=== PATIENT | female | born 1935 | race Caucasian/White ===

== ENCOUNTER 2016-10-25 15:58 | Inpatient (IN) | payer OTHER, MEDICARE ==
[~2016-10-25] VITALS: Ht 149.9 cm; Wt 41.3 kg
[~2016-10-25 15:58] MED LIST: ALPRAZOLAM0.5 MG PO; LOPRESSOR 25MG25 MG PO; MACROBID100 MG PO; NORVASC 5MG TAB5 MG PO; PANTOPRAZOLE SO20 MG PO; PROAIR HFA0.09 MG/Ac PO; SIMVASTATIN10 MG PO; VITAMIN D1000 IU PO
--- NOTE | 2016-10-25 16:06 | NUR ---
PT TO ED FOR AMS, PT ONLY ALERT TO SELF, NORMALLY ALERT AND ORIENTED X 4, PT UNABLE TO VERBALIZE BIRTHDAY, WHERE SHE IS RIGHT NOW. PER FRIEND, PT "SOUNDED FUNNY ON THE PHONE LAST NIGHT BUT SHE JUST SAID SHE WAS TIRED, I CHECKED ON HER TODAY AND SHES COMPLETELY DISORIENTED."
--- NOTE | 2016-10-25 16:27 | ED GENERAL ADULT ---
History of Present Illness General Chief Complaint: Altered Mental Status Stated Complaint: AMS SINCE LAST NIGHT Source: patient Exam Limitations: no limitations Vital Signs & Intake/Output Vital Signs & Intake/Output Vital Signs Date Time Temp Pulse Resp B/P Pulse O2 O2 Flow FiO2 Ox Delivery Rate 10/29 0958 114/60 10/29 0859 Room Air 10/29 0800 97.0 90 20 110/52 94 Room Air 10/29 0000 Room Air 10/28 2040 84 112/40 10/28 1619 97.6 76 17 111/42 95 Room Air 10/28 1600 95 Room Air ED Intake and Output 10/29 0000 10/28 1200 Intake Total 930 100 Output Total 800 300 Balance 130 -200 Intake, IV 80 Intake, Oral 850 100 Number 1 Bowel Movements Output, Urine 800 300 Patient 90 lb 15.19 oz Weight Allergies Coded Allergies: Penicillins (UNKNOWN 08/19/16) Triage Note: PT TO ED FOR AMS, PT ONLY ALERT TO SELF, NORMALLY ALERT AND ORIENTED X 4, PT UNABLE TO VERBALIZE BIRTHDAY, WHERE SHE IS RIGHT NOW. PER FRIEND, PT "SOUNDED FUNNY ON THE PHONE LAST NIGHT BUT SHE JUST SAID SHE WAS TIRED, I CHECKED ON HER TODAY AND SHES COMPLETELY DISORIENTED." Triage Nurses Notes Reviewed? yes HPI: This patient is an 81-year-old female with a past medical history including hyperlipidemia, hypertension, COPD, and hyponatremia who is brought into the emergency department by ambulance for evaluation of altered mental status. The patient's long-time friend is currently at the bedside. The patient's friend reported, "I talked to her on the phone, maybe 5-10 times a day." She reported that last night when she called this patient, the patient stated that she was tired. She called the patient this morning and the patient said that she was still tired. She tried calling the patient a little while later and got the answering machine. She reported that this is not normal for this patient because she is typically at her house and she thinks for maybe 10 minutes once a day to get her lottery ticket at the corner store. The patient picked up the phone later and said that she was still not feeling well. At this time, the patient's friend reported that she sounded like she was mumbling and may be slurring her words. The patient's friend was at work at that time, so she called the police around 1:00 in the afternoon to go check the patient. They called back and said, "she was fine." The patient's friend saw the patient catheter work and reported she knew something was wrong. She reported that she was very disoriented and she did not know where she was. She reported that this patient is normally very confident. She walks and drives without assistance. The patient lives at home by herself. The patient is denying any pain. She reported, "I just feel lousy." She reported that her left leg, "felt funny," today. She denied any headaches, visual changes, chest pain, difficulty breathing, abdominal pain, nausea, vomiting, or any other associated symptoms. (TAYLOR NOBLES PA-C) Reconcile Medications Alprazolam 0.25 MG TABLET 1 TAB PO BID PRN ANXIETY (Reported) Amlodipine (Norvasc 5MG Tab) 5 MG TABLET 1 TAB PO DAILY HYPERTENSION ( Reported) Apixaban (Eliquis) 2.5 MG TABLET 1 TAB PO BID anticoagulant Atorvastatin Calcium 40 MG TABLET 1 TAB PO 1700 High cholestrol Cholecalciferol (Vitamin D3) 1,000 UNIT TABLET 1 TAB PO DAILY SUPPLEMENT ( Reported) Metoprolol Tartrate (Lopressor) 25 MG TABLET 1 TAB PO BID HTN (Reported) Pantoprazole Sodium 20 MG ECT 1 TAB PO DAILY GI (Reported) Simvastatin (Zocor) 10 MG TABLET 1 TAB PO QPM CHOLESTEROL (Reported) (SAMIA ZIMMERMAN,VICENTE) Past History Travel History Traveled to [place] past 21 day No Medical History Any Pertinent Medical History? 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 No (TAYLOR NOBLES PA-C) Review of Systems Review of Systems Constitutional: Reports: see HPI. EENTM: Reports: no symptoms. Respiratory: Reports: no symptoms. Cardiovascular: Reports: no symptoms. GI: Reports: no symptoms. Genitourinary: Reports: no symptoms. Musculoskeletal: Reports: no symptoms. Skin: Reports: no symptoms. Neurological/Psychological: Reports: see HPI. All Other Systems: Reviewed and Negative (GIULIANO SALDANA,TAYLOR) Physical Exam Physical Exam General Appearance: well developed/nourished, no apparent distress, alert, awake Comments: Well-developed well-nourished person in no acute distress HEENT: Normal EENT exam, head normocephalic/atraumatic, moist mucous membranes PERRLA bilaterally Neck: Supple, no lymphadenopathy Back: Normal inspection. No midline tenderness Cardiovascular: Regular rate and rhythm with no murmurs, rubs, or gallops. No JVD. No carotid bruits Respiratory: Chest nontender. No respiratory distress. Scattered expiratory wheezes in the apices. No rhonchi or rales. No diminished breath sounds Abdomen: Soft, nontender and nondistended with no organomegaly Extremity: No edema, no calf tenderness to palpation, normal and equal pulses. Neuro: Alert oriented to person only. Cranial nerves II through XII grossly intact. No aphasia. No unilateral weakness. Left-sided facial droop noted. No pronator drift Skin: No appreciable rash on exposed skin, skin is warm and dry. Psych: Mood and affect is normal Core Measures ACS in differential dx? Yes CVA/TIA Diagnosis: Yes Severe Sepsis Present: No Septic Shock Present: No (GIULIANO SALDANA,TAYLOR) Progress Differential Diagnoses I considered the following diagnoses in my evaluation of the patient: [TIA/CVA, ACS, pneumonia, urinary tract infection, pyelonephritis, influenza, encephalitis ] Plan of Care: Orders Procedure Date/time Status MAGNESIUM 10/29 0854 Active Therapeutic Exercise 10/28 UNK Complete Gait Training 10/28 UNK Complete Therapeutic Activity 10/28 UNK Complete OT EVAL LOW COMPLEX 30 MIN 10/28 UNK Complete Nursing Misc 10/28 UNK Active Current Medications Sig/Aspen Start time Last Medication Dose Stop Time Status Admin Acetaminophen 650 MG Q6 PRN 10/25 2100 AC (Tylenol) Laboratory Tests 10/28/16 1930: APTT Cancelled Patient seen and examined with YANETH Nobles. Patient presents with acute confusion and word finding difficulties. CT scan is negative for strep but I strongly feel she has had a neurologic event. She'll be admitted to telemetry under Dr. Coronel's service for MRI, neuro consultation. (SAMIA ZIMMERMAN,VICENTE) Diagnostic Imaging: Viewed by Me: Radiology Read, CT Scan. Discussed w/RAD: Radiology Read, CT Scan. Radiology Impression: PATIENT: NATHALIE MCKEON PRESENT AGE: 81 PATIENT ACCOUNT NO: [id number] : 33 LOCATION: ER ORDERING PHYSICIAN: TAYLOR NOBLES PA-C SERVICE DATE: 10/25/16 EXAM TYPE: CAT - CT HEAD WO IV CONTRAST EXAMINATION: CT HEAD WITHOUT CONTRAST CLINICAL INFORMATION: Altered mental status. Evaluate for intracranial hemorrhage or mass. COMPARISON: CT scan of the head 07/23/2012. TECHNIQUE: Contiguous axial imaging was performed from the skull base to vertex without intravenous administration of contrast. DLP: 529.16 mGy-cm. FINDINGS: There is no acute intracranial hemorrhage or abnormal extra-axial collection. No intracranial mass effect or midline shift. Lateral and third ventricles are normal. No hydrocephalus. There is a chronic lacunar infarct within the right thalamus that remains unchanged when compared to the 07/23/2012 examination. Ill-defined foci of hypoattenuation are visualized throughout the periatrial white matter that most likely represent a chronic manifestation of small vessel ischemia. Connelly- white matter differentiation is grossly preserved and there is no evidence of acute territorial infarct. The calvarium and skull base are intact. Mastoid air cells and middle ear cavities are well aerated. Fluid layers within both maxillary sinuses. The paranasal sinuses are otherwise well aerated. IMPRESSION: There are scattered nonspecific changes within the periventricular white matter that most likely represent a chronic manifestation of small vessel ischemia. No evidence of acute territorial infarct or hemorrhage. DICTATED BY: HERBERT SCHULTZ MD DATE/TIME DICTATED:10/25/161647 CHAIR CANER:VITA DATE/ TIME TRANSCRIBED:10/25/161647 CONFIDENTIAL, DO NOT COPY WITHOUT APPROPRIATE AUTHORIZATION. <Electronically signed in Other Vendor System> SIGNED BY: HERBERT SCHULTZ MD 10/25/161654, PATIENT: NATHALIE MCKEON PRESENT AGE: 81 PATIENT ACCOUNT NO: [id number] : 33 LOCATION: [facility] ORDERING PHYSICIAN: TAYLOR NOBLES PA-C SERVICE DATE: 10/25/16 EXAM TYPE: RAD - XRY-CHEST XRAY, PA AND LATERAL EXAMINATION: XR CHEST CLINICAL INFORMATION: Signs and symptoms of pneumonia. COMPARISON: 06/30/2015. TECHNIQUE: PA and lateral views of the chest were obtained. FINDINGS: Heart appears enlarged. Exam was somewhat rotated towards the right side with a tortuous descending thoracic aorta. There is moderate atherosclerotic changes in the aorta. The cardiomediastinal silhouette is otherwise within normal limits. The lungs remain hyperexpanded and clear without evidence of a focal infiltrate or significant atelectasis. No pleural effusion is seen. There is no evidence of pneumothorax or pulmonary edema. Included osseous structures appear osteopenic. IMPRESSION: Moderate COPD changes without evidence of an acute intrathoracic process. The heart appears mildly enlarged DICTATED BY: JAMIA PEARSON MD DATE /TIME DICTATED:10/25/161701 CHAIR CANER:VITA DATE/TIME TRANSCRIBED: 10/25/161701 CONFIDENTIAL, DO NOT COPY WITHOUT APPROPRIATE AUTHORIZATION. < Electronically signed in Other Vendor System> SIGNED BY: JAMIA PEARSON MD 10/25/161709 Initial ED EKG: normal axis, LVH, no ST T wave changes, 66 BPM, SINUS ARRHYTHMIA Comments: 10/25/2016 7:00:59 PM: After data was at the patient's bedside [id number] evaluation. This patient will need to be admitted to telemetry to rule out TIA/ CVA. Officially signed out to Dr. Whitaker for telemetry admission. (GIULIANO SALDANA,TAYLOR) Differential Diagnoses I considered the following diagnoses in my evaluation of the patient: (SAMIA ZIMMERMAN,VICENTE) Departure Departure Condition: Stable Referrals: TORIBIO LOO MD (PCP/Family) Departure Forms: Customer Survey General Discharge Information Admission Note Spoke With: ADRIANNE CORONEL MD Documentation of Exam: Documentation of any treatments & extenuating circumstances including Concerns Regarding Discharge (functional status, medication knowledge or non-compliance, living conditions, etc.) that warrant an admission rather than observation: [ This patient is an 81-year-old female who presented to the emergency department today brought in by ambulance for evaluation of altered mental status. This patient has a left-sided facial droop. Having difficulty with word finding. Slurred speech according to this patient's friend. This patient will need to be admitted to the hospital to telemetry to rule out TIA/CVA. She will need MRI of the brain, neurology consultation, Trend labs, follow-up blood cultures, IV fluids, PT consultation, and close monitoring. Premature discharge could prove medically harmful.] (GIULIANO SALDANA,TAYLOR) Departure Time of Disposition: 1924 Disposition: STILL A PATIENT Clinical Impression Primary Impression: CVA (cerebral vascular accident) Prescriptions: Current Visit Scripts Atorvastatin Calcium 1 TAB PO 1700 #30 Apixaban (Eliquis) 1 TAB PO BID #30 PA/FRUIT DISTRIBUTOR Co-Sign Statement Statement: ED Attending supervision documentation- [X] I saw and evaluated the patient. I have also reviewed all the pertinent lab results and diagnostic results. I agree with the findings and the plan of care as documented in the PA's/FRUIT DISTRIBUTOR's documentation. [X] I have reviewed the ED Record and agree with the PA's/FRUIT DISTRIBUTOR's documentation. [] Additions or exceptions (if any) to the PAs/FRUIT DISTRIBUTOR's note and plan are summarized below: [] (SAMIA ZIMMERMAN,VICENTE) Critical Care Note Critical Care Note Critical Care Time: non-applicable (GIULIANO SALDANA,TAYLOR)
[2016-10-25 16:37] LABS: ABSOLUTE BASOPHIL COUNT 0 /CUMM (0.0-0.2); ABSOLUTE EOSINOPHIL COUNT 0 /CUMM (0.0-0.7); ABSOLUTE GRANULOCYTE CT 8.6 /CUMM (1.4-6.5); ABSOLUTE LYMPH COUNT 1.8 /CUMM (1.2-3.4); ABSOLUTE MONOCYTE COUNT 1.7 /CUMM (0.10-0.60); BASOPHIL % 0.3 % (0.0-2.0); EOSINOPHIL % 0 % (0-5); GRANULOCYTE % 71.5 % (42.2-75.2); HEMATOCRIT 30.9 % (37-47); MEAN CORPUSCULAR HGB 29.9 PG (27.0-31.0); MEAN CORPUSCULAR HGB CONC 33.9 G/DL (33.0-37.0); MEAN CORPUSCULAR VOLUME 88.1 FL (81.0-99.0); PLATELET COUNT 286 /CUMM (130-400); RBC DISTRIBUTION WIDTH 14.6 % (11.5-14.5); RED BLOOD CELL CT 3.51 /CUMM (4.20-5.40); WHITE BLOOD CELL COUNT 12.1 /CUMM (4.8-10.8)
--- NOTE | 2016-10-25 16:55 | CT SCAN REPORT ---
EXAMINATION: CT HEAD WITHOUT CONTRAST CLINICAL INFORMATION: Altered mental status. Evaluate for intracranial hemorrhage or mass. COMPARISON: CT scan of the head 07/23/2012. TECHNIQUE: Contiguous axial imaging was performed from the skull base to vertex without intravenous administration of contrast. DLP: 529.16 mGy-cm. FINDINGS: There is no acute intracranial hemorrhage or abnormal extra-axial collection. No intracranial mass effect or midline shift. Lateral and third ventricles are normal. No hydrocephalus. There is a chronic lacunar infarct within the right thalamus that remains unchanged when compared to the 07/23/2012 examination. Ill-defined foci of hypoattenuation are visualized throughout the periatrial white matter that most likely represent a chronic manifestation of small vessel ischemia. Connelly-white matter differentiation is grossly preserved and there is no evidence of acute territorial infarct. The calvarium and skull base are intact. Mastoid air cells and middle ear cavities are well aerated. Fluid layers within both maxillary sinuses. The paranasal sinuses are otherwise well aerated. IMPRESSION: There are scattered nonspecific changes within the periventricular white matter that most likely represent a chronic manifestation of small vessel ischemia. No evidence of acute territorial infarct or hemorrhage.
--- NOTE | 2016-10-25 17:10 | RADIOLOGY REPORT ---
EXAMINATION: XR CHEST CLINICAL INFORMATION: Signs and symptoms of pneumonia. COMPARISON: 06/30/2015. TECHNIQUE: PA and lateral views of the chest were obtained. FINDINGS: Heart appears enlarged. Exam was somewhat rotated towards the right side with a tortuous descending thoracic aorta. There is moderate atherosclerotic changes in the aorta. The cardiomediastinal silhouette is otherwise within normal limits. The lungs remain hyperexpanded and clear without evidence of a focal infiltrate or significant atelectasis. No pleural effusion is seen. There is no evidence of pneumothorax or pulmonary edema. Included osseous structures appear osteopenic. IMPRESSION: Moderate COPD changes without evidence of an acute intrathoracic process. The heart appears mildly enlarged
--- NOTE | 2016-10-25 17:11 | NUR ---
PT HAS IV NS INFUSING
--- NOTE | 2016-10-25 18:56 | NUR ---
PT COMPLETED IV NS AND RESTING, NOW A/O X2 TO SELF AND PLACE
--- NOTE | 2016-10-25 19:28 | NUR ---
ASSUMED CARE OF PT PER SCIENTIFIC RECRUITER TORSTEN. PT RESTING WITH RR, WILL CONTINUE TO MONITOR
--- NOTE | 2016-10-25 19:38 | History & Physical ---
CARLYLE ZIMMERMAN,[facility] [place] 10/25/161936: General Information and [facility] MD Statement: I have seen and personally examined NATHALIE MCKEON and documented this H&P. The patient is a 81 year old F who presented with a patient stated chief complaint of confusion. Source of Information: patient, old records Exam Limitations: clinical condition, confusion History of Present Illness: 81 y/o F with PMHx of HTN, HLD, COPD, pulmonary HTN, alcohol abuse in the past, chronic hyponatremia, anxiety and GERD who is brought in by her friend for acute onset of confusion. Most of the history is obtained from ED notes and patient's friend as patient is unable to provide accurate history. The night prior to current presentation, her long-time friend, who talks to her 5-6 times per day on a regular basis and is her next of kin, noticed that patient sounded confused over the phone. The next morning, her confusion was more noticeable over the phone and her speech was "garbled". Her friend called the police around 1 PM to check on the patient who found her to be fine after evaluation. She later went over to patient's apartment where she lives by herself to check up on her. She noted that patient was very disoriented and had defecated on herself, thus decided to bring her to the ED. In the ED, patient appeared confused and had expressive aphasia, and there was noone else at bedside to provide history. She appeared to have a left-sided facial droop. Patient reported that she had been unsteady on her feet for the past few days and experiencing speech difficulties, forgetfulness and vision problems. She denied chest pain, shortness of breath, lightheadedness, dizziness or headache. Patient lives at home by herself and does not get any services. Patient's friend has noted that for the past 6 months, she has deteriorated from her baseline. She has been eating very little and has lost 20 pounds in the last 2 years. Patient is an anxious person at baseline per her friend, but she has noted that patient is exceedingly anxious during this time. She reports that patient is a "nervous wreck" and is afraid to leave home to go to the store. She thinks that patient may be depressed. For the past week, she has been having a slight cough. Allergies/Medications Allergies: Coded Allergies: Penicillins (UNKNOWN 08/19/16) Home Med list Alprazolam 0.25 MG TABLET 1 TAB PO BID PRN ANXIETY (Reported) Amlodipine (Norvasc 5MG Tab) 5 MG TABLET 1 TAB PO DAILY HYPERTENSION ( Reported) Cholecalciferol (Vitamin D3) 1,000 UNIT TABLET 1 TAB PO DAILY SUPPLEMENT ( Reported) Metoprolol Tartrate (Lopressor) 25 MG TABLET 1 TAB PO BID HTN (Reported) Pantoprazole Sodium 20 MG ECT 1 TAB PO DAILY GI (Reported) Simvastatin (Zocor) 10 MG TABLET 1 TAB PO QPM CHOLESTEROL (Reported) Past History Travel History Traveled to [place] past 21 day No Medical History Neurological: NONE EENT: NONE Cardiovascular: hypertension, hyperlipidemia, pulmonary HTN Respiratory: COPD, lung nodule Gastrointestinal: GERD Hepatic: NONE Renal: NONE Musculoskeletal: NONE Psychiatric: anxiety, alcohol abuse Endocrine: osteoporosis, hyponatremia Blood Disorders: NONE Cancer(s): NONE CLOTH DYEING RANGE TENDER/Reproductive: NONE Surgical History Surgical History: non-contributory Past Family/Social History Family History Relations & Conditions if any SISTER FH: Alzheimers disease BROTHER FH: throat cancer Psychosocial History Where do you live? Home Who Do You Live With? self Services at Home: None Primary Language: Cymraes Smoking Status: Former Smoker (Quit >25 Years Ago) ETOH Use: denies use (history of alcohol abuse) Illicit Drug Use: denies illicit drug use Functional Ability ADLs Independent: dressing, eating, toileting, bathing. IADLs Independent: shopping, housework, finances, food prep, telephone, transportation , medication admin. 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 Denies: chills, fever. EENTM: Reports: visual changes. Cardiovascular: Denies: chest pain. Respiratory: Denies: short of breath. GI: Reports: bowel incontinence. Genitourinary: Reports: no symptoms. Musculoskeletal: Reports: no symptoms. Skin: Reports: no symptoms. Neurological/Psychological: Reports: see HPI, anxiety (per her friend), confusion, depressed (per her friend ). Denies: headache. Hematologic/Endocrine: Reports: no symptoms. Immunologic/Allergic: Reports: no symptoms. All Other Systems: Reviewed and Negative Exam & Diagnostic Data Last 24 Hrs of Vital Signs/I&O Vital Signs Date Time Temp Pulse Resp B/P Pulse O2 O2 Flow FiO2 Ox Delivery Rate 10/26 0841 98.4 68 18 106/50 93 Room Air 10/25 2143 97.6 58 18 102/54 94 Room Air 10/25 2044 96.4 62 18 106/58 96 Room Air 10/25 1910 96.4 60 18 101/49 94 10/25 1606 98.0 71 18 99/57 94 Room Air Intake & Output 10/26 1600 10/26 0800 10/26 0000 Intake Total 600 1000 Output Total 700 Balance 600 300 Intake, IV 600 1000 Intake, Oral 0 0 Output, Urine 700 Patient 40.8 kg Weight Physical Exam General Appearance Alert, Oriented to Person and Place, but Not Time, Able to Follow Commands Skin No Rashes HEENT PERRLA, Mucous Membr. moist/pink Cardiovascular Regular Rate, Normal S1, Normal S2 Lungs Clear to Auscultation Abdomen Soft, Nondistended, Positive Bowel Sounds, Mild Suprapubic Discomfort Neurological Left-Sided Facial Droop, Strength at 4/5 at All Four Extremities, Word Finding Difficulties and Expressive Aphasia Extremities No Clubbing, No Cyanosis, No Edema Last 24 Hrs of Labs/John: Laboratory Tests 10/26/16 0655: Anion Gap 7, Estimated GFR > 60, BUN/Creatinine Ratio 15.0, CBC w Diff NO MAN DIFF REQ, RBC 3.15 L, MCV 89.0, MCH 30.1, RDW 14.2, MPV 7.7, Gran % 80.1 H, Lymphocytes % 10.1 L, Monocytes % 9.4 H, Eosinophils % 0.3, Basophils % 0.1, Absolute Granulocytes 7.5 H, Absolute Lymphocytes 1.0 L, Absolute Monocytes 0.9 H, Absolute Eosinophils 0, Absolute Basophils 0, PUBS MCHC 33.8 10/25/166: Lactic Acid Cancelled 10/25/16 1735: Barbiturate Screen < 60, Urine Color YEL, Urine Clarity CLEAR, Urine pH 6.0, Ur Specific [place] 1.010, Urine Protein NEG, Urine Ketones NEG, Urine Nitrite NEG, Urine Bilirubin NEG, Urine Urobilinogen 0.2, Ur Leukocyte Esterase SMALL H, Ur Microscopic SEDIMENT EXAMINED, Urine RBC RARE, Urine WBC 5-10 H, Ur Epithelial Cells RARE, Urine Hemoglobin NEG, Urine Glucose NEG 10/25/16 1624: Lactic Acid 0.9 10/25/16 1624: Anion Gap 12, Estimated GFR 47 L, BUN/Creatinine Ratio 13.6, Glucose 96, Calcium 8.6, Total Bilirubin 1.0, AST 17, ALT 18, Alkaline Phosphatase 70, Troponin I 0.02, Total Protein 7.0, Albumin 3.4 L, Globulin 3.6, Albumin/ Globulin Ratio 0.9 L, CBC w Diff NO MAN DIFF REQ, RBC 3.51 L, MCV 88.1, MCH 29.9, RDW 14.6 H, MPV 7.0 L, Gran % 71.5, Lymphocytes % 14.5 L, Monocytes % 13.7 H, Eosinophils % 0, Basophils % 0.3, Absolute Granulocytes 8.6 H, Absolute Lymphocytes 1.8, Absolute Monocytes 1.7 H, Absolute Eosinophils 0, Absolute Basophils 0, PUBS MCHC 33.9 Microbiology 10/25 1753 BLOOD: Blood Culture - RECD 10/25 1740 BLOOD: Blood Culture - RECD 10/25 1735 URINE ROUT: Urine Culture - RECD Diagnostic Data EKG Results Normal sinus rhythm Heart rate 66 No significant change from prior QTc 441 CXR Results Moderate COPD changes without evidence of an acute intrathoracic process. The heart appears mildly enlarged. Other Results CT HEAD: There are scattered nonspecific changes within the periventricular white matter that most likely represent a chronic manifestation of small vessel ischemia. No evidence of acute territorial infarct or hemorrhage. Assessment/Plan Assessment: 81 y/o F with PMHx of COPD, HTN and HLD who presents with confusion. #Confusion: Likely represents CVA or TIA in the setting of left-sided facial droop, expressive aphasia and word finding difficulties. CT Head with chronic changes consistent with small vessel ischemia but no acute infarct. Patient is past the window for TPA as symptoms started almost 1 day ago. * Neurology consult in the AM. Appreciate their recs. * Neuro checks Q6H. * Carotid Doppler US to evaluate for carotid artery stenosis. * ECHO to assess for embolic source. * MRI Brain W & W/O RADHA ordered to evaluate for acute infarct. * Check lipid panel. * PT/OT eval. * NPO pending official swallow eval. * Aspirin 81 mg PO QD and atorvastatin 40 mg PO QD. * Allow for permissive HTN in the setting of suspected stroke with SBP goal of > 150. #UTI: UA with positive leukocyte esterase and 5-10 WBCs, mild suprapubic discomfort on exam and leukocytosis (WBC 12.1) suspicious for UTI. * BCx and UCx ordered. * Start ceftriaxone 1 g IV QD. * Gentle hydration with NS @ 75 cc/hr. #HTN: Takes amlodipine 5 mg PO QD and metoprolol 25 mg PO BID. * Holding prior to admission anti-hypertensive medications in light of permissive HTN goal. #COPD: Not on home oxygen. History of significant smoking up to 1.5 PPD, but quit >25 years ago. * Albuterol PRN. GERD: On pantoprazole 20 mg PO QD at home. * Prilosec 20 mg PO AC. Diet: NPO Fluids: NS @ 75 cc/hr DVT PPx: HSQ and ALPs CODE: DNR/DNI As Ranked By This Provider Problem List: 1. Confusion 2. UTI (urinary tract infection) 3. HTN (hypertension) 4. COPD (chronic obstructive pulmonary disease) 5. GERD 6. Hyperlipidemia Core Measures/Miscellaneous Acute Coronary Syndrome ACS Diagnosis: No Cerebrovascular Accident CVA/TIA Diagnosis: Yes NIH Stroke Scale: Total 4 Date Last Known Well: 10/24/16 Time Last Known Well: 0000 (Unknown) Neurological S/S of CVA: Acute Confusion, Difficulty Speaking, Facial Hemiparesis, Slurred Speech Symptom Start Date: 10/24/16 Symptom Start Time: 0000 (At Night) Reason tPA not ordered Medical Contraindication (Past the Window) Bedside Swallow Eval Done: Yes Result of Evaluation: Pass Antithrombotic: Yes AFIB: No Aflutter: No Anticoagulant: No No Anticoag d/t: Medical Contraindication (No Evidence of Embolic Disease) Evidence of Atherosclerosis: Yes LDL Assessed Within 24 Hours: Yes Currently on Statin: Yes Rehab Needs Assessed: Medical Eval for Rehab (PT/OT Eval Ordered) PT Consult Ordered: Yes Congestive Heart Failure CHF Diagnosis: No Venous Thromboembolism VTE Risk Factors: Acute medical illness, Age > 40 VTE Prophylaxis Ordered Inpt: Mech & Pharm No Mech VTE prophylaxis d/t: No contraindications No VTE Pharm Prophylaxis d/t: No contraindications VTE Diagnosis: No VTE Type: NONE VTE Confirmed by (Test): NONE Severe Sepsis Severe Sepsis Present: No Septic Shock Septic Shock Present: No Miscellaneous Documentation Attending Case Discussed With: ADRIANNE CATALAN MD Primary Care Physician: TORIBIO LOO MD Patient sees these Specialists Mobile Ui Developer Asim Vergara MD Mental Health Associate Donna Forte MD Level of Patient Care: Telemetry [facility] NAPIER 10/25/162024: Resident Review Statement Resident Statement: examined this patient, discussed with risk intern, agreed with risk intern Other Findings: Patient is a 81-year-old woman with a past medical history significant for hypertension, hyperlipidemia, COPD, chronic hyponatremia(Primary polydipsia) presented to the ED with chief complaint of confusion, facial droop with weakness and pathology this morning. On the time of examination patient was alert and awake, could not able to express herself so most of the history was obtained from the friend and ED staff. As per friend, patient was feeling weak and lethargic since last night and today when she called her in the morning, she still reported weakness and lethargy and was mumbling on the phone. As per her friend's request the police checked upon her and reported that she was normal. The friend went to see her by herself after work and found her confused, not able to remember her date of breath with some left-sided facial droop and was brought to the ER for further assessment. In the ED patient denied any headaches/dizziness/lightheadedness. She mentioned that for 1 or 2 days she's been feeling very weak and lethargic, could not able to maintain her balance, never had a fall. She was trouble finding words on speaking. Patient denied any visual changes, chest pain, difficulty breathing, abdominal pain, nausea, vomiting, or any other associated symptoms. Of the note, patient recently had a flex sigmoidoscopy done in August 2016 that showed sigmoid diverticular disease Vitals on admission temperature 98.0, pulse 71, respiratory rate 18, blood pressure 99/57 on room air General Appearance: Alert, No Acute Distress, left-sided facial droop Skin: Grossly normal HEENT: PEERLA Neck: Supple, No JVD Cardiovascular: Regular Rate, Normal S1, Normal S2, No Murmurs Lungs: Lungs clear to examination bilaterally Abdomen: Normal Bowel Sounds, Soft, positive suprapubic tenderness Neurological: Expressive aphasia , with left-sided facial droop , decreased strength on the right upper extremity .Strength at 5/5 in the left upper extremity and bilaterally in the lower extremities, Reflexes 2+ Extremities: No Clubbing, No Cyanosis, No Edema Vascular: Normal Pulses. Pertinent labs on admission The [employer] count 12.1, H&H 10.5/30.9, sodium 132 with a baseline 133 creatinine 1.1 , lactic acid 0.9, urinalysis showed small leukocyte esterase. CAT scan of the head :There are scattered nonspecific changes within the periventricular white matter that most likely represent a chronic manifestation of small vessel ischemia. No evidence of acute territorial infarct or hemorrhage. Chest x-ray:Moderate COPD changes without evidence of an acute intrathoracic process. The heart appears mildly enlarged. Assessment and plan: 1. Acute left-sided facial droop with slurred speech(expressive aphasia), possible TIA/stroke * We will admit the patient to telemetry floor. * Patient passed bedside swallow evaluation, will keep her nothing by mouth overnight to get formal swallow evaluation in the morning. * Blood pressure continues to remain borderline, hold off any antihypertensive for now, per med permissive hypertension to keep blood pressure more than 150. * Consider antihypertensives if blood pressure remains elevated above 220. * we will give loading dose of aspirin 325 and Lipitor 40 mg. * Neurochecks every 2 hours * Inform neurology in the morning * PT/OT consult in the morning. 2. Positive suprapubic tenderness with urine analysis positive for leukocyte Estrace possible urinary tract infection * Urine culture and Blood cultures have been sent. * We'll start the patient on IV ceftriaxone * Continue gentle hydration 3.. History of GERD * Continued PPI. 4. History of anxiety and depression * continue home dose of Xanax as needed for anxiety hold if patient becomes drowsy. 5. DVT prophylaxis with heparin 6. Mild to moderate pain controlled with Tylenol. 7. Patient is DNR/DNI ADRIANNE CATALAN 10/26/16 0428: Attending MD Review Statement Attending Statement Attending MD Statement: examined this patient, discuss w/resident/PA/FABRICATION OPERATOR, agreed w/resident/PA/FABRICATION OPERATOR, reviewed EMR data (avail), reviewed images, amended to note Attending Assessment/Plan: Chief complaint: Confusion PMH: COPD, chronic hyponatremia, HTN, HLD, pulmonary hypertension. Patient was brought in by her friend for confusion, disorientation, speech difficulty and left-sided facial droop, the symptoms started a night before of admission and progressively worsened the next day. Patient's friend called her night before when patient reported being tired, next morning patient was not sounding appropriate on phone so she went to check on patient when she found patient being confused. Patient also complains of some gait abnormality, vision problems and forgetfulness since last 1 week. Patient has expressive aphasia and his poor historian, no family or friend at bedside. Vitals: Afebrile, HR, RR, BP, O2 saturation within acceptable range. On exam: Alert, oriented 1, ?left-sided facial droop at presentation in ER, patient understands the instructions and follows them but word finding difficulty and intermittent expressive aphasia. Strength 4+ /5, in all extremities. CVS: S1-S2, RRR. RS: Clear air entry bilaterally present. Abdomen: Soft, NT, ND, bowel sounds present. No dependent edema. No evidence of skin rashes or inflammation. Labs: WBC 12.1, hemoglobin 10.5, lactate 0.9, UA positive for leukocyte esterase. Otherwise CBC, BMP, LFT unremarkable. EKG: Sinus rhythm. CXR: No acute processes, mildly enlarged heart. CT head: Scattered nonspecific changes within the periventricular white matter, represents chronic manifestation of small vessel ischemia A and P #1 TIA Vs Stroke : Admit on telemetry, MRI brain with and without contrast, carotid Doppler, 2-D echo, lipid profile, IV fluids NS 75 mL per hour, neurochecks every 6 hours, neurologic consult. Patient needs swallow evaluation in morning. Continue aspirin 325, atorvastatin 40 mg by mouth daily. OT PT evaluation in a.m. #2 UTI: UA suggestive of UTI, leukocytosis present, given her presentation as confusion, continue ceftriaxone, get urine culture, blood culture, gentle hydration. #3 hold antihypertensive medications for permissive hypertension. #4 history of COPD: Continue when necessary albuterol nebulizations. #5 DVT prophylaxis
--- NOTE | 2016-10-25 20:02 | NUR ---
GAIL STAFF AT BEDSIDE BRIDGETTE ENRIQUE
--- NOTE | 2016-10-25 20:17 | NUR ---
BED ASSIGNMENT [id number]
--- NOTE | 2016-10-25 21:04 | NUR ---
REPORT GIVEN TO BILLET ASSEMBLER. TRANSPORT CALLED. PT TO US.
--- NOTE | 2016-10-25 21:34 | ULTRASOUND REPORT ---
US DUPLEX CAROTID AND VERTEBRAL CLINICAL INFORMATION: Left-sided facial droop with slurred speech. COMPARISON: None available. TECHNIQUE: Real-time ultrasound and Doppler techniques (integrating B-mode 2D vascular images, Doppler spectral analysis and color flow Doppler imaging) were utilized to interrogate the extracranial carotid and vertebral arteries bilaterally. The degree of stenosis determined by criteria similar to NASCET. FINDINGS: Right common carotid artery peak systolic velocities range between 62 and 65 cm/s with maximal end-diastolic velocity of 19 cm/s. Right internal carotid artery peak systolic velocities range between 77 and 110 cm/s with maximal end-diastolic velocity of 22 cm/s. There is atherosclerotic disease of the right carotid bifurcation. Right external carotid artery peak systolic velocity is 64 cm/s. There is antegrade flow within the right vertebral artery. Left common carotid artery peak systolic velocities range between 73 and 88 cm/s with maximal end-diastolic velocity of 15 cm/s. Left internal carotid artery peak systolic velocities range between 69 and 101 cm/s with maximal end-diastolic velocity of 25 cm/s. Atherosclerotic calcification of the left carotid bifurcation. Left external carotid artery peak systolic velocity is 79 cm/s. There is antegrade flow within the left vertebral artery. IMPRESSION: There is atherosclerotic disease involving the carotid bifurcations bilaterally with no hemodynamically significant stenosis involving the internal carotid arteries by sonographic criteria.
[2016-10-25 21:43] VITALS: BP 102/54
--- NOTE | 2016-10-26 04:30 | Admission Certification ---
Admission Certification Certification Statement - As attending physician, I certify that at the time of - admission, based on clinical presentation, severity of - symptoms, need for further diagnostic testing and - therapeutic interventions, and risk of adverse outcomes - without in-hospital treatment, in my clinical assessment, - this patient requires an acute hospital stay for a minimum - of two nights or longer. I have also considered psychsocial - factors such as support system, advanced age, financial - issues, cognitive issues, and failed out-patient treatments, - past re-admission history, safety of patient, and lack of - compliance as applicable. Specific rationale supporting this admission is: CVA
--- NOTE | 2016-10-26 07:26 | PN- Housestaff ---
BARRINGTON NAPIER 10/26/16 0725: Subjective Follow-up For: Acute left-sided facial droop with slurred speech(expressive aphasia), possible TIA/stroke Subjective: Patient seen and examined today, seems slightly better still has expressive aphasia with residual left-sided facial droop. Patient is currently nothing by mouth for formal swallow evaluation in the morning. She will be seen by neurology in the morning. Review of Systems Constitutional: Denies: chills, diaphoresis. EENTM: Denies: blurred vision, double vision, visual changes. Cardiovascular: Denies: chest pain, edema. Respiratory: Denies: cough, hemoptysis, orthopnea. Gastrointestinal: Denies: bloating, constipation, distention. Objective Last 24 Hrs of Vital Signs/I&O Vital Signs Date Time Temp Pulse Resp B/P Pulse O2 O2 Flow FiO2 Ox Delivery Rate 10/25 2143 97.6 58 18 102/54 94 Room Air 10/25 2044 96.4 62 18 106/58 96 Room Air 10/25 1910 96.4 60 18 101/49 94 10/25 1606 98.0 71 18 99/57 94 Room Air Intake & Output 10/26 0800 10/26 0000 10/25 1600 Intake Total 600 1000 Output Total 700 Balance 600 300 Intake, IV 600 1000 Intake, Oral 0 0 Output, Urine 700 Patient 89 lb 15.99 oz Weight Physical Exam General Appearance: Alert, Oriented X3 Skin: No Rashes, No Breakdown HEENT: Atraumatic, PERRLA Cardiovascular: Regular Rate, Normal S1, Normal S2 Lungs: Clear to Auscultation Abdomen: Normal Bowel Sounds, Soft, No Tenderness Neurological: Normal Speech Extremities: No Clubbing, No Cyanosis, No Edema Assessment/Plan Assessment: Patient is a 81-year-old woman with a past medical history significant for hypertension, hyperlipidemia, COPD, chronic hyponatremia(Primary polydipsia) presented to the ED with chief complaint of confusion, facial droop with weakness and pathology this morning. On the time of examination patient was alert and awake, could not able to express herself so most of the history was obtained from the friend and ED staff. Pertinent labs on admission The [facility] count 12.1, H&H 10.5/30.9, sodium 132 with a baseline 133 creatinine 1.1 , lactic acid 0.9, urinalysis showed small leukocyte esterase. CAT scan of the head :There are scattered nonspecific changes within the periventricular white matter that most likely represent a chronic manifestation of small vessel ischemia. No evidence of acute territorial infarct or hemorrhage. Chest x-ray:Moderate COPD changes without evidence of an acute intrathoracic process. The heart appears mildly enlarged. Assessment and plan: 1. Acute left-sided facial droop with slurred speech(expressive aphasia), possible TIA/stroke * We will admit the patient to telemetry floor. * Patient passed bedside swallow evaluation, will keep her nothing by mouth overnight to get formal swallow evaluation in the morning. * Blood pressure continues to remain borderline, hold off any antihypertensive for now, per med permissive hypertension to keep blood pressure more than 150. * Consider antihypertensives if blood pressure remains elevated above 220. * we will give loading dose of aspirin 325 and Lipitor 40 mg. * Neurochecks every 2 hours * Inform neurology in the morning * PT/OT consult in the morning. 2. Positive suprapubic tenderness with urine analysis positive for leukocyte Estrace possible urinary tract infection * Urine culture and Blood cultures have been sent. * We'll start the patient on IV ceftriaxone * Continue gentle hydration 3.. History of GERD * Continued PPI. 4. History of anxiety and depression * continue home dose of Xanax as needed for anxiety hold if patient becomes drowsy. 5. DVT prophylaxis with heparin 6. Mild to moderate pain controlled with Tylenol. 7. Patient is DNR/DNI Problem List: 1. CVA (cerebral vascular accident) Pain Ratin Pain Location: no pain Pain Goal: Remain pain free Pain Plan: prn tylenol Tomorrow's Labs & Rationales: no need of labs ARELY ZIMMERMAN,[facility] 10/26/16 1154: Attending MD Review Statement Attending Statement Attending MD Statement: examined this patient, discuss w/resident/PA/LITHOGRAPH PRESS OPERATOR, agreed w/resident/PA/LITHOGRAPH PRESS OPERATOR, discussed with family, reviewed EMR data (avail), reviewed images Attending Assessment/Plan: 81-year-old elderly female with past medical history significant for hypertension, hyperlipidemia, COPD, chronic hyponatremia is being admitted to the floor with confusion and left-sided weakness, likely TIA. Patient was seen and examined on the bedside and noted that her aphasia has improved tremendously. She was also found to be alert and oriented 3, though a poor historian. Weakness in her left upper and lower extremity was minimal. Vitals were stable. She was able to swallow her saliva but formal swallow evaluation was pending. Patient was keen to go back to home. Her workup included CT head that showed chronic manifestation of small vessel ischemia with no evidence of acute territorial infarct or hemorrhage. Carotid Doppler showed atherosclerotic disease involving the carotid bifurcation bilaterally with no hemodynamically significant stenosis involving the internal carotid arteries. Echocardiogram is pending. She is also on IV ceftriaxone for possible urinary tract infection and is currently on aspirin And atorvastatin. Cardiology and neurology consults are pending. We will continue to monitor. Patient would stay in the hospital over the weekend and would be a possible discharged to short-term rehabilitation. Please follow the recommendations from the physiotherapist.
[2016-10-26 08:36] LABS: ABSOLUTE BASOPHIL COUNT 0 /CUMM (0.0-0.2); ABSOLUTE EOSINOPHIL COUNT 0 /CUMM (0.0-0.7); ABSOLUTE GRANULOCYTE CT 7.5 /CUMM (1.4-6.5); ABSOLUTE MONOCYTE COUNT 0.9 /CUMM (0.10-0.60); BASOPHIL % 0.1 % (0.0-2.0); EOSINOPHIL % 0.3 % (0-5); GRANULOCYTE % 80.1 % (42.2-75.2); HEMATOCRIT 28.1 % (37-47); MEAN CORPUSCULAR HGB 30.1 PG (27.0-31.0); MEAN CORPUSCULAR HGB CONC 33.8 G/DL (33.0-37.0); MEAN PLATELET VOLUME 7.7 FL (7.4-10.4); PLATELET COUNT 239 /CUMM (130-400); RBC DISTRIBUTION WIDTH 14.2 % (11.5-14.5); RED BLOOD CELL CT 3.15 /CUMM (4.20-5.40); WHITE BLOOD CELL COUNT 9.4 /CUMM (4.8-10.8)
[2016-10-26 08:41] VITALS: BP 106/50
--- NOTE | 2016-10-26 12:40 | Cons- Cardiology ---
General Information and HPI Consulting Request Date of Consult: 10/26/16 Requested By: ADRIANNE CATALAN MD Reason for Consult: Mental status changes, possible stroke Source of Information: patient, old records History of Present Illness: The patient is an 81-year-old white female who is well-known to me. She has a past medical history of hypertension, hyperlipidemia, severe chronic lung disease, pulmonary hypertension, etc. The patient is now brought to the hospital from home with acute onset of confusion. She apparently also had some expressive aphasia at that time. There was also evidence of reported facial droop. The patient was admitted for further evaluation of her neurologic status. Today, the patient is alert and conversant. She notes that she has had several episodes of gait instability over the last several days. She denies any headaches, cardiac symptoms, or other obvious issues. Allergies/Medications Allergies: Coded Allergies: Penicillins (UNKNOWN 08/19/16) Home Med List: Alprazolam 0.25 MG TABLET 1 TAB PO BID PRN ANXIETY (Reported) Amlodipine (Norvasc 5MG Tab) 5 MG TABLET 1 TAB PO DAILY HYPERTENSION ( Reported) Cholecalciferol (Vitamin D3) 1,000 UNIT TABLET 1 TAB PO DAILY SUPPLEMENT ( Reported) Metoprolol Tartrate (Lopressor) 25 MG TABLET 1 TAB PO BID HTN (Reported) Pantoprazole Sodium 20 MG ECT 1 TAB PO DAILY GI (Reported) Simvastatin (Zocor) 10 MG TABLET 1 TAB PO QPM CHOLESTEROL (Reported) Current Medications: Current Medications Sig/Aspen Start time Last Medication Dose Route Stop Time Status Admin Acetaminophen 650 MG Q6 PRN 10/25 2100 AC PO Aspirin 81 MG DAILY 10/26 1000 AC PO Aspirin 325 MG ONCE ONE 10/25 2144 DC 10/25 PO 10/25 2145 231 Atorvastatin Calcium 5 MG 1700 10/26 1700 CAN PO Atorvastatin Calcium 40 MG 1700 10/25 2145 AC 10/25 PO 2316 Ceftriaxone Sodium 1,000 MG 0 10/26 2200 AC IV Ceftriaxone Sodium 1,000 MG DAILY 10/25 2135 DC 10/25 IV 2316 Heparin Sodium 5,000 UNIT Q8 10/250 AC 10/26 (Porcine) SC 0709 Omeprazole 20 MG DAILY AC 10/26 0700 AC PO Sodium Chloride 1,000 ML Q13H 10/25 2144 AC 10/26 IV 1236 Sodium Chloride 1,000 ML BOLUS ONE 10/25 1630 DC 10/25 IV 10/25 4767 1704 Past History Travel History Traveled to [place] past 21 day No Medical History Neurological: NONE EENT: NONE Cardiovascular: hypertension, hyperlipidemia Respiratory: COPD Gastrointestinal: NONE Hepatic: NONE Renal: NONE Musculoskeletal: NONE Psychiatric: NONE Endocrine: HYPONATREMIA Blood Disorders: NONE Cancer(s): NONE DROSS SKIMMER/Reproductive: NONE Surgical History Surgical History: non-contributory Psychosocial History Where Do You Live? Home Who Do You Live With? self Services at Home: None Smoking Status: Former Smoker ETOH Use: denies use Illicit Drug Use: denies illicit drug use Exam & Diagnostic Data Vital Signs and I&O Vital Signs Date Time Temp Pulse Resp B/P Pulse O2 O2 Flow FiO2 Ox Delivery Rate 10/26 0841 98.4 68 18 106/50 93 Room Air 10/25 2143 97.6 58 18 102/54 94 Room Air 10/25 2044 96.4 62 18 106/58 96 Room Air 10/25 1910 96.4 60 18 101/49 94 10/25 1606 98.0 71 18 99/57 94 Room Air Intake & Output 10/26 1600 10/26 0800 10/26 0000 10/25 1600 10/25 0800 10/25 0000 Intake Total 600 1000 Output Total 700 Balance 600 300 Intake, IV 600 1000 Intake, Oral 0 0 Output, Urine 700 Patient 89 lb 15.18 oz Weight Physical Exam: General Appearance Alert, Oriented to Person and Place, but Not Time Skin No Rashes Neck JVP normal, carotid upstrokes 2+ bilaterally with no audible bruits, no masses or thyromegaly Cardiovascular Regular Rate, Normal S1, Normal S2, 1 to 2/6 systolic murmur left upper sternal border Lungs Clear to Auscultation and percussion bilaterally Abdomen Soft, Positive Bowel Sounds, Mild Suprapubic Discomfort Neurological grossly nonfocal Extremities No Clubbing, No Cyanosis, No Edema Labs/John Results: Laboratory Tests 10/26 10/25 0655 1926 Chemistry Sodium (137 - 145 mmol/L) 136 L Potassium (3.5 - 5.1 mmol/L) 3.7 Chloride (98 - 107 mmol/L) 103 Carbon Dioxide (22 - 30 mmol/L) 26 Anion Gap (5 - 16) 7 BUN (7 - 17 mg/dL) 12 Creatinine (0.5 - 1.0 mg/dL) 0.8 Estimated GFR (>60 ml/min) > 60 BUN/Creatinine Ratio (7 - 25 %) 15.0 Lactic Acid Cancelled Hematology CBC w Diff NO MAN DIFF REQ WBC (4.8 - 10.8 /CUMM) 9.4 RBC (4.20 - 5.40 /CUMM) 3.15 L Hgb (12.0 - 16.0 G/DL) 9.5 L Hct (37 - 47 %) 28.1 L MCV (81.0 - 99.0 FL) 89.0 MCH (27.0 - 31.0 PG) 30.1 RDW (11.5 - 14.5 %) 14.2 Plt Count (130 - 400 /CUMM) 239 MPV (7.4 - 10.4 FL) 7.7 Gran % (42.2 - 75.2 %) 80.1 H Lymphocytes % (20.5 - 51.1 %) 10.1 L Monocytes % (1.7 - 9.3 %) 9.4 H Eosinophils % (0 - 5 %) 0.3 Basophils % (0.0 - 2.0 %) 0.1 Absolute Granulocytes (1.4 - 6.5 /CUMM) 7.5 H Absolute Lymphocytes (1.2 - 3.4 /CUMM) 1.0 L Absolute Monocytes (0.10 - 0.60 /CUMM) 0.9 H Absolute Eosinophils (0.0 - 0.7 /CUMM) 0 Absolute Basophils (0.0 - 0.2 /CUMM) 0 PUBS MCHC (33.0 - 37.0 G/DL) 33.8 10/25 10/25 1735 1624 Chemistry Lactic Acid (0.7 - 2.1 mmol/L) 0.9 Toxicology Barbiturate Screen (>200 NG/ML) < 60 Urines Urine Color (YEL,AMB,STR) YEL Urine Clarity (CLEAR) CLEAR Urine pH (5.0 - 8.0) 6.0 Ur Specific [place] (1.001 - 1.035) 1.010 Urine Protein (NEG,<30 MG/DL) NEG Urine Ketones (NEG) NEG Urine Nitrite (NEG) NEG Urine Bilirubin (NEG) NEG Urine Urobilinogen (0.1 - 1.0 EU/dl) 0.2 Ur Leukocyte Esterase (NEG) SMALL H Ur Microscopic SEDIMENT EXAMINED Urine RBC (0 - 5 /HPF) RARE Urine WBC (0 - 2 /HPF) 5-10 H Ur Epithelial Cells (NONE,FEW) RARE Urine Hemoglobin (NEG) NEG Urine Glucose (N MG/DL) NEG 10/25 1624 Chemistry Sodium (137 - 145 mmol/L) 132 L Potassium (3.5 - 5.1 mmol/L) 3.7 Chloride (98 - 107 mmol/L) 94 L Carbon Dioxide (22 - 30 mmol/L) 26 Anion Gap (5 - 16) 12 BUN (7 - 17 mg/dL) 15 Creatinine (0.5 - 1.0 mg/dL) 1.1 H Estimated GFR (>60 ml/min) 47 L BUN/Creatinine Ratio (7 - 25 %) 13.6 Glucose (65 - 99 mg/dL) 96 Calcium (8.4 - 10.2 mg/dL) 8.6 Total Bilirubin (0.2 - 1.3 mg/dL) 1.0 AST (14 - 36 U/L) 17 ALT (9 - 52 U/L) 18 Alkaline Phosphatase (<127 U/L) 70 Troponin I (< 0.11 ng/ml) 0.02 Total Protein (6.3 - 8.2 g/dL) 7.0 Albumin (3.5 - 5.0 g/dL) 3.4 L Globulin (1.9 - 4.2 gm/dL) 3.6 Albumin/Globulin Ratio (1.1 - 2.2 %) 0.9 L Hematology CBC w Diff NO MAN DIFF REQ WBC (4.8 - 10.8 /CUMM) 12.1 H RBC (4.20 - 5.40 /CUMM) 3.51 L Hgb (12.0 - 16.0 G/DL) 10.5 L Hct (37 - 47 %) 30.9 L MCV (81.0 - 99.0 FL) 88.1 MCH (27.0 - 31.0 PG) 29.9 RDW (11.5 - 14.5 %) 14.6 H Plt Count (130 - 400 /CUMM) 286 MPV (7.4 - 10.4 FL) 7.0 L Gran % (42.2 - 75.2 %) 71.5 Lymphocytes % (20.5 - 51.1 %) 14.5 L Monocytes % (1.7 - 9.3 %) 13.7 H Eosinophils % (0 - 5 %) 0 Basophils % (0.0 - 2.0 %) 0.3 Absolute Granulocytes (1.4 - 6.5 /CUMM) 8.6 H Absolute Lymphocytes (1.2 - 3.4 /CUMM) 1.8 Absolute Monocytes (0.10 - 0.60 /CUMM) 1.7 H Absolute Eosinophils (0.0 - 0.7 /CUMM) 0 Absolute Basophils (0.0 - 0.2 /CUMM) 0 PUBS MCHC (33.0 - 37.0 G/DL) 33.9 Diagnostic Data CXR Results IMPRESSION: Moderate COPD changes without evidence of an acute intrathoracic process. The heart appears mildly enlarged Other Results Head CT: IMPRESSION: There are scattered nonspecific changes within the periventricular white matter that most likely represent a chronic manifestation of small vessel ischemia. No evidence of acute territorial infarct or hemorrhage. Carotid ultrasound: IMPRESSION: There is atherosclerotic disease involving the carotid bifurcations bilaterally with no hemodynamically significant stenosis involving the internal carotid arteries by sonographic criteria. Assessment/Plan Assessment/Plan Assessment: 1. Mental status changes with confusion, possible left facial droop, etc. Rule out acute neurologic event 2. Severe COPD 3. UTI 4. Hypertension 5. Mild bilateral carotid atherosclerotic plaque 6. Known coronary artery disease with evidence of old myocardial infarction on echocardiogram and coronary calcification on chest CT Recommendations: -Clinically, the patient appears improved today. -Formal neurology input pending -Echocardiogram pending -MRI pending -Continue aspirin and statin as outlined. -Please keep the patient on the court recording monitor for now to rule out the possibility of occult arrhythmias. -Continue antibiotics pending culture results. Consult Acknowledgment - Thank you for your consult request.
--- NOTE | 2016-10-26 14:31 | Cons- Neurology ---
General Information and HPI Consulting Request Date of Consult: 10/26/16 Requested By: ADRIANNE CATALAN MD Reason for Consult: AMS Source of Information: patient, old records History of Present Illness: The patient is a 81 y/o F with PMHx of HTN, HLD, COPD, pulmonary HTN, chronic hyponatremia who was brought in by her friend for acute onset of confusion. The night prior to current presentation, her long-time friend, who talks to her 5-6 times per day on a regular basis and is her next of kin, noticed that patient sounded confused over the phone. The next morning, confusion was more noticeable and patient's speech was "garbled". She called the police around 1 PM to check on the patient who evaluated the patient and thought that she was fine. She later went over to patient's apartment where patient lives by herself to check on her. She noted that patient was very disoriented and had defecated on herself , thus decided to bring her to the ED. She feels that she is doing better now. Allergies/Medications Allergies: Coded Allergies: Penicillins (UNKNOWN 08/19/16) Home Med List: Alprazolam 0.25 MG TABLET 1 TAB PO BID PRN ANXIETY (Reported) Amlodipine (Norvasc 5MG Tab) 5 MG TABLET 1 TAB PO DAILY HYPERTENSION ( Reported) Cholecalciferol (Vitamin D3) 1,000 UNIT TABLET 1 TAB PO DAILY SUPPLEMENT ( Reported) Metoprolol Tartrate (Lopressor) 25 MG TABLET 1 TAB PO BID HTN (Reported) Pantoprazole Sodium 20 MG ECT 1 TAB PO DAILY GI (Reported) Simvastatin (Zocor) 10 MG TABLET 1 TAB PO QPM CHOLESTEROL (Reported) Current Medications: Current Medications Sig/Aspen Start time Last Medication Dose Route Stop Time Status Admin Acetaminophen 650 MG Q6 PRN 10/25 2100 AC PO Aspirin 81 MG DAILY 10/26 1000 AC PO Aspirin 325 MG ONCE ONE 10/25 2144 DC 10/25 PO 10/25 Atorvastatin Calcium 5 MG 10/26 1700 CAN PO Atorvastatin Calcium 40 MG 10/25 AC 10/25 PO 2316 Ceftriaxone Sodium 1,000 MG 0 10/26 2200 AC IV Ceftriaxone Sodium 1,000 MG DAILY 10/25 2135 DC 10/25 IV 2316 Heparin Sodium 5,000 UNIT Q8 10/25 2199 AC 10/26 (Porcine) SC 0709 Omeprazole 20 MG DAILY AC 10/26 0700 AC PO Sodium Chloride 1,000 ML Q13H 10/25 2145 AC 10/26 IV 1236 Sodium Chloride 1,000 ML BOLUS ONE 10/25 1630 DC 10/25 IV 10/25 1729 1705 Review of Systems Review of Systems: 10 point ROS was unremarkable except as noted as above Past History Travel History Traveled to [place] past 21 day No Medical History Neurological: NONE EENT: NONE Cardiovascular: hypertension, hyperlipidemia Respiratory: COPD Gastrointestinal: NONE Hepatic: NONE Renal: NONE Musculoskeletal: NONE Psychiatric: NONE Endocrine: HYPONATREMIA Blood Disorders: NONE Cancer(s): NONE [employer]/Reproductive: NONE Surgical History Surgical History: non-contributory Psychosocial History Where Do You Live? Home Who Do You Live With? self Services at Home: None Smoking Status: Former Smoker ETOH Use: denies use Illicit Drug Use: denies illicit drug use Exam & Diagnostic Data Vital Signs and I&O Vital Signs Date Time Temp Pulse Resp B/P Pulse O2 O2 Flow FiO2 Ox Delivery Rate 10/26 0841 98.4 68 18 106/50 93 Room Air 10/25 2143 97.6 58 18 102/54 94 Room Air 10/25 2044 96.4 62 18 106/58 96 Room Air 10/25 1910 96.4 60 18 101/49 94 10/25 1606 98.0 71 18 99/57 94 Room Air Intake & Output 10/26 1600 10/26 0800 10/26 0000 Intake Total 600 1000 Output Total 700 Balance 600 300 Intake, IV 600 1000 Intake, Oral 0 0 Output, Urine 700 Patient 40.8 kg Weight Physical Exam: NAD A&Ox2 (not able to tell correct date), able to follow simple commands, no dysarthria Pupils are 3mm jonh, no forced gaze deviation, no ptosis, ophthalmoparesis or nystagmus CN 2- 12 intact Motor: normal bulk/tone, no drift, 5/5 t/o Neg clara No clonus Downgoing toes Sensation intact t/o Last 48 Hours of Lab Results: Laboratory Tests 10/26 10/25 0655 1926 Chemistry Sodium (137 - 145 mmol/L) 136 L Potassium (3.5 - 5.1 mmol/L) 3.7 Chloride (98 - 107 mmol/L) 103 Carbon Dioxide (22 - 30 mmol/L) 26 Anion Gap (5 - 16) 7 BUN (7 - 17 mg/dL) 12 Creatinine (0.5 - 1.0 mg/dL) 0.8 Estimated GFR (>60 ml/min) > 60 BUN/Creatinine Ratio (7 - 25 %) 15.0 Lactic Acid Cancelled Triglycerides (<150 mg/dL) 42 Cholesterol (<200 MG/DL) 126 LDL Cholesterol, Calc (65 - 129 mg/dL) 71 HDL Cholesterol (40 - 60 mg/dL) 47 Cholesterol/HDL Ratio (0.00 - 4.23 %) 3 Hematology CBC w Diff NO MAN DIFF REQ WBC (4.8 - 10.8 /CUMM) 9.4 RBC (4.20 - 5.40 /CUMM) 3.15 L Hgb (12.0 - 16.0 G/DL) 9.5 L Hct (37 - 47 %) 28.1 L MCV (81.0 - 99.0 FL) 89.0 MCH (27.0 - 31.0 PG) 30.1 RDW (11.5 - 14.5 %) 14.2 Plt Count (130 - 400 /CUMM) 239 MPV (7.4 - 10.4 FL) 7.7 Gran % (42.2 - 75.2 %) 80.1 H Lymphocytes % (20.5 - 51.1 %) 10.1 L Monocytes % (1.7 - 9.3 %) 9.4 H Eosinophils % (0 - 5 %) 0.3 Basophils % (0.0 - 2.0 %) 0.1 Absolute Granulocytes (1.4 - 6.5 /CUMM) 7.5 H Absolute Lymphocytes (1.2 - 3.4 /CUMM) 1.0 L Absolute Monocytes (0.10 - 0.60 /CUMM) 0.9 H Absolute Eosinophils (0.0 - 0.7 /CUMM) 0 Absolute Basophils (0.0 - 0.2 /CUMM) 0 PUBS MCHC (33.0 - 37.0 G/DL) 33.8 10/25 10/25 1735 1624 Chemistry Lactic Acid (0.7 - 2.1 mmol/L) 0.9 Toxicology Barbiturate Screen (>200 NG/ML) < 60 Urines Urine Color (YEL,AMB,STR) YEL Urine Clarity (CLEAR) CLEAR Urine pH (5.0 - 8.0) 6.0 Ur Specific [place] (1.001 - 1.035) 1.010 Urine Protein (NEG,<30 MG/DL) NEG Urine Ketones (NEG) NEG Urine Nitrite (NEG) NEG Urine Bilirubin (NEG) NEG Urine Urobilinogen (0.1 - 1.0 EU/dl) 0.2 Ur Leukocyte Esterase (NEG) SMALL H Ur Microscopic SEDIMENT EXAMINED Urine RBC (0 - 5 /HPF) RARE Urine WBC (0 - 2 /HPF) 5-10 H Ur Epithelial Cells (NONE,FEW) RARE Urine Hemoglobin (NEG) NEG Urine Glucose (N MG/DL) NEG 10/25 1624 Chemistry Sodium (137 - 145 mmol/L) 132 L Potassium (3.5 - 5.1 mmol/L) 3.7 Chloride (98 - 107 mmol/L) 94 L Carbon Dioxide (22 - 30 mmol/L) 26 Anion Gap (5 - 16) 12 BUN (7 - 17 mg/dL) 15 Creatinine (0.5 - 1.0 mg/dL) 1.1 H Estimated GFR (>60 ml/min) 47 L BUN/Creatinine Ratio (7 - 25 %) 13.6 Glucose (65 - 99 mg/dL) 96 Calcium (8.4 - 10.2 mg/dL) 8.6 Total Bilirubin (0.2 - 1.3 mg/dL) 1.0 AST (14 - 36 U/L) 17 ALT (9 - 52 U/L) 18 Alkaline Phosphatase (<127 U/L) 70 Troponin I (< 0.11 ng/ml) 0.02 Total Protein (6.3 - 8.2 g/dL) 7.0 Albumin (3.5 - 5.0 g/dL) 3.4 L Globulin (1.9 - 4.2 gm/dL) 3.6 Albumin/Globulin Ratio (1.1 - 2.2 %) 0.9 L Hematology CBC w Diff NO MAN DIFF REQ WBC (4.8 - 10.8 /CUMM) 12.1 H RBC (4.20 - 5.40 /CUMM) 3.51 L Hgb (12.0 - 16.0 G/DL) 10.5 L Hct (37 - 47 %) 30.9 L MCV (81.0 - 99.0 FL) 88.1 MCH (27.0 - 31.0 PG) 29.9 RDW (11.5 - 14.5 %) 14.6 H Plt Count (130 - 400 /CUMM) 286 MPV (7.4 - 10.4 FL) 7.0 L Gran % (42.2 - 75.2 %) 71.5 Lymphocytes % (20.5 - 51.1 %) 14.5 L Monocytes % (1.7 - 9.3 %) 13.7 H Eosinophils % (0 - 5 %) 0 Basophils % (0.0 - 2.0 %) 0.3 Absolute Granulocytes (1.4 - 6.5 /CUMM) 8.6 H Absolute Lymphocytes (1.2 - 3.4 /CUMM) 1.8 Absolute Monocytes (0.10 - 0.60 /CUMM) 1.7 H Absolute Eosinophils (0.0 - 0.7 /CUMM) 0 Absolute Basophils (0.0 - 0.2 /CUMM) 0 PUBS MCHC (33.0 - 37.0 G/DL) 33.9 Imaging/Other Studies: CUS: There is atherosclerotic disease involving the carotid bifurcations bilaterally with no hemodynamically significant stenosis involving the internal carotid arteries by sonographic criteria. CT head: There are scattered nonspecific changes within the periventricular white matter that most likely represent a chronic manifestation of small vessel ischemia. No evidence of acute territorial infarct or hemorrhage. Assessment/Plan Assessment: The patient is a 81 y/o F with PMHx of HTN, HLD, COPD, pulmonary HTN, chronic hyponatremia who was brought in by her friend for acute onset of confusion. She is almost back to baseline. She was found to have UTI. Neg CT head. Likely AMS is due to encephalopathy from possible UTI, Less likely ischemia. ? medication side effect Obtain MRI of brain w/o RADHA, if cannot do, then obtain CT head w/o contrast [address] head Obtain EEG on Friday rule out PNA Tx of UTI as per primary team Obtain b12, if less than 700 then supplement Limit benzodiazepine use Recommendations: see above Consult Acknowledgment - Thank you for your consult request.
[2016-10-26 16:06] VITALS: BP 117/55
--- NOTE | 2016-10-26 16:19 | MRI REPORT ---
EXAMINATION: MR BRAIN WITHOUT AND WITH CONTRAST CLINICAL INFORMATION: Stroke, TIA. Left-sided facial droop. COMPARISON: CT head 10/25/2016. TECHNIQUE: MRI of the brain was obtained using routine sequences before and after the intravenous administration of 8 mL of OptiMARK. FINDINGS: Susceptibility artifact emanates from the maxillofacial region may relate to the presence of dental amalgam. Diffusion-weighted images demonstrate no evidence of acute infarcts. No intracranial hemorrhage or tumors are noted. Moderate diffuse commensurate prominence of ventricles and sulci is noted. A moderate number scattered subcortical and periventricular white matter patchy nonenhancing T2 hyperintensities are visualized and are most suspicious for chronic small vessel ischemic disease. Subcentimeter cystic encephalomalacia is present in 2 locations within the right thalamus consistent with chronic lacunar infarcts. Diffuse perivascular space prominence is noted consistent with diffuse parenchymal volume loss of the brain. Of note, susceptibility artifact on the diffusion-weighted images partially obscures visualization of the inferior frontal lobes and brain stem and may obscure visualization of small acute infarcts in these regions. Grossly normal flow-related signal intensity is identified in the major intracranial vessels and dural sinuses. The orbits and globes are normal in appearance aside from bilateral ocular lens extractions. Mild retained secretions and mucosal thickening is noted within the visualized left and right maxillary sinuses. The cervical medullary junction cerebellar tonsils are normal in configuration. No suspicious marrow signal abnormalities are identified. Susceptibility weighted images reveal no evidence of acute or chronic hemorrhage within the brain parenchyma. No abnormal enhancement of the brain parenchyma is visualized. IMPRESSION: 1. No acute abnormalities. No acute infarcts or intracranial hemorrhage. Of note, artifact as described above, results in suboptimal visualization of the inferior frontal lobes and brainstem and possible small acute infarcts in these regions may not be visualized by this examination. 2. Moderate chronic small vessel ischemic disease and multiple chronic lacunar infarcts within the right thalamus. 3. Moderate diffuse parenchymal volume loss of the brain.
[2016-10-26 22:56] VITALS: BP 104/52
--- NOTE | 2016-10-27 06:53 | Event Note ---
Event Note Event Note: Around 5 AM, nursing staff noted that patient had atrial fibrillation on the monitor worker. Patient was seen and examined at bedside. She denied chest pain , palpitations or shortness of breath. Stat EKG, BMP, Mg, Phos, troponins, TSH and proBNP were ordered. EKG showed atrial fibrillation with HR of 107. Patient' s CHAD2-VASC score was calculated at 5 corresponding to a high risk of stroke which warrants anti-coagulation. HAS-BLED score was calculated at 2 corresponding to a moderate risk for major bleed. Plan was made to start patient on anti-coagulation as it was felt that benefits of anti-coagulation outweigh the risk of bleed. This was discussed with machine maintenance technician Dr. Vergara as well as attending Dr. Hollingsworth who were in agreement with the plan. Rectal exam was guaiac negative. Patient was started on IV heparin for anti-coagulation and Cardizem drip for rate control. BMP was significant for hypokalemia with K of 3.4. Mg came back at 1. Phosphorus was within normal limits. K and Mg were both repleted. Rest of the labs are still pending.
--- NOTE | 2016-10-27 07:07 | NUR ---
LATE ENTRY: AT 0530 PT UP ON BSC, HR INCREASED TO 110-120'S. ON MONITOR PTS RHYTHM BECAME IRREGULAR. MD #[id number] MADE AWARE, EKG ORDERED AND PERFORMED. PT DENIES C/P AT THIS TIME. WILL CONTINUE TO MONITOR
[2016-10-27 08:40] LABS: PT 11.5 SEC (9.4-12.5)
[2016-10-27 10:25] LABS: ABSOLUTE BASOPHIL COUNT 0 /CUMM (0.0-0.2); ABSOLUTE EOSINOPHIL COUNT 0 /CUMM (0.0-0.7); ABSOLUTE GRANULOCYTE CT 10.6 /CUMM (1.4-6.5); ABSOLUTE LYMPH COUNT 0.9 /CUMM (1.2-3.4); ABSOLUTE MONOCYTE COUNT 1.1 /CUMM (0.10-0.60); BASOPHIL % 0.1 % (0.0-2.0); EOSINOPHIL % 0.2 % (0-5); GRANULOCYTE % 83.6 % (42.2-75.2); HEMATOCRIT 27.2 % (37-47); MEAN CORPUSCULAR HGB 29.8 PG (27.0-31.0); MEAN CORPUSCULAR HGB CONC 33.6 G/DL (33.0-37.0); MEAN CORPUSCULAR VOLUME 88.8 FL (81.0-99.0); MEAN PLATELET VOLUME 7.8 FL (7.4-10.4); PLATELET COUNT 231 /CUMM (130-400); RBC DISTRIBUTION WIDTH 14.2 % (11.5-14.5); RED BLOOD CELL CT 3.06 /CUMM (4.20-5.40); WHITE BLOOD CELL COUNT 12.7 /CUMM (4.8-10.8)
--- NOTE | 2016-10-27 10:54 | PN- Housestaff ---
MARKUS ZIMMERMAN,[facility] 10/27/16 1054: Subjective Follow-up For: Acute left-sided facial droop with slurred speech(expressive aphasia), possible TIA/stroke Subjective: Patient was seen and examined this morning. She had an eventful night last night, new onset of atrial fibrillation was started on IV heparin drip and IV Cardizem drip. This morning the patient denied any chest pain, palpitation, shortness of breath, weakness, abdominal pain, nausea or vomiting. She seemed a little bit confused with expressive aphasia, no acute distress. Later today she converted back to sinus rhythm and Cardizem drip was discontinued. Review of Systems Constitutional: Denies: see HPI. Objective Last 24 Hrs of Vital Signs/I&O Vital Signs Date Time Temp Pulse Resp B/P Pulse O2 O2 Flow FiO2 Ox Delivery Rate 10/26 2256 97.9 89 18 104/52 93 Room Air 10/26 1606 98.0 65 117/55 90 Room Air Intake & Output 10/27 1600 10/27 0800 10/27 0000 Intake Total 900 100 100 Output Total 400 300 Balance 500 -200 100 Intake, IV 500 Intake, Oral 400 100 100 Output, Urine 400 300 Physical Exam General Appearance: Alert, Cooperative, No Acute Distress Skin: No Rashes, No Breakdown, No Significant Lesion HEENT: Atraumatic, PERRLA, EOMI, Mucous Membr. moist/pink Neck: Supple Cardiovascular: Regular Rate, Normal S1, Normal S2, No Murmurs Lungs: Clear to Auscultation, Normal Air Movement Abdomen: Normal Bowel Sounds, Soft, No Tenderness Neurological: Strength at 5/5 X4 Ext, Normal Tone, Sensation Intact, Cranial Nerves 3-12 NL, Reflexes 2+, expressive aphasia Extremities: No Clubbing, No Cyanosis, No Edema, Normal Pulses Assessment/Plan Assessment: Patient is a 81-year-old woman with a past medical history significant for hypertension, hyperlipidemia, COPD, chronic hyponatremia(Primary polydipsia) presented to the ED with chief complaint of confusion, facial droop with weakness and pathology this morning. On the time of examination patient was alert and awake, could not able to express herself so most of the history was obtained from the friend and ED staff. Pertinent labs on admission The BBC count 12.1, H&H 10.5/30.9, sodium 132 with a baseline 133 creatinine 1.1 , lactic acid 0.9, urinalysis showed small leukocyte esterase. CAT scan of the head :There are scattered nonspecific changes within the periventricular white matter that most likely represent a chronic manifestation of small vessel ischemia. No evidence of acute territorial infarct or hemorrhage. Chest x-ray:Moderate COPD changes without evidence of an acute intrathoracic process. The heart appears mildly enlarged. Assessment and plan: #New onset of paroxysmal atrial fibrillation with rapid ventricular response * Last night the patient developed atrial fibrillation with heart rate of 107. * CHAD2-VASC score was calculated at 5 corresponding to a high risk of stroke which warrants anti-coagulation. HAS-BLED score was calculated at 2 corresponding to a moderate risk for major bleed. * Cardizem drip and heparin drip were started * Potassium and magnesium were repleted * Later today patient converted back to sinus rhythm, Cardizem drip was discontinued with * Cradiology recommendation Flaquita Vergara MD to start Cardizem oral 30 mg BID # Acute left-sided facial droop with slurred speech(expressive aphasia), possible TIA/stroke * Continue telemetry. * Patient passed swallow evaluation, diet was changed to regular mechanical soft nectar * Blood pressure continues to remain borderline, hold off any antihypertensive for now, per med permissive hypertension to keep blood pressure more than 150. * Consider antihypertensives if blood pressure remains elevated above 220. * we will give loading dose of aspirin 325 and Lipitor 40 mg. * Neurochecks every 2 hours * MRI of brain is negative for acute infarction or hemorrhage * EEG tomorrow morning Friday * Replete vitamin B12 with 1000 g daily # Positive suprapubic tenderness with urine analysis positive for leukocyte Estrace possible urinary tract infection * Urine culture and Blood cultures pending * Continue IV ceftriaxone # History of GERD * Continued PPI. # History of anxiety and depression * continue home dose of Xanax as needed for anxiety hold if patient becomes drowsy. # DVT prophylaxis with heparin # Mild to moderate pain controlled with Tylenol. # Patient is DNR/DNI Problem List: 1. COPD 2. Hypomagnesemia 3. Hyperlipidemia 4. Urinary tract infection 5. CVA (cerebral vascular accident) 6. Confusion 7. HTN (hypertension) 8. Atrial fibrillation Pain Ratin Pain Location: n/a Pain Goal: Pain 4 or less Pain Plan: see medication Tomorrow's Labs & Rationales: cbc, cmb ARELY ZIMMERMAN,RAPHAEL 10/27/16 1110: Attending MD Review Statement Attending Statement Attending MD Statement: examined this patient, discuss w/resident/PA/DIRECTOR STUDENT UNION, agreed w/resident/PA/DIRECTOR STUDENT UNION, reviewed EMR data (avail), discussed with nursing, reviewed images Attending Assessment/Plan: 81-year-old elderly female with past medical history significant for hypertension, hyperlipidemia, COPD, chronic hyponatremia is being admitted to the floor with confusion and left-sided weakness, likely TIA. Patient was seen and examined on the bedside and noted that her aphasia has improved tremendously. She was also found to be alert and oriented 3. Vitals were stable. swallow eval was then yesterday and recommended to have a mechanical soft diet with nectar. Her workup included CT head that showed chronic manifestation of small vessel ischemia with no evidence of acute territorial infarct or hemorrhage. Carotid Doppler showed atherosclerotic disease involving the carotid bifurcation bilaterally with no hemodynamically significant stenosis involving the internal carotid arteries. Echocardiogram is pending. She is also on IV ceftriaxone for possible urinary tract infection and is currently on aspirin And atorvastatin. We will continue to monitor. MRI of the head also ruled out any acute hemorrhage or infarct. Patient will have an EEG on Friday. Please replace vitamin B12 as recommended by neurology. patient had an acute new onset A. fib and has been started on anticoagulation with Heparin and Cardizem drip after discussing it with the sole leather cutting machine operator. please replace her electrolytes. We'll continue to follow-up.
--- NOTE | 2016-10-27 15:03 | PN- Cardiology ---
Subjective Subjective: The patient is awake and alert but remains confused. She is somewhat better than yesterday. The patient had an episode of atrial fibrillation earlier today. Initially she was treated with IV Cardizem and IV heparin. Her rhythm returned to normal and the Cardizem was discontinued without my knowledge. Objective Vital Signs and I&Os Vital Signs Date Time Temp Pulse Resp B/P Pulse O2 O2 Flow FiO2 Ox Delivery Rate 10/26 2256 97.9 89 18 104/52 93 Room Air 10/26 1606 98.0 65 117/55 90 Room Air Intake & Output 10/27 1600 10/27 0800 10/27 0000 10/26 1600 10/26 0800 10/26 0000 Intake Total 900 100 830 671 9799 Output Total 400 300 700 Balance 500 -200 100 600 300 Intake, IV 668 291 1535 Intake, Oral 400 100 100 0 0 Output, Urine 400 300 700 Patient 89 lb 15.18 oz Weight Physical Exam: General Appearance Alert, Oriented to Person and Place, but Not Time Skin No Rashes Neck JVP normal, carotid upstrokes 2+ bilaterally with no audible bruits, no masses or thyromegaly Cardiovascular Regular Rate, Normal S1, Normal S2, 1 to 2/6 systolic murmur left upper sternal border Lungs Clear to Auscultation and percussion bilaterally Abdomen Soft, Positive Bowel Sounds, Mild Suprapubic Discomfort Neurological grossly nonfocal Extremities No Clubbing, No Cyanosis, No Edema Current Medications: Current Medications Sig/Aspen Start time Last Medication Dose Route Stop Time Status Admin Acetaminophen 650 MG Q6 PRN 10/25 2100 AC PO Aspirin 81 MG DAILY 10/26 1000 AC 10/27 PO 1020 Atorvastatin Calcium 40 MG 1700 10/25 2145 AC 10/26 PO 1537 Ceftriaxone Sodium 1,000 MG 0 10/26 2200 AC 10/26 IV 2113 Cyanocobalamin 1,000 MCG DAILY 10/27 1000 AC 10/27 PO 1028 Diltiazem HCl 125 MG Q24H 10/27 0800 DC 10/27 Dextrose/Water 100 ML IV 0802 Diltiazem HCl 125 MG CONTINOUS INFUSION 10/27 0700 DC Dextrose/Water 100 ML IV Diltiazem HCl 2.5 MG CONTINOUS INFUSION 10/27 0645 CAN IV Heparin Sodium 25,000 UNIT Q24H 10/27 1045 AC (Porcine) IV Sodium Chloride 500 ML Heparin Sodium 25,000 UNIT Q24H 10/27 0645 DC 10/27 (Porcine) IV 0740 Sodium Chloride 500 ML Heparin Sodium 5,000 UNIT Q8 10/25 2200 DC 10/26 (Porcine) SC 2114 Magnesium Oxide 400 MG ONE ONE 10/27 0645 DC PO 10/27 0646 Magnesium Sulfate 1 GM ONCE ONE 10/27 0900 DC 10/27 N/A 1 UNIT IV 10/27 1059 1020 Magnesium Sulfate 2 GM ONCE ONE 10/27 0700 DC Dextrose/Water 250 ML IV 10/27 1059 Magnesium Sulfate 1 GM ONCE ONE 10/27 0700 DC 10/27 N/A 1 UNIT IV 10/27 0859 0739 Omeprazole 20 MG DAILY AC 10/26 0700 AC 10/27 PO 0511 Potassium Chloride 10 MEQ Q1H 10/27 0915 DC 10/27 IV 10/27 1016 1259 Potassium Chloride 60 MEQ ONCE ONE 10/27 0645 DC PO 10/27 0646 Sodium Chloride 1,000 ML Q13H 10/25 2145 DC 10/26 IV 1236 Results Last 48 Hrs of Labs/Mics: Laboratory Tests 10/27/16 1437: APTT Pending 10/27/16 0754: PT 11.5, INR 1.10, CBC w Diff NO MAN DIFF REQ, RBC 3.06 L, MCV 88.8, MCH 29.8, RDW 14.2, MPV 7.8, Gran % 83.6 H, Lymphocytes % 7.4 L, Monocytes % 8.7, Eosinophils % 0.2, Basophils % 0.1, Absolute Granulocytes 10.6 H, Absolute Lymphocytes 0.9 L, Absolute Monocytes 1.1 H, Absolute Eosinophils 0, Absolute Basophils 0, PUBS MCHC 33.6 10/27/16 0545: Anion Gap 9, Estimated GFR > 60, BUN/Creatinine Ratio 15.0, Phosphorus 3.3, Magnesium 1.0 L, Troponin I 0.02, Iox-B-Czkqsbhxsvu Pept 2780 H, TSH 1.880 10/26/16 0655: Anion Gap 7, Estimated GFR > 60, BUN/Creatinine Ratio 15.0, Triglycerides 42, Cholesterol 126, LDL Cholesterol, Calc 71, HDL Cholesterol 47, Cholesterol/HDL Ratio 3, Vitamin B12 234 L, CBC w Diff NO MAN DIFF REQ, RBC 3.15 L, MCV 89.0, MCH 30.1, RDW 14.2, MPV 7.7, Gran % 80.1 H, Lymphocytes % 10.1 L, Monocytes % 9.4 H, Eosinophils % 0.3, Basophils % 0.1, Absolute Granulocytes 7.5 H, Absolute Lymphocytes 1.0 L, Absolute Monocytes 0.9 H, Absolute Eosinophils 0, Absolute Basophils 0, PUBS MCHC 33.8 10/25/16 192: Lactic Acid Cancelled 10/25/161734: Barbiturate Screen < 60, Urine Color YEL, Urine Clarity CLEAR, Urine pH 6.0, Ur Specific [place] 1.010, Urine Protein NEG, Urine Ketones NEG, Urine Nitrite NEG, Urine Bilirubin NEG, Urine Urobilinogen 0.2, Ur Leukocyte Esterase SMALL H, Ur Microscopic SEDIMENT EXAMINED, Urine RBC RARE, Urine WBC 5-10 H, Ur Epithelial Cells RARE, Urine Hemoglobin NEG, Urine Glucose NEG 10/25/16 1624: Lactic Acid 0.9 10/25/16 162: Anion Gap 12, Estimated GFR 47 L, BUN/Creatinine Ratio 13.6, Glucose 96, Calcium 8.6, Total Bilirubin 1.0, AST 17, ALT 18, Alkaline Phosphatase 70, Troponin I 0.02, Total Protein 7.0, Albumin 3.4 L, Globulin 3.6, Albumin/ Globulin Ratio 0.9 L, CBC w Diff NO MAN DIFF REQ, RBC 3.51 L, MCV 88.1, MCH 29.9, RDW 14.6 H, MPV 7.0 L, Gran % 71.5, Lymphocytes % 14.5 L, Monocytes % 13.7 H, Eosinophils % 0, Basophils % 0.3, Absolute Granulocytes 8.6 H, Absolute Lymphocytes 1.8, Absolute Monocytes 1.7 H, Absolute Eosinophils 0, Absolute Basophils 0, PUBS MCHC 33.9 Microbiology 10/25 1734 URINE ROUT: Urine Culture - COMP Assessment/Plan Assessment/Plan Assessment: 1. Mental status changes with confusion, possible left facial droop, etc. Rule out acute neurologic event 2. Severe COPD 3. UTI 4. Hypertension 5. Mild bilateral carotid atherosclerotic plaque 6. Known coronary artery disease with evidence of old myocardial infarction on echocardiogram and coronary calcification on chest CT 7. Paroxysmal atrial fibrillation Recommendations: -Clinically, the patient appears slightly improved today. -Formal neurology input noted -Echocardiogram pending -MRI noted -Continue aspirin and statin as outlined. -In view of the episode of paroxysmal atrial for ablation, keep the patient on the environmental monitoring technician. -Continue IV heparin for now pending further decisions about long-term anticoagulant. The patient's CHADSVAS score is at least 5 which indicates she will require long-term anticoagulant treatment. -Continue antibiotics pending culture results. -Start Cardizem 30 mg by mouth twice daily. Continue telemetry? Yes
[2016-10-27 15:47] LABS: PTT 71 SEC (25-37)
[2016-10-27 16:31] VITALS: BP 106/53
--- NOTE | 2016-10-28 07:19 | PN- Housestaff ---
See Addendum Subjective Follow-up For: Acute left-sided facial droop with slurred speech(expressive aphasia), possible TIA/stroke Tele-Events Since Last Visit: Remains in sinus rhythm heart rate 65-79 no acute overnight events. Subjective: Patient seen and examined this morning. She was lying comfortably in bed in no acute distress. She denies any chest pain, palpitation, dizziness, shortness of breath. She denies any weakness, numbness, or paresthesias anywhere in the body. She was alert and oriented, conversant. Remains afebrile, other vitals within normal limits. Remains in sinus rhythm heart rate 65-79 no acute overnight events. Review of Systems Constitutional: Denies: chills, fever. Cardiovascular: Denies: chest pain, palpitations. Respiratory: Denies: cough, short of breath, sputum production. Gastrointestinal: Denies: abdominal pain, constipation, diarrhea, nausea, vomiting. Genitourinary: Denies: dysuria, frequency. Objective Last 24 Hrs of Vital Signs/I&O Vital Signs Date Time Temp Pulse Resp B/P Pulse O2 O2 Flow FiO2 Ox Delivery Rate 10/28 0826 98.5 89 18 107/53 93 Room Air 10/27 2200 81 10/27 1631 98.5 75 16 106/53 92 Room Air Intake & Output 10/28 1600 10/28 0800 10/28 0000 Intake Total 100 100 Output Total 300 250 Balance -200 -150 Intake, Oral 100 100 Output, Urine 300 250 Physical Exam General Appearance: Alert, Oriented X3, Cooperative, No Acute Distress Cardiovascular: Regular Rate, Normal S1, Normal S2, systolic murmur Lungs: Clear to Auscultation, Normal Air Movement Abdomen: Normal Bowel Sounds, Soft, No Tenderness Neurological: Normal Speech, Strength at 5/5 X4 Ext, Sensation Intact, Cranial Nerves 3-12 NL Extremities: No Clubbing, No Cyanosis, No Edema Current Medications: Current Medications Sig/Aspen Start time Last Medication Dose Route Stop Time Status Admin Acetaminophen 650 MG Q6 PRN 10/25 2100 AC PO Aspirin 81 MG DAILY 10/26 1000 AC 10/27 PO 1020 Atorvastatin Calcium 40 MG 1700 10/25 2145 AC 10/27 PO 1610 Ceftriaxone Sodium 1,000 MG 22010/26 2200 AC 10/27 IV 2043 Cyanocobalamin 1,000 MCG DAILY 10/27 1000 AC 10/27 PO 1028 Diltiazem HCl 30 MG BID 10/27 2200 AC 10/27 PO 2049 Diltiazem HCl 125 MG Q24H 10/27 0800 DC 10/27 Dextrose/Water 100 ML IV 0802 Heparin Sodium 25,000 UNIT Q24H 10/27 1045 AC (Porcine) IV Sodium Chloride 500 ML Heparin Sodium 25,000 UNIT Q24H 10/27 0645 DC 10/27 (Porcine) IV 0740 Sodium Chloride 500 ML Magnesium Sulfate 1 GM ONCE ONE 10/27 0900 DC 10/27 N/A 1 UNIT IV 10/27 1059 1020 Magnesium Sulfate 1 GM ONCE ONE 10/27 0700 DC 10/27 N/A 1 UNIT IV 10/27 0859 0739 Omeprazole 20 MG DAILY AC 10/26 0700 AC 10/28 PO 0708 Potassium Chloride 10 MEQ Q1H 10/27 0915 DC 10/27 IV 10/27 1016 1259 Last 24 Hrs of Lab/John Results Last 24 Hrs of Labs/Mics: Laboratory Tests 10/28/16 0734: Anion Gap 9, Estimated GFR > 60, BUN/Creatinine Ratio 14.3, APTT 82 H, CBC w Diff Pending, WBC Pending, RBC Pending, Hgb Pending, Hct Pending, MCV Pending, MCH Pending, RDW Pending, Plt Count Pending, MPV Pending, PUBS MCHC Pending 10/27/16 1853: Sodium Cancelled, Potassium Cancelled, Chloride Cancelled, Carbon Dioxide Cancelled, Anion Gap Cancelled, BUN Cancelled, Creatinine Cancelled, BUN/ Creatinine Ratio Cancelled, Magnesium Cancelled 10/27/16 1437: APTT 71 H Assessment/Plan Assessment: Patient is a 81-year-old woman with a past medical history significant for hypertension, hyperlipidemia, COPD, chronic hyponatremia(Primary polydipsia) presented to the ED with chief complaint of confusion, facial droop with weakness and pathology this morning. On the time of examination patient was alert and awake, could not able to express herself so most of the history was obtained from the friend and ED staff. Pertinent labs on admission The BBC count 12.1, H&H 10.5/30.9, sodium 132 with a baseline 133 creatinine 1.1 , lactic acid 0.9, urinalysis showed small leukocyte esterase. CAT scan of the head :There are scattered nonspecific changes within the periventricular white matter that most likely represent a chronic manifestation of small vessel ischemia. No evidence of acute territorial infarct or hemorrhage. Chest x-ray:Moderate COPD changes without evidence of an acute intrathoracic process. The heart appears mildly enlarged. Assessment and plan: #New onset of paroxysmal atrial fibrillation with rapid ventricular response * Last night the patient developed atrial fibrillation with heart rate of 107. * CHAD2-VASC score was calculated at 5 corresponding to a high risk of stroke which warrants anti-coagulation. HAS-BLED score was calculated at 2 corresponding to a moderate risk for major bleed. * Cardizem drip and heparin drip were started * Potassium and magnesium were repleted * Later today patient converted back to sinus rhythm, Cardizem drip was discontinued. * Cradiology recommendation Flaquita Vergara MD to start Cardizem oral 30 mg BID # Acute left-sided facial droop with slurred speech(expressive aphasia), possible TIA/stroke * Continue telemetry. * Patient passed swallow evaluation, diet was changed to regular mechanical soft nectar * Blood pressure continues to remain borderline, hold off any antihypertensive for now, per med permissive hypertension to keep blood pressure more than 150. * Consider antihypertensives if blood pressure remains elevated above 220. * we will give loading dose of aspirin 325 and Lipitor 40 mg. * Neurochecks every 2 hours * MRI of brain is negative for acute infarction or hemorrhage * EEG pending. * Replete vitamin B12 with 1000 g daily # Positive suprapubic tenderness with urine analysis positive for leukocyte Estrace possible urinary tract infection * Urine culture and Blood cultures pending * Continue IV ceftriaxone # History of GERD * Continued PPI. # History of anxiety and depression * continue home dose of Xanax as needed for anxiety hold if patient becomes drowsy. # DVT prophylaxis with heparin # Mild to moderate pain controlled with Tylenol. # Patient is DNR/DNI Problem List: 1. Hyperlipidemia 2. Atrial fibrillation 3. COPD (chronic obstructive pulmonary disease) 4. HTN (hypertension) 5. CVA (cerebral vascular accident) 6. Confusion Pain Ratin Pain Location: none Pain Goal: Remain pain free Pain Plan: Tylenol Tomorrow's Labs & Rationales: None
[2016-10-28 08:26] VITALS: BP 107/53
[2016-10-28 08:27] LABS: PTT 82 SEC (25-37)
[2016-10-28 08:35] LABS: ABSOLUTE BASOPHIL COUNT 0 /CUMM (0.0-0.2); ABSOLUTE EOSINOPHIL COUNT 0.2 /CUMM (0.0-0.7); ABSOLUTE GRANULOCYTE CT 8.8 /CUMM (1.4-6.5); ABSOLUTE LYMPH COUNT 0.6 /CUMM (1.2-3.4); ABSOLUTE MONOCYTE COUNT 0.7 /CUMM (0.10-0.60); BASOPHIL % 0.2 % (0.0-2.0); EOSINOPHIL % 1.6 % (0-5); GRANULOCYTE % 85.4 % (42.2-75.2); HEMATOCRIT 29.7 % (37-47); MEAN CORPUSCULAR HGB 29.8 PG (27.0-31.0); MEAN CORPUSCULAR HGB CONC 33.4 G/DL (33.0-37.0); MEAN CORPUSCULAR VOLUME 89.3 FL (81.0-99.0); MEAN PLATELET VOLUME 8.4 FL (7.4-10.4); PLATELET COUNT 194 /CUMM (130-400); RBC DISTRIBUTION WIDTH 14.4 % (11.5-14.5); RED BLOOD CELL CT 3.33 /CUMM (4.20-5.40)
--- NOTE | 2016-10-28 09:56 | PN- Student ---
MERY PADGETT 10/28/16 0940: Subjective Subjective: [CC]: Confusion + acute left-sided facial droop w/ slurred speech [HPI]: Pt is a 81 y/o female who presented to the ED on October 25 w/ a CC of confusion. Unable to attain a proper history from pt at the time of admission. History compiled at the time w/ pt's friend and ED notes. Pts friend recalled that pt sounded confused on the phone the day prior to ED visit. The next next day, sx worsened and police were called and evaluated by them in which they found no issues. Pts friend visited the pt (who lives by herself) later that day in which she found the pt consued, disoriented, and defecated on herself. Based on Dr. Meehan's notes, pt reported at that [facility] she had unsteady gait, w/ speech difficulties, forgetfulness and vision problems. Update: 10/28/2016. Time: 08:00 Pt appeared alert and oriented to person, place, but not time. She stated that she had no BM today, but had a little yesterday w/ no recollection of how many times. When asked about her abdominal tenderness, she stated she still has minor tenderness but likely because she needs to urinate. She appeared to be in good spirit, laughing inappropriately at times, and mildly confused to who her physician was. She stated that she was in the hospital because of facial weakness and appears aware of her symptoms. Pt still had (L) sided facial droop at the time of visit. She is also somewhat confused to her current location. [PMHx]: * HTN * Hyperlipidemia * COPD * Chronic Hyponatremia (primary polydipsia) [PSHx]: * N/A [SHx]: Tobacco: 1.5 packs per day for several years, but stopped >25 yrs ago. EtOH: NO Illicit Drugs: NO Occupation: N/A Activities of Daily Living: REVIEW OF SYSTEMS: (limited due to pt's mental state) [General]: Sweating (N); Fever or chills (N); Fatigue (YES) [Eyes]: Visual Changes (N); Pain (N); Redness (N) [ENT]: Headaches (N); hoarseness (N); sore throat (N); epistaxis (N); sinus symptoms (N); hearing loss (N); tinnitus (N) [CVS]: Chest Pain (N); Edema (N); PND (N); Orthopnea (N); Palpitations (N); Claudication (N) [Respiratory]: Cough (N); SOB (N); Wheezing (N); Hypersomnolence (N) [GI]: Abdominal Pain (YES); Stool changes (N); Nausea/Vomiting (N); Diarrhea (N) ; Heartburn (N); Blood in Stool (N); Weight Loss (YES) []: Dysuria (YES); Frequency (N); Hematuria (N); Discharge (N); Menstrual Problems (N); [MSK]: Arthralgias (N); Arthritis (N); Joint Swelling (N); Myalgias (N); Back Pain (N) [Heme/Lymph]: Bleeding (N); Bruising (N) ; Clotting (N); Transfusions (N); Lymph Node Swelling (N); [Endo]: Polyuria (N); Polydipsia (YES); Polyphagia (N); Heat/Cold Intolerance (N ); [Derm]: Rash (N); Pruritus (N) [Neuro]: Weakness (YES); Seizures (N); Paresthesias (N); Tremor (N); Syncope (N) ; [Psych]: Anxiety (N); Depression (N); Hallucinations (N); Claustrophobia (N) [All/Imm]: Penicillin (YES) Medication: Current Medications Sig/Aspen Start time Last Medication Dose Route Stop Time Status Admin Acetaminophen 650 MG Q6 PRN 10/25 2100 AC PO Alprazolam 0.125 MG BID PRN 10/29 1427 UNVr PO 11/05 1314 Alprazolam 0.25 MG BID PRN 10/29 1315 DC PO 11/05 1314 Apixaban 2.5 MG BID 10/28 220 AC 10/29 PO 0958 Aspirin 81 MG DAILY 10/26 1000 AC 10/29 PO 0958 Atorvastatin Calcium 40 MG 1700 10/25 2145 AC 10/28 PO 1608 Ceftriaxone Sodium 1,000 MG 22010/26 220 AC 10/28 IV 203 Cyanocobalamin 1,000 MCG DAILY 10/27 1000 AC 10/29 PO 0958 Diltiazem HCl 30 MG BID 10/27 2200 AC 10/29 PO 0958 Heparin Sodium 25,000 UNIT Q24H 10/27 1045 DC 10/28 (Porcine) IV 0951 Sodium Chloride 500 ML Magnesium Sulfate 1 GM Q2H 10/29 1300 AC Dextrose/Water 100 ML IV 10/29 1659 Omeprazole 20 MG DAILY AC 10/26 0700 AC 10/29 PO 0628 Objective Objective: VITALS: Vital Signs Date Time Temp Pulse Resp B/P Pulse O2 O2 Flow FiO2 Ox Delivery Rate 10/28 0924 110/70 10/28 0826 98.5 89 18 107/53 93 Room Air 10/27 2200 81 10/27 1631 98.5 75 16 106/53 92 Room Air Intake & Output 10/28 1600 10/28 0800 10/28 0000 Intake Total 100 100 Output Total 300 250 Balance -200 -150 Intake, Oral 100 100 Output, Urine 300 250 PHYSICAL EXAM: [General Appearance]: Dress: (X) nl hygiene Affect: (X) nl affect, not flat, blunted, or expansive MSE: Oriented in Time, Person, Place Abnormal: Not oriented in place or time (Update 10/29/2016) [Eyes] General: () nl conjunctiva & lids Pupils: (X) equal, round, and reactive Fundus: () nl discs & vessels (N/A) Vision: (X) acuity & gross ramirez intact Abnormals: (L) eye ptosis; mild (L) eye lateral gaze (possible baseline) [ENT]: External: (X) no scars, lesions, masses. Otoscopic: () nl canals, tympanic membranes (N/A) Hearing: (X) nl to finger rub Oropharynx: () nl teeth, tongue, palate, pharynx. Abnormals: White plaque on tongue [Neck]: External: (X) no tracheal deviation Palpation: () no masses or crepitus (N/A) Thyroid: (X) no 'megaly or tenderness. Abnormals: [GI]: Palpation: () no masses or tenderness (X) no hep/splenomegaly Auscultation: (X) nl bowel sounds Percussion: () no shifting dullness (N/A) Anus/rectum : () no abnormalities or masses (N/A) () heme negative stool (N/A) Abnormals: Mild suprapubic tenderess on palpation [Respiratory]: Effort: (X) nl without retractions Percussion: (X) no dullness or hyperresonance Palpation: (X) no fremitus Auscultation: (X) CTAP w/o W, R, or R Abnormals: [CVS]: Palpation: (X) PMI nondisplaced Auscultation: () no murmur, gallop, or rub Carotids: (X) nl intensity w/o bruit JVD: (X) no jugular distension Pulses: (X) 2+/= femoral & pedal pulses Edema: (X) no pedal edema Abnormals: 2/6 systolic murmur (Left Upper Sternal Border) [Neuro]: Orientation: () A&O to person, place, time CN: () CN II-XII intact. Sensory: (X) nl sensation throughout Reflexes: () 2++ and symmetrical throughout. (N/A) Abnormals: (L) sided facial droop; (L) ptosis; (L) eye mildly deviated laterally; nonsymmetrical palate elevation; slight eye tracking difficulties (possibly due to attention) [Skin]: (X) no rashes, lesions, ulcers (X) nl turgor Abnormals: [Chest/Breast]: (X) nl inspection & palpation [Lymph Nodes]: (X) no axillary, inguinal, cervical, or submandibular LAD. []: (Not examined) () nl external genitalia () nl vaginal tone, mucosa [if applicable] () no cervical motion tenderness [if applicable] () nl penis & scrotal contents [if applicable] () nl prostate size & texture [if applicable] Abnormals: [Psych]: (X) nl cognition (X) MMSE () nl mood and affect Abnormals: Pt does randomly laugh mildly at times which seems out of the ordinary for the situation. [MSK]: Inspection ROM Strength Tone (X if normal) Abnormals Upper Extremity: X X 4/5 X Lower Extremity: X X 3/5 X [Gait]: () nl gait and station (N/A) Results Results: Laboratory Tests 10/28/16 0734: Anion Gap 9, Estimated GFR > 60, BUN/Creatinine Ratio 14.3, APTT 82 H, CBC w Diff Pending, WBC Pending, RBC Pending, Hgb Pending, Hct Pending, MCV Pending, MCH Pending, RDW Pending, Plt Count Pending, MPV Pending, Gran % Pending, Lymphocytes % Pending, Monocytes % Pending, Eosinophils % Pending, Basophils % Pending, Absolute Granulocytes Pending, Absolute Lymphocytes Pending, Absolute Monocytes Pending, Absolute Eosinophils Pending, Absolute Basophils Pending, PUBS MCHC Pending 10/27/16 1853: Sodium Cancelled, Potassium Cancelled, Chloride Cancelled, Carbon Dioxide Cancelled, Anion Gap Cancelled, BUN Cancelled, Creatinine Cancelled, BUN/ Creatinine Ratio Cancelled, Magnesium Cancelled 10/27/16 1437: APTT 71 H 10/27/16 0754: PT 11.5, INR 1.10, CBC w Diff NO MAN DIFF REQ, RBC 3.06 L, MCV 88.8, MCH 29.8, RDW 14.2, MPV 7.8, Gran % 83.6 H, Lymphocytes % 7.4 L, Monocytes % 8.7, Eosinophils % 0.2, Basophils % 0.1, Absolute Granulocytes 10.6 H, Absolute Lymphocytes 0.9 L, Absolute Monocytes 1.1 H, Absolute Eosinophils 0, Absolute Basophils 0, PUBS MCHC 33.6 10/27/16 0545: Anion Gap 9, Estimated GFR > 60, BUN/Creatinine Ratio 15.0, Phosphorus 3.3, Magnesium 1.0 L, Troponin I 0.02, Ebz-E-Eyfjrheczsv Pept 2780 H, TSH 1.880 10/26/16 0655: Anion Gap 7, Estimated GFR > 60, BUN/Creatinine Ratio 15.0, Triglycerides 42, Cholesterol 126, LDL Cholesterol, Calc 71, HDL Cholesterol 47, Cholesterol/HDL Ratio 3, Vitamin B12 234 L, CBC w Diff NO MAN DIFF REQ, RBC 3.15 L, MCV 89.0, MCH 30.1, RDW 14.2, MPV 7.7, Gran % 80.1 H, Lymphocytes % 10.1 L, Monocytes % 9.4 H, Eosinophils % 0.3, Basophils % 0.1, Absolute Granulocytes 7.5 H, Absolute Lymphocytes 1.0 L, Absolute Monocytes 0.9 H, Absolute Eosinophils 0, Absolute Basophils 0, PUBS MCHC 33.8 10/25/16 192: Lactic Acid Cancelled 10/25/161734: Barbiturate Screen < 60, Urine Color YEL, Urine Clarity CLEAR, Urine pH 6.0, Ur Specific [place] 1.010, Urine Protein NEG, Urine Ketones NEG, Urine Nitrite NEG, Urine Bilirubin NEG, Urine Urobilinogen 0.2, Ur Leukocyte Esterase SMALL H, Ur Microscopic SEDIMENT EXAMINED, Urine RBC RARE, Urine WBC 5-10 H, Ur Epithelial Cells RARE, Urine Hemoglobin NEG, Urine Glucose NEG 10/25/16 1624: Lactic Acid 0.9 10/25/16 162: Anion Gap 12, Estimated GFR 47 L, BUN/Creatinine Ratio 13.6, Glucose 96, Calcium 8.6, Total Bilirubin 1.0, AST 17, ALT 18, Alkaline Phosphatase 70, Troponin I 0.02, Total Protein 7.0, Albumin 3.4 L, Globulin 3.6, Albumin/ Globulin Ratio 0.9 L, CBC w Diff NO MAN DIFF REQ, RBC 3.51 L, MCV 88.1, MCH 29.9, RDW 14.6 H, MPV 7.0 L, Gran % 71.5, Lymphocytes % 14.5 L, Monocytes % 13.7 H, Eosinophils % 0, Basophils % 0.3, Absolute Granulocytes 8.6 H, Absolute Lymphocytes 1.8, Absolute Monocytes 1.7 H, Absolute Eosinophils 0, Absolute Basophils 0, PUBS MCHC 33.9 Microbiology 10/25 1753 BLOOD: Blood Culture - RES 10/25 1740 BLOOD: Blood Culture - RES 10/25 1735 URINE ROUT: Urine Culture - COMP Assessment/Plan Assessment: Mrs. Romero is a 81 y/o F that was admitted for confusion, (L) sided facial drooping, (L) sided ptosis, and expressive aphasia. She appears to be doing much better today overall, but ptosis is still present and mild confusion still persists. Overnight yesterday, pt had a new onset a-fib which was subsequently treated w/ IV heparin drip and IV Cardizem drip. Yesterday night she converted back to sinus rhythm and the Cardizam drip was stopped. She was later switched to Cardizam 30mg BID PO. Based on the pts clinical findings and symptoms, the pt likely suffered from a TIA vs. 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 Chronic B12 deficiency leading to neurological defects (r/o; no impaired perception of touch, pressure or vibration. Treat anyway due to low levels of Vitamin B12) Plan: Problem 1: Acute left-sided facial droop w/ slurred speech (expressive aphasia) * Likely a TIA due to duration of symptoms (persisting facial droop & slight left lateral gaze deviation w/ resolved slurred speech), but negative head imaging. * MRI of the brain was negative for acute infarction or hemorrhage. * Obtain EEG * Continue Aspirin 81 mg * Continue atorvastatin 40 mg * Prescription inquiry resulted in chronic use of Alprazolam 0.25mg which may explain new onset confusion (Update: 10/28/2016) due to withdrawl of medication during inpatient status. * Restart Alprazolam 0.25mg due to the above note. 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 * Restarted Cardizam 30 mg PO BID due to new onset A-fib which was converted to sinus yesterday using IV Cardizam. * Continue telemetry due to new onset a-fib. * Continue IV Heparin pending which long-term anticoagulation is best. * Monitor BEP. Problem 3: Mild suprapubic tenderness (possible UTI) * Pt stated the tendereness was mildly improved today morning. * Blood + Urine culture * Continue Ceftriaxone (1,000 mg) until final culture results are in. * Monitor pt for improvement. * Consider ultrasound of the suprapubic region if pain worsens. Problem 4: White plaque on tongue * Possible mild oral thrush, but unlikely because no evidence of inhalational steroid use or immunodeficiency. * Pt stated she has a "mouthwash" for the plaque. * Nystatin mouthwash (swish and swallow) if plaque is Su. Problem 5: Moderate COPD changes on Chest X-Ray * Not currently on home O2. History of smoking up to 1.5 packs per day, but pt quit >25 yrs ago. * Albuterol as needed Problem 6: GERD * Continue Omeprazole 20 mg PO STEPHEN SELLERS MD 11/01/16 1130: Attending MD Review Statement Attending Sign Off Attending Cosign Statement: I have: examined this patient, reviewed [facility] EMR data, agreed w/resident/PA/ GROCERY CADDY. Other Findings: Agree with the above assessment.
[2016-10-28 10:14] LABS: WHITE BLOOD CELL COUNT 10.3 /CUMM (4.8-10.8)
--- NOTE | 2016-10-28 10:41 | ECHOCARDIOGRAM REPORT ---
NATHALIE MCKEON Age: 81 : 1935 Gender: F Exam Date: 10/27/2016 13:09 Exam Location: 1 [address] Ht (in): 60 Wt (lb): 90 BSA: 1.31 BP: 104 / 52 Ordering Physician: BARRINGTON NAPIER MD Referring Physician: Flaquita Vergara MD Technologist: Zully Ruiz [facility] Room Number: 178 Indications: CARDIOMYOPATHY Rhythm: Sinus Technical Quality: Fair, Technically difficult study FINDINGS Left Ventricle Normal size left ventricle. No obvious regional wall motion abnormalities. Normal left ventricular ejection fraction estimated at 55-60%. Right Ventricle Mild right ventricular dilatation. Right Atrium Mild right atrial dilatation. Left Atrium Mild to moderate left atrial dilatation. Mitral Valve Mitral valve thickened. Moderate mitral annular calcification. Mild mitral regurgitation. Mild mitral regurgitation. Aortic Valve Trileaflet aortic valve. Diffuse thickening (sclerosis) of the aortic valve cusps without reduced excursion. No aortic stenosis. No aortic regurgitation. Tricuspid Valve Tricuspid valve not well visualized, grossly normal. Mild tricuspid regurgitation. Pulmonic Valve Pulmonic valve not well visualized. Pericardium No pericardial effusion. Great Vessels Aortic root and proximal ascending aorta not well visualized, grossly normal. CONCLUSIONS 1. THis was a techically difficult examination. 2. 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 Mitral leaflet thickening is present with moderate anular calcification and mild mitral insufficiency with mild to moderatee left atrial enlargement. 4. There is no significant pericardial fluid present. 5. THe left ventricualr chamber size and systolic function appear normal with no resting wall motion abnormalities. 6. Mild enlargement of the right heart chambers is noted with moderate tricuspid insufficiency and pulmonary hypertension with an estimated RV systolic pressure of 64 mmHg. 7. Lipomatous hypertrophy of the interatrial septum is present. Flaquita Vergara M.D. (Electronically Signed) Final Date: 28 October 2016 10:41 MEASUREMENTS (Male / Female) Normal Values 2D ECHO LV Diastolic Diameter PLAX 4.0 cm 4.2 - 5.9 / 3.9 - 5.3 cm LV Systolic Diameter PLAX 2.3 cm 2.1 - 4.0 cm LV Fractional Shortening PLAX 42.5 % 25 - 46 % LV Ejection Fraction 2D Teich 74.1 % IVS Diastolic Thickness 1.1 cm LVPW Diastolic Thickness 1.1 cm LV Relative Wall Thickness 0.6 RV Internal Dim ED PLAX 2.6 cm 1.9 - 3.8 cm LVOT Diameter 1.8 cm Aortic Root Diameter 2.4 cm LA Systolic Diameter LX 3.5 cm 3.0 - 4.0 / 2.7 - 3.8 cm LA Volume 51.0 cm 18 - 58 / 22 - 52 cm Ascending Aorta Diameter 2.5 cm DOPPLER AV Peak Velocity 219.0 cm/s AV Peak Gradient 19.2 mmHg AV Mean Velocity 147.0 cm/s AV Mean Gradient 10.0 mmHg AV Velocity Time Integral 49.8 cm LVOT Peak Velocity 126.0 cm/s LVOT Peak Gradient 6.4 mmHg LVOT Mean Velocity 74.0 cm/s LVOT Mean Gradient 3.0 mmHg LVOT Velocity Time Integral 26.0 cm LVOT Stroke Volume 66.2 cm AV Area Cont Eq vti 1.3 cm AV Area Cont Eq pk 1.5 cm MV Peak Velocity 121.0 cm/s MV Peak Gradient 5.9 mmHg MV Mean Velocity 65.8 cm/s MV Mean Gradient 2.0 mmHg Mitral E Point Velocity 105.0 cm/s Mitral A Point Velocity 80.5 cm/s Mitral E to A Ratio 1.3 MV PHT Velocity 126.0 cm/s MV Deceleration [place] 568.0 cm/s MV Pressure Half Time 66.5 ms MV Area PHT 3.3 cm MV Deceleration Time 185.0 ms TR Peak Velocity 395.0 cm/s TR Peak Gradient 62.4 mmHg Right Atrial Pressure 5.0 mmHg Pulmonary Artery Systolic Pressu 67.4 mmHg Right Ventricular Systolic Press 67.4 mmHg PV Peak Velocity 137.0 cm/s PV Peak Gradient 7.5 mmHg PV Mean Velocity 91.7 cm/s PV Mean Gradient 4.0 mmHg PV Velocity Time Integral 28.7 cm LV E' Lateral Velocity 11.1 cm/s Mitral E to LV E' Lateral Ratio 9.5 LV E' Septal Velocity 6.7 cm/s Mitral E to LV E' Septal Ratio 15.6
--- NOTE | 2016-10-28 11:08 | Patient Discharge Instructions ---
Discharge Instructions General Discharge Information You were seen/treated for: TIA/Acute slurring of speech alongwith facial droop New onset of paroxysmal atrial fibrillation with rapid ventricular response. Special Instructions: Please schedule a follow up appointment with your PCP, drill instructor and neurologist in one week. You have been started on eliquis a blood thinner and cardizem for irregular heart rythm, follow up with your drill instructor regarding this. Diet Continue normal diet: Yes Recommended Diet: mechanical soft, nectar Activity Activity Self Limited: Yes Acute Coronary Syndrome Inclusion Criteria At DC or during hospital stay patient has or had the following: ACS DIAGNOSIS No Discharge Core Measures Meds if any: Prescribed or Continued at Discharge Meds if any: NOT Prescribed or Continued at Discharge Congestive Heart Failure Inclusion Criteria At DC or during hospital stay patient has or had the following: CHF DIAGNOSIS No Discharge Core Measures Meds if any: Prescribed or Continued at Discharge Meds if any: NOT Prescribed or Continued at Discharge Cerebrovascular accident Inclusion Criteria At DC or during hospital stay patient has or had the following: CVA/TIA Diagnosis No Discharge Core Measures Meds if any: Prescribed or Continued at Discharge Meds if any: NOT Prescribed or Continued at Discharge Venous thromboembolism Inclusion Criteria VTE Diagnosis No VTE Type NONE VTE Confirmed by (Test) NONE Discharge Core Measures - Per Current guidelines, there needs to be overlap - treatment for the first 5 days of Warfarin therapy. - If discharged on Warfarin prior to 5 days of - overlap therapy, the patient will need to be - assessed for post discharge needs including - *Post discharge parental anticoagulation - *Warfarin and/or parental anticoagulation education - *Follow up date to check INR post discharge At least 5 days overlap therapy as Inpatient No Meds if any: Prescribed or Continued at Discharge Note: Overlap Therapy is Warfarin and Anticoagulant Meds if any: NOT Prescribed or Continued at Discharge
[2016-10-28 16:19] VITALS: BP 111/42
--- NOTE | 2016-10-28 17:42 | PN- Cardiology ---
See Addendum Subjective Subjective: The patient is comfortable. No chest pain. No palpitations. No shortness of breath. No diaphoresis. She remains in sinus rhythm. Objective Vital Signs and I&Os Vital Signs Date Time Temp Pulse Resp B/P Pulse O2 O2 Flow FiO2 Ox Delivery Rate 10/28 1619 97.6 76 17 111/42 95 Room Air 10/28 1600 95 Room Air 10/28 0924 110/70 10/28 0826 98.5 89 18 107/53 93 Room Air 10/27 2200 81 Intake & Output 10/28 1600 10/28 0800 10/28 0000 10/27 1600 10/27 0800 10/27 0000 Intake Total 600 100 100 900 100 100 Output Total 350 300 250 400 300 Balance 250 -200 -150 500 -200 100 Intake, IV 500 Intake, Oral 600 100 100 400 100 100 Output, Urine 350 300 250 400 300 Patient 90 lb 15.19 oz Weight Physical Exam: Gen: The patient is in no acute distress HEENT: Normal nose, ears, and oropharynx. Pupils equal bilaterally. Conjunctiva normal. Neck: Supple with no JVD, no masses, and no thyromegaly Lungs: Clear to auscultation with normal respiratory effort Heart: S1, S2, 1/6 systolic murmur. No peripheral edema, 1+ pulses in the lower extremities bilaterally Abdomen: Soft, nontender, no masses. No hepatomegaly. No splenomegaly Extremities: No clubbing or cyanosis. Normal muscle strength in the upper and lower extremities Skin: Normal skin turgor with no skin ulcers or lesions noted. Current Medications: Current Medications Sig/Aspen Start time Last Medication Dose Route Stop Time Status Admin Acetaminophen 650 MG Q6 PRN 10/25 2100 AC PO Aspirin 81 MG DAILY 10/26 1000 AC 10/28 PO 0924 Atorvastatin Calcium 40 MG 1700 10/25 2145 AC 10/28 PO 1608 Ceftriaxone Sodium 1,000 MG 2200 10/26 220 AC 10/27 IV 2043 Cyanocobalamin 1,000 MCG DAILY 10/27 1000 AC 10/28 PO 0924 Diltiazem HCl 30 MG BID 10/27 2200 AC 10/28 PO 0924 Heparin Sodium 25,000 UNIT Q24H 10/27 1045 AC 10/28 (Porcine) IV 0951 Sodium Chloride 500 ML Omeprazole 20 MG DAILY AC 10/26 0700 AC 10/28 PO 0708 Results Last 48 Hrs of Labs/Mics: Laboratory Tests 10/28/16 0734: Anion Gap 9, Estimated GFR > 60, BUN/Creatinine Ratio 14.3, APTT 82 H, CBC w Diff NO MAN DIFF REQ, RBC 3.33 L, MCV 89.3, MCH 29.8, RDW 14.4, MPV 8.4, Gran % 85.4 H, Lymphocytes % 6.1 L, Monocytes % 6.7, Eosinophils % 1.6, Basophils % 0.2, Absolute Granulocytes 8.8 H, Absolute Lymphocytes 0.6 L, Absolute Monocytes 0.7 H, Absolute Eosinophils 0.2, Absolute Basophils 0, PUBS MCHC 33.4 10/27/16 1853: Sodium Cancelled, Potassium Cancelled, Chloride Cancelled, Carbon Dioxide Cancelled, Anion Gap Cancelled, BUN Cancelled, Creatinine Cancelled, BUN/ Creatinine Ratio Cancelled, Magnesium Cancelled 10/27/16 1437: APTT 71 H 10/27/16 0754: PT 11.5, INR 1.10, CBC w Diff NO MAN DIFF REQ, RBC 3.06 L, MCV 88.8, MCH 29.8, RDW 14.2, MPV 7.8, Gran % 83.6 H, Lymphocytes % 7.4 L, Monocytes % 8.7, Eosinophils % 0.2, Basophils % 0.1, Absolute Granulocytes 10.6 H, Absolute Lymphocytes 0.9 L, Absolute Monocytes 1.1 H, Absolute Eosinophils 0, Absolute Basophils 0, PUBS MCHC 33.6 10/27/16 0545: Anion Gap 9, Estimated GFR > 60, BUN/Creatinine Ratio 15.0, Phosphorus 3.3, Magnesium 1.0 L, Troponin I 0.02, Scs-E-Zbmjaqupraj Pept 2780 H, TSH 1.880 Recent Imaging Studies: Echocardiogram: 1. This was a techically difficult examination. 2. 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 Mitral leaflet thickening is present with moderate anular calcification and mild mitral insufficiency with mild to moderatee left atrial enlargement. 4. There is no significant pericardial fluid present. 5. THe left ventricualr chamber size and systolic function appear normal with no resting wall motion abnormalities. 6. Mild enlargement of the right heart chambers is noted with moderate tricuspid insufficiency and pulmonary hypertension with an estimated RV systolic pressure of 64 mmHg. 7. Lipomatous hypertrophy of the interatrial septum is present. Assessment/Plan Assessment/Plan Assessment: 1. Paroxysmal atrial fibrillation 2. Possible CVA 3. UTI 4. Hypertension 5. known CAD plan: * Continue p.o. diltiazem * Start Eliquis 2.5 milligrams p.o. b.i.d. for anticoagulation * Discontinue IV heparin when 1st dose of Eliquis is given Continue telemetry? Yes
--- NOTE | 2016-10-29 07:56 | PN- Housestaff ---
ARELY ZIMMERMAN,[facility] 10/29/16 0756: Subjective Follow-up For: Acute left-sided facial droop with slurred speech(expressive aphasia), possible TIA/stroke Subjective: pt seen and examined. she was lying in bed in no acute distress, was not oriented to time space person. remains afebrile, other vitals within normal limits. Review of Systems Constitutional: Reports: see HPI. Objective Last 24 Hrs of Vital Signs/I&O Vital Signs Date Time Temp Pulse Resp B/P Pulse O2 O2 Flow FiO2 Ox Delivery Rate 10/29 1541 98.0 73 20 118/62 93 10/29 0958 114/60 10/29 0859 Room Air 10/29 0800 97.0 90 20 110/52 94 Room Air 10/29 0000 Room Air 10/28 2040 84 112/40 Intake & Output 10/29 1600 10/29 0800 10/29 0000 Intake Total 500 330 Output Total 400 450 Balance 100 -120 Intake, IV 100 80 Intake, Oral 400 250 Number 1 Bowel Movements Output, Urine 400 450 Physical Exam General Appearance: Alert, Oriented X3, Cooperative, No Acute Distress Cardiovascular: Regular Rate, Normal S1, Normal S2 Lungs: Clear to Auscultation, Normal Air Movement Abdomen: Normal Bowel Sounds, Soft, No Tenderness Extremities: No Clubbing, No Cyanosis, No Edema Current Medications: Current Medications Sig/Aspen Start time Last Medication Dose Route Stop Time Status Admin Acetaminophen 650 MG Q6 PRN 10/25 2100 AC PO Alprazolam 0.125 MG BID 10/29 2200 AC PO 11/05 215 Alprazolam 0.125 MG BID PRN 10/29 1427 AC PO 10/29 2159 Alprazolam 0.25 MG BID PRN 10/29 1315 DC PO 11/05 1314 Apixaban 2.5 MG BID 10/28 2200 AC 10/29 PO 0958 Aspirin 81 MG DAILY 10/26 1000 AC 10/29 PO 0958 Atorvastatin Calcium 40 MG 1700 10/25 2145 AC 10/29 PO 1616 Ceftriaxone Sodium 1,000 MG 10/26 2200 DC 10/28 IV 2038 Cyanocobalamin 1,000 MCG DAILY 10/27 1000 AC 10/29 PO 0958 Diltiazem HCl 30 MG BID 10/27 2200 AC 10/29 PO 0958 Heparin Sodium 25,000 UNIT Q24H 10/27 1045 DC 10/28 (Porcine) IV 0951 Sodium Chloride 500 ML Magnesium Sulfate 1 GM Q2H 10/29 1300 DC 10/29 Dextrose/Water 100 ML IV 10/29 1659 1616 Omeprazole 20 MG DAILY AC 10/26 0700 AC 10/29 PO 0628 Last 24 Hrs of Lab/John Results Last 24 Hrs of Labs/Mics: Laboratory Tests 10/29/16 1200: Magnesium 1.2 L 10/28/16 1930: APTT Cancelled Assessment/Plan Assessment: Patient is a 81-year-old woman with a past medical history significant for hypertension, hyperlipidemia, COPD, chronic hyponatremia(Primary polydipsia) presented to the ED with chief complaint of confusion, facial droop with weakness and pathology this morning. On the time of examination patient was alert and awake, could not able to express herself so most of the history was obtained from the friend and ED staff. Pertinent labs on admission The BBC count 12.1, H&H 10.5/30.9, sodium 132 with a baseline 133 creatinine 1.1 , lactic acid 0.9, urinalysis showed small leukocyte esterase. CAT scan of the head :There are scattered nonspecific changes within the periventricular white matter that most likely represent a chronic manifestation of small vessel ischemia. No evidence of acute territorial infarct or hemorrhage. Chest x-ray:Moderate COPD changes without evidence of an acute intrathoracic process. The heart appears mildly enlarged. Assessment and plan: #New onset of paroxysmal atrial fibrillation with rapid ventricular response * CHAD2-VASC score was calculated at 5 corresponding to a high risk of stroke which warrants anti-coagulation. HAS-BLED score was calculated at 2, Cradiology recommendation start patient on Eliquis 2.5 mg daily. corresponding to a moderate risk for major bleed. * Cardizem 30 mg twice a day # Acute left-sided facial droop with slurred speech(expressive aphasia), possible TIA/stroke * Continue telemetry. * Blood pressure continues to remain borderline, hold off any antihypertensive for now, per med permissive hypertension to keep blood pressure more than 150. * Consider antihypertensives if blood pressure remains elevated above 220. * we will give loading dose of aspirin 325 and Lipitor 40 mg. * Neurochecks every 2 hours * MRI of brain is negative for acute infarction or hemorrhage * EEG pending. * Replete vitamin B12 with 1000 g daily # Positive suprapubic tenderness with urine analysis positive for leukocyte Estrace possible urinary tract infection * Urine culture and Blood cultures pending * Continue IV ceftriaxone # History of GERD * Continued PPI. # History of anxiety and depression * continue home dose of Xanax as needed for anxiety hold if patient becomes drowsy. Diet : Patient passed swallow evaluation, patient on regular mechanical soft nectar # DVT prophylaxis with heparin # Mild to moderate pain controlled with Tylenol. # Patient is DNR/DNI Problem List: 1. Atrial fibrillation 2. HTN (hypertension) 3. CVA (cerebral vascular accident) 4. Generalized weakness Pain Ratin Pain Location: None Pain Goal: Remain pain free Pain Plan: Mild pain pathway Tomorrow's Labs & Rationales: none STEPHEN SELLERS MD 10/29/16 6813: Attending MD Review Statement Attending Statement Attending MD Statement: examined this patient, discuss w/resident/PA/OFFICE NURSE PRACTITIONER, agreed w/resident/PA/OFFICE NURSE PRACTITIONER, reviewed EMR data (avail), discussed with nursing, discussed with case mgmt, amended to note Attending Assessment/Plan: The patient was seen and discussed with house staff. Did CTPMP check and patient has been filling prescription for Xanax 0.25 mg bid for months. She informed me she only takes 1/2 tablet of the pills, however suspect she has been on intermediate card tender benzodiazepine. Will start at 0.125 mg bid and follow mental status. Confusion noted may be related to benzo withdrawal as she has had none since admission.
[2016-10-29] MEDS ORDERED: ATORVASTATIN CA40 M1 PO (07:59)
[2016-10-29 08:00] VITALS: BP 110/52
--- NOTE | 2016-10-29 08:51 | Discharge Summary ---
Visit Information Visit Dates Admission Date: 10/25/16 Discharge Date: 10/30/2016 Hospital Course Course Attending Physician: STEPHEN SELLERS MD Primary Care Physician: TORIBIO LOO MD Consulting Request: Consulting Specialty: Neurology Consulting Physician: [facility] Course: The patient is a 81 y/o F with PMHx of HTN, HLD, COPD, pulmonary HTN, chronic hyponatremia who was brought in by her friend for acute onset of confusion. The night prior to current presentation, her long-time friend, who talks to her 5-6 times per day on a regular basis and is her next of kin, noticed that patient sounded confused over the phone. The next morning, confusion was more noticeable and patient's speech was "garbled". She called the police around 1 PM to check on the patient who evaluated the patient and thought that she was fine. She later went over to patient's apartment where patient lives by herself to check on her. She noted that patient was very disoriented and had defecated on herself , thus decided to bring her to the ED. She feels that she is doing better now. Vitals on admission temperature 98.0, pulse 71, respiratory rate 18, blood pressure 99/57 on room air General Appearance: Alert, No Acute Distress, left-sided facial droop Skin: Grossly normal HEENT: PEERLA Neck: Supple, No JVD Cardiovascular: Regular Rate, Normal S1, Normal S2, No Murmurs Lungs: Lungs clear to examination bilaterally Abdomen: Normal Bowel Sounds, Soft, positive suprapubic tenderness Neurological: Expressive aphasia , with left-sided facial droop , decreased strength on the right upper extremity .Strength at 5/5 in the left upper extremity and bilaterally in the lower extremities, Reflexes 2+ Extremities: No Clubbing, No Cyanosis, No Edema Vascular: Normal Pulses. Pertinent labs on admission The BBC count 12.1, H&H 10.5/30.9, sodium 132 with a baseline 133 creatinine 1.1 , lactic acid 0.9, urinalysis showed small leukocyte esterase. CAT scan of the head :There are scattered nonspecific changes within the periventricular white matter that most likely represent a chronic manifestation of small vessel ischemia. No evidence of acute territorial infarct or hemorrhage. Chest x-ray:Moderate COPD changes without evidence of an acute intrathoracic process. The heart appears mildly enlarged. She was admitted to telemetry floor with the following problems: #Acute left-sided facial droop with slurred speech(expressive aphasia), stroke: Patient was seen by neurologist who recommend to do MRI with and without gadolinium: Which shows:1. No acute abnormalities. No acute infarcts or intracranial hemorrhage. Of note, artifact as described above, results in suboptimal visualization of the inferior frontal lobes and brainstem and possible small acute infarcts in these regions may not be visualized by this examination. 2. Moderate chronic small vessel ischemic disease and multiple chronic lacunar infarcts within the right thalamus. We started patient on aspirin and statin therapy, initially patient was treated with IV heparin and then we switched to by mouth Eliquis. Carotid Doppler obtained which shows: There is atherosclerotic disease involving the carotid bifurcations bilaterally with no hemodynamically significant stenosis involving the internal carotid arteries by sonographic criteria. Diltiazem 30 mg twice a day was started which can be continued after discharge. Patient passed official swallow evaluation. PT/OT consult was obtained. #Positive suprapubic tenderness with urine analysis positive for leukocyte Estrace possible urinary tract infection, Urine culture and Blood cultures remains negative, he was started initially on IV ceftriaxone which discontinued after negative culture #History of GERD * Continued PPI. #History of anxiety and depression * continued home dose of Xanax as needed for anxiety hold if patient becomes drowsy. Patient is DNR/DNI Complications: Non Allergies: Coded Allergies: Penicillins (UNKNOWN 08/19/16) Disposition Summary Disposition Principal Diagnosis: -Stroke -New onset of paroxysmal atrial fibrillation with rapid ventricular response. Additional Diagnosis: As above Discharge Disposition: STR Discharge Instructions General Discharge Information Code Status: Do Not Resucitate/Intubat Patient's Diet: mechanical soft, nectar Patient's Activity: As tolerated Follow-Up Instructions/Appts: Please schedule a follow up appointment with your PCP, social work faculty member and neurologist in one week. You have been started on eliquis a blood thinner for irregular heart rythm, follow up with your social work faculty member regarding this. Medications at Discharge Discharge Medications: Stop taking the following medications: Amlodipine (Norvasc 5MG Tab) 5 MG TABLET ORAL DAILY Qty = 30 Metoprolol Tartrate (Lopressor) 25 MG TABLET ORAL TWICE DAILY Qty = 60 Simvastatin (Zocor) 10 MG TABLET ORAL Every night Continue taking these medications: Cholecalciferol (Vitamin D3) 1,000 UNIT TABLET 1 Tablet ORAL DAILY Pantoprazole Sodium (Pantoprazole Sodium) 20 MG ECT 1 Tablet ORAL DAILY Qty = 30 Comments: TAKE 1 TABLET BY MOUTH EVERY DAY - SIG Obtained From Shiela Alprazolam (Alprazolam) 0.25 MG TABLET 1 Tablet ORAL TWICE DAILY as needed for ANXIETY Qty = 60 Comments: TAKE 1 TABLET TWICE DAILY NEEDED - SIG Obtained From Fir Start taking the following new medications: Atorvastatin Calcium (Atorvastatin Calcium) 40 MG TABLET 1 Tablet ORAL 5 PM Qty = 30 No Refills Comments: Last Taken:10/29/16 Time:1700 Apixaban (Eliquis) 2.5 MG TABLET 1 Tablet ORAL TWICE DAILY Qty = 30 No Refills Comments: Last Taken:10/30/16 Time:0900 Copies To: STEPHEN SELLERS MD; EZE ZIMMERMAN,TORIBIO Attending Review Statement Documenting Attending: STEPHEN SELLERS MD Other Findings: The patient was seen and discussed with house staff. Agree with the plan of care as outlined. Note- patient was on chronic benzos as outpatient (Xanax) and did not want to discontinue. A portion of confusion may have been related to benzo withdrawal as she received none initial several days of admission. Should be tapered slowly as outpatient.
[2016-10-29] MEDS ORDERED: ELIQUIS2.5 M1 PO (08:59)
--- NOTE | 2016-10-29 10:03 | ELECTROENCEPHALOGRAM REPORT ---
Electroencephalogram Report ELECTROENCEPHALOGRAM RESULTS Date of service: 10/28/16 Ordering Provider: Rabia Gillette MD SENIOR PROCESS ENGINEER: ANGELICA Laura EEG NUMBER: [id number] TEST UTILIZES: 10-20 system, 21-lead 18 channel digital EEG recording PERTINENT HX/PHYSICAL/NEURO FINDINGS/CLINICAL DIA-year-old patient being evaluated for altered mental status and rule out seizures. Described as briefly awake but mainly drowsy and asleep throughout the test. Hyperventilation could not be performed. MEDICATIONS: Diltiazem ceftriaxone atorvastatin omeprazole aspirin cyanocobalamin INTERPRETATION: The background is dominated by moderate amplitude theta activity at 6-7 Hz. The background is irregular due to intermixed faster activity in the alpha and beta range as well as slower theta and occasional delta. There are no lateralized focal or epileptiform abnormalities. Photic adds no additional information IMPRESSION: Abnormal due to moderate generalized slowing consistent with a diffuse toxic or metabolic encephalopathy no epileptiform abnormalities identified.
--- NOTE | 2016-10-29 14:54 | PN- Cardiology ---
Subjective Subjective: Feeling well. No chest pain. No palpitations. She is in sinus rhythm on telemetry. No diaphoresis. Objective Vital Signs and I&Os Vital Signs Date Time Temp Pulse Resp B/P Pulse O2 O2 Flow FiO2 Ox Delivery Rate 10/29 0958 114/60 10/29 0859 Room Air 10/29 0800 97.0 90 20 110/52 94 Room Air 10/29 0000 Room Air 10/28 2040 84 112/40 10/28 1619 97.6 76 17 111/42 95 Room Air 10/28 1600 95 Room Air Intake & Output 10/29 1600 10/29 0800 10/29 0000 10/28 1600 10/28 0800 10/28 0000 Intake Total 330 600 100 100 Output Total 450 350 300 250 Balance -120 250 -200 -150 Intake, IV 80 Intake, Oral 250 600 100 100 Number 1 Bowel Movements Output, Urine 450 350 300 250 Patient 90 lb 15.19 oz Weight Physical Exam: Gen: The patient is in no acute distress HEENT: Normal nose, ears, and oropharynx. Pupils equal bilaterally. Conjunctiva normal. Neck: Supple with no JVD, no masses, and no thyromegaly Lungs: Clear to auscultation with normal respiratory effort Heart: S1, S2, 1/6 systolic murmur. No peripheral edema, 1+ pulses in the lower extremities bilaterally Abdomen: Soft, nontender, no masses. No hepatomegaly. No splenomegaly Extremities: No clubbing or cyanosis. Normal muscle strength in the upper and lower extremities Skin: Normal skin turgor with no skin ulcers or lesions noted. Current Medications: Current Medications Sig/Aspen Start time Last Medication Dose Route Stop Time Status Admin Acetaminophen 650 MG Q6 PRN 10/25 2100 AC PO Alprazolam 0.125 MG BID PRN 10/29 1427 AC PO 11/05 1314 Alprazolam 0.25 MG BID PRN 10/29 1315 DC PO 11/05 1314 Apixaban 2.5 MG BID 10/28 2200 AC 10/29 PO 0958 Aspirin 81 MG DAILY 10/26 1000 AC 10/29 PO 0958 Atorvastatin Calcium 40 MG 1700 10/25 2145 AC 10/28 PO 1608 Ceftriaxone Sodium 1,000 MG 2200 10/26 220 AC 10/28 IV 2038 Cyanocobalamin 1,000 MCG DAILY 10/27 1000 AC 10/29 PO 0958 Diltiazem HCl 30 MG BID 10/27 2200 AC 10/29 PO 0958 Heparin Sodium 25,000 UNIT Q24H 10/27 1045 DC 10/28 (Porcine) IV 0951 Sodium Chloride 500 ML Magnesium Sulfate 1 GM Q2H 10/29 1300 AC 10/29 Dextrose/Water 100 ML IV 10/29 1659 1435 Omeprazole 20 MG DAILY AC 10/26 0700 AC 10/29 PO 0628 Results Last 48 Hrs of Labs/Mics: Laboratory Tests 10/29/16 1200: Magnesium 1.2 L 10/28/16 1930: APTT Cancelled 10/28/16 0734: Anion Gap 9, Estimated GFR > 60, BUN/Creatinine Ratio 14.3, APTT 82 H, CBC w Diff NO MAN DIFF REQ, RBC 3.33 L, MCV 89.3, MCH 29.8, RDW 14.4, MPV 8.4, Gran % 85.4 H, Lymphocytes % 6.1 L, Monocytes % 6.7, Eosinophils % 1.6, Basophils % 0.2, Absolute Granulocytes 8.8 H, Absolute Lymphocytes 0.6 L, Absolute Monocytes 0.7 H, Absolute Eosinophils 0.2, Absolute Basophils 0, PUBS MCHC 33.4 10/27/16 1853: Sodium Cancelled, Potassium Cancelled, Chloride Cancelled, Carbon Dioxide Cancelled, Anion Gap Cancelled, BUN Cancelled, Creatinine Cancelled, BUN/ Creatinine Ratio Cancelled, Magnesium Cancelled Assessment/Plan Assessment/Plan Assessment: 1. Paroxysmal atrial fibrillation 2. Possible CVA 3. UTI 4. Hypertension 5. Known CAD plan: * Continue oral diltiazem. * Continue P0 Eliquis * Follow up with Dr. Vergara in one week after discharge. Continue telemetry? No
[2016-10-29 15:41] VITALS: BP 118/62
[2016-10-30 00:18] VITALS: BP 112/68
--- NOTE | 2016-10-30 07:54 | PN- Housestaff ---
ARELY ZIMMERMAN,[facility] 10/30/16 0754: Subjective Follow-up For: Acute left-sided facial droop with slurred speech(expressive aphasia), possible stroke Subjective: pt seen and examined this morning. She was lying in bed in acute distress. She was alert, oriented 3. She remains afebrile, vitals within normal limits. She is to be discharged to short-term rehabilitation today. Review of Systems Constitutional: Denies: chills, fever. Cardiovascular: Denies: chest pain, palpitations. Respiratory: Denies: cough, short of breath, sputum production. Gastrointestinal: Denies: abdominal pain, constipation, diarrhea, nausea, vomiting. Genitourinary: Denies: dysuria, frequency. Objective Last 24 Hrs of Vital Signs/I&O Vital Signs Date Time Temp Pulse Resp B/P Pulse O2 O2 Flow FiO2 Ox Delivery Rate 10/30 0823 98.8 80 18 112/52 10/30 0757 98.8 80 18 112/52 92 Room Air 10/30 0018 97.9 76 20 112/68 93 Room Air 10/30 0000 Room Air 10/29 1541 98.0 73 20 118/62 93 Intake & Output 10/30 1600 10/30 0800 10/30 0000 Intake Total 100 Output Total Balance 100 Intake, Oral 100 Physical Exam General Appearance: Alert, Oriented X3, Cooperative, No Acute Distress Cardiovascular: Regular Rate, Normal S1, Normal S2, No Murmurs Lungs: Clear to Auscultation, Normal Air Movement Abdomen: Normal Bowel Sounds, Soft, No Tenderness Extremities: No Clubbing, No Cyanosis, No Edema Current Medications: Current Medications Sig/Aspen Start time Last Medication Dose Route Stop Time Status Admin Acetaminophen 650 MG Q6 PRN 10/25 2100 AC PO Alprazolam 0.125 MG BID 10/29 2199 AC 10/29 PO 11/05 2158 220 Alprazolam 0.125 MG BID PRN 10/29 1427 DC PO 10/29 215 Alprazolam 0.25 MG BID PRN 10/29 1315 DC PO 11/05 1314 Apixaban 2.5 MG BID 10/28 2199 AC 10/30 PO 0941 Aspirin 81 MG DAILY 10/26 1000 AC 10/30 PO 0941 Atorvastatin Calcium 40 MG 1700 10/25 2145 AC 10/29 PO 1616 Ceftriaxone Sodium 1,000 MG 10/260 DC 10/28 IV 8 Cyanocobalamin 1,000 MCG DAILY 10/27 1000 AC 10/30 PO 0941 Diltiazem HCl 30 MG BID 10/27 2199 AC 10/30 PO 0943 Magnesium Sulfate 1 GM Q2H 10/29 1300 DC 10/29 Dextrose/Water 100 ML IV 10/29 1659 1616 Omeprazole 20 MG DAILY AC 10/26 0700 AC 10/30 PO 0634 Last 24 Hrs of Lab/John Results Last 24 Hrs of Labs/Mics: Laboratory Tests 10/30/16 0700: Magnesium 1.6 10/29/16 1200: Magnesium 1.2 L Assessment/Plan Assessment: Patient is a 81-year-old woman with a past medical history significant for hypertension, hyperlipidemia, COPD, chronic hyponatremia(Primary polydipsia) presented to the ED with chief complaint of confusion, facial droop with weakness and pathology this morning. On the time of examination patient was alert and awake, could not able to express herself so most of the history was obtained from the friend and ED staff. Pertinent labs on admission The BBC count 12.1, H&H 10.5/30.9, sodium 132 with a baseline 133 creatinine 1.1 , lactic acid 0.9, urinalysis showed small leukocyte esterase. CAT scan of the head :There are scattered nonspecific changes within the periventricular white matter that most likely represent a chronic manifestation of small vessel ischemia. No evidence of acute territorial infarct or hemorrhage. Chest x-ray:Moderate COPD changes without evidence of an acute intrathoracic process. The heart appears mildly enlarged. Assessment and plan: #New onset of paroxysmal atrial fibrillation with rapid ventricular response * CHAD2-VASC score was calculated at 5 corresponding to a high risk of stroke which warrants anti-coagulation. HAS-BLED score was calculated at 2, Cradiology recommendation start patient on Eliquis 2.5 mg daily. corresponding to a moderate risk for major bleed. * Cardizem 30 mg twice a day # Acute left-sided facial droop with slurred speech(expressive aphasia), likelkly secondary to stroke: * Blood pressure monitoring, continue aspirin and Lipitor 40 mg. * Neurochecks every 2 hours * MRI of brain is negative for acute infarction or hemorrhage * EEG did not show any acute findings. # Positive suprapubic tenderness with urine analysis positive for leukocyte Estrace possible urinary tract infection * Urine culture and Blood cultures pending * Continue IV ceftriaxone # History of GERD * Continued PPI. # History of anxiety and depression * continue home dose of Xanax as needed for anxiety hold if patient becomes drowsy. Diet : Patient passed swallow evaluation, patient on regular mechanical soft nectar # DVT prophylaxis with heparin # Mild to moderate pain controlled with Tylenol. # Patient is DNR/DNI Problem List: 1. Atrial fibrillation 2. CVA (cerebral vascular accident) Pain Ratin Pain Location: None Pain Goal: Remain pain free Pain Plan: Mild pain pathway Tomorrow's Labs & Rationales: None patient to be discharged Discharge Plan Discharge Disposition: STR/NH Stable for Discharge? Yes Anticipated Discharge (Day): today If Discharged Today/In 24 Hrs: W-10/discharge paper done, DC summary done, CMR done STEPHEN SELLERS MD 10/30/16 1406: Attending MD Review Statement Attending Statement Attending MD Statement: examined this patient, discuss w/resident/PA/STOCK TRACER, agreed w/resident/PA/STOCK TRACER, reviewed EMR data (avail), discussed with nursing, discussed with case mgmt, amended to note Attending Assessment/Plan: The patient was seen and discussed with house staff. Agree with the plan of care as outlined. OK to discharge to [facility] today.
[2016-10-30 07:57] VITALS: BP 112/52
[2016-10-30 08:23] VITALS: BP 112/52
[2016-10-30] MEDS ORDERED: CARDIZEM30 M1 PO (13:44)
== END 2016-10-30 12:30 | DRG 64 ==
LOC: ENRESERVTM → ENRESERVDT → ERH 15:58 → 1NO 19:19 → ERHI 19:19 → ENPENDDIS 19:19 → EDBEDREQ 19:40 → 1NO 21:02
PROVIDERS: Dermatology; Emergency Medicine; Student in an Organized Health Care Education/Training Program; ADMIT Internal Medicine
DX: I63.9 Cerebral infarction, unspecified (principal); G93.40 Encephalopathy, unspecified; I48.0 Paroxysmal atrial fibrillation; E87.1 Hypo-osmolality and hyponatremia; R47.01 Aphasia; I48.91 Unspecified atrial fibrillation; G45.9 Transient cerebral ischemic attack, unspecified; I10 Essential (primary) hypertension; R29.810 Facial weakness; E83.42 Hypomagnesemia; E87.6 Hypokalemia; E78.5 Hyperlipidemia, unspecified; J44.9 Chronic obstructive pulmonary disease, unspecified; F17.200 Nicotine dependence, unspecified, uncomplicated
CPT/HCPCS: 1NP; 70552; 36415; 70553; 81001; 82436; 87040; 87086; 93005; 93010; 93306; 95816; 96360; 96361; 97110-GO; 97116-GO; 97161-GP; 97165-GO; 97530-GO; A9579; J0696; J1644; J3490; J7060

== ENCOUNTER 2018-05-31 10:33 | Inpatient (IN) | payer OTHER, MEDICARE ==
[~2018-05-31] VITALS: Ht 157.5 cm; Wt 41.5 kg
[~2018-05-31 10:33] MED LIST changes: +ATORVASTATIN CA40 M1 PO; +CARDIZEM30 M1 PO; +ELIQUIS2.5 M1 PO
--- NOTE | 2018-05-31 10:49 | ED GENERAL ADULT ---
History of Present Illness General Chief Complaint: Fall Stated Complaint: BIBA S/P FALL +HEADSTRIKE +THINNERS Source: patient, EMS Exam Limitations: no limitations Vital Signs & Intake/Output Vital Signs & Intake/Output Vital Signs Date Time Temp Pulse Resp B/P B/P Pulse O2 O2 Flow FiO2 Mean Ox Delivery Rate 05/31 1355 97.6 106 18 133/63 94 Room Air 05/31 1335 97 Room Air 05/31 1154 98 18 145/55 94 Room Air 05/31 1125 97 145/55 05/31 1041 97.0 97 16 145/55 93 Room Air Allergies Coded Allergies: Penicillins (UNKNOWN 08/19/16) Reconcile Medications Alprazolam 0.25 MG TABLET 1 TAB PO BIDP PRN anxiety (Reported) Apixaban (Eliquis) 2.5 MG TABLET 1 TAB PO BID anticoagulant Atorvastatin Calcium 40 MG TABLET 1 TAB PO 1700 High cholestrol Diltiazem HCl (Cardizem) 30 MG TABLET 1 TAB PO BID heart rythm Triage Nurses Notes Reviewed? yes Onset: Abrupt Duration: hour(s): Timing: recent history HPI: 05/31/18 11 AM 83-year-old female presents to the emergency department by ambulance status post fall. The patient says she felt shaky and lost her balance and hit her head. She denies loss of consciousness or any complaints. She does have a 2-1/2 inch laceration on the right side of her superior scalp. EKG reveals A. fib with lateral ST depression/rate related ST segment changes/vs ischemia. Past History Travel History Traveled to [place] past 21 day No Medical History Any Pertinent Medical History? 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 No Review of Systems Review of Systems Constitutional: Denies: fever. EENTM: Reports: see HPI. Respiratory: Denies: short of breath. Cardiovascular: Denies: chest pain. GI: Denies: abdominal pain. Genitourinary: Reports: no symptoms. Musculoskeletal: Reports: no symptoms. Skin: Reports: see HPI. Neurological/Psychological: Reports: no symptoms. Hematologic/Endocrine: Reports: no symptoms. Immunologic/Allergic: Reports: no symptoms. Physical Exam Physical Exam General Appearance: alert, awake, anxious Head: evidence of injury Eyes: Bilateral: normal appearance, PERRL, EOMI. Ears, Nose, Throat: normal pharynx Neck: supple Respiratory: no respiratory distress Cardiovascular: tachycardia, irregularly irregular Peripheral Pulses: 4+ radial (R), 4+ radial (L) Gastrointestinal: soft, non-tender Back: normal range of motion Extremities: no edema Neurologic/Psych: no motor/sensory deficits, awake, alert, oriented x 3 Skin: normal color, warm/dry, LACERATION Core Measures ACS in differential dx? Yes No ASA d/t HEAD TRAUMA CVA/TIA Diagnosis: No Sepsis Present: No Sepsis Focused Exam Completed? No Progress Differential Diagnoses I considered the following diagnoses in my evaluation of the patient: [ Intracranial bleed, fracture, acute coronary syndrome, new onset A. fib] Plan of Care: Orders Procedure Date/time Status Heart Healthy Diet 05/31 D Active Patient Data 05/31 1518 Active ED Holding Orders 05/31 1453 Active Admit to inpatient 05/31 1453 Active Vital Signs 05/31 1453 Active Code Status 05/31 1453 Active TROPONIN LEVEL 05/31 1400 Complete EKG 05/31 1400 Active TROPONIN LEVEL 05/31 1057 Complete PROTHROMBIN TIME 05/31 1057 Complete COMPREHENSIVE METABOLIC PANEL 05/31 1057 Complete CBC WITHOUT DIFFERENTIAL 05/31 1057 Complete EKG 05/31 1046 Active Intake & Output 05/31 1041 Active Laboratory Tests 05/31/18 1410: Troponin I 0.13 *H 05/31/18 1118: Anion Gap 10, Estimated GFR 27 L, BUN/Creatinine Ratio 10.6, Glucose 111 H, Calcium 9.7, Total Bilirubin 0.5, AST 36, ALT 29, Alkaline Phosphatase 62, Troponin I 0.07, Total Protein 7.2, Albumin 3.8, Globulin 3.4, Albumin/Globulin Ratio 1.1, PT 21.3 H, INR 1.94 H, CBC w Diff MAN DIFF ORDERED, RBC 3.60 L, MCV 91.6, MCH 31.3 H, MCHC 34.1, RDW 13.1, MPV 7.8, Gran % 87.4 H, Lymphocytes % 8.1 L, Monocytes % 4.0, Eosinophils % 0.2, Basophils % 0.3, Absolute Granulocytes 8.4 H, Absolute Lymphocytes 0.8 L, Absolute Monocytes 0.4, Absolute Eosinophils 0, Absolute Basophils 0, Platelet Estimate VERIFIED BY SMEAR, Poikilocytosis 1+, Ovalocytes 1+, Donald Cells 1+ Initial ED EKG: AFIB, nonspecific ST T wave chg Departure Departure Disposition: STILL A PATIENT Condition: Stable Clinical Impression Primary Impression: Fall Secondary Impressions: Acute electrocardiogram changes, Head trauma, Rapid atrial fibrillation Referrals: Nohelia Garcia MD (PCP/Family) Departure Forms: Customer Survey General Discharge Information Admission Note Spoke With: Katiana Sánchez MD Documentation of Exam: Documentation of any treatments & extenuating circumstances including Concerns Regarding Discharge (functional status, medication knowledge or non-compliance, living conditions, etc.) that warrant an admission rather than observation: [The patient needs admission for telemetry monitoring, serial EKGs, cardiology consultation. The case was discussed with the on-call dewaterer operator who will see the patient] Critical Care Note Critical Care Note Critical Care Time: 30-74 min patient needs admission for telemetry monitoring, serial EKGs, cardiology consultation. The case was discussed with the on-call dewaterer operator who will see the patient] Critical Care Note Critical Care Note Critical Care Time: 30-74 min
[2018-05-31 11:28] LABS: ABSOLUTE BASOPHIL COUNT 0 /CUMM (0.0-0.2); ABSOLUTE EOSINOPHIL COUNT 0 /CUMM (0.0-0.7); ABSOLUTE GRANULOCYTE CT 8.4 /CUMM (1.4-6.5); ABSOLUTE LYMPH COUNT 0.8 /CUMM (1.2-3.4); ABSOLUTE MONOCYTE COUNT 0.4 /CUMM (0.10-0.60); BASOPHIL % 0.3 % (0.0-2.0); EOSINOPHIL % 0.2 % (0-5); GRANULOCYTE % 87.4 % (42.2-75.2); MEAN CORPUSCULAR HGB 31.3 PG (27.0-31.0); MEAN CORPUSCULAR HGB CONC 34.1 G/DL (33.0-37.0); MEAN CORPUSCULAR VOLUME 91.6 FL (81.0-99.0); MEAN PLATELET VOLUME 7.8 FL (7.4-10.4); PLATELET COUNT 236 /CUMM (130-400); RBC DISTRIBUTION WIDTH 13.1 % (11.5-14.5); WHITE BLOOD CELL COUNT 9.7 /CUMM (4.8-10.8)
[2018-05-31 11:35] LABS: PT 21.3 SEC (9.4-12.5)
--- NOTE | 2018-05-31 11:53 | RADIOLOGY REPORT ---
EXAMINATION: XR PORTABLE CHEST CLINICAL INFORMATION: Atrial fibrillation. Evaluate for CHF. COMPARISON: CT chest 02/28/2017. Chest x-ray 10/25/2016. TECHNIQUE: Portable AP 80 degrees upright view of the chest was obtained. FINDINGS: There are stable mild enlargement of the cardiac silhouette. There is no congestion or focal consolidation. There is osteopenia. The bony thorax is otherwise unremarkable. IMPRESSION: Stable mild enlargement of the cardiac silhouette. No acute pulmonary process.
--- NOTE | 2018-05-31 12:35 | CT SCAN REPORT ---
EXAMINATION: CT HEAD WITHOUT CONTRAST CT CERVICAL SPINE WITHOUT CONTRAST CLINICAL INFORMATION: Head injury. Fall. Assess for trauma. COMPARISON: CT scan of the head and cervical spine 02/22/2018. TECHNIQUE: Multidetector CT imaging of the head and cervical spine was performed without the use of intravenous contrast. Coronal and sagittal reformatted images were generated at the technologist workstation. DLP: 777.46 mGy-cm. FINDINGS: CT head: There is no evidence of acute intracranial hemorrhage or territorial infarction. No abnormal mass-effect or midline shift is seen. Connelly to white matter differentiation is well preserved. No extra-axial fluid collections are identified. There is mild commensurate prominence of the ventricles and sulci consistent with diffuse volume loss. There are scattered areas of low-attenuation the periventricular and subcortical white matter consistent with chronic microvascular ischemic disease. A chronic lacunar infarct is redemonstrated in the right thalamus. There are atheromatous calcifications of the cavernous internal carotid arteries bilaterally, as well as of the left greater than right vertebral arteries. There have been bilateral lens extractions. There are no acute osseous findings. There are no large scalp contusions or hematomas. The mastoid air cells and visualized paranasal sinuses are well-aerated. CT cervical spine: There is straightening of the cervical lordosis. The study redemonstrates the narrowing of intervertebral disc height at C4-C5 with degenerative endplate changes and sclerosis. Milder changes are redemonstrated at C6-C7. There are multilevel marginal osteophytes. Vertebral body heights are maintained and there are no compression fractures. Facet alignment is normal. There is bony foraminal narrowing bilaterally at C4-C5 and C6-C7. The lateral masses of C1 and C2 are normally aligned and the dens is intact. The atlantooccipital articulations are maintained. There are severe atheromatous calcifications of the bilateral carotid bifurcations. There are atheromatous calcifications of the great vessels of the neck. There are extensive emphysematous changes in the upper lung zones bilaterally. IMPRESSION: 1. There are no acute bleeds or territorial infarcts. No masses are demonstrated. 2. There is diffuse volume loss and there are chronic microvascular ischemic changes. 3. There are no acute fractures or subluxations in the cervical spine. 4. There are multilevel spondylitic changes which are most severe at C4-C5 and C6-C7.
--- NOTE | 2018-05-31 15:39 | History & Physical ---
Saniya ZIMMERMANGeo 05/31/18 1538: General Information and HPI History of Present Illness: 83 year old woman with past medical history of hypertension, hyperlipidemia, COPD not on O2, pulmonary hypertension, chronic hyponatremia, Atrial Fibrillation on Eliquis, GERD, anxiety, and EtOH abuse brought in by ambulance after suffering a mechical fall with headstrike.\\ Patient was reportedly in her normal state of health this morning when around 8am she went to use the restroom and turned around too fast and fell. She struck her head on the side of the tub resulting in a laceration. Patient is admittedly a poor historian and does not believe she lost consciousness but is not sure. She called her daughter around 10 AM for which EMS brought her to the [facility] ED. Patient underwent an uncomplicated scalp laceration repair in the ED with max and have CT imaging of her head and c-spine that demonstrated no acute findings. She received 5 mg of IV cardizem for an elevated heart rate due to her known atrial fibrillation. She received a Tdap injection for her wound and full strength aspirin for ischemic changes on EKG. Presently patient feels well and admits to only minor head pain. Review of systems She otherwise denies any fever, chills, blurred/double visiom, chest pain, palpitations, heartburn, shortness of breath, cough, nausea, vomiting, diarrhea, constipation, abdominal pain, numbness, tingling, or weakness. Objective Vitals- temp 97.0-97.6, HR 97-106, RR 16-18, BP 133-145/55-63, spO2 93-97% on room air Physical Exam -General: well developed, thin elderly woman in no acute distress -HEENT: 2.5" scalp laceration without any bleeding with recent max, EOMI, PERRLA, anicteric sclera, no palpible crepitus -Neck: Supple, no JVD, no step-off -Cardio: normal S1/S2 w/o m/g/r; irregularly irregular, tachycardic -Pulm: CTA bilaterally -GI: Soft, NT, ND, BS+ -Neuro: AAOx3, CN II-XII grossly, speech/sensation/coordination intact, face symmetric, speech fluent, strength 5/5 x4, gait not assessed -Extremities: normal pulses, no edema Diagnostics -CBC: WBC 9.7, HGB 11.3, HCT 33.0, PLT 236 -BMP: Na 135, K 3.0, Cl 98, CO2 27, BUN 19, Cr 1.8, AG 10, Glu 111 -LFT: WNL -Misc: Troponin I 0.07/0.13, INR 1.94 -EKG: Afib with RVR and ST depression V2-V6 -Echo 02/16/18: LVEF 65-70% w/o regional wall motion abnormalities, mild/moderate MR, mild/moderate aortic sclerosis, moderate TR, RV ~65 mmHg -CXR: unremarkable -CT Head / C-Spine w/o IV contrast: 1. There are no acute bleeds or territorial infarcts. No masses are demonstrated. 2. There is diffuse volume loss and there are chronic microvascular ischemic changes. 3. There are no acute fractures or subluxations in the cervical spine. 4. There are multilevel spondylitic changes which are most severe at C4-C5 and C6-C7. Assessment 83-year-old woman with multiple medical problems significant for afib on eliquis [facility]. Presently patient feels well and admits to only mild head pain. Vital signs remain within normal limits s/p IV push cardizem for tachycardia. Physical examination demonstrates a ~2.5" laceration recently stapled to her scalp without any active bleeding and no evidence of other acute trauma with a normal neuro examination and an irregularly irregular heart rate. Labs including CBC, BMP, LFTs are signigicant for creatinine 1.7. Troponin x2 are 0.07 and 0.13 with accompanied EKG demonstrating diffuse precordial ischemic changes. Patient received oral aspirin in the ED. Clinically patient appears to have had a mechanical fall of unclear etiology; she may have simply fell or had a near-syncope / syncope event. She is a limited historian. She admits to decreased intake of food and water and was on the ground for up to two hours - this may be the etiology of her renal injury as a prerenal azotemia. Patients elevated troponin in the context of renal insufficiency most likely represents that of supply demand mismatch with her dehydration and elevated heart rate and is unlikely an acute coronary syndrome; this was discussed with covering signal maintenance technician Dr. Maier whom agreed with this assessment. Patient is being admitted to the telemetry floor for telemetry monitoring, PT evaluation, serial troponin / EKG, and cardiology consultation. She may require an outpatient pharmacologic stress test. Problem list -Mechanical fall, etiology unclear - possible syncope/near-syncope -Near-syncope -Elevated troponin with ischemic EKG changes, unlikely ACS -Acute kidney injury, probable pre-renal azotemia -Hypokalemia -Head laceration to scalp, s/p max -Coronary artery disease -Hypertension -Hyperlipidemia -Pulmonary hypertension -Chronic hyponatremia -History of atrial fibrillation, on Eliquis -GERD -Anxiety -History of EtOH abuse Plan -Admit to telemetry floor -Telemetry monitoring -Fall precautions -Avoid nephrotoxic agents -Normal saline at 75 mL/h -Hold Eliquis for recent head trauma and scalp laceration, restart as needed/ tolerated -Start Aspirin 81 mg PO Daily for ischemic EKG changes -Continue home meds: Alprazolam, atorvastatin, Cardizem -Cardiology consult for elevated troponin/EKG changes -PT evaluation -Check orthostatic blood pressures -Serial troponin/EKG until peak or 3 negative sets -Monitor renal function/potassium -Obtain renal US -Repeat CT Head in AM or if new neurologic deficits -Check urinalysis -Check magnesium, replete if necessary -Pain control with acetaminophen -Heart healthy diet -DVT prophylaxis with subcutaneous heparin -DNR/DNI -Patient may require an outpatient pharmacologic stress test Allergies/Medications Allergies: Coded Allergies: Penicillins (UNKNOWN 08/19/16) Home Med list Alprazolam 0.25 MG TABLET 1 TAB PO BIDP PRN anxiety (Reported) Apixaban (Eliquis) 2.5 MG TABLET 1 TAB PO BID anticoagulant Atorvastatin Calcium 40 MG TABLET 1 TAB PO 1700 High cholestrol Diltiazem HCl (Cardizem) 30 MG TABLET 1 TAB PO BID heart rythm Past History Travel History Traveled to [place] past 21 day No Medical History Neurological: NONE EENT: NONE Cardiovascular: AFIB, CAD, hypertension, hyperlipidemia, pulmonary HTN Respiratory: COPD, lung nodule Gastrointestinal: GERD Hepatic: NONE Renal: NONE Musculoskeletal: NONE Psychiatric: anxiety, alcohol abuse Endocrine: osteoporosis, hyponatremia Blood Disorders: NONE Cancer(s): NONE 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 self Services at Home: None Primary Language: Romanian Functional Ability ADLs Independent: dressing, eating, toileting, bathing. IADLs Independent: shopping, housework, finances, food prep, telephone, transportation , medication admin. Review of Systems Review of Systems Constitutional: Reports: see HPI. Exam & Diagnostic Data Last 24 Hrs of Vital Signs/I&O Vital Signs Date Time Temp Pulse Resp B/P B/P Pulse O2 O2 Flow FiO2 Mean Ox Delivery Rate 05/31 1826 97.7 106 20 150/86 93 05/31 1737 Room Air 05/31 1630 97.6 92 18 118/56 93 Room Air 05/31 1355 97.6 106 18 133/63 94 Room Air 05/31 1335 97 Room Air 05/31 1154 98 18 145/55 94 Room Air 05/31 1125 97 145/55 05/31 1041 97.0 97 16 145/55 93 Room Air Assessment/Plan As Ranked By This Provider Problem List: 1. Fall 2. Head trauma 3. Acute electrocardiogram changes Core Measures/Misc (06/22) Acute Coronary Syndrome ACS Diagnosis: No Congestive Heart Failure Congestive Heart Failure Diagnosis No Cerebrovascular Accident CVA/TIA Diagnosis: No VTE (View Protocol) VTE Risk Factors Age>40 No Mechanical VTE Prophylaxis d/t N/A MechProphylax Ordered No VTE Pharm Prophylaxis d/t NA PharmProphylax ordered Sepsis (View protocol) Sepsis Present: No If YES complete Sepsis Event Note If YES complete Sepsis Event Note Katiana Sánchez MD 05/31/18 1638: Core Measures/Misc (06/22) Sepsis (View protocol) If YES complete Sepsis Event Note If YES complete Sepsis Event Note Attending MD Review Statement Attending Statement Attending MD Statement: examined this patient, discuss w/resident/PA/ARCHITECTURAL PROJECT CAPTAIN, agreed w/resident/PA/ARCHITECTURAL PROJECT CAPTAIN, reviewed EMR data (avail), discussed with nursing, amended to note Attending Assessment/Plan: Patient is a pleasant 83-year-old female with history of atrial fibrillation on anticoagulation therapy, pulmonary hypertension, COPD and anxiety disorder. Brought in for evaluation after she fell on her way to the bathroom. She reports that her legs felt weak that she fell to the ground. She sustained head trauma with a laceration that required suturing in the emergency room. Denies any loss of consciousness. She denies any history of falls. She denies any preceding dizziness or history of dizziness. She arrived in the emergency room hemodynamically stable. EKG however showed A. fib with rapid ventricular response and lateral ST depressions. First troponin level was 0.07 and the second trended up to 0.13. It is noted that she also has acute kidney injury evidenced by an elevated creatinine of 1.8 up from a baseline of 0.7 in October 2016. On examination she is alert and oriented x3. Not in any acute distress. Denies any pain. She has a sutured laceration on the right side of the vertex. She has no focal neurologic deficits on exam. Problems: 1. Fall with head trauma. 2. Ischemic changes on EKG in the setting of rising troponins. 3. Acute kidney injury 4. Atrial fibrillation on anticoagulation therapy 5. Non-oxygen dependent COPD. 6. Hypokalemia Plan: -Admit to the inpatient medical service. -In view of her significant head trauma would recommend holding anticoagulation therapy for at least the next [address] in a.m., if no evidence of bleeding resume anticoagulation therapy. -Trend troponins until coming down. Obtain echocardiogram. Cardiology consultation has been placed. If the cardiology service deems that this is indeed an acute coronary syndrome and that the benefits the risk may consider initiating full dose anticoagulation therapy tonight. Obtain renal sonogram to rule out-obstructive disease as the etiology for her HPI. Check CPK level to rule out rhabdomyolysis. -Gentle hydration with half-normal saline at 75 cc an hour times 1 L. -Continue her bronchodilator regimen. -Supplement potassium orally.
[2018-05-31] MEDS ORDERED: ATORVASTATIN CA40 M1 PO (15:55)
[2018-05-31] MEDS ORDERED: ALPRAZOLAM0.25 M1 PO (15:57)
--- NOTE | 2018-05-31 16:26 | Admission Certification ---
Admission Certification Certification Statement - As attending physician, I certify that at the time of - admission, based on clinical presentation, severity of - symptoms, need for further diagnostic testing and - therapeutic interventions, and risk of adverse outcomes - without in-hospital treatment, in my clinical assessment, - this patient requires an acute hospital stay for a minimum - of two nights or longer. I have also considered psychsocial - factors such as support system, advanced age, financial - issues, cognitive issues, and failed out-patient treatments, - past re-admission history, safety of patient, and lack of - compliance as applicable. Specific rationale supporting this admission is: Request hospitalization for further workup of her syncope and possible acute coronary syndrome.
[2018-05-31 18:26] VITALS: BP 150/86
[2018-05-31 22:18] VITALS: BP 144/68
--- NOTE | 2018-06-01 07:19 | PN- Housestaff ---
Baldemar Adam 06/01/18 0719: Subjective Follow-up For: fall with head trauma elevated troponins Acute kin=dney injury hypokalemia Complaints: pt unable to provide hx Tele-Events Since Last Visit: showed atrial fibrillation vs flutter with large qrs complexes Subjective: patient was examined at the bedside and is a poor historian. She appeared slightly confused during my initial examination, however answers most of the questions accurately. She said she was doing better. and had no chest pain/ dizziness/ palpitations Review of Systems Constitutional: Denies: diaphoresis, fever, malaise, weakness, unexplained weight loss. Cardiovascular: Denies: chest pain, edema, orthopena, palpitations, peripheral edema, syncope. Respiratory: Denies: cough, hemoptysis, orthopnea, short of breath, sputum production, stridor, wheezing. Gastrointestinal: Denies: abdominal pain, nausea, vomiting. Genitourinary: Denies: discharge, dysuria, frequency, hematuria, hesitation, nocturia, pain, urgency. Objective Last 24 Hrs of Vital Signs/I&O Vital Signs Date Time Temp Pulse Resp B/P B/P Pulse O2 O2 Flow FiO2 Mean Ox Delivery Rate 06/01 2146 91 140/70 06/01 1432 98.2 73 18 118/64 96 06/01 0800 Room Air 06/01 0721 98.3 67 18 122/54 97 Room Air 05/31 2218 98.8 82 20 144/68 92 Room Air Intake & Output 06/01 1600 06/01 0800 06/01 0000 Intake Total 985 370 110 Output Total Balance 985 370 110 Intake, IV 425 150 Intake, Oral 560 220 110 Number 3 Bowel Movements Patient 78 lb Weight Physical Exam General Appearance: Alert, Oriented X3, Cooperative, No Acute Distress HEENT: scalp has an acute laceration seen that is stapled and has dry blood Cardiovascular: Regular Rate, No Murmurs Lungs: Clear to Auscultation, Normal Air Movement Abdomen: Normal Bowel Sounds, Soft, No Tenderness, No Hepatospenomegaly, No Masses Neurological: Normal Speech, Strength at 5/5 X4 Ext, Normal Tone, Sensation Intact Extremities: No Clubbing, No Cyanosis, No Edema, Normal Pulses, No Tenderness/ Swelling Current Medications: Current Medications Sig/Aspen Start time Last Medication Dose Route Stop Time Status Admin Acetaminophen 650 MG Q6P PRN 08/26 1630 AC PO Alprazolam 0.25 MG BID PRN 05/31 1630 AC PO 06/07 1629 Apixaban 2.5 MG BID 06/01 2100 AC PO Aspirin 81 MG DAILY 06/01 0900 AC 06/01 PO 1034 Atorvastatin Calcium 40 MG 1700 05/31 1700 AC 06/01 PO 1646 Diltiazem HCl 30 MG BID 05/31 2100 AC 06/01 PO 2146 Heparin Sodium 5,000 UNIT Q8 05/31 2200 DC 06/01 (Porcine) SC 1443 Magnesium Sulfate 1 GM ONCE ONE 06/01 0945 DC 06/01 Dextrose/Water 100 ML IV 06/01 1344 1037 Magnesium Sulfate 1 GM ONCE ONE 06/01 0945 DC 06/01 Dextrose/Water 100 ML IV 06/01 1344 1642 Potassium Chloride 20 MEQ BID 06/01 0943 AC 06/01 PO 2146 Potassium Chloride 40 MEQ ONCE ONE 06/01 0830 DC 06/01 PO 06/01 0831 1035 Sodium Chloride 1,000 ML Q13H 06/01 0115 DC 06/01 IV 06/01 1414 0135 Last 24 Hrs of Lab/John Results Last 24 Hrs of Labs/Mics: Laboratory Tests 06/01/18 1549: Stool Occult Blood Cancelled 06/01/18 1124: Urine Color YEL, Urine Clarity HAZY H, Urine pH 6.0, Ur Specific [place] 1.020, Urine Protein NEG, Urine Ketones NEG, Urine Nitrite NEG, Urine Bilirubin NEG, Urine Urobilinogen 0.2, Ur Leukocyte Esterase MOD H, Ur Microscopic SEDIMENT EXAMINED, Urine RBC RARE, Urine WBC 1-3 H, Ur Epithelial Cells MOD H, Urine Bacteria MANY H, Granular Casts RARE H, Urine Hemoglobin SMALL H, Urine Glucose NEG 06/01/18 0645: Anion Gap 8, Estimated GFR 39 L, BUN/Creatinine Ratio 15.4, Magnesium 1.2 L, Creatine Kinase 220 H, Troponin I 0.15 *H, CBC w Diff NO MAN DIFF REQ, RBC 3.38 L, MCV 90.5, MCH 31.0, MCHC 34.2, RDW 13.1, MPV 8.5, Gran % 80.1 H, Lymphocytes % 11.4 L, Monocytes % 8.1, Eosinophils % 0.1, Basophils % 0.3, Absolute Granulocytes 7.0 H, Absolute Lymphocytes 1.0 L, Absolute Monocytes 0.7 H, Absolute Eosinophils 0, Absolute Basophils 0 06/01/18 0205: Troponin I 0.18 *H Microbiology 06/01 1553 STOOL: Clostridium difficile Toxin A & B - COLB 06/01 1549 STOOL: Stool Culture - COLB Assessment/Plan Assessment: 83-year-old woman with PMH -Coronary artery disease, Hypertension, Hyperlipidemia, Pulmonary hypertension, Chronic hyponatremia, History of atrial fibrillation, on Eliquis, GERD, Anxiety, History of EtOH abuse [facility] Problem list -Mechanical fall, etiology unclear - possible syncope/near-syncope -Near-syncope -Elevated troponin with ischemic EKG changes, unlikely ACS -Acute kidney injury, probable pre-renal azotemia -Hypokalemia -Head laceration to scalp, s/p max Plan -Telemetry monitoring- shows atrial flutter with large QRS complexes -Fall precautions -Avoid nephrotoxic agents - Eliquis restarted -Continue home meds: Alprazolam, atorvastatin, Cardizem -f/u orthostatic blood pressures- claimed to be negative by the nurse, no documentation as of now -Serial troponin- was slightly elevated , recent is at 0.18 , no drop, the trending plateued -Monitor renal function/potassium -NAD- renal US -Repeat CT Head - negative for any new intracranial bleed -Check magnesium, replete if necessary -DVT prophylaxis with subcutaneous heparin -DNR/DNI Problem List: 1. Head trauma 2. Hypomagnesemia 3. Dizziness Pain Ratin Pain Location: head Pain Goal: Remain pain free Pain Plan: tyelenol Tomorrow's Labs & Rationales: BEP, Mg Roberto Wilder 06/01/18 1457: Attending MD Review Statement Attending Statement Attending MD Statement: examined this patient, discuss w/resident/PA/BUCKET WASH OPERATOR, agreed w/resident/PA/BUCKET WASH OPERATOR, reviewed EMR data (avail), discussed with case mgmt Attending Assessment/Plan: Mechanical fall with laceration to head- pt on eliquis for Afib. head CT was negative for bleed at admission. repeat Head CT today is negative for any bleed. Laceration to head- s/p max. doing ok. Diarrhea for few days- pt says she has had some diarrhea for last few days and had some loose stools today. unclear etiology but her electrolytes are imbalanced too. Will send stool studies if persists. Hypomagnesemia and Hypokalemia- replace and recheck in am. Afib with RVR- pt on eliquis. will get cardio consult and will monitor her rate on tele and see how she does. Mild trop elevation- cardio eval. monitor on tele. likely secodnary to afib with Rvr. ALBERT- resolving. cr down to 1.3 from 1.8 at admission.
[2018-06-01 07:21] VITALS: BP 122/54
[2018-06-01 08:06] LABS: ABSOLUTE BASOPHIL COUNT 0 /CUMM (0.0-0.2); ABSOLUTE EOSINOPHIL COUNT 0 /CUMM (0.0-0.7); ABSOLUTE MONOCYTE COUNT 0.7 /CUMM (0.10-0.60); BASOPHIL % 0.3 % (0.0-2.0); EOSINOPHIL % 0.1 % (0-5); GRANULOCYTE % 80.1 % (42.2-75.2); HEMATOCRIT 30.6 % (37-47); MEAN CORPUSCULAR HGB CONC 34.2 G/DL (33.0-37.0); MEAN CORPUSCULAR VOLUME 90.5 FL (81.0-99.0); MEAN PLATELET VOLUME 8.5 FL (7.4-10.4); PLATELET COUNT 201 /CUMM (130-400); RBC DISTRIBUTION WIDTH 13.1 % (11.5-14.5); RED BLOOD CELL CT 3.38 /CUMM (4.20-5.40); WHITE BLOOD CELL COUNT 8.7 /CUMM (4.8-10.8)
--- NOTE | 2018-06-01 12:13 | Cons- Cardiology ---
General Information and HPI Consulting Request Date of Consult: 06/01/18 Requested By: Katiana Sánchze MD Reason for Consult: atrial fibrillation History of Present Illness: the patient is an 83-year-old female with history of hypertension, hyperlipidemia, COPD, pulmonary hypertension, alcohol abuse,and atrial fibrillation. She is anticoagulated on Eliquis. she was brought to the hospital after a mechanical fall with head trauma. The patient was in her usual state of health at 8:00 a.m. when she got up to use the restroom. She turned around to quickly, and fell, striking her head on the side of the tab. She sustained a head laceration. Repair of the laceration was performed in the emergency department with max. Head CT did not reveal any significant abnormalities. Allergies/Medications Allergies: Coded Allergies: Penicillins (UNKNOWN 08/19/16) Home Med List: Alprazolam 0.25 MG TABLET 1 TAB PO BIDP PRN anxiety (Reported) Apixaban (Eliquis) 2.5 MG TABLET 1 TAB PO BID anticoagulant Atorvastatin Calcium 40 MG TABLET 1 TAB PO 1700 High cholestrol Diltiazem HCl (Cardizem) 30 MG TABLET 1 TAB PO BID heart rythm Current Medications: Current Medications Sig/Aspen Start time Last Medication Dose Route Stop Time Status Admin Acetaminophen 650 MG Q6P PRN 05/31 1630 AC PO Alprazolam 0.25 MG BID PRN 05/31 1630 AC PO 06/07 1629 Apixaban 2.5 MG BID 06/01 2100 AC PO Aspirin 81 MG DAILY 06/01 0900 AC 06/01 PO 1034 Atorvastatin Calcium 40 MG 1700 05/31 1700 AC 06/01 PO 1646 Diltiazem HCl 30 MG BID 05/31 2100 AC 06/01 PO 1034 Heparin Sodium 5,000 UNIT Q8 05/31 2200 DC 06/01 (Porcine) SC 1443 Heparin Sodium 0 .STK-MED ONE 05/31 2121 DC (Porcine) .ROUTE Magnesium Sulfate 1 GM ONCE ONE 06/01 0945 DC 06/01 Dextrose/Water 100 ML IV 06/01 1344 1037 Magnesium Sulfate 1 GM ONCE ONE 06/01 0945 DC 06/01 Dextrose/Water 100 ML IV 06/01 1344 1642 Potassium Chloride 20 MEQ BID 06/01 0943 AC 06/01 PO 1443 Potassium Chloride 40 MEQ ONCE ONE 06/01 0830 DC 06/01 PO 06/01 0831 1035 Sodium Chloride 1,000 ML Q13H 06/01 0115 DC 06/01 IV 06/01 1414 0135 Past History Travel History Traveled to [place] past 21 day No Medical History Neurological: NONE EENT: NONE Cardiovascular: AFIB, CAD, hypertension, hyperlipidemia, pulmonary HTN Respiratory: COPD, lung nodule Gastrointestinal: GERD Hepatic: NONE Renal: NONE Musculoskeletal: NONE Psychiatric: anxiety, alcohol abuse Endocrine: osteoporosis, hyponatremia Blood Disorders: NONE Cancer(s): NONE 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 Home Who Do You Live With? self Services at Home: None Primary Language: Lithuanian Smoking Status: Former Smoker Functional Ability ADLs Independent: dressing, eating, toileting, bathing. IADLs Independent: shopping, housework, finances, food prep, telephone, transportation , medication admin. Exam & Diagnostic Data Vital Signs and I&O Vital Signs Date Time Temp Pulse Resp B/P B/P Pulse O2 O2 Flow FiO2 Mean Ox Delivery Rate 06/01 1432 98.2 73 18 118/64 96 06/01 0800 Room Air 06/01 0721 98.3 67 18 122/54 97 Room Air 05/31 2218 98.8 82 20 144/68 92 Room Air 05/31 2126 80 144/68 Intake & Output 06/01 1600 06/01 0800 06/01 0000 05/31 1600 05/31 0800 05/31 0000 Intake Total 985 370 110 Output Total Balance 985 370 110 Intake, IV 425 150 Intake, Oral 560 220 110 Number 3 Bowel Movements Patient 78 lb Weight Physical Exam: Gen: The patient is in no acute distress HEENT: Normal nose, ears, and oropharynx. Pupils equal bilaterally. Conjunctiva normal. Neck: Supple with no JVD, no masses, and no thyromegaly Lungs: Clear to auscultation with normal respiratory effort Heart: Irregular irregular S1, S2, 1/6 systolic murmur. No peripheral edema, 2 + pulses in the lower extremities bilaterally Abdomen: Soft, nontender, no masses. No hepatomegaly. No splenomegaly Extremities: No clubbing or cyanosis. Normal muscle strength in the upper and lower extremities. Skin: Normal skin turgor with no skin ulcers or lesions noted. Neuro: Cranial nerves intact. Sensation intact Psych: Alert and oriented 3 with appropriate affect Labs/John Results: Laboratory Tests 06/01 06/01 1549 1124 Other Body Source Stool Occult Blood Cancelled Urines Urine Color (YEL,AMB,STR) YEL Urine Clarity (CLEAR) HAZY H Urine pH (5.0 - 8.0) 6.0 Ur Specific [place] (1.001 - 1.035) 1.020 Urine Protein (NEG,<30 MG/DL) NEG Urine Ketones (NEG) NEG Urine Nitrite (NEG) NEG Urine Bilirubin (NEG) NEG Urine Urobilinogen (0.1 - 1.0 EU/dl) 0.2 Ur Leukocyte Esterase (NEG) MOD H Ur Microscopic SEDIMENT EXAMINED Urine RBC (0 - 5 /HPF) RARE Urine WBC (0 - 2 /HPF) 1-3 H Ur Epithelial Cells (NONE,FEW) MOD H Urine Bacteria (NEG/NONE) MANY H Granular Casts (NONE /LPF) RARE H Urine Hemoglobin (NEG) SMALL H Urine Glucose (N MG/DL) NEG 06/01 06/01 05/31 0645 0205 2049 Chemistry Sodium (137 - 145 mmol/L) 134 L Potassium (3.5 - 5.1 mmol/L) 3.0 L Chloride (98 - 107 mmol/L) 102 Carbon Dioxide (22 - 30 mmol/L) 24 Anion Gap (5 - 16) 8 BUN (7 - 17 mg/dL) 20 H Creatinine (0.5 - 1.0 mg/dL) 1.3 H Estimated GFR (>60 ml/min) 39 L BUN/Creatinine Ratio (7 - 25 %) 15.4 Magnesium (1.6 - 2.3 mg/dL) 1.2 L Creatine Kinase (30 - 135 U/L) 220 H Troponin I (< 0.11 ng/ml) 0.15 *H 0.18 *H 0.19 *H Hematology CBC w Diff NO MAN DIFF REQ WBC (4.8 - 10.8 /CUMM) 8.7 RBC (4.20 - 5.40 /CUMM) 3.38 L Hgb (12.0 - 16.0 G/DL) 10.5 L Hct (37 - 47 %) 30.6 L MCV (81.0 - 99.0 FL) 90.5 MCH (27.0 - 31.0 PG) 31.0 MCHC (33.0 - 37.0 G/DL) 34.2 RDW (11.5 - 14.5 %) 13.1 Plt Count (130 - 400 /CUMM) 201 MPV (7.4 - 10.4 FL) 8.5 Gran % (42.2 - 75.2 %) 80.1 H Lymphocytes % (20.5 - 51.1 %) 11.4 L Monocytes % (1.7 - 9.3 %) 8.1 Eosinophils % (0 - 5 %) 0.1 Basophils % (0.0 - 2.0 %) 0.3 Absolute Granulocytes (1.4 - 6.5 /CUMM) 7.0 H Absolute Lymphocytes (1.2 - 3.4 /CUMM) 1.0 L Absolute Monocytes (0.10 - 0.60 /CUMM) 0.7 H Absolute Eosinophils (0.0 - 0.7 /CUMM) 0 Absolute Basophils (0.0 - 0.2 /CUMM) 0 05/31 05/31 1410 1118 Chemistry Sodium (137 - 145 mmol/L) 134 L Potassium (3.5 - 5.1 mmol/L) 3.0 L Chloride (98 - 107 mmol/L) 98 Carbon Dioxide (22 - 30 mmol/L) 27 Anion Gap (5 - 16) 10 BUN (7 - 17 mg/dL) 19 H Creatinine (0.5 - 1.0 mg/dL) 1.8 H Estimated GFR (>60 ml/min) 27 L BUN/Creatinine Ratio (7 - 25 %) 10.6 Glucose (65 - 99 mg/dL) 111 H Calcium (8.4 - 10.2 mg/dL) 9.7 Magnesium (1.6 - 2.3 mg/dL) 1.4 L Total Bilirubin (0.2 - 1.3 mg/dL) 0.5 AST (14 - 36 U/L) 36 ALT (9 - 52 U/L) 29 Alkaline Phosphatase (<127 U/L) 62 Creatine Kinase (30 - 135 U/L) 169 H Troponin I (< 0.11 ng/ml) 0.13 *H 0.07 Total Protein (6.3 - 8.2 g/dL) 7.2 Albumin (3.5 - 5.0 g/dL) 3.8 Globulin (1.9 - 4.2 gm/dL) 3.4 Albumin/Globulin Ratio (1.1 - 2.2 %) 1.1 Coagulation PT (9.4 - 12.5 SEC) 21.3 H INR (0.90 - 1.19) 1.94 H Hematology CBC w Diff MAN DIFF ORDERED WBC (4.8 - 10.8 /CUMM) 9.7 RBC (4.20 - 5.40 /CUMM) 3.60 L Hgb (12.0 - 16.0 G/DL) 11.3 L Hct (37 - 47 %) 33.0 L MCV (81.0 - 99.0 FL) 91.6 MCH (27.0 - 31.0 PG) 31.3 H MCHC (33.0 - 37.0 G/DL) 34.1 RDW (11.5 - 14.5 %) 13.1 Plt Count (130 - 400 /CUMM) 236 MPV (7.4 - 10.4 FL) 7.8 Gran % (42.2 - 75.2 %) 87.4 H Lymphocytes % (20.5 - 51.1 %) 8.1 L Monocytes % (1.7 - 9.3 %) 4.0 Eosinophils % (0 - 5 %) 0.2 Basophils % (0.0 - 2.0 %) 0.3 Absolute Granulocytes (1.4 - 6.5 /CUMM) 8.4 H Absolute Lymphocytes (1.2 - 3.4 /CUMM) 0.8 L Absolute Monocytes (0.10 - 0.60 /CUMM) 0.4 Absolute Eosinophils (0.0 - 0.7 /CUMM) 0 Absolute Basophils (0.0 - 0.2 /CUMM) 0 Platelet Estimate (ADEQUATE) VERIFIED BY SMEAR Poikilocytosis 1+ Ovalocytes 1+ [place] Cells 1+ Diagnostic Data EKG Results EKG tracings and reviewed, and reveals atrial 2 1 response CXR Results Stable mild enlargement of the cardiac silhouette. No acute pulmonary process. Other Results head CT: There is a laceration of the right frontal scalp. No acute intracranial hemorrhage. There are numerous chronic small vessel ischemic changes primarily involving the periventricular white matter. Echocardiogram : 1. Mild to moderate aortic sclerosis is present with no valvular stenosis but with minimal aortic insufficiency present. 2. Thickening and calcification of the mitral leaflets is present with moderate anular calcification and mild to moderate mitral insufficiency with mild to moderate left atrial enlargement. 3. There is no pericardial fluid detected. 4. The left ventricular chamber size and systolic function appear normal 5. Moderate tricuspid insufficiency is present with right atrial enlargement and significant pulmonary hypertension with an estimated RV systolic pressure of 65 mmHg. Minimal pulmonis insufficiency is also noted. Assessment/Plan Assessment/Plan The patient is a pleasant 83-year-old female who is brought to the hospital after a fall with head trauma rate requiring stitches to the scalp. Head CT shows no evidence of intracranial bleed. She has a history of atrial fibrillation and atrial flutter. A recent echocardiogram in February revealed normal left ventricular EF with left atrial enlargement, [id number] mitral regurgitation, moderate tricuspid regurgitation, and pulmonary hypertension. A mild troponin elevation is noted which is likely secondary to demand ischemia Recommendations: * I agree with holding Eliquis for now given recent fall with head trauma. * Continue diltiazem for rate control * Continue radiation monitor * The mild troponin elevation likely represents demand ischemia rather than acute coronary syndrome, and no further inpatient workup is needed unless the patient has further cardiac symptoms. Consult Acknowledgment - Thank you for your consult request.
--- NOTE | 2018-06-01 13:10 | CT SCAN REPORT ---
EXAMINATION: CT HEAD WITHOUT CONTRAST CLINICAL INFORMATION: Fall. Headache. On anticoagulation. COMPARISON: CT head 05/31/2018. TECHNIQUE: Contiguous axial imaging was performed from the skull base to vertex without intravenous administration of contrast. DLP: 537.41 mGy-cm FINDINGS: There is no acute intracranial hemorrhage or abnormal extra-axial collection. No intracranial mass effect or midline shift. Lateral and third ventricles are proportionate to the subarachnoid spaces. No hydrocephalus. There is a small chronic lacunar infarct involving the right thalamus and multiple ill-defined foci of hypoattenuation throughout the periventricular white matter most likely represent a chronic manifestation of small vessel ischemia. There is a laceration of the right parietal scalp. The underlying calvarium is intact. No acute skull base fracture. Mastoid air cells and middle ear cavities are well-aerated. Visualized paranasal sinuses are well-aerated. IMPRESSION: There is a laceration of the right frontal scalp. No acute intracranial hemorrhage. There are numerous chronic small vessel ischemic changes primarily involving the periventricular white matter.
--- NOTE | 2018-06-01 14:00 | ULTRASOUND REPORT ---
EXAMINATION: US RETROPERITONEAL COMPLETE (RENAL) CLINICAL INFORMATION: Elevated creatinine, dehydration. COMPARISON: CT abdomen and pelvis 08/19/2016. TECHNIQUE: Real-time imaging of the kidneys and bladder. FINDINGS: RIGHT KIDNEY: 8.5 x 3.3 x 3.7 cm (SAG x AP x TRV). The kidney is normal in size, contour, and echogenicity. Cortical thinning present. No calculi. No hydronephrosis. There is a focal region of contour abnormality involving the cortex of the interpolar right kidney. The area appears somewhat focal but heterogeneous with hypoechoic and isoechoic areas. This measures 1.5 x 1.5 x 1.4 cm. A similar-appearing area is noted in the upper pole measuring 1.1 x 1.0 x 0.9 cm. LEFT KIDNEY: 7.9 x 3.4 x 3.0 cm (SAG x AP x TRV). The kidney is normal in size, contour, and echogenicity. Cortical thinning present. No calculi or focal parenchymal lesions. No hydronephrosis. BLADDER: Well distended and normal. Right ureteral jet is demonstrated; left is not. Prevoid bladder volume is 380 mL. IMPRESSION: 1. Two complex regions of the right kidney as detailed above. These areas are indeterminate and could be on the basis of prominent medullary pyramids, however a solid lesion is not excluded. Follow up with renal protocol CT or MRI is recommended if appropriate based upon clinical assessment. 2. Mild symmetric renal cortical thinning.
[2018-06-01 14:32] VITALS: BP 118/64
[2018-06-01 22:10] VITALS: BP 140/70
--- NOTE | 2018-06-01 22:31 | Event Note ---
Event Note Event Note: Patients old neighbour, NICOLE at ) called the hospital to follow up on her friend. I spoke with the patient who agreed on sharing her health information with her friend NICOLE. SO I called back nicole and she provided me the following information- 1) patient had a history of fall ? mechanical ? syncopal episode, 2-3 months back, not sure when 2) patient does not eat well / take good care of herslef 3) Patient lives in a house on the 2nd floor and is a high risk for fall 4) Patient probably does not take her medications appropriately 5) pateint has some baseline confusion, not evaluated so far
[2018-06-02 06:33] VITALS: BP 124/80
--- NOTE | 2018-06-02 11:02 | PN- Housestaff ---
Mckayla Quiroz 06/02/18 1101: Subjective Follow-up For: fall with head trauma elevated troponins Acute kin=dney injury hypokalemia Subjective: Afebrile overnight. Patient is seen and examined. Patient is AAx2 this morning. Patient had an episode last night where she attempted to ambulate without seeking help and therefore a sitter was put in place. Patient also noted few bouts of diarrhea but this morning denies any significant abdominal pain. Patient otherwise denies any chest pain, shortness of breath, dizziness, fevers, chills, and fatigue. Review of Systems Constitutional: Reports: see HPI. Objective Last 24 Hrs of Vital Signs/I&O Vital Signs Date Time Temp Pulse Resp B/P B/P Pulse O2 O2 Flow FiO2 Mean Ox Delivery Rate 06/02 0633 97.6 98 22 124/80 95 Room Air 06/01 2210 98.1 86 18 140/70 96 Room Air 06/01 2146 91 140/70 06/01 1432 98.2 73 18 118/64 96 Intake & Output 06/02 1600 06/02 0800 06/02 0000 Intake Total 500 Output Total Balance 500 Intake, IV 300 Intake, Oral 200 Patient 89 lb Weight Weight Bed scale Measurement Method Physical Exam General Appearance: Alert, Cooperative, No Acute Distress, AAx2 Skin: head laceration noted Skin Temp/Moisture Exam: Warm/Dry HEENT: Atraumatic Neck: Supple, No JVD Cardiovascular: Regular Rate, Normal S1, Normal S2 Lungs: Clear to Auscultation Abdomen: Soft, No Tenderness Neurological: Normal Speech Extremities: No Edema Assessment/Plan Assessment: [id number] VIEWS - Nonspecific, diffuse gaseous distention of the colon. Air-fluid levels of bowel, as well. Findings favor ileus rather than a distal colonic obstruction, and an ileus could be caused by a colitis or gastroenteritis. Renal Ultrasound - 1. Two complex regions of the right kidney as detailed above. These areas are indeterminate and could be on the basis of prominent medullary pyramids, however a solid lesion is not excluded. Follow up with renal protocol CT or MRI is recommended if appropriate based upon clinical assessment. 2. Mild symmetric renal cortical thinning. 83-year-old woman with PMH -Coronary artery disease, Hypertension, Hyperlipidemia, Pulmonary hypertension, Chronic hyponatremia, History of atrial fibrillation, on Eliquis, GERD, Anxiety, History of EtOH abuse [facility] Problem list -Mechanical fall, etiology unclear - possible syncope/near-syncope -Near-syncope -Elevated troponin with ischemic EKG changes, unlikely ACS -Acute kidney injury, probable pre-renal azotemia -Hypokalemia -Head laceration to scalp, s/p max #Fall, syncope vs. near-syncope -Telemetry monitoring- shows atrial flutter with large QRS complexes -Fall precautions in place -Avoid nephrotoxic agents -Eliquis restarted 2.5 mg bid -Follow up orthostatic blood pressures- negative per the nurse -Serial troponin- was slightly elevated , recent is at 0.18 , no drop, the trending platued -Monitor renal function/potassium -Repeat CT Head - negative for any new intracranial bleed -Check magnesium, replete if necessary; recent 1.7 -Social work evaluation -Psych consultation to assess whether patient is competent with decision making capacity -Obtain records from PCP regarding GI workup from prior; Pt. has seen Dr. Shea as outpatient basis #Home medications -Continue home medications: Alprazolam, atorvastatin, Cardizem -DVT prophylaxis with subcutaneous heparin -DNR/DNI Problem List: 1. Head trauma 2. Hypomagnesemia 3. Dizziness Pain Ratin Pain Location: na Pain Goal: Remain pain free Pain Plan: na Tomorrow's Labs & Rationales: routine Roberto Wilder 06/02/18 1227: Attending MD Review Statement Attending Statement Attending MD Statement: examined this patient, discuss w/resident/PA/PERSONNEL ADVISER, agreed w/resident/PA/PERSONNEL ADVISER, reviewed EMR data (avail), discussed with nursing, discussed with case mgmt Attending Assessment/Plan: Mechanical fall with laceration to head- pt on eliquis for Afib. head CT was negative for bleed at admission. repeat Head CT today is negative for any bleed. eliquis was resumed. Laceration to head- s/p max. doing ok. Diarrhea for few days- pt says she has had some diarrhea for last few days and had some loose stools today. unclear etiology but her electrolytes are imbalanced too. Will send stool studies if persists. diarrhea has resolved but pt has abdominal distention on exam. will get abdominal xray. Pt previously has seen GI dr Shea and will look into old records to find out previous investigations done. Pt does not want aggressive workup. Hypomagnesemia and Hypokalemia- resolved. cont to monitor. Afib with RVR- pt on eliquis. cardio consult pending. Mild trop elevation- cardio eval. monitor on tele. likely secodnary to afib with Rvr. ALBERT- resolving. cr down to 1.1 from 1.8 at admission.
--- NOTE | 2018-06-02 12:52 | RADIOLOGY REPORT ---
EXAMINATION: XR ABDOMEN MULTIPLE VIEWS CLINICAL INDICATION: Diarrhea. Tense abdomen. COMPARISON: None TECHNIQUE: 2 views of the abdomen. FINDINGS: No acute findings in the visualized lung bases. No basilar consolidation or pleural effusion. There is gas and fluid within the lumen of the small bowel and colon, and gas is seen to level the rectum. No pneumatosis intestinalis or pneumoperitoneum. The gas filled cecum measures approximately 9 cm transverse diameter and transverse colon measures up to 7.5 cm diameter. The gas-filled descending colon measures up to 4.7 cm. There is no evidence of thumbprinting (i.e., no overt mucosal edema) of the colonic wall. No acute osseous abnormality. IMPRESSION: Nonspecific, diffuse gaseous distention of the colon. Air-fluid levels of bowel, as well. Findings favor ileus rather than a distal colonic obstruction, and an ileus could be caused by a colitis or gastroenteritis.
--- NOTE | 2018-06-02 14:00 | PN- Cardiology ---
Subjective Subjective: Feeling well. No chest pain. No shortness of breath. No palpitations. The patient is mildly confused. Eliquis is on hold, and a decision will need to be made regarding whether to restart anticoagulation per Objective Vital Signs and I&Os Vital Signs Date Time Temp Pulse Resp B/P B/P Pulse O2 O2 Flow FiO2 Mean Ox Delivery Rate 06/02 0633 97.6 98 22 124/80 95 Room Air 06/01 2210 98.1 86 18 140/70 96 Room Air 06/01 2146 91 140/70 06/01 1432 98.2 73 18 118/64 96 Intake & Output 06/02 1600 06/02 0800 06/02 0000 06/01 1600 06/01 0800 06/01 0000 Intake Total 500 985 370 110 Output Total Balance 500 985 370 110 Intake, IV 300 425 150 Intake, Oral 200 560 220 110 Number 3 Bowel Movements Patient 89 lb 78 lb Weight Weight Bed scale Measurement Method Physical Exam: Gen: The patient is in no acute distress HEENT: Normal nose, ears, and oropharynx. Pupils equal bilaterally. Conjunctiva normal. Neck: Supple with no JVD, no masses, and no thyromegaly Lungs: Clear to auscultation with normal respiratory effort Heart: Irregular irregular S1, S2, 1/6 systolic murmur. No peripheral edema, 2 + pulses in the lower extremities bilaterally Abdomen: Soft, nontender, no masses. No hepatomegaly. No splenomegaly Extremities: No clubbing or cyanosis. Normal muscle strength in the upper and lower extremities. Skin: Normal skin turgor with no skin ulcers or lesions noted. Neuro: Cranial nerves intact. Sensation intact Psych: Alert and oriented 3 with appropriate affect Current Medications: Current Medications Sig/Aspen Start time Last Medication Dose Route Stop Time Status Admin Acetaminophen 650 MG Q6P PRN 05/31 1630 AC PO Alprazolam 0.25 MG BID PRN 05/31 1630 AC PO 06/07 1629 Apixaban 2.5 MG BID 06/01 2100 AC 06/02 PO 0832 Aspirin 81 MG DAILY 06/01 0900 AC 06/02 PO 0832 Atorvastatin Calcium 40 MG 1700 05/31 1700 AC 06/01 PO 1646 Diltiazem HCl 30 MG BID 05/31 2100 AC 06/02 PO 0832 Heparin Sodium 5,000 UNIT Q8 05/31 2200 DC 06/01 (Porcine) SC 1443 Magnesium Sulfate 1 GM ONCE ONE 06/01 0945 DC 06/01 Dextrose/Water 100 ML IV 06/01 1344 1037 Magnesium Sulfate 1 GM ONCE ONE 06/01 0945 DC 06/01 Dextrose/Water 100 ML IV 06/01 1344 1642 Potassium Chloride 20 MEQ BID 06/01 0943 AC 06/02 PO 0832 Sodium Chloride 1,000 ML Q13H 06/01 0115 DC 06/01 IV 06/01 1414 0135 Results Last 48 Hrs of Labs/Mics: Laboratory Tests 06/02/18 0615: Anion Gap 9, Estimated GFR 47 L, BUN/Creatinine Ratio 14.5, Magnesium 1.7 06/01/18 1549: Stool Occult Blood Cancelled 06/01/18 1124: Urine Color YEL, Urine Clarity HAZY H, Urine pH 6.0, Ur Specific Cable 1.020, Urine Protein NEG, Urine Ketones NEG, Urine Nitrite NEG, Urine Bilirubin NEG, Urine Urobilinogen 0.2, Ur Leukocyte Esterase MOD H, Ur Microscopic SEDIMENT EXAMINED, Urine RBC RARE, Urine WBC 1-3 H, Ur Epithelial Cells MOD H, Urine Bacteria MANY H, Granular Casts RARE H, Urine Hemoglobin SMALL H, Urine Glucose NEG 06/01/18 0645: Anion Gap 8, Estimated GFR 39 L, BUN/Creatinine Ratio 15.4, Magnesium 1.2 L, Creatine Kinase 220 H, Troponin I 0.15 *H, CBC w Diff NO MAN DIFF REQ, RBC 3.38 L, MCV 90.5, MCH 31.0, MCHC 34.2, RDW 13.1, MPV 8.5, Gran % 80.1 H, Lymphocytes % 11.4 L, Monocytes % 8.1, Eosinophils % 0.1, Basophils % 0.3, Absolute Granulocytes 7.0 H, Absolute Lymphocytes 1.0 L, Absolute Monocytes 0.7 H, Absolute Eosinophils 0, Absolute Basophils 0 06/01/18 0205: Troponin I 0.18 *H 05/31/18 205: Troponin I 0.19 *H 05/31/18 1410: Troponin I 0.13 *H Recent Imaging Studies: Abdominal X-ray: Nonspecific, diffuse gaseous distention of the colon. Air-fluid levels of bowel, as well. Findings favor ileus rather than a distal colonic obstruction, and an ileus could be caused by a colitis or gastroenteritis. Assessment/Plan Assessment/Plan Assessment: 1. Chronic atrial fibrillation and atrial flutter 2. Normal left ventricular function with mild to moderate mitral regurgitation, moderate tricuspid regurgitation, and pulmonary hypertension on echocardiogram. 3. Status post mechanical fall with head trauma 4. Mild troponin elevation, likely demand ischemia secondary to fall. Plan: * I recommend PT evaluation to evaluate risk of future falls. * The frequency of falls is apparently once every few months, and she has had only a single episode of head trauma. Given that rate of falls, the benefits of anticoagulation with Eliquis likely outweigh the risks. If cleared by physical therapy, I recommend restarting low-dose Eliquis prior to discharge * Continue other cardiac medications Continue telemetry? Yes
[2018-06-02 14:59] VITALS: BP 100/60
--- NOTE | 2018-06-02 16:03 | Patient Discharge Instructions ---
Discharge Instructions General Discharge Information You were seen/treated for: Syncope, Mechanical Fall Acute Kidney Injury Head Laceration You had these procedures: Head CT Renal Ultrasound Watch for these problems: If you experience any worsening lightheadedness, dizziness, falls, chest pain, palpitations, shortness of breath, and fatigue please follow up with your PCP. Special Instructions: Please follow up with your PCP within one week. Please follow up with your academic support director within one week. Please continue to take your home medications. Patient to have head max removed at STR facility upon determination of PCP. Diet Continue normal diet: Yes Recommended Diet: Regular Activity Full Activity/No Limits: No Activity Self Limited: Yes Acute Coronary Syndrome Inclusion Criteria At DC or during hospital stay patient has or had the following: ACS DIAGNOSIS No Discharge Core Measures Meds if any: Prescribed or Continued at Discharge Meds if any: NOT Prescribed or Continued at Discharge Congestive Heart Failure Inclusion Criteria At DC or during hospital stay patient has or had the following: CHF DIAGNOSIS No Discharge Core Measures Meds if any: Prescribed or Continued at Discharge Meds if any: NOT Prescribed or Continued at Discharge Cerebrovascular accident Inclusion Criteria At DC or during hospital stay patient has or had the following: CVA/TIA Diagnosis No Discharge Core Measures Meds if any: Prescribed or Continued at Discharge Meds if any: NOT Prescribed or Continued at Discharge Venous thromboembolism Inclusion Criteria VTE Diagnosis No VTE Type NONE VTE Confirmed by (Test) NONE Discharge Core Measures - Per Current guidelines, there needs to be overlap - treatment for the first 5 days of Warfarin therapy. - If discharged on Warfarin prior to 5 days of - overlap therapy, the patient will need to be - assessed for post discharge needs including - *Post discharge parental anticoagulation - *Warfarin and/or parental anticoagulation education - *Follow up date to check INR post discharge At least 5 days overlap therapy as Inpatient No Meds if any: Prescribed or Continued at Discharge Note: Overlap Therapy is Warfarin and Anticoagulant Meds if any: NOT Prescribed or Continued at Discharge
--- NOTE | 2018-06-02 20:37 | ECHOCARDIOGRAM REPORT ---
NATHALIE MCKEON Age: 83 : 1935 Gender: F Exam Date: 06/01/2018 19:51 Exam Location: [address] Ht (in): 62 Wt (lb): 78 BSA: 1.23 BP: 122 / 54 Ordering Physician: Carin Rowell MD Referring Physician: Terrence Menchaca MD Technologist: Zully Ruiz [facility] Room Number: [id number] Indications: Chest pain Rhythm: Atrial fibrillation Technical Quality: Good FINDINGS Left Ventricle Normal size left ventricle. Normal left ventricular ejection fraction visually estimated at >60 %. No obvious regional wall motion abnormalities. Right Ventricle Normal right ventricular size and function. Right Atrium Mild right atrial dilatation. Left Atrium Mild left atrial dilatation. Mitral Valve Mild thickening/calcification of the anterior mitral valve leaflet. Moderate mitral annular calcification. [id number] mitral regurgitation. Aortic Valve Diffuse thickening (sclerosis) of the aortic valve cusps without reduced excursion. Trace aortic regurgitation. No aortic stenosis. Tricuspid Valve Tricuspid valve not well visualized, grossly normal. Moderate tricuspid regurgitation. Right ventricular systolic pressure estimated to be elevated at 60 mmHg. Pulmonic Valve Pulmonic valve not well visualized, grossly normal. Trace pulmonic regurgitation. Pericardium No pericardial effusion. Great Vessels Normal size aortic root and proximal ascending aorta. CONCLUSIONS Normal size left ventricle. Normal left ventricular ejection fraction visually estimated at >60 %. No obvious regional wall motion abnormalities. Mild right atrial dilatation. Mild left atrial dilatation. Moderate tricuspid regurgitation. Right ventricular systolic pressure estimated to be elevated at 60 mmHg. Trace pulmonic regurgitation. Moderate mitral annular calcification. Mild thickening/calcification of the anterior mitral valve leaflet. [id number] mitral regurgitation. Terrence Menchaca M.D. (Electronically Signed) Final Date: 02 June 2018 20:31 MEASUREMENTS (Male / Female) Normal Values 2D ECHO LV Diastolic Diameter PLAX 3.6 cm 4.2 - 5.9 / 3.9 - 5.3 cm LV Systolic Diameter PLAX 2.4 cm 2.1 - 4.0 cm LV Fractional Shortening PLAX 33.3 % 25 - 46 % LV Ejection Fraction 2D Teich 63.0 % IVS Diastolic Thickness 1.1 cm LVPW Diastolic Thickness 1.1 cm LV Relative Wall Thickness 0.6 RV Internal Dim ED PLAX 2.8 cm 1.9 - 3.8 cm LVOT Diameter 1.7 cm Aortic Root Diameter 2.5 cm LA Systolic Diameter LX 2.9 cm 3.0 - 4.0 / 2.7 - 3.8 cm LA Volume 58.0 cm 18 - 58 / 22 - 52 cm Ascending Aorta Diameter 2.5 cm DOPPLER AV Peak Velocity 158.0 cm/s AV Peak Gradient 10.0 mmHg AV Mean Velocity 110.0 cm/s AV Mean Gradient 5.0 mmHg AV Velocity Time Integral 32.6 cm LVOT Peak Velocity 90.2 cm/s LVOT Peak Gradient 3.3 mmHg LVOT Mean Velocity 61.8 cm/s LVOT Mean Gradient 2.0 mmHg LVOT Velocity Time Integral 16.1 cm LVOT Stroke Volume 36.5 cm AV Area Cont Eq vti 1.1 cm AV Area Cont Eq pk 1.3 cm MV Peak Velocity 141.0 cm/s MV Peak Gradient 8.0 mmHg MV Mean Velocity 77.5 cm/s MV Mean Gradient 3.0 mmHg Mitral E Point Velocity 115.0 cm/s MV PHT Velocity 156.0 cm/s MV Deceleration [place] 774.0 cm/s MV Pressure Half Time 60.5 ms MV Area PHT 3.6 cm MV Deceleration Time 129.0 ms TR Peak Velocity 369.0 cm/s TR Peak Gradient 54.5 mmHg Right Atrial Pressure 5.0 mmHg Pulmonary Artery Systolic Pressure 59.5 mmHg Right Ventricular Systolic Pressure 59.5 mmHg PV Peak Velocity 71.7 cm/s PV Peak Gradient 2.1 mmHg PV Mean Velocity 46.7 cm/s PV Mean Gradient 1.0 mmHg PV Velocity Time Integral 11.4 cm LV E' Lateral Velocity 6.8 cm/s Mitral E to LV E' Lateral Ratio 16.9 LV E' Septal Velocity 9.2 cm/s Mitral E to LV E' Septal Ratio 12.6
[2018-06-02 22:09] VITALS: BP 140/60
[2018-06-03 06:26] VITALS: BP 146/60
--- NOTE | 2018-06-03 07:27 | PN- Housestaff ---
Mckayla Quiroz 06/03/18 0727: Subjective Follow-up For: fall with head trauma elevated troponins Acute kin=dney injury hypokalemia Subjective: Afebrile overnight. Patient is seen and examined in bed. Patient is AAOx2 to person, time, but not to place. Patient overnight refused her Cardiazem dose and was having tachycardia in the 150-160 range throughout the night. Patient this morning denies any chest pain, palpitations, fevers, chills, and fatigue. Spoke with nurse who mentions patient did not have any episodes of diarrhea overnight. Review of Systems Constitutional: Reports: see HPI. Objective Last 24 Hrs of Vital Signs/I&O Vital Signs Date Time Temp Pulse Resp B/P B/P Pulse O2 O2 Flow FiO2 Mean Ox Delivery Rate 06/03 0626 97.7 42 18 146/60 93 Room Air 06/03 0000 Room Air Room Air 06/02 2209 98.3 90 18 140/60 96 Room Air 06/02 1459 97.9 70 22 100/60 95 Room Air Intake & Output 06/03 0800 06/03 0000 06/02 1600 Intake Total 100 350 680 Output Total Balance 100 350 680 Intake, IV 0 Intake, Oral 100 350 680 Number 0 Bowel Movements Patient 91 lb Weight Weight Bed scale Measurement Method Physical Exam General Appearance: Alert, Cooperative, No Acute Distress, [id number], not to place Skin: head laceration on right side of scalp with max in place HEENT: Atraumatic Neck: Supple, No JVD Cardiovascular: Regular Rate, Normal S1, Normal S2 Lungs: Clear to Auscultation Abdomen: Soft, No Tenderness Extremities: No Edema, Normal Pulses Assessment/Plan Assessment: [id number] VIEWS - Nonspecific, diffuse gaseous distention of the colon. Air-fluid levels of bowel, as well. Findings favor ileus rather than a distal colonic obstruction, and an ileus could be caused by a colitis or gastroenteritis. Renal Ultrasound - 1. Two complex regions of the right kidney as detailed above. These areas are indeterminate and could be on the basis of prominent medullary pyramids, however a solid lesion is not excluded. Follow up with renal protocol CT or MRI is recommended if appropriate based upon clinical assessment. 2. Mild symmetric renal cortical thinning. 83-year-old woman with PMH -Coronary artery disease, Hypertension, Hyperlipidemia, Pulmonary hypertension, Chronic hyponatremia, History of atrial fibrillation, on Eliquis, GERD, Anxiety, History of EtOH abuse [facility] Problem list -Mechanical fall, etiology unclear - possible syncope/near-syncope -Near-syncope -Elevated troponin with ischemic EKG changes, unlikely ACS -Acute kidney injury, probable pre-renal azotemia -Hypokalemia -Head laceration to scalp, s/p max #Fall, syncope vs. near-syncope -Telemetry monitoring- shows atrial flutter with large QRS complexes -Fall precautions in place -Avoid nephrotoxic agents -Eliquis restarted 2.5 mg bid -Follow up orthostatic blood pressures- negative per the nurse -Serial troponin- was slightly elevated , recent is at 0.18 , no drop, the trending platued -Monitor renal function/potassium -Repeat CT Head - negative for any new intracranial bleed -Check magnesium, replete if necessary; recent 1.7 -PT evaluation; STR vs Home PT, depending on meeting goals of therapy -Social work evaluation -Nutritional consult -Psych consultation to assess whether patient is competent with decision making capacity -Obtain records from PCP regarding GI workup from prior; Pt. has seen Dr. Shea as outpatient basis; patient had seen Dr. Shea in 2016 for a sigmoidoscopy, with findings of diverticulosis and stricture, patient refused barium enema at that time; Dr. Shea rec. barium enema if any recurrent abdominal pain -Attempting to make primary person of contact the POA/Conservatorship; currently working with social work regarding the process of POA designation #Home medications -Continue home medications: Alprazolam, atorvastatin, Cardizem -DVT prophylaxis with subcutaneous heparin -DNR/DNI Problem List: 1. Head trauma 2. Hypomagnesemia 3. Dizziness Pain Ratin Pain Location: na Pain Goal: Remain pain free Pain Plan: na Tomorrow's Labs & Rationales: routine Roberto Wilder 06/03/18 1300: Attending MD Review Statement Attending Statement Attending MD Statement: examined this patient, discuss w/resident/PA/AG SERVICE MANAGER, agreed w/resident/PA/AG SERVICE MANAGER, reviewed EMR data (avail), discussed with nursing, discussed with case mgmt Attending Assessment/Plan: Mechanical fall with laceration to head- pt on eliquis for Afib. head CT was negative for bleed at admission. repeat Head CT today is negative for any bleed. eliquis was resumed. Laceration to head- s/p max. doing ok. Diarrhea for few days- pt says she has had some diarrhea for last few days and had some loose stools today. unclear etiology but her electrolytes are imbalanced too. diarrhea has resolved but pt has abdominal distention on exam. abdominal xray- ileus.Previous CT done in 2016 showed ? Sigmoid area mass but was never worked up as pt refused aggressive measures. Pt previously has seen GI dr Shea and will look into old records to find out previous investigations done. Pt does not want aggressive workup. Will d/w HCPOA the issue at hand . Hypomagnesemia and Hypokalemia- resolved. cont to monitor. Afib with RVR- pt on eliquis. pt refused cardizem last night. rates high on tele. pt ok with taking meds this am. Mild trop elevation- cardio eval. monitor on tele. likely secodnary to afib with Rvr. ALBERT- resolving. cr down to 1.0 from 1.8 at admission.
[2018-06-03 14:23] VITALS: BP 96/50
--- NOTE | 2018-06-03 15:17 | PN- Cardiology ---
Subjective Subjective: The patient reports that she is feeling well. No palpitations. No diaphoresis. No shortness of breath. Eliquis has been restarted. Objective Vital Signs and I&Os Vital Signs Date Time Temp Pulse Resp B/P B/P Pulse O2 O2 Flow FiO2 Mean Ox Delivery Rate 06/03 1423 97.8 77 18 96/50 95 Room Air 06/03 0956 97.7 134 18 146/60 06/03 0626 97.7 42 18 146/60 93 Room Air 06/03 0000 Room Air Room Air 06/02 2209 98.3 90 18 140/60 96 Room Air Intake & Output 06/03 1600 06/03 0800 06/03 0000 06/02 1600 06/02 0800 06/02 0000 Intake Total 480 100 350 680 500 Output Total Balance 480 100 350 680 500 Intake, IV 0 300 Intake, Oral 480 100 350 680 200 Number 1 0 Bowel Movements Patient 91 lb 89 lb Weight Weight Bed scale Bed scale Measurement Method Physical Exam: Gen: The patient is in no acute distress HEENT: Normal nose, ears, and oropharynx. Pupils equal bilaterally. Conjunctiva normal. Neck: Supple with no JVD, no masses, and no thyromegaly Lungs: Clear to auscultation with normal respiratory effort Heart: Irregular irregular S1, S2, 1/6 systolic murmur. No peripheral edema, 2 + pulses in the lower extremities bilaterally Abdomen: Soft, nontender, no masses. No hepatomegaly. No splenomegaly Extremities: No clubbing or cyanosis. Normal muscle strength in the upper and lower extremities. Skin: Normal skin turgor with no skin ulcers or lesions noted. Neuro: Cranial nerves intact. Sensation intact Psych: Alert and oriented 3 with appropriate affect Current Medications: Current Medications Sig/Aspen Start time Last Medication Dose Route Stop Time Status Admin Acetaminophen 650 MG Q6P PRN 05/31 1630 AC PO Alprazolam 0.25 MG BID PRN 05/31 1630 AC 06/02 PO 06/07 1629 2120 Apixaban 2.5 MG BID 06/01 2100 AC 06/03 PO 1016 Aspirin 81 MG DAILY 06/01 0900 AC 06/03 PO 0955 Atorvastatin Calcium 40 MG 1700 05/31 1700 AC 06/02 PO 1810 Diltiazem HCl 30 MG BID 05/31 2100 AC 06/03 PO 0956 Magnesium Chloride 64 MG DAILY 06/03 1330 AC 06/03 PO 1435 Magnesium Sulfate 1 GM ONCE ONE 06/02 1615 DC 06/02 Dextrose/Water 100 ML IV 06/02 Potassium Chloride 20 MEQ BID 06/01 0943 AC 06/03 PO 0956 Results Last 48 Hrs of Labs/Mics: Laboratory Tests 06/03/18 0620: Anion Gap 9, Estimated GFR 53 L, BUN/Creatinine Ratio 14.0, Magnesium 1.5 L 06/02/18 0615: Anion Gap 9, Estimated GFR 47 L, BUN/Creatinine Ratio 14.5, Magnesium 1.7 06/01/18 1549: Stool Occult Blood Cancelled Assessment/Plan Assessment/Plan Assessment: 1. Chronic atrial fibrillation and atrial flutter 2. Normal left ventricular function with mild to moderate mitral regurgitation, moderate tricuspid regurgitation, and pulmonary hypertension on echocardiogram. 3. Status post mechanical fall with head trauma 4. Mild troponin elevation, likely demand ischemia secondary to fall. Plan: * Eliquis has been restarted. If the patient has further falls, we will reassess whether to continue. * Continue current cardiac medications. * Follow up with Dr. Vergara after discharge Continue telemetry? Yes
--- NOTE | 2018-06-03 17:29 | Cons- Psychiatry ---
Psychiatric Consult Date of Consult: 06/03/18 Reason for Consult: CAPACITY ? DEMEMTIA ? 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 I will write a brief note now with my assessment and plan and a more extensive note tomorrow about issues uncovered during examination. Briefly, Jia is an 83 y/o female with MMP and past psychiatric history of alcohol dependence who presented status post a fall in her home. Jia herself reports that she had fallen against the bathroom door and hit her head hard she reports that she did see blood. She did not call a friend to bring her in for "an x-ray" until the next day. She was sticthed in the Ed and found to have an arrthyhmia and admitted to telemetry. Since then she has been non-compliant with care and making irrational decisions, needed a angelina for trying to leave AMA. On exam she is not able to process information properly or in a prioritized manner. She is vague about taking her medications properly. She gives a poor effort on being examined but does answer most of my questions. She reports she is not depressed. She reports she lives at home alone but she is not able to walk properly or keep her legs under her. She reports that she eats as well as she can and takes her meds as well as she can but she knows that she makes mistakes at times which she states rather flippantly. She is annoyed that a doctor has asked me to speak with her about how she feels about her care here and whether she will stay as long as the doctors need to take care of her. She is clearly an independent person and has never had a or children but did keep a job for a long period of time at a fairly high capacity. I consider her to be intelligent. She is alert oriented to day year month. She struggled 4 seconds remember trauma and Obama but did well with brief prompting. She is linear gives irrelevant answers I did not no delusions she does not feel anyone is trying to hurt her she is not hallucinating she does not want to hurt herself or others. The patient appears to be quite frail she is afraid that she cannot walk properly and admits that she does fall in the home and does not think she is eating well enough in order to be strong enough to walk properly. She did say that she would stay at least until tomorrow but feels that she will leave tomorrow. Impression Dementia with behavioral disturbance Possible element of delirium from fall. Our medical student apparently performed an MMSE on which Jia scored approximately an 18 it is unknown at this time where she lost points and a moca and an MMSE will be reperformed. She did struggle with general fund of knowledge and gave vague and confabulated answers at to critical questions regarding her health. She is not making rational decisions about her capabilities and does not have insight into what she is capable of and not capable of which places her at great danger given that she is living home alone and at this point and is still driving. It is my opinion that she should not be living alone and is at risk for grave harm or injury. She certainly should not be driving. POA and half-way care will need to be sought, with STR as intermim aftercare plan. 1) Obtain EKG assure QTc under 450. Can give trazodone 12.5 mg-25 mg for agitation, sundowning. use soft angelina if necessary. Always try to redirect first. 2) She cannot make medical decisions or leave the hospital AMA. I will follow up. Wilmer #[phone] At this time in the hospital the the patient lacks capacity to make medical decisions or to leave the hospital.
[2018-06-03 21:47] VITALS: BP 106/46
[2018-06-04 06:48] VITALS: BP 100/48
--- NOTE | 2018-06-04 08:34 | PN- Housestaff ---
Mckayla Quiroz 06/04/18 0834: Subjective Follow-up For: fall with head trauma elevated troponins Acute kin=dney injury hypokalemia Subjective: Afebrile overnight. Patient is seen and examined in her chair this morning eating breakfast. Patient denies any chest pain or shortness of breath overnight. Patient states she has been having normal bowel movements but also has not been eating that much actually. Patient also mentions her abdominal pain has improved since yesterday, and she feels her abdomen is a bit softer today comparatively. Patient otherwise has no new complaints today. Review of Systems Constitutional: Reports: see HPI. Objective Last 24 Hrs of Vital Signs/I&O Vital Signs Date Time Temp Pulse Resp B/P B/P Pulse O2 O2 Flow FiO2 Mean Ox Delivery Rate 06/04 1434 98.0 74 20 108/58 93 Room Air 06/04 0854 92 102/68 06/04 0759 Room Air Room Air 06/04 0648 97.9 96 18 100/48 96 Room Air 06/03 2147 97.6 108 12 106/46 94 Room Air 06/03 2025 110 122/58 Intake & Output 06/04 1600 06/04 0800 06/04 0000 Intake Total 580 Output Total Balance 580 Intake, Oral 580 Number 1 Bowel Movements Physical Exam General Appearance: Alert, Oriented X3, Cooperative, No Acute Distress Skin: head laceration on right side of scalp with max in place HEENT: Atraumatic Neck: Supple, No JVD Cardiovascular: Regular Rate, Normal S1, Normal S2 Lungs: Clear to Auscultation Abdomen: Soft, No Tenderness Extremities: No Edema, Normal Pulses Assessment/Plan Assessment: [id number] VIEWS - Nonspecific, diffuse gaseous distention of the colon. Air-fluid levels of bowel, as well. Findings favor ileus rather than a distal colonic obstruction, and an ileus could be caused by a colitis or gastroenteritis. Renal Ultrasound - 1. Two complex regions of the right kidney as detailed above. These areas are indeterminate and could be on the basis of prominent medullary pyramids, however a solid lesion is not excluded. Follow up with renal protocol CT or MRI is recommended if appropriate based upon clinical assessment. 2. Mild symmetric renal cortical thinning. 83-year-old woman with PMH -Coronary artery disease, Hypertension, Hyperlipidemia, Pulmonary hypertension, Chronic hyponatremia, History of atrial fibrillation, on Eliquis, GERD, Anxiety, History of EtOH abuse seen for evaluation s/p mechcanical fall with head injury. Problem list -Mechanical fall, etiology unclear - possible syncope/near-syncope -Near-syncope -Elevated troponin with ischemic EKG changes, unlikely ACS -Acute kidney injury, probable pre-renal azotemia -Hypokalemia -Head laceration to scalp, s/p max #Fall, syncope vs. near-syncope -Telemetry monitoring- shows atrial flutter with large QRS complexes -Fall precautions in place -Avoid nephrotoxic agents -Eliquis restarted 2.5 mg bid -Follow up orthostatic blood pressures- negative per the nurse -Serial troponin- was slightly elevated , recent is at 0.18 , no drop, the trending platued -Monitor renal function/potassium -Repeat CT Head - negative for any new intracranial bleed -Check magnesium, replete if necessary; recent 1.7 -PT evaluation; STR vs Home PT, depending on meeting goals of therapy -Social work evaluation -Nutritional consult -Psych consultation to assess whether patient is competent with decision making capacity; psychiatric evaluation assess patient has poor decision making and should not leave AMA under circumstances; Trazodone 12.5 mg-25 mg if needed for agitation -Obtain records from PCP regarding GI workup from prior; Pt. has seen Dr. Shea as outpatient basis; patient had seen Dr. Shea in 2016 for a sigmoidoscopy, with findings of diverticulosis and stricture, patient refused barium enema at that time; Dr. Shea rec. barium enema if any recurrent abdominal pain -Attempting to make primary person of contact the POA/Conservatorship; currently working with social work regarding the process of POA designation #Mild protein calorie malnutrition -Nutrition consult and evaluated patient -Poor intake per patient; advise to increase oral intake #Home medications -Continue home medications: Alprazolam, atorvastatin, Cardizem -DVT prophylaxis with subcutaneous heparin -DNR/DNI Problem List: 1. Head trauma 2. Hypomagnesemia 3. Dizziness Pain Ratin Pain Location: na Pain Goal: Remain pain free Pain Plan: na Tomorrow's Labs & Rationales: routine Roberto Wilder 06/04/18 1405: Attending MD Review Statement Attending Statement Attending MD Statement: examined this patient, discuss w/resident/PA/WILDLIFE REMOVAL SPECIALIST, agreed w/resident/PA/WILDLIFE REMOVAL SPECIALIST, reviewed EMR data (avail), discussed with nursing, discussed with case mgmt Attending Assessment/Plan: Mechanical fall with laceration to head- pt on eliquis for Afib. head CT was negative for bleed at admission. repeat Head CT was negative for any bleed. eliquis was resumed. Laceration to head- s/p max. doing ok. Abdominal distention /Diarrhea for few days- pt says she has had some diarrhea for last few days and had some loose stools today. unclear etiology but her electrolytes are imbalanced too. diarrhea has resolved but pt has abdominal distention on exam. abdominal xray- ileus.Previous CT done in 2016 showed ? Sigmoid area mass but was never worked up as pt refused aggressive measures. Pt previously has seen GI dr Shea and will look into old records to find out previous investigations done. Will get CT abdomen/pelvis tomorrow as CT scan is down today. Hypomagnesemia and Hypokalemia- resolved. cont to monitor. Afib with RVR- pt on eliquis. Mild trop elevation- cardio eval. monitor on tele. likely secodnary to afib with Rvr. ALBERT- Resolved. Psych eval- pt lacks capacity.
[2018-06-04 14:34] VITALS: BP 108/58
--- NOTE | 2018-06-04 16:34 | Cons- Gastroenterology ---
General Information and HPI Consulting Request Date of Consult: 06/04/18 Requested By: Roberto Wilder MD Reason for Consult: Abdominal pain Abdominal distention Exam Limitations: confusion, poor historian History of Present Illness: Poor historian Allergies/Medications Allergies: Coded Allergies: Penicillins (UNKNOWN 08/19/16) Home Med List: Alprazolam 0.25 MG TABLET 1 TAB PO BIDP PRN anxiety (Reported) Apixaban (Eliquis) 2.5 MG TABLET 1 TAB PO BID anticoagulant Atorvastatin Calcium 40 MG TABLET 1 TAB PO 1700 High cholestrol Diltiazem HCl (Cardizem) 30 MG TABLET 1 TAB PO BID heart rythm Current Medications: Current Medications Sig/Aspen Start time Last Medication Dose Route Stop Time Status Admin Acetaminophen 650 MG Q6P PRN 05/31 1630 AC PO Alprazolam 0.25 MG BID PRN 05/31 1630 AC 06/03 PO 06/07 1629 2025 Apixaban 2.5 MG BID 06/01 2100 AC 06/04 PO 0854 Aspirin 81 MG DAILY 06/01 0900 AC 06/04 PO 0854 Atorvastatin Calcium 40 MG 1700 05/31 1700 AC 06/03 PO 1730 Diltiazem HCl 30 MG BID 05/31 2100 AC 06/04 PO 0854 Magnesium Chloride 64 MG DAILY 06/03 1330 AC 06/04 PO 0854 Potassium Chloride 20 MEQ BID 06/01 0943 AC 06/04 PO 0853 Past History Travel History Traveled to [place] past 21 day No Medical History Neurological: NONE EENT: NONE Cardiovascular: AFIB, CAD, hypertension, hyperlipidemia, pulmonary HTN Respiratory: COPD, lung nodule Gastrointestinal: GERD Hepatic: NONE Renal: NONE Musculoskeletal: NONE Psychiatric: anxiety, alcohol abuse Endocrine: osteoporosis, hyponatremia Blood Disorders: NONE Cancer(s): NONE 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 Home Who Do You Live With? self Services at Home: None Primary Language: Paraguayan Smoking Status: Former Smoker Functional Ability ADLs Independent: dressing, eating, toileting, bathing. IADLs Independent: shopping, housework, finances, food prep, telephone, transportation , medication admin. Exam & Diagnostic Data Vital Signs and I&O Vital Signs Date Time Temp Pulse Resp B/P B/P Pulse O2 O2 Flow FiO2 Mean Ox Delivery Rate 06/04 1434 98.0 74 20 108/58 93 Room Air 06/04 0854 92 102/68 06/04 0759 Room Air Room Air 06/04 0648 97.9 96 18 100/48 96 Room Air 06/03 2147 97.6 108 12 106/46 94 Room Air 06/03 2025 110 122/58 Intake & Output 06/04 1600 06/04 0400 06/03 0400 06/02 0400 Intake Total 360 580 580 350 680 500 Output Total Balance 360 580 580 350 680 500 Intake, IV 0 300 Intake, Oral 360 580 580 350 680 200 Number 4 1 0 Bowel Movements Patient 91 lb 91 lb 89 lb Weight Weight Bed scale Bed scale Measurement Method Physical Exam: Thin. Abdomen distended, nontympanitic, nontender. Results Pertinent Lab Results: Laboratory Tests 06/04 06/03 06/02 0622 0620 0615 Chemistry Sodium (137 - 145 mmol/L) 132 L 131 L 133 L Potassium (3.5 - 5.1 mmol/L) 3.4 L 4.0 4.0 Chloride (98 - 107 mmol/L) 103 99 102 Carbon Dioxide (22 - 30 mmol/L) 21 L 23 22 Anion Gap (5 - 16) 9 9 9 BUN (7 - 17 mg/dL) 17 14 16 Creatinine (0.5 - 1.0 mg/dL) 1.2 H 1.0 1.1 H Estimated GFR (>60 ml/min) 43 L 53 L 47 L BUN/Creatinine Ratio (7 - 25 %) 14.2 14.0 14.5 Magnesium (1.6 - 2.3 mg/dL) 1.5 L 1.5 L 1.7 Imaging/Other Studies: Abdominal x-ray: IMPRESSION: Nonspecific, diffuse gaseous distention of the colon. Air-fluid levels of bowel, as well. Findings favor ileus rather than a distal colonic obstruction, and an ileus could be caused by a colitis or gastroenteritis. Assessment/Plan Assessment/Recommendations: Patient with known sigmoid obstruction, documented 2 years ago by flex sigmoidoscopy, who did not follow-up on suggested imaging. Now presents with some degree of abdominal pain (however patient currently denies pain, nausea), and alteration of bowel habits, and examination/abdominal x-ray suggesting colonic dilatation. 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 The patient is tolerating a regular, solid diet at this time. According to the RN, she has been having some degree of diarrhea. Recommendations * CT scan of the abdomen and pelvis, with rectal contrast (discussed with house staff) * Continue regular diet for now Consult Acknowledgment - Thank you for your consult request.
--- NOTE | 2018-06-04 19:01 | PN- Cardiology ---
Subjective Subjective: No chest pain. No shortness of breath. No palpitations. No diaphoresis. Ventricular rate is mildly elevated at times. Objective Vital Signs and I&Os Vital Signs Date Time Temp Pulse Resp B/P B/P Pulse O2 O2 Flow FiO2 Mean Ox Delivery Rate 06/04 1434 98.0 74 20 108/58 93 Room Air 06/04 0854 92 102/68 06/04 0759 Room Air Room Air 06/04 0648 97.9 96 18 100/48 96 Room Air 06/03 2147 97.6 108 12 106/46 94 Room Air 06/03 2025 110 122/58 Intake & Output 06/04 1600 06/04 0800 06/04 0000 06/03 1600 06/03 0000 Intake Total 360 580 480 100 350 Output Total Balance 360 580 480 100 350 Intake, Oral 360 580 480 100 350 Number 4 1 Bowel Movements Patient 91 lb 91 lb Weight Weight Bed scale Measurement Method Physical Exam: Gen: The patient is in no acute distress HEENT: Normal nose, ears, and oropharynx. Pupils equal bilaterally. Conjunctiva normal. Neck: Supple with no JVD, no masses, and no thyromegaly Lungs: Clear to auscultation with normal respiratory effort Heart: Irregular irregular S1, S2, 1/6 systolic murmur. No peripheral edema, 2 + pulses in the lower extremities bilaterally Abdomen: Soft, nontender, no masses. No hepatomegaly. No splenomegaly Extremities: No clubbing or cyanosis. Normal muscle strength in the upper and lower extremities. Skin: Normal skin turgor with no skin ulcers or lesions noted. Neuro: Cranial nerves intact. Sensation intact Psych: Alert and oriented 3 with appropriate affect Current Medications: Current Medications Sig/Aspen Start time Last Medication Dose Route Stop Time Status Admin Acetaminophen 650 MG Q6P PRN 05/31 1630 AC PO Alprazolam 0.25 MG BID PRN 05/31 1630 AC 06/03 PO 06/07 1629 2024 Apixaban 2.5 MG BID 06/01 2100 AC 06/04 PO 0854 Aspirin 81 MG DAILY 06/01 0900 AC 06/04 PO 0854 Atorvastatin Calcium 40 MG 1700 05/31 1700 AC 06/03 PO 1730 Diltiazem HCl 30 MG BID 05/31 2100 AC 06/04 PO 0854 Magnesium Chloride 64 MG DAILY 06/03 1330 AC 06/04 PO 0854 Potassium Chloride 20 MEQ BID 06/01 0943 AC 06/04 PO 0853 Results Last 48 Hrs of Labs/Mics: Laboratory Tests 06/04/18 0622: Anion Gap 9, Estimated GFR 43 L, BUN/Creatinine Ratio 14.2, Magnesium 1.5 L 06/03/18 0620: Anion Gap 9, Estimated GFR 53 L, BUN/Creatinine Ratio 14.0, Magnesium 1.5 L Assessment/Plan Assessment/Plan Assessment: 1. Chronic atrial fibrillation and atrial flutter 2. Normal left ventricular function with mild to moderate mitral regurgitation, moderate tricuspid regurgitation, and pulmonary hypertension on echocardiogram. 3. Status post mechanical fall with head trauma 4. Mild troponin elevation, likely demand ischemia secondary to fall. Plan: * Would increase diltiazem to 30 milligrams p.o. 3 times per day for additional rate control * Continue Eliquis * Continue other cardiac medications Continue telemetry? Yes
[2018-06-04 22:07] VITALS: BP 122/60
[2018-06-05 06:51] VITALS: BP 116/60
--- NOTE | 2018-06-05 08:01 | PN- Housestaff ---
Mckayla Quiroz 06/05/18 0756: Subjective Follow-up For: fall with head trauma elevated troponins Acute kidney injury hypokalemia Subjective: Afebrilel overnight. Patient is seen and examined in bed this morning. Patient is AAOx3 today. Patient had multiple tachycardia events overnight, to a heart rate of 175. Patient denied any chest pain, palpitations, and shortness of breath overnight. Patient scheduled to go for CT scan of the abdomen today as she still has some bloating of the abdomen. Patient further denied any diarrhea, constipation, and n/v overnight. Review of Systems Constitutional: Reports: see HPI. Objective Last 24 Hrs of Vital Signs/I&O Vital Signs Date Time Temp Pulse Resp B/P B/P Pulse O2 O2 Flow FiO2 Mean Ox Delivery Rate 06/05 0651 98.4 97 18 116/60 949 Room Air 06/04 2231 103 122/60 06/04 2207 97.5 103 18 122/60 95 Room Air 06/04 1434 98.0 74 20 108/58 93 Room Air 06/04 0854 92 102/68 06/04 0759 Room Air Room Air Intake & Output 06/05 0800 06/05 0000 06/04 1600 Intake Total 220 350 360 Output Total Balance 220 350 360 Intake, Oral 220 350 360 Number 2 4 Bowel Movements Patient 92 lb 6 oz Weight Weight Bed scale Measurement Method Physical Exam General Appearance: Alert, Oriented X3, Cooperative, No Acute Distress Skin: No Rashes, No Breakdown, head laceration on right side of scalp with max in place HEENT: Atraumatic Neck: Supple, No JVD Cardiovascular: Regular Rate, Normal S1, Normal S2 Abdomen: hard to palpation in mid abdomen with no tenderness noted Neurological: Normal Speech Extremities: No Edema, Normal Pulses Assessment/Plan Assessment: [id number] VIEWS - Nonspecific, diffuse gaseous distention of the colon. Air-fluid levels of bowel, as well. Findings favor ileus rather than a distal colonic obstruction, and an ileus could be caused by a colitis or gastroenteritis. Renal Ultrasound - 1. Two complex regions of the right kidney as detailed above. These areas are indeterminate and could be on the basis of prominent medullary pyramids, however a solid lesion is not excluded. Follow up with renal protocol CT or MRI is recommended if appropriate based upon clinical assessment. 2. Mild symmetric renal cortical thinning. 83-year-old woman with PMH -Coronary artery disease, Hypertension, Hyperlipidemia, Pulmonary hypertension, Chronic hyponatremia, History of atrial fibrillation, on Eliquis, GERD, Anxiety, History of EtOH abuse [facility] Problem list -Mechanical fall, etiology unclear - possible syncope/near-syncope -Near-syncope -Elevated troponin with ischemic EKG changes, unlikely ACS -Acute kidney injury, probable pre-renal azotemia -Hypokalemia -Head laceration to scalp, s/p max #Fall, syncope vs. near-syncope -Telemetry monitoring- shows atrial flutter with large QRS complexes -Fall precautions in place -Avoid nephrotoxic agents -Eliquis restarted 2.5 mg bid -Follow up orthostatic blood pressures- negative per the nurse -Serial troponin- was slightly elevated , recent is at 0.18 , no drop, the trending platued -Monitor renal function/potassium -Repeat CT Head - negative for any new intracranial bleed -Check magnesium, replete if necessary; recent 1.7 -PT evaluation; STR vs Home PT, depending on meeting goals of therapy -Social work evaluation -Nutritional consult -CT abdomen; r/o any GI related issues due to vague abdominal discomfort with associated diarrhea -Psych consultation to assess whether patient is competent with decision making capacity -Obtain records from PCP regarding GI workup from prior; Pt. has seen Dr. Shea as outpatient basis; patient had seen Dr. Shea in 2016 for a sigmoidoscopy, with findings of diverticulosis and stricture, patient refused barium enema at that time; Dr. Shea rec. barium enema if any recurrent abdominal pain -Attempting to make primary person of contact the POA/Conservatorship; currently working with social work regarding the process of POA designation #Mild protein calorie malnutrition -Nutrition consult and evaluated patient -Poor intake per patient; advise to increase oral intake #Home medications -Continue home medications: Alprazolam, atorvastatin, Cardizem -DVT prophylaxis with subcutaneous heparin -DNR/DNI Problem List: 1. Head trauma 2. Hypomagnesemia 3. Dizziness Pain Ratin Pain Location: na Pain Goal: Remain pain free Pain Plan: na Tomorrow's Labs & Rationales: routine Roberto Wilder 06/05/18 1120: Attending MD Review Statement Attending Statement Attending MD Statement: examined this patient, discuss w/resident/PA/G[employer] WEB APPLICATION DEVELOPER, agreed w/resident/PA/G[employer] WE[employer] APPLICATION DEVELOPER, reviewed EMR data (avail), discussed with nursing, discussed with case mgmt Attending Assessment/Plan: Mechanical fall with laceration to head- pt on eliquis for Afib. head CT was negative for bleed at admission. repeat Head CT was negative for any bleed. eliquis was resumed. Laceration to head- s/p max. doing ok. Abdominal distention /Diarrhea for few days- pt says she has had some diarrhea for last few days and had some loose stools today. unclear etiology but her electrolytes are imbalanced too. diarrhea has resolved but pt has abdominal distention on exam. abdominal xray- ileus.Previous CT done in 2016 showed ? Sigmoid area mass but was never worked up as pt refused aggressive measures. Pt previously has seen GI dr Shea and will look into old records to find out previous investigations done. Will get CT abdomen/pelvis today. Hypomagnesemia and Hypokalemia- resolved. cont to monitor. Afib with RVR- pt on eliquis. Mild trop elevation- cardio eval. monitor on tele. likely secodnary to afib with Rvr. ALBERT- Resolved.
--- NOTE | 2018-06-05 11:52 | PN- Cardiology ---
Subjective Subjective: Clinically stable. Remains in atrial fibrillation. Rate control improved. Objective Vital Signs and I&Os Vital Signs Date Time Temp Pulse Resp B/P B/P Pulse O2 O2 Flow FiO2 Mean Ox Delivery Rate 06/05 1008 78 122/56 06/05 0651 98.4 97 18 116/60 949 Room Air 06/04 2231 103 122/60 06/04 2207 97.5 103 18 122/60 95 Room Air 06/04 1434 98.0 74 20 108/58 93 Room Air Intake & Output 06/05 1600 06/05 0806/05 0000 06/04 1600 06/04 0000 Intake Total 220 350 360 580 Output Total Balance 220 350 360 580 Intake, Oral 220 350 360 580 Number 2 4 Bowel Movements Patient 92 lb 6 oz Weight Weight Bed scale Measurement Method Physical Exam: Gen: The patient is in no acute distress HEENT: Normal nose, ears, and oropharynx. Pupils equal bilaterally. Conjunctiva normal. Neck: Supple with no JVD, no masses, and no thyromegaly Lungs: Clear to auscultation with normal respiratory effort Heart: Irregular irregular S1, S2, 1/6 systolic murmur. No peripheral edema, 2 + pulses in the lower extremities bilaterally Abdomen: Soft, nontender, no masses. No hepatomegaly. No splenomegaly Extremities: No clubbing or cyanosis. Normal muscle strength in the upper and lower extremities. Skin: Normal skin turgor with no skin ulcers or lesions noted. Neuro: Cranial nerves intact. Sensation intact Psych: Alert and oriented 3 with appropriate affect Current Medications: Current Medications Sig/Aspen Start time Last Medication Dose Route Stop Time Status Admin Acetaminophen 650 MG Q6P PRN 05/31 1630 AC PO Alprazolam 0.25 MG BID PRN 05/31 1630 AC 06/04 PO 06/07 1629 2237 Apixaban 2.5 MG BID 06/01 2100 AC 06/05 PO 1005 Aspirin 81 MG DAILY 06/01 0900 AC 06/05 PO 1005 Atorvastatin Calcium 40 MG 1700 05/31 1700 AC 06/03 PO 1730 Calcium Carbonate 500 MG DAILY PRN 06/05 1200 UNVr PO Diltiazem HCl 30 MG TID 06/04 2100 AC 06/05 PO 1008 Diltiazem HCl 30 MG BID 05/31 2100 DC 06/04 PO 0854 Magnesium Chloride 64 MG DAILY 06/03 1330 AC 06/05 PO 1005 Magnesium Oxide 400 MG ONE ONE 06/05 0915 DC PO 06/05 0916 Potassium Chloride 40 MEQ ONCE ONE 06/05 1000 CAN PO 06/05 1001 Potassium Chloride 40 MEQ ONCE ONE 06/05 0915 CAN PO 06/05 0916 Potassium Chloride 20 MEQ BID 06/01 0943 AC 06/05 PO 1005 Results Last 48 Hrs of Labs/Mics: Laboratory Tests 06/05/18 0621: Anion Gap 4 L, Estimated GFR 47 L, BUN/Creatinine Ratio 20.0, Magnesium 1.5 L 06/04/18 0622: Anion Gap 9, Estimated GFR 43 L, BUN/Creatinine Ratio 14.2, Magnesium 1.5 L Assessment/Plan Assessment/Plan Assessment: 1. Chronic atrial fibrillation and atrial flutter 2. Normal left ventricular function with mild to moderate mitral regurgitation, moderate tricuspid regurgitation, and pulmonary hypertension on echocardiogram. 3. Status post mechanical fall with head trauma 4. Mild troponin elevation, likely demand ischemia secondary to fall. Plan: * Would continue diltiazem 30 milligrams p.o. 3 times per day; continue other medications * Continue Eliquis * Plans for short-term rehab pending. Continue telemetry? Yes
[2018-06-05 14:46] VITALS: BP 110/60
--- NOTE | 2018-06-05 17:00 | CT SCAN REPORT ---
EXAMINATION: CT ABDOMEN AND PELVIS WITH CONTRAST CLINICAL INFORMATION: Ileus. Presumptive diagnosis: ?Sigmoid mass. COMPARISON: CT of the abdomen and pelvis 08/19/2016. TECHNIQUE: Multidetector volumetric imaging was performed of the abdomen and pelvis following IV administration of 95 mL of Optiray 320 intravenous contrast. A rectal tube was inserted by myself (Dr. Mccollum) and 1000 mL of water with 30 mL of Gastroview was infused. Sagittal and coronal reformatted images were obtained on the technologist's workstation. DLP: 260.14 mGy-cm FINDINGS: LUNG BASES: There is mild bibasilar atelectasis. LIVER, GALLBLADDER, AND BILIARY TREE: The liver is normal in size, shape, and attenuation. No focal hepatic lesion or biliary ductal dilatation is present. The gallbladder is unremarkable with no evidence of radiopaque gallstones, gallbladder wall thickening, or obvious pericholecystic inflammatory changes. PANCREAS: Unremarkable. SPLEEN: Unremarkable. ADRENAL GLANDS: Unremarkable. KIDNEYS AND URETERS: Scattered scarring in both kidneys is again noted. BLADDER: Unremarkable. GASTROINTESTINAL TRACT: There is polypoid circumferential thickening of the proximal to mid sigmoid colon with significant narrowing of the lumen, suspicious for neoplasm. There are scattered sigmoid diverticula identified proximal and distal to this lesion. The colon is diffusely dilated with air and fluid proximal to the lesion. Only a small amount of the rectally infused contrast passes through the sigmoid lesion. The rectum is quite distended with contrast. The small bowel is unremarkable. There is a small hiatal hernia. ABDOMINAL WALL: No significant hernia is appreciated. LYMPH NODES: No adenopathy. VASCULAR: There are extensive atherosclerotic calcifications in the abdominal aorta, iliac arteries, and mesenteric vessels. PELVIC VISCERA: Unremarkable. OSSEOUS STRUCTURES: Moderate degenerative disc disease at L4-L5 and severe degenerative disc disease at L5-S1 is again noted. There are no suspicious osseous lesions. IMPRESSION: Findings suspicious for an obstructing sigmoid neoplasm as described above. There is severe distention of the colon proximal to the sigmoid lesion. This Critical Result was discussed with Dr. Quiroz on 06/05/2018 at 1645 hours.
--- NOTE | 2018-06-05 21:44 | PN- Gastroenterology ---
Assessment/Plan GI Assessment/Recommendations: (*Please refer to Dr. Daphnie Shea's inpt GI consult of 06/04/18. I assumed the weekly inpt GI service on 06/05/2018. The patient was seen and examined. Her extensive records were reviewed). 83 y/o female, fair historian at best, hypertension, hyperlipidemia, COPD not on O2 (ex-smoker), pulmonary hypertension, chronic hyponatremia, atrial fibrillation on Eliquis, GERD, anxiety, CKD, osteoporosis, and EtOH abuse brought in by ambulance after suffering a mechical fall with headstrike & admitted 05/31/18. She had a scalp laceration, treated with max. She also had minimal troponin blips (felt to be demand ischemia rather than ACS), with accompanying EKG- precordial ischemic changes. Eliquis was initially held on admission, post head trauma, but eventually resumed post cardiology approval, after imaging studies were obtained, failing to reveal any ICB, etc. She has remained in afib. She was previously seen by Dr. Daphnie Shea for 09/04/16: flexible sigmoidoscopy, done for change in bowel habits, anemia, and CT scan then suggesting a sigmoid lesion. The rectum was normal. There was extensive sigmoid diverticulosis with tortuosity, angulation, and edema. A stricture was encountered which was not possible to pass. No definite lesion was seen at that time. A barium enema was advised, with consideration for surgery consultation at that time, but the patient refused. She was noncompliant with GI follow-up since. The patient was seen again in inpatient GI consultation 06/04/18, by Dr. Daphnie Shea, for abdominal distention and reported abdominal pain, although the patient currently denied the latter. Exam and x-rays were suggestive of colonic dilatation. Differential diagnosis included neoplasm vs. diverticular stricture. The patient was tolerating a regular solid diet. There was no obstipation or rectal bleeding. She was having bowel movements every other day, mostly loose, which could be secondary to a partial obstruction. *The patient was seen by psychiatry 06/03/18 and felt to have some component of dementia with behavioral disturbance. Dr. Gibson stated that the patient could not make medical decisions or leave the hospital AMA. 06/05/18: *CT AP with rectal contrast was rxd with IV/rectal contrast, with findings suspicious for an obstructing sigmoid neoplasm, with severe distention of the colon proximal to the sigmoid lesion. (*see imaging studies). *As of 06/05/18, the patient was hemodynamically stable & afebrile. She remained in A. fib with stable VR. O2 sat RA 96%. She was not obstipated, and was having loose non-bloody BM Q 1-2 days (probable spurious loose stools around a partial obstruction). She denied any abdominal pain, fevers, or chills. There was no nausea or vomiting. She was back on Eliquis & ASA 81 mg daily. She remained on Diltiazem for rate control, along with Atorvastatin, potassium & magnesium. *She was made aware of the high probability of a sigmoid cancer. She was extremely nebulous as to which course of action she would take. At first she said she would not want anything done, then stated she might "consider doing something" but was not sure as to when. She was mildly anemic with hematocrit in the low 30's, which was stable for her. She had mild chronic CKD & stable hypoNa+. 05/31/18: Peak troponin 0.19-> 0.18-> 0.15. She had nl LFTs on 05/31/18: admission, with normal synthetic function (alb 3.8). The pt was awaiting STR & was tentatively scheduled to be D/C 06/06/18 to [facility]. 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 Again, the patient was very nebulous as to what she wanted done. Despite the above, she was tolerating solids & clinically, was not completely obstructed. SUGGEST- The patient's POA, Kelly Gary, will speak with the pt. I advised follow-up with psychiatry, who previously stated the patient was not competent, although she was A & O x 3. If the patient wanted aggressive treatment, it would require temporarily holding her Eliquis, and doing an unprepped flex sig, aside from enemas, to try to get tissue dx. At that point, a decision would have to be made whether the patient needed stenting and/or surgical input. The patient was told that if she left this untreated, she would probably perforate. Clinically, she did not appear to be in eminent danger of perforating within the next few days to weeks, as this has been going on for some time. This was communicated with the medical housestaff. Further GI suggestions will be based on the above. Problem List: 1. Cancer of sigmoid 2. Diverticulosis of colon 3. Abdominal distention 4. Anemia 5. Atrial fibrillation 6. COPD (chronic obstructive pulmonary disease) Subjective Subjective: *As of 06/05/18, the patient was hemodynamically stable & afebrile. She remained in A. fib with stable VR. O2 sat RA 96%. She was not obstipated, and was having loose non-bloody BM Q 1-2 days (probable spurious loose stools around a partial obstruction). She denied any abdominal pain, fevers, or chills. There was no nausea or vomiting. She was back on Eliquis & ASA 81 mg daily. She remained on Diltiazem for rate control, along with Atorvastatin, potassium & magnesium. *She was made aware of the high probability of a sigmoid cancer. She was extremely nebulous as to which course of action she would take. At first she said she would not want anything done, then stated she might "consider doing something" but was not sure as to when. She was mildly anemic with hematocrit in the low 30's, which was stable for her. She had mild chronic CKD & stable hypoNa+. 05/31/18: Peak troponin 0.19-> 0.18-> 0.15. She had nl LFTs on 05/31/18: admission, with normal synthetic function (alb 3.8) Review of Systems: Full 14 point ROS otherwise noncontributory, and as per HPI. Objective Vital Signs and I&Os Vital Signs Date Time Temp Pulse Resp B/P B/P Pulse O2 O2 Flow FiO2 Mean Ox Delivery Rate 06/05 2200 97.6 84 16 126/58 94 Room Air 06/05 2100 98 140/70 06/05 1635 98 140/70 06/05 1446 98.1 92 18 110/60 96 Room Air 06/05 1008 78 122/56 06/05 0651 98.4 97 18 116/60 949 Room Air Intake & Output 06/05 1600 06/05 0400 06/04 1600 06/04 0400 06/03 1600 06/03 0400 Intake Total 460 350 360 580 580 350 Output Total Balance 460 350 360 580 580 350 Intake, Oral 460 350 360 580 580 350 Number 2 4 1 Bowel Movements Patient 92 lb 6 oz 91 lb 91 lb Weight Weight Bed scale Bed scale Measurement Method Physical Exam: Well-developed, well-nourished female in no apparent distress. Chronically ill- appearing. Sclera anicteric. Conjunctiva pink. Oropharynx clear. There is no adenopathy, thyromegaly, or JVD. No peripheral stigmata of inflammatory bowel disease or chronic liver disease on exam. No spiders on the anterior chest wall. Breast & pelvic exams: API. No CVA tenderness. Lungs: clear to A&P, except slight decreased BS at the bases B/L, with prolonged expiratory phase. No wheezing, rales, or rhonchi. Heart exam: irregularly irregular rate rhythm, S1 and S2, with I/ systolic murmur. Abdominal exam: normal bowel sounds, soft belly, yet mildly distended, nontender, without guarding or rebound. Slightly tympanitic to percussion. No mass. No organomegaly. No fluid shift. No pulsatile mass. Digital rectal exam: deferred by pt. Extremities without C, C, or E. No palpable cords. DJD. No palmar erythema. No Dupuytren's contractures. Distal pulses 2+ bilaterally. DTRs 2+ bilaterally. Alert and oriented x 3. No tremor. No asterixis. Current Medications: Current Medications Sig/Aspen Start time Last Medication Dose Route Stop Time Status Admin Acetaminophen 650 MG Q6P PRN 05/31 1630 AC PO Alprazolam 0.25 MG BID PRN 05/31 1630 AC 06/05 PO 06/07 1629 2059 Apixaban 2.5 MG BID 06/01 2100 AC 06/05 PO 2100 Aspirin 81 MG DAILY 06/01 0900 AC 06/05 PO 1005 Atorvastatin Calcium 40 MG 1700 05/31 1700 AC 06/05 PO 1700 Calcium Carbonate 500 MG DAILY NEEDED PRN 06/05 1200 AC PO Diltiazem HCl 30 MG TID 06/04 2100 AC 06/05 PO 2100 Magnesium Chloride 64 MG DAILY 06/03 1330 AC 06/05 PO 1005 Magnesium Oxide 400 MG ONE ONE 06/05 0915 DC 06/05 PO 06/05 0916 1221 Patient Medication 1 ED ONE ONE 06/05 1315 DC Teaching ED 06/05 1316 Potassium Chloride 40 MEQ ONCE ONE 06/05 1000 CAN PO 06/05 1001 Potassium Chloride 40 MEQ ONCE ONE 06/05 0915 CAN PO 06/05 0916 Potassium Chloride 20 MEQ BID 06/01 0943 AC 06/05 PO 2100 Results Pertinent Lab Results: Laboratory Tests 06/05 06/04 06/03 0621 0622 0620 Chemistry Sodium (137 - 145 mmol/L) 131 L 132 L 131 L Potassium (3.5 - 5.1 mmol/L) 4.1 3.4 L 4.0 Chloride (98 - 107 mmol/L) 102 103 99 Carbon Dioxide (22 - 30 mmol/L) 25 21 L 23 Anion Gap (5 - 16) 4 L 9 9 BUN (7 - 17 mg/dL) 22 H 17 14 Creatinine (0.5 - 1.0 mg/dL) 1.1 H 1.2 H 1.0 Estimated GFR (>60 ml/min) 47 L 43 L 53 L BUN/Creatinine Ratio (7 - 25 %) 20.0 14.2 14.0 Magnesium (1.6 - 2.3 mg/dL) 1.5 L 1.5 L 1.5 L Imaging/Other Studies: 05/31/18: EKG- afib @ 118, nl axis, LVH with repolarization abnormalities, ST depression antlat. 05/31/18: CT CERV SPINE WO IV CONTRAST; CT HEAD WO IV CONTRAST- 1. There are no acute bleeds or territorial infarcts. No masses are demonstrated. 2. There is diffuse volume loss and there are chronic microvascular ischemic changes. 3. There are no acute fractures or subluxations in the cervical spine. 4. There are multilevel spondylitic changes which are most severe at C4-C5 & C6- C7. 05/31/18: XRY-PORTABLE CHEST XRAY- Stable mild enlargement of the cardiac silhouette. No acute pulmonary process. Osteopenia. 06/01/18: CT HEAD WO IV CONTRAST (repeat)- There is a laceration of the right frontal scalp. No acute intracranial hemorrhage. There are numerous chronic small vessel ischemic changes primarily involving the periventricular white matter. 06/01/18: US RETROPERITONEAL COMPLETE (RENAL)- 1. Two complex regions of the right kidney as detailed above. These areas are indeterminate and could be on the basis of prominent medullary pyramids, however a solid lesion is not excluded. Follow up with renal protocol CT or MRI is recommended if appropriate based upon clinical assessment (*per medical team). 2. Mild symmetric renal cortical thinning. 06/01/18: ECHOCARDIOGRAM- Normal size left ventricle. Normal left ventricular ejection fraction visually estimated at >60 %. No obvious regional wall motion abnormalities. Mild right atrial dilatation. Mild left atrial dilatation. Moderate tricuspid regurgitation. Right ventricular systolic pressure estimated to be elevated at 60 mmHg. Trace pulmonic regurgitation. Moderate mitral annular calcification. Mild thickening/calcification of the anterior mitral valve leaflet. [id number] mitral regurgitation. - Terrence Menchaca M.D. 06/01/18: EKG- afib @ 88, LVH with repolarization abnormalities, PVC. 06/02/18: [id number]-SIDEVYNT VIEWS- Nonspecific, diffuse gaseous distention of the colon. Air-fluid levels of bowel, as well. Findings favor ileus rather than a distal colonic obstruction, and an ileus could be caused by a colitis or gastroenteritis. 06/05/18: CT ABD & PELVIS W IV CONTRAST/RECTAL CONTRAST- Findings suspicious for an obstructing proximal to mid sigmoid neoplasm, as described above. There is severe distention of the colon proximal to the sigmoid lesion. No liver mets. Scattered sigmoid diverticula, without diverticulitis. ASHD. DJD. This Critical Result was discussed with Dr. Quiroz on 06/05/2018 at 1645 hours. DICTATED BY: Veda [email or web address],[email or web address]
[2018-06-05 22:00] VITALS: BP 126/58
[2018-06-06 05:54] VITALS: BP 110/56
--- NOTE | 2018-06-06 08:30 | PN- Housestaff ---
See Addendum Subjective Follow-up For: fall with head trauma elevated troponins Acute kidney injury hypokalemia Subjective: Afebrile overnight. Patient is seen and examined in bed. Patient is sleeping comfortably in bed this morning and denies any abdominal discomfort today. Patient states her last bowel movement was yesterday and was a normal, soft consistency. Patient otherwise has no new complaints. Review of Systems Constitutional: Reports: see HPI. Objective Last 24 Hrs of Vital Signs/I&O Vital Signs Date Time Temp Pulse Resp B/P B/P Pulse O2 O2 Flow FiO2 Mean Ox Delivery Rate 06/06 0554 98.7 78 16 110/56 94 Room Air 06/06 0000 Room Air 06/05 2200 97.6 84 16 126/58 94 Room Air 06/05 2100 98 140/70 06/05 1635 98 140/70 06/05 1446 98.1 92 18 110/60 96 Room Air 06/05 1008 78 122/56 Intake & Output 06/06 1600 06/06 0800 06/06 0000 Intake Total 240 400 Output Total Balance 240 400 Intake, Oral 240 400 Number 1 Bowel Movements Patient 95 lb Weight Weight Bed scale Measurement Method Physical Exam General Appearance: Alert, Oriented X3, Cooperative, No Acute Distress Skin: No Rashes, head laceration on right side of scalp with max in place HEENT: Atraumatic Cardiovascular: Regular Rate, Normal S1, Normal S2 Lungs: Clear to Auscultation Abdomen: hard to palpation in mid abdomen with no tenderness noted Extremities: No Edema, Normal Pulses Assessment/Plan Assessment: CT ABD/Pelvis - Findings suspicious for an obstructing sigmoid neoplasm as described above. There is severe distention of the colon proximal to the sigmoid lesion. [id number] VIEWS - Nonspecific, diffuse gaseous distention of the colon. Air-fluid levels of bowel, as well. Findings favor ileus rather than a distal colonic obstruction, and an ileus could be caused by a colitis or gastroenteritis. Renal Ultrasound - 1. Two complex regions of the right kidney as detailed above. These areas are indeterminate and could be on the basis of prominent medullary pyramids, however a solid lesion is not excluded. Follow up with renal protocol CT or MRI is recommended if appropriate based upon clinical assessment. 2. Mild symmetric renal cortical thinning. 83-year-old woman with PMH -Coronary artery disease, Hypertension, Hyperlipidemia, Pulmonary hypertension, Chronic hyponatremia, History of atrial fibrillation, on Eliquis, GERD, Anxiety, History of EtOH [facility]. Problem list -Mechanical fall, etiology unclear - possible syncope/near-syncope -Near-syncope -Elevated troponin with ischemic EKG changes, unlikely ACS -Acute kidney injury, probable pre-renal azotemia -Hypokalemia -Head laceration to scalp, s/p max #Fall, syncope vs. near-syncope -Telemetry monitoring- shows atrial flutter with large QRS complexes -Fall precautions in place -Avoid nephrotoxic agents -Eliquis restarted 2.5 mg bid -Follow up orthostatic blood pressures- negative per the nurse -Serial troponin- was slightly elevated , recent is at 0.18 , no drop, the trending platued -Monitor renal function/potassium -Repeat CT Head - negative for any new intracranial bleed -Check magnesium, replete if necessary; recent 1.7 -PT evaluation; STR vs Home PT, depending on meeting goals of therapy -Social work evaluation -Nutritional consult -CT abdomen; r/o any GI related issues due to vague abdominal discomfort with associated diarrhea -Psych consultation to assess whether patient is competent with decision making capacity -POA now Kelly Gary, contact with any concerns regarding care #GI discomfort, bloating -Pt. has seen Dr. Shea as outpatient basis; patient had seen Dr. Shea in 2016 for a sigmoidoscopy, with findings of diverticulosis and stricture, patient refused barium enema at that time; Dr. Shea rec. barium enema if any recurrent abdominal pain -CT abd/pelvis: Findings suspicious for an obstructing sigmoid neoplasm as described above. There is severe distention of the colon proximal to the sigmoid lesion. -GI consulted; if patient wants aggressive treatment to work up sigmoid mass, will require to hold Eliquis and do an unprepped flex sigmoidoscopy to get proper tissue biopsy. According to GI not an acute abdomen or risk of perforation at this present time due to chronicity of her presentation, atleast for the next few weeks #Mild protein calorie malnutrition -Nutrition consult and evaluated patient -Poor intake per patient; advise to increase oral intake #Home medications -Continue home medications: Alprazolam, atorvastatin, Cardizem -DVT prophylaxis with subcutaneous heparin -DNR/DNI Problem List: 1. Head trauma 2. Hypomagnesemia 3. Dizziness Pain Ratin Pain Location: na Pain Goal: Remain pain free Pain Plan: na Tomorrow's Labs & Rationales: routine
--- NOTE | 2018-06-06 12:24 | PN- Cardiology ---
Subjective Subjective: No new clinical changes from cardiac standpoint. No new rhythm changes on monitor. Rate relatively stable. Objective Vital Signs and I&Os Vital Signs Date Time Temp Pulse Resp B/P B/P Pulse O2 O2 Flow FiO2 Mean Ox Delivery Rate 06/06 944 98 140/60 06/06 0554 98.7 78 16 110/56 94 Room Air 06/06 0000 Room Air 06/05 2200 97.6 84 16 126/58 94 Room Air 06/05 2100 98 140/70 06/05 1635 98 140/70 06/05 1446 98.1 92 18 110/60 96 Room Air Intake & Output 06/06 1600 06/06 0800 06/06 0000 06/05 1600 06/05 0806/05 0000 Intake Total 240 400 240 220 350 Output Total Balance 240 400 240 220 350 Intake, Oral 240 400 240 220 350 Number 1 2 Bowel Movements Patient 95 lb 92 lb 6 oz Weight Weight Bed scale Bed scale Measurement Method Physical Exam: Gen: The patient is in no acute distress HEENT: Normal nose, ears, and oropharynx. Pupils equal bilaterally. Conjunctiva normal. Neck: Supple with no JVD, no masses, and no thyromegaly Lungs: Clear to auscultation with normal respiratory effort Heart: Irregular irregular S1, S2, 1/6 systolic murmur. No peripheral edema, 2 + pulses in the lower extremities bilaterally Abdomen: Soft, nontender, no masses. No hepatomegaly. No splenomegaly Extremities: No clubbing or cyanosis. Normal muscle strength in the upper and lower extremities. Skin: Normal skin turgor with no skin ulcers or lesions noted. Neuro: Cranial nerves intact. Sensation intact Psych: Alert and oriented 3 with appropriate affect Current Medications: Current Medications Sig/Aspen Start time Last Medication Dose Route Stop Time Status Admin Acetaminophen 650 MG Q6P PRN 05/31 1630 AC PO Alprazolam 0.25 MG BID PRN 05/31 1630 AC 06/05 PO 06/07 1622058 Apixaban 2.5 MG BID 06/01 2100 AC 06/06 PO 943 Aspirin 81 MG DAILY 06/01 09 AC 06/06 PO 943 Atorvastatin Calcium 40 MG 1700 05/31 1700 AC 06/05 PO 1700 Calcium Carbonate 500 MG DAILY NEEDED PRN 06/05 1200 AC PO Diltiazem HCl 30 MG TID 06/04 2100 AC 06/06 PO 0944 Magnesium Chloride 64 MG BID 06/06 2100 AC PO Magnesium Chloride 64 MG DAILY 06/03 1330 DC 06/06 PO 0944 Patient Medication 1 ED ONE ONE 06/05 1315 DC Teaching ED 06/05 1316 Potassium Chloride 20 MEQ BID 06/01 0943 AC 06/06 PO 0941 Results Last 48 Hrs of Labs/Mics: Laboratory Tests 06/06/18 0649: Anion Gap 7, Estimated GFR 47 L, BUN/Creatinine Ratio 21.8, Magnesium 1.6 06/05/18 0621: Anion Gap 4 L, Estimated GFR 47 L, BUN/Creatinine Ratio 20.0, Magnesium 1.5 L Microbiology 06/04 1640 STOOL: Clostridium difficile Toxin A & B - COMP Assessment/Plan Assessment/Plan Assessment: 1. Chronic atrial fibrillation and atrial flutter 2. Normal left ventricular function with mild to moderate mitral regurgitation, moderate tricuspid regurgitation, and pulmonary hypertension on echocardiogram. 3. Status post mechanical fall with head trauma 4. Mild troponin elevation, likely demand ischemia secondary to fall. Plan: * Would continue diltiazem 30 milligrams p.o. 3 times per day; continue other medications * Continue Eliquis * Plans for short-term rehab pending. Continue telemetry? Yes
[2018-06-06 14:28] VITALS: BP 100/50
--- NOTE | 2018-06-06 18:16 | PN- Gastroenterology ---
Assessment/Plan GI Assessment/Recommendations: (*Please refer to Dr. Daphnie Shea's inpt GI consult of 06/04/18. I assumed the weekly inpt GI service on 06/05/2018. The patient was seen and examined. Her extensive records were reviewed). 83 y/o female, fair historian at best, hypertension, hyperlipidemia, COPD not on O2 (ex-smoker), pulmonary hypertension, chronic hyponatremia, atrial fibrillation on Eliquis, GERD, anxiety, CKD, osteoporosis, and EtOH abuse brought in by ambulance after suffering a mechical fall with headstrike & admitted 05/31/18. She had a scalp laceration, treated with max. She also had minimal troponin blips (felt to be demand ischemia rather than ACS), with accompanying EKG- precordial ischemic changes. Eliquis was initially held on admission, post head trauma, but eventually resumed post cardiology approval, after imaging studies were obtained, failing to reveal any ICB, etc. She has remained in afib. She was previously seen by Dr. Daphnie Shea for 09/04/16: flexible sigmoidoscopy, done for change in bowel habits, anemia, and CT scan then suggesting a sigmoid lesion. The rectum was normal. There was extensive sigmoid diverticulosis with tortuosity, angulation, and edema. A stricture was encountered which was not possible to pass. No definite lesion was seen at that time. A barium enema was advised, with consideration for surgery consultation at that time, but the patient refused. She was noncompliant with GI follow-up since. The patient was seen again in inpatient GI consultation 06/04/18, by Dr. Daphnie Shea, for abdominal distention and reported abdominal pain, although the patient currently denied the latter. Exam and x-rays were suggestive of colonic dilatation. Differential diagnosis included neoplasm vs. diverticular stricture. The patient was tolerating a regular solid diet. There was no obstipation or rectal bleeding. She was having bowel movements every other day, mostly loose, which could be secondary to a partial obstruction. *The patient was seen by psychiatry 06/03/18 and felt to have some component of dementia with behavioral disturbance. Dr. Gibson stated that the patient could not make medical decisions or leave the hospital AMA. 06/05/18: *CT AP with rectal contrast was rxd with IV/rectal contrast, with findings suspicious for an obstructing sigmoid neoplasm, with severe distention of the colon proximal to the sigmoid lesion. (*see imaging studies). *As of 06/05/18, the patient was hemodynamically stable & afebrile. She remained in A. fib with stable VR. O2 sat RA 96%. She was not obstipated, and was having loose non-bloody BM Q 1-2 days (probable spurious loose stools around a partial obstruction). She denied any abdominal pain, fevers, or chills. There was no nausea or vomiting. She was back on Eliquis & ASA 81 mg daily. She remained on Diltiazem for rate control, along with Atorvastatin, potassium & magnesium. *She was made aware of the high probability of a sigmoid cancer. She was extremely nebulous as to which course of action she would take. At first she said she would not want anything done, then stated she might "consider doing something" but was not sure as to when. She was mildly anemic with hematocrit in the low 30's, which was stable for her. She had mild chronic CKD & stable hypoNa+. 05/31/18: Peak troponin 0.19-> 0.18-> 0.15. She had nl LFTs on 05/31/18: admission, with normal synthetic function (alb 3.8). The pt was awaiting STR & was tentatively scheduled to be D/C 06/06/18 to [facility]. The patient is single and has no children.I spoke extensively with her POA, Kelly Gary (*H: [phone]/cell: [phone]), on 06/05/18, regarding the probable rectosigmoid neoplasm/Ca, which was discussed with the patient as well. Again, the patient was very nebulous as to what she wanted done. Despite the above, she was tolerating solids & clinically, was not completely obstructed. 06/04/18: C. diff- neg. 06/06/18: BUN/ Cr 24/1.1, GFR 47, Na 134, K 3.8, HCO3 24, AG 7, Mg 1.6 *As of 06/06/18, the patient remained hemodynamically stable & afebrile, with afib/flutter & stable VR. O2 sat RA- 95%. *The patient was still noncommittal about her wishes for workup of the partially obstructing sigmoid mass, which most likely was malignant. *She was deemed incompetent to make her own medical decisions, as per psychiatry. *I had spoken at length with the patient's POA, Kelly Abdirahman, on 06/05/18, & she was to discuss the above with the patient. The patient was tolerating a regular diet. She did not have any obstipation. She was having bowel movements, albeit loose. There was no rectal bleeding. She denied any abdominal pain, nausea, vomiting, CP, SOB, fevers, or chills. She remained on Eliquis for her chronic A. fib/flutter. She had a 1:1 sitter (fall risk). She was awaiting STR. Hopefully, a decision will be made by the POA prior to D/C. At the conclusion of my 06/06/18 note, the patient's POA, Kelly Gary, call me at the hospital, after she had spoken with the patient. Kelly wanted the patient to undergo a flex sig/colonoscopy, which would be unprepped, aside from enemas. She was aware that the patient could not undergo a formal bowel prep, for risk of perforation, based on the partial sigmoid obstruction. She was aware that the patient was at higher than average risk of perforation, based on her anatomy and probable lesion. She was additionally told that depending on the results of the flex sig, there could be consideration for placement of a colonic stent, to help prep her bowel for potential surgery, if desired. Furthermore, she was told that if a stent could not be placed, there could be consideration for a diverting colostomy. Kelly did not want the patient to undergo a colostomy, but was agreeable to the flex sig. Witnessed telephone informed consent for the flexible sigmoidoscopy was then obtained from the patient's POA, Kelly Gary, after careful explanation of the risks & benefits. The patient, who again was deemed to be incompetent to make her own medical decisions by psychiatry, was again made aware of the high probability of eventual perforation, if the sigmoid lesion was left untreated. SUGGEST- Hold Eliquis after the p.m. dose of 06/06/18 (preop). Starting 06/07/18, clears po, then NPO after 11:59 p.m. on 06/08/18, for unprepped flexsig/ colonoscopy on 06/09/18, with the pediatric colonoscope, to try to get tissue dx. *Please give pt tap H2O enemas x 2, on 06/09/18, at 6 a.m. preop. Depending on the results of the flex sig, consideration for colonic stent and/or surgical consultation, after further discussions with the POA. The patient and her POA were told that if she left this untreated, she would probably perforate. Clinically, she did not appear to be in eminent danger of perforating within the next few days to weeks, as this has been going on for some time. In view of the above, transfer to [facility] is on hold, for now. The above was communicated with the medical housestaff & with Dr. Vergara. Further GI suggestions will be based on the above. Problem List: 1. Cancer of sigmoid 2. Diverticulosis of colon 3. Abdominal distention 4. Anemia 5. Atrial fibrillation 6. COPD (chronic obstructive pulmonary disease) Subjective Subjective: 06/04/18: C. diff- neg. 06/06/18: BUN/ Cr 24/1.1, GFR 47, Na 134, K 3.8, HCO3 24, AG 7, Mg 1.6 *As of 06/06/18, the patient remained hemodynamically stable & afebrile, with afib/flutter & stable VR. O2 sat RA- 95%. *The patient was still noncommittal about her wishes for workup of the partially obstructing sigmoid mass, which most likely was malignant. *She was deemed incompetent to make her own medical decisions, as per psychiatry. *I had spoken at length with the patient's POA, Kelly Gary, on 06/05/18, & she was to discuss the above with the patient. The patient was tolerating a regular diet. She did not have any obstipation. She was having bowel movements, albeit loose. There was no rectal bleeding. She denied any abdominal pain, nausea, vomiting, CP, SOB, fevers, or chills. She remained on Eliquis for her chronic A. fib/flutter. She had a 1:1 sitter (fall risk). She was awaiting STR. Hopefully, a decision will be made by the POA prior to D/C. Review of Systems: Full 14 point ROS otherwise noncontributory, and as per HPI, although the patient is an unreliable historian & changes her story from time to time, despite being A & O x 3. Objective Vital Signs and I&Os Vital Signs Date Time Temp Pulse Resp B/P B/P Pulse O2 O2 Flow FiO2 Mean Ox Delivery Rate 06/06 1440 74 110/58 06/06 1428 97.6 81 18 100/50 95 Room Air 06/06 0944 98 140/60 06/06 0800 94 06/06 0554 98.7 78 16 110/56 94 Room Air 06/06 0000 Room Air 06/05 2200 97.6 84 16 126/58 94 Room Air 06/05 2100 98 140/70 Intake & Output 06/06 1600 06/06 0400 06/05 1600 06/05 0400 06/04 1600 06/04 0400 Intake Total 500 400 460 350 360 580 Output Total 300 Balance 200 400 460 350 360 580 Intake, Oral 500 400 460 350 360 580 Number 1 1 2 4 Bowel Movements Output, Urine 300 Patient 95 lb 92 lb 6 oz Weight Weight Bed scale Bed scale Measurement Method Physical Exam: Well-developed, well-nourished female in no apparent distress. Chronically ill- appearing. Sclera anicteric. Conjunctiva pink. Oropharynx clear. There is no adenopathy, thyromegaly, or JVD. No peripheral stigmata of inflammatory bowel disease or chronic liver disease on exam. No spiders on the anterior chest wall. Breast & pelvic exams: API. No CVA tenderness. Lungs: clear to A&P, except slight decreased BS at the bases B/L, with prolonged expiratory phase. No wheezing, rales, or rhonchi. Heart exam: irregularly irregular rate rhythm, S1 and S2, with I/ systolic murmur. Abdominal exam: normal bowel sounds, soft belly, yet mildly distended, nontender, without guarding or rebound. Slightly tympanitic to percussion. No mass. No organomegaly. No fluid shift. No pulsatile mass. Digital rectal exam: deferred by pt. Extremities without C, C, or E. No palpable cords. DJD. No palmar erythema. No Dupuytren's contractures. Distal pulses 2+ bilaterally. DTRs 2+ bilaterally. Alert and oriented x 3, but tangential. No tremor. No asterixis. Current Medications: Current Medications Sig/Aspen Start time Last Medication Dose Route Stop Time Status Admin Acetaminophen 650 MG Q6P PRN 05/31 1630 AC PO Alprazolam 0.25 MG BID PRN 05/31 1630 AC 06/05 PO 06/07 1629 2059 Apixaban 2.5 MG BID 06/01 2100 AC 06/06 PO 0944 Aspirin 81 MG DAILY 06/01 0900 AC 06/06 PO 0944 Atorvastatin Calcium 40 MG 1700 05/31 1700 AC 06/06 PO 1737 Calcium Carbonate 500 MG DAILY NEEDED PRN 06/05 1200 AC PO Diltiazem HCl 30 MG TID 06/04 2100 AC 06/06 PO 1440 Magnesium Chloride 64 MG BID 06/06 2100 AC PO Magnesium Chloride 64 MG DAILY 06/03 1330 DC 06/06 PO 0944 Potassium Chloride 20 MEQ BID 06/01 0943 AC 06/06 PO 0941 Results Pertinent Lab Results: Laboratory Tests 06/06 06/05 06/04 0649 0621 0622 Chemistry Sodium (137 - 145 mmol/L) 134 L 131 L 132 L Potassium (3.5 - 5.1 mmol/L) 3.8 4.1 3.4 L Chloride (98 - 107 mmol/L) 104 102 103 Carbon Dioxide (22 - 30 mmol/L) 24 25 21 L Anion Gap (5 - 16) 7 4 L 9 BUN (7 - 17 mg/dL) 24 H 22 H 17 Creatinine (0.5 - 1.0 mg/dL) 1.1 H 1.1 H 1.2 H Estimated GFR (>60 ml/min) 47 L 47 L 43 L BUN/Creatinine Ratio (7 - 25 %) 21.8 20.0 14.2 Magnesium (1.6 - 2.3 mg/dL) 1.6 1.5 L 1.5 L Imaging/Other Studies: 05/31/18: EKG- afib @ 118, nl axis, LVH with repolarization abnormalities, ST depression antlat. 05/31/18: CT CERV SPINE WO IV CONTRAST; CT HEAD WO IV CONTRAST- 1. There are no acute bleeds or territorial infarcts. No masses are demonstrated. 2. There is diffuse volume loss and there are chronic microvascular ischemic changes. 3. There are no acute fractures or subluxations in the cervical spine. 4. There are multilevel spondylitic changes which are most severe at C4-C5 & C6- C7. 05/31/18: XRY-PORTABLE CHEST XRAY- Stable mild enlargement of the cardiac silhouette. No acute pulmonary process. Osteopenia. 06/01/18: CT HEAD WO IV CONTRAST (repeat)- There is a laceration of the right frontal scalp. No acute intracranial hemorrhage. There are numerous chronic small vessel ischemic changes primarily involving the periventricular white matter. 06/01/18: US RETROPERITONEAL COMPLETE (RENAL)- 1. Two complex regions of the right kidney as detailed above. These areas are indeterminate and could be on the basis of prominent medullary pyramids, however a solid lesion is not excluded. Follow up with renal protocol CT or MRI is recommended if appropriate based upon clinical assessment (*per medical team). 2. Mild symmetric renal cortical thinning. 06/01/18: ECHOCARDIOGRAM- Normal size left ventricle. Normal left ventricular ejection fraction visually estimated at >60 %. No obvious regional wall motion abnormalities. Mild right atrial dilatation. Mild left atrial dilatation. Moderate tricuspid regurgitation. Right ventricular systolic pressure estimated to be elevated at 60 mmHg. Trace pulmonic regurgitation. Moderate mitral annular calcification. Mild thickening/calcification of the anterior mitral valve leaflet. [id number] mitral regurgitation. - Terrence Menchaca M.D. 06/01/18: EKG- afib @ 88, LVH with repolarization abnormalities, PVC. 06/02/18: [id number] VIEWS- Nonspecific, diffuse gaseous distention of the colon. Air-fluid levels of bowel, as well. Findings favor ileus rather than a distal colonic obstruction, and an ileus could be caused by a colitis or gastroenteritis. 06/05/18: CT ABD & PELVIS W IV CONTRAST/RECTAL CONTRAST- Findings suspicious for an obstructing proximal to mid sigmoid neoplasm, as described above. There is severe distention of the colon proximal to the sigmoid lesion. No liver mets. Scattered sigmoid diverticula, without diverticulitis. ASHD. DJD. This Critical Result was discussed with Dr. Quiroz on 06/05/2018 at 1645 hours. DICTATED BY: Jamey Mccollmu MD
[2018-06-06 21:52] VITALS: BP 120/56
[2018-06-07 06:05] VITALS: BP 106/56
--- NOTE | 2018-06-07 08:42 | PN- Housestaff ---
DennyAlicekenny 06/07/18 0842: Subjective Follow-up For: Mechanical fall, diarrhea Subjective: Overnight patient was in a flutter I had converted to normal sinus rhythm at approximately 00 400 patient's heart rate has been ranged between 70-96 overnight. Patient has no complaint of this morning, states she is getting to go to the bathroom for a bowel movement. Review of Systems Constitutional: Denies: chills, diaphoresis, fever. Cardiovascular: Denies: chest pain, palpitations. Respiratory: Denies: cough, short of breath. Gastrointestinal: Denies: abdominal pain, constipation, diarrhea, bloody stool, changes in stool. Objective Last 24 Hrs of Vital Signs/I&O Vital Signs Date Time Temp Pulse Resp B/P B/P Pulse O2 O2 Flow FiO2 Mean Ox Delivery Rate 06/07 0840 97.5 72 18 106/56 06/07 0605 97.5 72 18 106/56 95 Nasal Cannula 06/06 2152 97.7 73 18 120/56 96 Nasal Cannula 06/06 2020 75 18 120/56 06/06 1440 74 110/58 06/06 1428 97.6 81 18 100/50 95 Room Air Intake & Output 06/07 1600 06/07 0800 06/07 0000 Intake Total 120 120 Output Total Balance 120 120 Intake, Oral 120 120 Patient 98 lb Weight Physical Exam General Appearance: Alert, Oriented X3, Cooperative Cardiovascular: Regular Rate, Normal S1, Normal S2 Lungs: Clear to Auscultation, Normal Air Movement Abdomen: Normal Bowel Sounds, Soft, No Tenderness Assessment/Plan Assessment: 83-year-old woman with PMH -Coronary artery disease, Hypertension, Hyperlipidemia, Pulmonary hypertension, Chronic hyponatremia, History of atrial fibrillation, on Eliquis, GERD, Anxiety, History of EtOH abuse [facility]. Problem list -Mechanical fall, etiology unclear - possible syncope/near-syncope -Near-syncope -Elevated troponin with ischemic EKG changes, unlikely ACS -Acute kidney injury, probable pre-renal azotemia -Hypokalemia -Head laceration to scalp, s/p max #Fall, syncope vs. near-syncope -Telemetry monitoring- shows atrial flutter with large QRS complexes -Fall precautions in place -Avoid nephrotoxic agents -Eliquis restarted 2.5 mg bid -Follow up orthostatic blood pressures- negative per the nurse -Serial troponin- was slightly elevated , recent is at 0.18 , no drop, the trending platued -Monitor renal function/potassium -Repeat CT Head - negative for any new intracranial bleed -Check magnesium, replete if necessary; recent 1.7 -PT evaluation; STR vs Home PT, depending on meeting goals of therapy -Social work evaluation -Nutritional consult -CT abdomen; r/o any GI related issues due to vague abdominal discomfort with associated diarrhea -Psych consultation to assess whether patient is competent with decision making capacity -POA now Kelly Abdirahman, contact with any concerns regarding care #GI discomfort, bloating -Pt. has seen Dr. Shea as outpatient basis; patient had seen Dr. Shea in 2016 for a sigmoidoscopy, with findings of diverticulosis and stricture, patient refused barium enema at that time; Dr. Shea rec. barium enema if any recurrent abdominal pain -CT abd/pelvis: Findings suspicious for an obstructing sigmoid neoplasm as described above. There is severe distention of the colon proximal to the sigmoid lesion. -GI consulted; if patient wants aggressive treatment to work up sigmoid mass, will require to hold Eliquis and do an unprepped flex sigmoidoscopy to get proper tissue biopsy. According to GI not an acute abdomen or risk of perforation at this present time due to chronicity of her presentation, atleast for the next few weeks- Patient has agreed for flexible sigmoidoscopy/ colonoscopy which will be completed on 06/09/18. Patient will continue on clear liquid on friday night, transition to NPO on friday, as patient will have unprepped flexsig/colonoscopy. patient will require 2 tap water enema's on friday06/09/18 @ 0600. #Mild protein calorie malnutrition -Nutrition consult and evaluated patient -Poor intake per patient; advise to increase oral intake #Home medications -Continue home medications: Alprazolam, atorvastatin, Cardizem -DVT prophylaxis with subcutaneous heparin -DNR/DNI Problem List: 1. Abdominal distention Pain Ratin Pain Location: n/a Pain Goal: Remain pain free Pain Plan: tylenol Tomorrow's Labs & Rationales: none Marlon Youngblood MD 06/07/18 1309: Attending MD Review Statement Attending Statement Attending MD Statement: examined this patient, discuss w/resident/PA/ADJUNCT PROFESSOR OF VOICE, agreed w/resident/PA/ADJUNCT PROFESSOR OF VOICE, reviewed EMR data (avail) Attending Assessment/Plan: Patient seen and examined at bedside. Agree with resident assessment and plan. Doing well today, pleasantly confused, no complaints. Will continue Cardizem and Eliquis for atrial fibrillation. Agreed to workup of sigmoid mass. Clear liquid diet, flexible sigmoidiscopy on Friday, continue current management.
--- NOTE | 2018-06-07 12:56 | PN- Cardiology ---
Subjective Subjective: No new issues. Cardiac status unchanged. Objective Vital Signs and I&Os Vital Signs Date Time Temp Pulse Resp B/P B/P Pulse O2 O2 Flow FiO2 Mean Ox Delivery Rate 06/07 0840 97.5 72 18 106/56 / 0800 Room Air 06/07 0605 97.5 72 18 106/56 95 Nasal Cannula 06/06 2152 97.7 73 18 120/56 96 Nasal Cannula 06/06 2020 75 18 120/56 06/06 1440 74 110/58 06/06 1428 97.6 81 18 100/50 95 Room Air Intake & Output 06/07 1600 06/07 0800 06/07 0000 06/06 1600 06/06 0800 06/06 0000 Intake Total 120 120 260 240 400 Output Total 300 Balance 120 120 -40 240 400 Intake, Oral 120 120 260 240 400 Number 1 1 Bowel Movements Output, Urine 300 Patient 98 lb 95 lb Weight Weight Bed scale Measurement Method Physical Exam: Gen: The patient is in no acute distress HEENT: Normal nose, ears, and oropharynx. Pupils equal bilaterally. Conjunctiva normal. Neck: Supple with no JVD, no masses, and no thyromegaly Lungs: Clear to auscultation with normal respiratory effort Heart: Irregular irregular S1, S2, 1/6 systolic murmur. No peripheral edema, 2 + pulses in the lower extremities bilaterally Abdomen: Soft, nontender, no masses. No hepatomegaly. No splenomegaly Extremities: No clubbing or cyanosis. Normal muscle strength in the upper and lower extremities. Skin: Normal skin turgor with no skin ulcers or lesions noted. Neuro: Cranial nerves intact. Sensation intact Psych: Alert and oriented 3 with appropriate affect Current Medications: Current Medications Sig/Aspen Start time Last Medication Dose Route Stop Time Status Admin Acetaminophen 650 MG Q6P PRN 05/31 1630 AC PO Alprazolam 0.25 MG BID PRN 05/31 1630 AC 06/05 PO 06/07 1622058 Apixaban 2.5 MG BID 06/01 2100 DC 06/06 PO 06/07 0000 2019 Aspirin 81 MG DAILY 06/01 09 AC 06/07 PO 0840 Atorvastatin Calcium 40 MG 1700 05/31 1700 AC 06/06 PO 1737 Calcium Carbonate 500 MG DAILY NEEDED PRN 06/05 1200 AC PO Diltiazem HCl 30 MG TID 08/30 2100 AC 06/07 PO 0840 Magnesium Chloride 64 MG BID 06/06 2100 AC 06/07 PO 0840 Potassium Chloride 20 MEQ BID 06/01 0943 AC 06/07 PO 0840 Results Last 48 Hrs of Labs/Mics: Laboratory Tests 06/07/18 0745: Anion Gap 7, Estimated GFR 47 L, BUN/Creatinine Ratio 19.1, Magnesium 1.7 06/06/18 0649: Anion Gap 7, Estimated GFR 47 L, BUN/Creatinine Ratio 21.8, Magnesium 1.6 Assessment/Plan Assessment/Plan Assessment: 1. Chronic atrial fibrillation and atrial flutter 2. Normal left ventricular function with mild to moderate mitral regurgitation, moderate tricuspid regurgitation, and pulmonary hypertension on echocardiogram. 3. Status post mechanical fall with head trauma 4. Mild troponin elevation, likely demand ischemia secondary to fall. Plan: * Would continue diltiazem 30 milligrams p.o. 3 times per day; continue other medications * Currently off Eliquis pending GI procedure * Plans for short-term rehab pending. Continue telemetry? Yes
[2018-06-07 14:41] VITALS: BP 120/60
--- NOTE | 2018-06-07 16:40 | PN- Gastroenterology ---
Assessment/Plan GI Assessment/Recommendations: (*Please refer to Dr. Daphnie Shea's inpt GI consult of 06/04/18. I assumed the weekly inpt GI service on 06/05/2018. The patient was seen and examined. Her extensive records were reviewed). 83 y/o female, fair historian at best, hypertension, hyperlipidemia, COPD not on O2 (ex-smoker), pulmonary hypertension, chronic hyponatremia, atrial fibrillation on Eliquis, GERD, anxiety, CKD, osteoporosis, and EtOH abuse brought in by ambulance after suffering a mechical fall with headstrike & admitted 05/31/18. She had a scalp laceration, treated with max. She also had minimal troponin blips (felt to be demand ischemia rather than ACS), with accompanying EKG- precordial ischemic changes. Eliquis was initially held on admission, post head trauma, but eventually resumed post cardiology approval, after imaging studies were obtained, failing to reveal any ICB, etc. She has remained in afib. She was previously seen by Dr. Daphnie Shea for 09/04/16: flexible sigmoidoscopy, done for change in bowel habits, anemia, and CT scan then suggesting a sigmoid lesion. The rectum was normal. There was extensive sigmoid diverticulosis with tortuosity, angulation, and edema. A stricture was encountered which was not possible to pass. No definite lesion was seen at that time. A barium enema was advised, with consideration for surgery consultation at that time, but the patient refused. She was noncompliant with GI follow-up since. The patient was seen again in inpatient GI consultation 06/04/18, by Dr. Daphnie Shea, for abdominal distention and reported abdominal pain, although the patient currently denied the latter. Exam and x-rays were suggestive of colonic dilatation. Differential diagnosis included neoplasm vs. diverticular stricture. The patient was tolerating a regular solid diet. There was no obstipation or rectal bleeding. She was having bowel movements every other day, mostly loose, which could be secondary to a partial obstruction. *The patient was seen by psychiatry 06/03/18 and felt to have some component of dementia with behavioral disturbance. Dr. Gibson stated that the patient could not make medical decisions or leave the hospital AMA. 06/05/18: *CT AP with rectal contrast was rxd with IV/rectal contrast, with findings suspicious for an obstructing sigmoid neoplasm, with severe distention of the colon proximal to the sigmoid lesion. (*see imaging studies). *As of 06/05/18, the patient was hemodynamically stable & afebrile. She remained in A. fib with stable VR. O2 sat RA 96%. She was not obstipated, and was having loose non-bloody BM Q 1-2 days (probable spurious loose stools around a partial obstruction). She denied any abdominal pain, fevers, or chills. There was no nausea or vomiting. She was back on Eliquis & ASA 81 mg daily. She remained on Diltiazem for rate control, along with Atorvastatin, potassium & magnesium. *She was made aware of the high probability of a sigmoid cancer. She was extremely nebulous as to which course of action she would take. At first she said she would not want anything done, then stated she might "consider doing something" but was not sure as to when. She was mildly anemic with hematocrit in the low 30's, which was stable for her. She had mild chronic CKD & stable hypoNa+. 05/31/18: Peak troponin 0.19-> 0.18-> 0.15. She had nl LFTs on 05/31/18: admission, with normal synthetic function (alb 3.8). The pt was awaiting STR & was tentatively scheduled to be D/C 06/06/18 to [facility]. 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 Again, the patient was very nebulous as to what she wanted done. Despite the above, she was tolerating solids & clinically, was not completely obstructed. 06/04/18: C. diff- neg. 06/06/18: BUN/ Cr 24/1.1, GFR 47, Na 134, K 3.8, HCO3 24, AG 7, Mg 1.6 *As of 06/06/18, the patient remained hemodynamically stable & afebrile, with afib/flutter & stable VR. O2 sat RA- 95%. *The patient was still noncommittal about her wishes for workup of the partially obstructing sigmoid mass, which most likely was malignant. *She was deemed incompetent to make her own medical decisions, as per psychiatry. *I had spoken at length with the patient's POA, Kelly Gary, on 06/05/18, & she was to discuss the above with the patient. The patient was tolerating a regular diet. She did not have any obstipation. She was having bowel movements, albeit loose. There was no rectal bleeding. She denied any abdominal pain, nausea, vomiting, CP, SOB, fevers, or chills. She remained on Eliquis for her chronic A. fib/flutter. She had a 1:1 sitter (fall risk). She was awaiting STR. Hopefully, a decision will be made by the POA prior to D/C. At the conclusion of my 06/06/18 note, the patient's POA, Kelly Gary, call me at the hospital, after she had spoken with the patient. Kelly wanted the patient to undergo a flex sig/colonoscopy, which would be unprepped, aside from enemas. She was aware that the patient could not undergo a formal bowel prep, for risk of perforation, based on the partial sigmoid obstruction. She was aware that the patient was at higher than average risk of perforation, based on her anatomy and probable lesion. She was additionally told that depending on the results of the flex sig, there could be consideration for placement of a colonic stent, to help prep her bowel for potential surgery, if desired. Furthermore, she was told that if a stent could not be placed, there could be consideration for a diverting colostomy. Kelly did not want the patient to undergo a colostomy, but was agreeable to the flex sig. Witnessed telephone informed consent for the flexible sigmoidoscopy was then obtained from the patient's POA, Kelly Gary, after careful explanation of the risks & benefits, on 06/06/18. The patient, who again was deemed to be incompetent to make her own medical decisions by psychiatry, was again made aware of the high probability of eventual perforation, if the sigmoid lesion was left untreated. 06/07/18: BUN/Cr 21/1.1, GFR 47, Na 134, K 3.9, HCO3 25, AG 7, Mg 1.7. *As of 06/07/18, the patient remained in chronic afib on CM vs. occasional bouts of NSR with numerous APCs (P waves occasionally seen). She remained hemodynamically stable & afebrile, with O2 sat RA 96% She remained tangential and a poor historian. It was difficult to get an accurate history from her. She denied any abdominal pain, CP, or SOB. She was passing flatus. She had loose non-bloody BMs today (probably spurious in nature, from a partially obstructing sigmoid lesion). As per my discussion with her RN, she verified that Eliquis was on hold preop, since her last dose the p.m. 06/06/18. Additionally, her RN verified that she was on clears po until 11:59 p.m. on 06/08/18, at which point, she would be made NPO for flexible sigmoidoscopy on 06/09/18, after tap H2O enemas x 2 at 6 a.m. that day preop. The pt erroneously drank Ensure Plus earlier on 06/07/18, which was taken away from her, as she was supposed to be on clears po. Cardiology notes were appreciated. She remained on Diltiazem 30 mg po TID, ASA 81 mg daily, KCl, & Mg2+. A/P: 83 y/o female, sigmoid mass-> refused workup post incomplete 09/04/16: flexible sigmoidoscopy (*probably malignant by 06/05/18: CT AP with IV/rectal contrast), diverticulosis coli, abdominal distention, anemia, A. fib (Eliquis on hold preop), COPD, mechanical fall, head trauma, demand ischemia. *Patient incompetent for any medical decision making, per psychiatry. SUGGEST- Continue to hold Eliquis after the p.m. dose of 06/06/18 (preop). Starting 06/07/18, clears po, then NPO after 11:59 p.m. on 06/08/18, for unprepped flexsig/colonoscopy on 06/09/18, with the pediatric colonoscope, to try to get tissue dx. *Please give pt tap H2O enemas x 2, on 06/09/18, at 6 a.m. preop. *Depending on the results of the flex sig, consideration for colonic stent and/or surgical consultation, after further discussions with the POA. The patient and her POA were told that if she left this untreated, she would probably perforate. Clinically, she did not appear to be in eminent danger of perforating within the next few days to weeks, as this has been going on for some time. Witnessed telephone informed consent for the flexible sigmoidoscopy was then obtained from the patient's POA, Kelly Gary (*H : [phone]/cell: [phone]), after careful explanation of the risks & benefits, on 06/06/18. *Patient incompetent for any medical decision making, per psychiatry. In view of the above, transfer to SNF is on hold, for now. Continue Diltiazem 30 mg po TID, ASA 81 mg daily, & electrolyte repletion (i.e.- K+/Mg2+), as per cardiology. The above was communicated with the medical housestaff & with Dr. Vergara. Advise checking repeat CBC & liver panel preop, with next labs. Further GI suggestions will be based on the above. Problem List: 1. Cancer of sigmoid 2. Diverticulosis of colon 3. Abdominal distention 4. Anemia 5. Atrial fibrillation 6. COPD (chronic obstructive pulmonary disease) 7. Fall 8. Head trauma 9. Demand ischemia Subjective Subjective: 06/07/18: BUN/Cr 21/1.1, GFR 47, Na 134, K 3.9, HCO3 25, AG 7, Mg 1.7. *As of 06/07/18, the patient remained in chronic afib on CM vs. occasional bouts of NSR with numerous APCs (P waves occasionally seen). She remained hemodynamically stable & afebrile, with O2 sat RA 96% She remained tangential and a poor historian. It was difficult to get an accurate history from her. She denied any abdominal pain, CP, or SOB. She was passing flatus. She had loose non-bloody BMs today (probably spurious in nature, from a partially obstructing sigmoid lesion). As per my discussion with her RN, she verified that Eliquis was on hold preop, since her last dose the p.m. 06/06/18. Additionally, her RN verified that she was on clears po until 11:59 p.m. on 06/08/18, at which point, she would be made NPO for flexible sigmoidoscopy on , 06/09/18, after tap H2O enemas x 2 at 6 a.m. that day preop. The pt erroneously drank Ensure Plus earlier on 06/07/18, which was taken away from her, as she was supposed to be on clears po. Cardiology notes were appreciated. She remained on Diltiazem 30 mg po TID, ASA 81 mg daily, KCl, & Mg2+. Review of Systems: Full 14 point ROS otherwise noncontributory, and as per HPI, although the patient is an unreliable historian & changes her story from time to time, despite being A & O x 3. She was not felt to be competent, per psychiatry. Objective Vital Signs and I&Os Vital Signs Date Time Temp Pulse Resp B/P B/P Pulse O2 O2 Flow FiO2 Mean Ox Delivery Rate 06/07 1600 Room Air 06/07 1441 97.6 75 18 120/60 96 Room Air 06/07 1400 97.9 74 18 110/60 06/07 0840 97.5 72 18 106/56 06/07 0800 Room Air 06/07 0605 97.5 72 18 106/56 95 Nasal Cannula 06/06 2152 97.7 73 18 120/56 96 Nasal Cannula 06/06 2020 75 18 120/56 Intake & Output 06/07 1600 06/07 0400 06/06 1600 06/06 04006/05 0400 Intake Total 740 120 500 400 460 350 Output Total 300 Balance 740 120 200 400 460 350 Intake, Oral 740 120 500 400 460 350 Number 1 1 1 2 Bowel Movements Output, Urine 300 Patient 98 lb 95 lb 92 lb 6 oz Weight Weight Bed scale Bed scale Measurement Method Physical Exam: Well-developed, well-nourished female in no apparent distress. Chronically ill- appearing. Sclera anicteric. Conjunctiva pink. Oropharynx clear. There is no adenopathy, thyromegaly, or JVD. No peripheral stigmata of inflammatory bowel disease or chronic liver disease on exam. No spiders on the anterior chest wall. Breast & pelvic exams: API. No CVA tenderness. Lungs: clear to A&P, except slight decreased BS at the bases B/L, with prolonged expiratory phase. No wheezing, rales, or rhonchi. Heart exam: irregularly irregular rate rhythm, S1 and S2, with I/ systolic murmur. Abdominal exam: slightly hypoactive bowel sounds, soft belly, yet mildly distended, nontender, without guarding or rebound. Slightly tympanitic to percussion. No mass. No organomegaly. No fluid shift. No pulsatile mass. Digital rectal exam: deferred by pt. Extremities without cyanosis or clubbing. Trace pedal edema B/L. No palpable cords. DJD. No palmar erythema. No Dupuytren's contractures. Distal pulses 2+ bilaterally. DTRs 2+ bilaterally. Alert and oriented x 3, but tangential. No tremor. No asterixis. Current Medications: Current Medications Sig/Aspen Start time Last Medication Dose Route Stop Time Status Admin Acetaminophen 650 MG Q6P PRN 05/31 1630 AC PO Alprazolam 0.25 MG BID PRN 05/31 1630 DC 06/05 PO 06/07 1629 2059 Apixaban 2.5 MG BID 06/01 2100 DC 06/06 PO 06/07 0000 2020 Aspirin 81 MG DAILY 06/01 0900 AC 06/07 PO 0840 Atorvastatin Calcium 40 MG 1700 05/31 1700 AC 06/06 PO 1737 Calcium Carbonate 500 MG DAILY NEEDED PRN 06/05 1200 AC PO Diltiazem HCl 30 MG TID 06/04 2100 AC 06/07 PO 1400 Magnesium Chloride 64 MG BID 06/06 2100 AC 06/07 PO 0840 Potassium Chloride 20 MEQ BID 06/01 0943 AC 06/07 PO 0840 Results Pertinent Lab Results: Laboratory Tests 06/07 06/06 06/05 0745 0649 0621 Chemistry Sodium (137 - 145 mmol/L) 134 L 134 L 131 L Potassium (3.5 - 5.1 mmol/L) 3.9 3.8 4.1 Chloride (98 - 107 mmol/L) 102 104 102 Carbon Dioxide (22 - 30 mmol/L) 25 24 25 Anion Gap (5 - 16) 7 7 4 L BUN (7 - 17 mg/dL) 21 H 24 H 22 H Creatinine (0.5 - 1.0 mg/dL) 1.1 H 1.1 H 1.1 H Estimated GFR (>60 ml/min) 47 L 47 L 47 L BUN/Creatinine Ratio (7 - 25 %) 19.1 21.8 20.0 Magnesium (1.6 - 2.3 mg/dL) 1.7 1.6 1.5 L Imaging/Other Studies: 05/31/18: EKG- afib @ 118, nl axis, LVH with repolarization abnormalities, ST depression antlat. 05/31/18: CT CERV SPINE WO IV CONTRAST; CT HEAD WO IV CONTRAST- 1. There are no acute bleeds or territorial infarcts. No masses are demonstrated. 2. There is diffuse volume loss and there are chronic microvascular ischemic changes. 3. There are no acute fractures or subluxations in the cervical spine. 4. There are multilevel spondylitic changes which are most severe at C4-C5 & C6- C7. 05/31/18: XRY-PORTABLE CHEST XRAY- Stable mild enlargement of the cardiac silhouette. No acute pulmonary process. Osteopenia. 06/01/18: CT HEAD WO IV CONTRAST (repeat)- There is a laceration of the right frontal scalp. No acute intracranial hemorrhage. There are numerous chronic small vessel ischemic changes primarily involving the periventricular white matter. 06/01/18: US RETROPERITONEAL COMPLETE (RENAL)- 1. Two complex regions of the right kidney as detailed above. These areas are indeterminate and could be on the basis of prominent medullary pyramids, however a solid lesion is not excluded. Follow up with renal protocol CT or MRI is recommended if appropriate based upon clinical assessment (*per medical team). 2. Mild symmetric renal cortical thinning. 06/01/18: ECHOCARDIOGRAM- Normal size left ventricle. Normal left ventricular ejection fraction visually estimated at >60 %. No obvious regional wall motion abnormalities. Mild right atrial dilatation. Mild left atrial dilatation. Moderate tricuspid regurgitation. Right ventricular systolic pressure estimated to be elevated at 60 mmHg. Trace pulmonic regurgitation. Moderate mitral annular calcification. Mild thickening/calcification of the anterior mitral valve leaflet. [id number] mitral regurgitation. - Terrence Menchaca M.D. 06/01/18: EKG- afib @ 88, LVH with repolarization abnormalities, PVC. 06/02/18: [id number] VIEWS- Nonspecific, diffuse gaseous distention of the colon. Air-fluid levels of bowel, as well. Findings favor ileus rather than a distal colonic obstruction, and an ileus could be caused by a colitis or gastroenteritis. 06/05/18: CT ABD & PELVIS W IV CONTRAST/RECTAL CONTRAST- Findings suspicious for an obstructing proximal to mid sigmoid neoplasm, as described above. There is severe distention of the colon proximal to the sigmoid lesion. No liver mets. Scattered sigmoid diverticula, without diverticulitis. ASHD. DJD. This Critical Result was discussed with Dr. Quiroz on 06/05/2018 at 1645 hours. DICTATED BY: Veda ZIMMERMAN,Jamey
[2018-06-07 22:02] VITALS: BP 136/88
[2018-06-08 06:30] VITALS: BP 120/62
[2018-06-08 07:51] LABS: ABSOLUTE BASOPHIL COUNT 0 /CUMM (0.0-0.2); ABSOLUTE EOSINOPHIL COUNT 0.2 /CUMM (0.0-0.7); ABSOLUTE GRANULOCYTE CT 4.9 /CUMM (1.4-6.5); ABSOLUTE MONOCYTE COUNT 0.9 /CUMM (0.10-0.60); BASOPHIL % 0.4 % (0.0-2.0); EOSINOPHIL % 2.4 % (0-5); HEMATOCRIT 27.7 % (37-47); MEAN CORPUSCULAR HGB 30.8 PG (27.0-31.0); MEAN CORPUSCULAR HGB CONC 33.6 G/DL (33.0-37.0); MEAN CORPUSCULAR VOLUME 91.7 FL (81.0-99.0); MEAN PLATELET VOLUME 7.7 FL (7.4-10.4); PLATELET COUNT 293 /CUMM (130-400); RBC DISTRIBUTION WIDTH 13.4 % (11.5-14.5); RED BLOOD CELL CT 3.02 /CUMM (4.20-5.40)
--- NOTE | 2018-06-08 08:29 | PN- Housestaff ---
Armando ZIMMERMAN,Thu 06/08/18 0828: Subjective Follow-up For: Fall GI discomfort, bloating Mild protein calorie malnutrition Tele-Events Since Last Visit: No overnight events Subjective: Patient was seen and examined at bedside, afebrile with stable vital signs, no overnight events, still complaining of mild distention of her abdomen, denies any chest pain, dizziness, diarrhea or constipation. Will be n.p.o. at midnight for sigmoidoscopy in the a.m. Review of Systems Constitutional: Reports: see HPI. Objective Last 24 Hrs of Vital Signs/I&O Vital Signs Date Time Temp Pulse Resp B/P B/P Pulse O2 O2 Flow FiO2 Mean Ox Delivery Rate 06/08 0824 98.0 70 18 120/62 06/08 0630 98.0 70 18 120/62 95 Room Air 06/07 2202 98.3 64 21 136/88 98 06/07 2141 75 120/60 06/07 1600 Room Air 06/07 1441 97.6 75 18 120/60 96 Room Air 06/07 1400 97.9 74 18 110/60 Intake & Output 06/08 1600 06/08 0800 06/08 0000 Intake Total 240 320 Output Total Balance 240 320 Intake, Oral 240 320 Patient 92 lb 4 oz Weight Physical Exam General Appearance: Alert, Oriented X3, Cooperative HEENT: Atraumatic, PERRLA, EOMI Cardiovascular: Regular Rate, Normal S1, Normal S2 Lungs: Clear to Auscultation Abdomen: Normal Bowel Sounds, moderate abdominal distension, no tenderness Extremities: No Clubbing, No Cyanosis, No Edema Assessment/Plan Assessment: 83-year-old woman with PMH -Coronary artery disease, Hypertension, Hyperlipidemia, Pulmonary hypertension, Chronic hyponatremia, History of atrial fibrillation, on Eliquis, GERD, Anxiety, History of EtOH abuse [facility] Problem list -Mechanical fall, etiology unclear - possible syncope/near-syncope -Near-syncope -Elevated troponin with ischemic EKG changes, unlikely ACS -Acute kidney injury, probable pre-renal azotemia -Hypokalemia -Head laceration to scalp, s/p max #Fall, syncope vs. near-syncope -Continue telemetry monitoring- shows atrial flutter with large QRS complexes -Fall precautions in place -Avoid nephrotoxic agents -Eliquis is held because the patient will be getting sigmoidoscopy Orthostats were negative -Serial troponin: troponin trended down, no EKG changes -Monitor renal function/potassium -Repeat CT Head - negative for any new intracranial bleed -Check magnesium, replete if necessary; recent 1.6-repleted -PT evaluation; STR vs Home PT, depending on meeting goals of therapy -Social work evaluation -Nutritional consult -Psych consultation to assess whether patient is competent with decision making capacity -POA now Kelly Gary, contact with any concerns regarding care #GI discomfort, bloating, ? Obstructive sigmoid neoplasm seen on CT -Pt. has seen Dr. Shea as outpatient basis; patient had seen Dr. Seha in 2016 for a sigmoidoscopy, with findings of diverticulosis and stricture, patient refused barium enema at that time; Dr. Shea rec. barium enema if any recurrent abdominal pain -CT abd/pelvis: Findings suspicious for an obstructing sigmoid neoplasm as described above. There is severe distention of the colon proximal to the sigmoid lesion. - Patient has agreed for flexible sigmoidoscopy/colonoscopy which will be completed on 06/09/18. Patient will continue on clear liquid on friday night, transition to NPO on friday, as patient will have unprepped flexsig/ colonoscopy. patient will require 2 tap water enema's on friday06/09/18 @ 0600. #Mild protein calorie malnutrition -Nutrition consult and evaluated patient -Poor intake per patient; advise to increase oral intake #Home medications -Continue home medications: Alprazolam, atorvastatin, Cardizem -DVT prophylaxis with subcutaneous heparin -DNR/DNI Problem List: 1. Fall Pain Ratin Pain Location: N/A Pain Goal: Remain pain free Pain Plan: PATHWAY Tomorrow's Labs & Rationales: CBC BEP MG Marlon Youngblood MD 06/08/18 1423: Attending MD Review Statement Attending Statement Attending MD Statement: examined this patient, discuss w/resident/PA/[employer], agreed w/resident/PA/[employer] AND [employer]JUSTER, reviewed EMR data (avail) Attending Assessment/Plan: Patient seen and examined at bedside. Agree with resident assessment and plan. Doing well today, pleasantly confused, no complaints. Will continue Cardizem for atrial fibrillation. Agreed to workup of sigmoid mass. Clear liquid diet, flexible sigmoidiscopy on Friday, holding Eliquis for now and to be restarted after her procedure, continue current management.
--- NOTE | 2018-06-08 11:49 | PN- Cardiology ---
Subjective Subjective: Stable with no new complaints. No new cardiac issues. Rate and rhythm remain unchanged on gambling monitor. No new arrhythmias detected. Objective Vital Signs and I&Os Vital Signs Date Time Temp Pulse Resp B/P B/P Pulse O2 O2 Flow FiO2 Mean Ox Delivery Rate 06/08 0824 98.0 70 18 120/62 06/08 0800 Room Air 06/08 0630 98.0 70 18 120/62 95 Room Air 06/07 2202 98.3 64 21 136/88 98 06/07 2141 75 120/60 06/07 1600 Room Air 06/07 1441 97.6 75 18 120/60 96 Room Air 06/07 1400 97.9 74 18 110/60 Intake & Output 06/08 1600 06/08 0800 06/08 0000 06/07 1600 06/07 0000 Intake Total 240 320 620 120 120 Output Total Balance 240 320 620 120 120 Intake, Oral 240 320 620 120 120 Number 1 Bowel Movements Patient 92 lb 4 oz 98 lb Weight Physical Exam: Gen: The patient is in no acute distress HEENT: Normal nose, ears, and oropharynx. Pupils equal bilaterally. Conjunctiva normal. Neck: Supple with no JVD, no masses, and no thyromegaly Lungs: Clear to auscultation with normal respiratory effort Heart: Irregular irregular S1, S2, 1/6 systolic murmur. No peripheral edema, 2 + pulses in the lower extremities bilaterally Abdomen: Soft, nontender, no masses. No hepatomegaly. No splenomegaly Extremities: No clubbing or cyanosis. Normal muscle strength in the upper and lower extremities. Skin: Normal skin turgor with no skin ulcers or lesions noted. Neuro: Cranial nerves intact. Sensation intact Psych: Alert and oriented 3 with appropriate affect Current Medications: Current Medications Sig/Aspen Start time Last Medication Dose Route Stop Time Status Admin Acetaminophen 650 MG Q6P PRN 05/31 1630 AC PO Alprazolam 0.25 MG BID PRN 06/07 1830 AC 06/07 PO 06/14 182 1822 Alprazolam 0.25 MG BID PRN 05/31 1630 DC 06/05 PO 06/07 1629 2059 Aspirin 81 MG DAILY 06/01 09 AC 06/08 PO 0824 Atorvastatin Calcium 40 MG 1700 05/31 1700 AC 06/07 PO 1726 Calcium Carbonate 500 MG DAILY NEEDED PRN 06/05 1200 AC PO Diltiazem HCl 30 MG TID 06/04 2100 AC 06/08 PO 0824 Magnesium Chloride 64 MG BID 06/06 2100 AC 06/08 PO 0824 Magnesium Oxide 400 MG ONE ONE 06/08 1030 DC 06/08 PO 06/08 1031 1114 Potassium Chloride 40 MEQ ONCE ONE 06/08 0900 DC 06/08 PO 06/08 0901 0952 Potassium Chloride 20 MEQ BID 06/01 0943 AC 06/08 PO 08 Results Last 48 Hrs of Labs/Mics: Laboratory Tests 06/08/18 0605: Anion Gap 9, Estimated GFR 47 L, BUN/Creatinine Ratio 16.4, Magnesium 1.6, Total Bilirubin 0.5, Direct Bilirubin 0.2, AST 33, ALT 32, Alkaline Phosphatase 61, Total Protein 5.8 L, Albumin 2.8 L, CBC w Diff NO MAN DIFF REQ, RBC 3.02 L, MCV 91.7, MCH 30.8, MCHC 33.6, RDW 13.4, MPV 7.7, Gran % 70.0, Lymphocytes % 14.4 L, Monocytes % 12.8 H, Eosinophils % 2.4, Basophils % 0.4, Absolute Granulocytes 4.9, Absolute Lymphocytes 1.0 L, Absolute Monocytes 0.9 H, Absolute Eosinophils 0.2, Absolute Basophils 0 06/07/18 0745: Anion Gap 7, Estimated GFR 47 L, BUN/Creatinine Ratio 19.1, Magnesium 1.7 Assessment/Plan Assessment/Plan Assessment: 1. Chronic atrial fibrillation and atrial flutter 2. Normal left ventricular function with mild to moderate mitral regurgitation, moderate tricuspid regurgitation, and pulmonary hypertension on echocardiogram. 3. Status post mechanical fall with head trauma 4. Mild troponin elevation, likely demand ischemia secondary to fall. Plan: * Would continue diltiazem 30 milligrams p.o. 3 times per day; continue other medications * Currently off Eliquis pending GI procedure tomorrow; plan to restart anticoagulation as soon as possible post procedure * Plans for short-term rehab pending. Continue telemetry? Yes
[2018-06-08 14:40] VITALS: BP 123/74
--- NOTE | 2018-06-08 18:07 | PN- Gastroenterology ---
Assessment/Plan GI Assessment/Recommendations: (*Please refer to Dr. Daphnie Shea's inpt GI consult of 06/04/18. I assumed the weekly inpt GI service on 06/05/2018. The patient was seen and examined. Her extensive records were reviewed). 83 y/o female, fair historian at best, hypertension, hyperlipidemia, COPD not on O2 (ex-smoker), pulmonary hypertension, chronic hyponatremia, atrial fibrillation on Eliquis, GERD, anxiety, CKD, osteoporosis, and EtOH abuse brought in by ambulance after suffering a mechical fall with headstrike & admitted 05/31/18. She had a scalp laceration, treated with max. She also had minimal troponin blips (felt to be demand ischemia rather than ACS), with accompanying EKG- precordial ischemic changes. Eliquis was initially held on admission, post head trauma, but eventually resumed post cardiology approval, after imaging studies were obtained, failing to reveal any ICB, etc. She has remained in afib. She was previously seen by Dr. Daphnie Shea for 09/04/16: flexible sigmoidoscopy, done for change in bowel habits, anemia, and CT scan then suggesting a sigmoid lesion. The rectum was normal. There was extensive sigmoid diverticulosis with tortuosity, angulation, and edema. A stricture was encountered which was not possible to pass. No definite lesion was seen at that time. A barium enema was advised, with consideration for surgery consultation at that time, but the patient refused. She was noncompliant with GI follow-up since. The patient was seen again in inpatient GI consultation 06/04/18, by Dr. Daphnie Shea, for abdominal distention and reported abdominal pain, although the patient currently denied the latter. Exam and x-rays were suggestive of colonic dilatation. Differential diagnosis included neoplasm vs. diverticular stricture. The patient was tolerating a regular solid diet. There was no obstipation or rectal bleeding. She was having bowel movements every other day, mostly loose, which could be secondary to a partial obstruction. *The patient was seen by psychiatry 06/03/18 and felt to have some component of dementia with behavioral disturbance. Dr. Gibson stated that the patient could not make medical decisions or leave the hospital AMA. 06/05/18: *CT AP with rectal contrast was rxd with IV/rectal contrast, with findings suspicious for an obstructing sigmoid neoplasm, with severe distention of the colon proximal to the sigmoid lesion. (*see imaging studies). *As of 06/05/18, the patient was hemodynamically stable & afebrile. She remained in A. fib with stable VR. O2 sat RA 96%. She was not obstipated, and was having loose non-bloody BM Q 1-2 days (probable spurious loose stools around a partial obstruction). She denied any abdominal pain, fevers, or chills. There was no nausea or vomiting. She was back on Eliquis & ASA 81 mg daily. She remained on Diltiazem for rate control, along with Atorvastatin, potassium & magnesium. *She was made aware of the high probability of a sigmoid cancer. She was extremely nebulous as to which course of action she would take. At first she said she would not want anything done, then stated she might "consider doing something" but was not sure as to when. She was mildly anemic with hematocrit in the low 30's, which was stable for her. She had mild chronic CKD & stable hypoNa+. 05/31/18: Peak troponin 0.19-> 0.18-> 0.15. She had nl LFTs on 05/31/18: admission, with normal synthetic function (alb 3.8). The pt was awaiting STR & was tentatively scheduled to be D/C 06/06/18 to [facility]. The patient is single and has no children.I spoke extensively with her POA, Kelly Gary (*H: [phone]/cell: [phone]), on 06/05/18, regarding the probable rectosigmoid neoplasm/Ca, which was discussed with the patient as well. Again, the patient was very nebulous as to what she wanted done. Despite the above, she was tolerating solids & clinically, was not completely obstructed. 06/04/18: *C. diff- neg. 06/06/18: BUN/ Cr 24/1.1, GFR 47, Na 134, K 3.8, HCO3 24, AG 7, Mg 1.6 *As of 06/06/18, the patient remained hemodynamically stable & afebrile, with afib/flutter & stable VR. O2 sat RA- 95%. *The patient was still noncommittal about her wishes for workup of the partially obstructing sigmoid mass, which most likely was malignant. *She was deemed incompetent to make her own medical decisions, as per psychiatry. *I had spoken at length with the patient's POA, Kelly Gary, on 06/05/18, & she was to discuss the above with the patient. The patient was tolerating a regular diet. She did not have any obstipation. She was having bowel movements, albeit loose. There was no rectal bleeding. She denied any abdominal pain, nausea, vomiting, CP, SOB, fevers, or chills. She remained on Eliquis for her chronic A. fib/flutter. She had a 1:1 sitter (fall risk). She was awaiting STR. Hopefully, a decision will be made by the POA prior to D/C. At the conclusion of my 06/06/18 note, the patient's POA, Kelly Gary, call me at the hospital, after she had spoken with the patient. Kelly wanted the patient to undergo a flex sig/colonoscopy, which would be unprepped, aside from enemas. She was aware that the patient could not undergo a formal bowel prep, for risk of perforation, based on the partial sigmoid obstruction. She was aware that the patient was at higher than average risk of perforation, based on her anatomy and probable lesion. She was additionally told that depending on the results of the flex sig, there could be consideration for placement of a colonic stent, to help prep her bowel for potential surgery, if desired. Furthermore, she was told that if a stent could not be placed, there could be consideration for a diverting colostomy. Kelly did not want the patient to undergo a colostomy, but was agreeable to the flex sig. Witnessed telephone informed consent for the flexible sigmoidoscopy was then obtained from the patient's POA, Kelly Gary, after careful explanation of the risks & benefits, on 06/06/18. The patient, who again was deemed to be incompetent to make her own medical decisions by psychiatry, was again made aware of the high probability of eventual perforation, if the sigmoid lesion was left untreated. 06/07/18: BUN/Cr 21/1.1, GFR 47, Na 134, K 3.9, HCO3 25, AG 7, Mg 1.7. *As of 06/07/18, the patient remained in chronic afib on CM vs. occasional bouts of NSR with numerous APCs (P waves occasionally seen). She remained hemodynamically stable & afebrile, with O2 sat RA 96% She remained tangential and a poor historian. It was difficult to get an accurate history from her. She denied any abdominal pain, CP, or SOB. She was passing flatus. She had loose non-bloody BMs today (probably spurious in nature, from a partially obstructing sigmoid lesion). As per my discussion with her RN, she verified that Eliquis was on hold preop, since her last dose the p.m. 06/06/18. Additionally, her RN verified that she was on clears po until 11:59 p.m. on 06/08/18, at which point, she would be made NPO for flexible sigmoidoscopy on , 06/09/18, after tap H2O enemas x 2 at 6 a.m. that day preop. The pt erroneously drank Ensure Plus earlier on 06/07/18, which was taken away from her, as she was supposed to be on clears po. Cardiology notes were appreciated. She remained on Diltiazem 30 mg po TID, ASA 81 mg daily, KCl, & Mg2+. 06/08/18: 0605-WBC 7.0, H/H 9.3/27.2, MCV 91.7, RDW 13.4, PLT 293, BUN/Cr 18/1.1 , GFR 47, Na 134, K 3.7, HCO3 22, AG 9, Mg 1.6, albumin 2.8, globulin 3.0, TBil 0.5, DBil 0.2, alk phos 61, AST 33, ALT 32. *As of 06/08/18, the pt was hemodynamically stable & afebrile, with O2 sat RA 94 %. She was on clears po, awaiting unprepped flex sig (aside from tap H2O enemas) , on 06/09/18, with the pediatric colonoscope. She denied any abdominal pain, fevers, chills, CP, SOB, nausea, or vomiting, and was having liquid, non-bloody stools. Eliquis remained on hold preop (afib), last given the p.m. of 06/06/18. She remained on Diltiazem 30 mg po TID, Atorvastatin 40 mg daily, ASA 81 mg daily, Tylenol prn, Xanax prn, KCl, Ca2+ & Mg2+. Cardiology & medical notes appreciated. A/P: 83 y/o female, sigmoid mass-> refused workup post incomplete 09/04/16: flexible sigmoidoscopy (*probably malignant by 06/05/18: CT AP with IV/rectal contrast), diverticulosis coli, abdominal distention, anemia, A. fib (Eliquis on hold preop), COPD, mechanical fall, head trauma, demand ischemia. *Patient incompetent for any medical decision making, per psychiatry. SUGGEST- Continue to hold Eliquis after the p.m. dose of 06/06/18 (preop),*with plans to resume it as soon as possible postop, although she may later need attempt at stenting of her sigmoid lesion. Continue clears po, then NPO after 11:59 p.m. on 06/08/18, for unprepped flexsig/colonoscopy on 06/09/18, with the *pediatric colonoscope, to try to get tissue dx. *Please give pt tap H2O enemas x 2, on 06/09/18, at 6 a.m. preop. *Depending on the results of the flex sig, consideration for colonic stent and/or surgical consultation, after further discussions with the POA. The patient and her POA were told that if she left this untreated, she would probably perforate. *They are also both aware of the risk of perforation with the procedure. Clinically, she did not appear to be in eminent danger of perforating within the next few days to weeks, as this has been going on for some time. Witnessed telephone informed consent for the flexible sigmoidoscopy was then obtained from the patient's POA, Kelly Gary (*H: [phone]/cell: [phone]), after careful explanation of the risks & benefits, on 06/06/18. *Patient incompetent for any medical decision making, per psychiatry. In view of the above, transfer to SNF is on hold, for now. Continue Diltiazem 30 mg po TID, Atorvastatin 40 mg daily, ASA 81 mg daily, Tylenol prn, Xanax prn, & electrolyte repletion (i.e.- K+/Mg2+/Ca2+), as per cardiology. The above was previously communicated with the medical housestaff & with Dr. Vergara. Neither the pt nor her POA, Kelly Gary, seemed desirous of the option of a diverting colostomy. Further GI suggestions will be based on the above. Problem List: 1. Cancer of sigmoid 2. Diverticulosis of colon 3. Abdominal distention 4. Anemia 5. Atrial fibrillation 6. COPD (chronic obstructive pulmonary disease) 7. Fall 8. Head trauma 9. Demand ischemia Subjective Subjective: 06/08/18: 0605-WBC 7.0, H/H 9.3/27.2, MCV 91.7, RDW 13.4, PLT 293, BUN/Cr 18/1.1 , GFR 47, Na 134, K 3.7, HCO3 22, AG 9, Mg 1.6, albumin 2.8, globulin 3.0, TBil 0.5, DBil 0.2, alk phos 61, AST 33, ALT 32. *As of 06/08/18, the pt was hemodynamically stable & afebrile, with O2 sat RA 94 %. She was on clears po, awaiting unprepped flex sig (aside from tap H2O enemas) , on 06/09/18, with the pediatric colonoscope. She denied any abdominal pain, fevers, chills, CP, SOB, nausea, or vomiting, and was having liquid, non-bloody stools. Heydi remained on hold preop (afib), last given the p.m. of 06/06/18. She remained on Diltiazem 30 mg po TID, Atorvastatin 40 mg daily, ASA 81 mg daily, Tylenol prn, Xanax prn, KCl, Ca2+ & Mg2+. Cardiology & medical notes appreciated. Review of Systems: Full 14 point ROS otherwise noncontributory, and as per HPI, although the patient is an unreliable historian & changes her story from time to time, despite being A & O x 3. She was not felt to be competent, per psychiatry. Objective Vital Signs and I&Os Vital Signs Date Time Temp Pulse Resp B/P B/P Pulse O2 O2 Flow FiO2 Mean Ox Delivery Rate 06/08 1440 97.3 77 18 123/74 94 Room Air 06/08 1354 98.0 70 18 120/62 06/08 0824 98.0 70 18 120/62 06/08 0800 Room Air 06/08 0630 98.0 70 18 120/62 95 Room Air 06/07 2202 98.3 64 21 136/88 98 02 2141 75 120/60 Intake & Output 06/08 1600 06/08 0400 06/07 1600 06/07 0400 06/06 1600 06/06 0400 Intake Total 820 320 740 120 500 400 Output Total 300 Balance 820 320 740 120 200 400 Intake, Oral 820 320 740 120 500 400 Number 1 1 1 1 Bowel Movements Output, Urine 300 Patient 92 lb 4 oz 98 lb 95 lb Weight Weight Bed scale Measurement Method Physical Exam: Well-developed, slightly malnourished elderly female, in no apparent distress. Chronically ill-appearing. Sclera anicteric. Conjunctiva pink. Oropharynx clear. There is no adenopathy, thyromegaly, or JVD. No peripheral stigmata of inflammatory bowel disease or chronic liver disease on exam. No spiders on the anterior chest wall. Breast & pelvic exams: API. No CVA tenderness. Lungs: clear to A&P, except slight decreased BS at the bases B/L, with prolonged expiratory phase. No wheezing, rales, or rhonchi. Heart exam: irregularly irregular rate rhythm, S1 and S2, with I/ systolic murmur. Abdominal exam: normoactive bowel sounds, mildly distended belly, nontender, without guarding or rebound. Slightly tympanitic to percussion. No definite mass. No organomegaly. No fluid shift. No pulsatile mass. Digital rectal exam: deferred by pt. Extremities without cyanosis or clubbing. Trace pedal edema B/L. No palpable cords. DJD. No palmar erythema. No Dupuytren's contractures. Distal pulses 2+ bilaterally. DTRs 2+ bilaterally. Alert and oriented x 3, but tangential. No tremor. No asterixis. Current Medications: Current Medications Sig/Aspen Start time Last Medication Dose Route Stop Time Status Admin Acetaminophen 650 MG Q6P PRN 05/31 1630 AC PO Alprazolam 0.25 MG BID PRN 06/07 1830 AC 06/07 PO 06/14 1829 1822 Aspirin 81 MG DAILY 06/01 0900 AC 06/08 PO 0824 Atorvastatin Calcium 40 MG 1700 05/31 1700 AC 06/08 PO 1738 Calcium Carbonate 500 MG DAILY NEEDED PRN 06/05 1200 AC PO Diltiazem HCl 30 MG TID 06/04 2100 AC 06/08 PO 1354 Magnesium Chloride 64 MG BID 06/06 2100 AC 06/08 PO 0824 Magnesium Oxide 400 MG ONE ONE 06/08 1030 DC 06/08 PO 06/08 1031 1114 Potassium Chloride 40 MEQ ONCE ONE 06/08 900 DC 06/08 PO 06/08 0901 0952 Potassium Chloride 20 MEQ BID 06/01 0943 AC 06/08 PO 0824 Results Pertinent Lab Results: Laboratory Tests 06/08 06/07 06/06 0605 0745 0649 Chemistry Sodium (137 - 145 mmol/L) 134 L 134 L 134 L Potassium (3.5 - 5.1 mmol/L) 3.7 3.9 3.8 Chloride (98 - 107 mmol/L) 103 102 104 Carbon Dioxide (22 - 30 mmol/L) 22 25 24 Anion Gap (5 - 16) 9 7 7 BUN (7 - 17 mg/dL) 18 H 21 H 24 H Creatinine (0.5 - 1.0 mg/dL) 1.1 H 1.1 H 1.1 H Estimated GFR (>60 ml/min) 47 L 47 L 47 L BUN/Creatinine Ratio (7 - 25 %) 16.4 19.1 21.8 Magnesium (1.6 - 2.3 mg/dL) 1.6 1.7 1.6 Total Bilirubin (0.2 - 1.3 mg/dL) 0.5 Direct Bilirubin (< 0.4 mg/dL) 0.2 AST (14 - 36 U/L) 33 ALT (9 - 52 U/L) 32 Alkaline Phosphatase (<127 U/L) 61 Total Protein (6.3 - 8.2 g/dL) 5.8 L Albumin (3.5 - 5.0 g/dL) 2.8 L Hematology CBC w Diff NO MAN DIFF REQ WBC (4.8 - 10.8 /CUMM) 7.0 RBC (4.20 - 5.40 /CUMM) 3.02 L Hgb (12.0 - 16.0 G/DL) 9.3 L Hct (37 - 47 %) 27.7 L MCV (81.0 - 99.0 FL) 91.7 MCH (27.0 - 31.0 PG) 30.8 MCHC (33.0 - 37.0 G/DL) 33.6 RDW (11.5 - 14.5 %) 13.4 Plt Count (130 - 400 /CUMM) 293 MPV (7.4 - 10.4 FL) 7.7 Gran % (42.2 - 75.2 %) 70.0 Lymphocytes % (20.5 - 51.1 %) 14.4 L Monocytes % (1.7 - 9.3 %) 12.8 H Eosinophils % (0 - 5 %) 2.4 Basophils % (0.0 - 2.0 %) 0.4 Absolute Granulocytes (1.4 - 6.5 /CUMM) 4.9 Absolute Lymphocytes (1.2 - 3.4 /CUMM) 1.0 L Absolute Monocytes (0.10 - 0.60 /CUMM) 0.9 H Absolute Eosinophils (0.0 - 0.7 /CUMM) 0.2 Absolute Basophils (0.0 - 0.2 /CUMM) 0 Imaging/Other Studies: 05/31/18: EKG- afib @ 118, nl axis, LVH with repolarization abnormalities, ST depression antlat. 05/31/18: CT CERV SPINE WO IV CONTRAST; CT HEAD WO IV CONTRAST- 1. There are no acute bleeds or territorial infarcts. No masses are demonstrated. 2. There is diffuse volume loss and there are chronic microvascular ischemic changes. 3. There are no acute fractures or subluxations in the cervical spine. 4. There are multilevel spondylitic changes which are most severe at C4-C5 & C6- C7. 05/31/18: XRY-PORTABLE CHEST XRAY- Stable mild enlargement of the cardiac silhouette. No acute pulmonary process. Osteopenia. 06/01/18: CT HEAD WO IV CONTRAST (repeat)- There is a laceration of the right frontal scalp. No acute intracranial hemorrhage. There are numerous chronic small vessel ischemic changes primarily involving the periventricular white matter. 06/01/18: US RETROPERITONEAL COMPLETE (RENAL)- 1. Two complex regions of the right kidney as detailed above. These areas are indeterminate and could be on the basis of prominent medullary pyramids, however a solid lesion is not excluded. Follow up with renal protocol CT or MRI is recommended if appropriate based upon clinical assessment (*per medical team). 2. Mild symmetric renal cortical thinning. 06/01/18: ECHOCARDIOGRAM- Normal size left ventricle. Normal left ventricular ejection fraction visually estimated at >60 %. No obvious regional wall motion abnormalities. Mild right atrial dilatation. Mild left atrial dilatation. Moderate tricuspid regurgitation. Right ventricular systolic pressure estimated to be elevated at 60 mmHg. Trace pulmonic regurgitation. Moderate mitral annular calcification. Mild thickening/calcification of the anterior mitral valve leaflet. Mpzo-ic-njaxcaml mitral regurgitation. - Terrence Menchaca M.D. 06/01/18: EKG- afib @ 88, LVH with repolarization abnormalities, PVC. 06/02/18: [id number] VIEWS- Nonspecific, diffuse gaseous distention of the colon. Air-fluid levels of bowel, as well. Findings favor ileus rather than a distal colonic obstruction, and an ileus could be caused by a colitis or gastroenteritis. 06/05/18: CT ABD & PELVIS W IV CONTRAST/RECTAL CONTRAST- Findings suspicious for an obstructing proximal to mid sigmoid neoplasm, as described above. There is severe distention of the colon proximal to the sigmoid lesion. No liver mets. Scattered sigmoid diverticula, without diverticulitis. ASHD. DJD. This Critical Result was discussed with Dr. Quiroz on 06/05/2018 at 1645 hours. DICTATED BY: Jamey Mccollum MD
[2018-06-08 22:02] VITALS: BP 146/68
[2018-06-09 06:29] VITALS: BP 118/60
--- NOTE | 2018-06-09 07:18 | PN- Housestaff ---
Mckayla Quiroz 06/09/18 0718: Subjective Follow-up For: Fall GI discomfort, bloating Mild protein calorie malnutrition Subjective: Afebrile overnight. Patient is seen and examined in bed this morning. Patient states she feels a little tired this morning but otherwise denies any chest pain , palpitations, shortness of breath, and lightheadedness. Patient will be going for an unprepped flexible sigmoidoscopy today around noon time and currently her Eliquis is held in anticipation of the procedure. Patient noted to be going in atrial fibrillation later in the morning and we will monitor going forward as she is currently on rate control medication. Review of Systems Constitutional: Reports: see HPI. Objective Last 24 Hrs of Vital Signs/I&O Vital Signs Date Time Temp Pulse Resp B/P B/P Pulse O2 O2 Flow FiO2 Mean Ox Delivery Rate 06/09 0822 118/62 06/09 0629 98.3 83 16 118/60 95 Room Air 06/08 2202 98.8 86 28 146/68 92 06/08 2041 92 126/66 06/08 1440 97.3 77 18 123/74 94 Room Air 06/08 1354 98.0 70 18 120/62 Intake & Output 06/09 1600 06/09 0800 06/09 0000 Intake Total 200 800 Output Total 200 Balance 0 800 Intake, Oral 200 800 Number 1 Bowel Movements Output, Urine 200 Patient 93 lb 3 oz Weight Physical Exam General Appearance: Alert, Oriented X3, Cooperative, No Acute Distress Skin: No Rashes, No Breakdown HEENT: Atraumatic Neck: Supple, No JVD Cardiovascular: Regular Rate, Normal S1, Normal S2 Lungs: Clear to Auscultation Abdomen: Soft, distended Neurological: Normal Speech Extremities: No Cyanosis, No Edema Assessment/Plan Assessment: 83-year-old woman with PMH -Coronary artery disease, Hypertension, Hyperlipidemia, Pulmonary hypertension, Chronic hyponatremia, History of atrial fibrillation, on Eliquis, GERD, Anxiety, History of EtOH abuse seen [facility]. Problem list -Mechanical fall, etiology unclear - possible syncope/near-syncope -Near-syncope -Elevated troponin with ischemic EKG changes, unlikely ACS -Acute kidney injury, probable pre-renal azotemia -Hypokalemia -Head laceration to scalp, s/p max #Fall, syncope vs. near-syncope -Continue telemetry monitoring- shows atrial flutter with large QRS complexes -Fall precautions in place -Avoid nephrotoxic agents -Eliquis is held because the patient will be getting sigmoidoscopy Orthostats were negative -Serial troponin: troponin trended down, no EKG changes -Monitor renal function/potassium -Repeat CT Head - negative for any new intracranial bleed -Check magnesium, replete if necessary; recent 1.6-repleted -PT evaluation; STR vs Home PT, depending on meeting goals of therapy -Social work evaluation -Nutritional consult -Psych consultation to assess whether patient is competent with decision making capacity -POA now Kelly Gary, contact with any concerns regarding care #GI discomfort, bloating, 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 has seen Dr. Shea as outpatient basis; patient had seen Dr. Shea in 2015 for a sigmoidoscopy, with findings of diverticulosis and stricture, patient refused barium enema at that time; Dr. Shea rec. barium enema if any recurrent abdominal pain -CT abd/pelvis: Findings suspicious for an obstructing sigmoid neoplasm as described above. There is severe distention of the colon proximal to the sigmoid lesion. - Patient has agreed for flexible sigmoidoscopy/colonoscopy which will be completed on 06/09/18. Patient will continue on clear liquid on friday night, transition to NPO on friday, as patient will have unprepped flexsig/ colonoscopy. patient will require 2 tap water enema's on friday06/09/18 @ 0600. -Performed Flex sigmoid today 06/09; unable to advance the scope to visualize the lesion seen on CT as lumen could not be visualized further beyond 20 cm; various options discussed with family and from there family decided to not proceed with any further endoscopic or surgical intervention; will decide further whether to downgrade patient's code status to hospice or comfort care based on family decision #Mild protein calorie malnutrition -Nutrition consult and evaluated patient -Poor intake per patient; advise to increase oral intake #Home medications -Continue home medications: Alprazolam, atorvastatin, Cardizem -DVT prophylaxis with subcutaneous heparin -DNR/DNI Problem List: 1. Fall Pain Ratin Pain Location: na Pain Goal: Remain pain free Pain Plan: prn meds Tomorrow's Labs & Rationales: routine Marlon Youngblood MD 06/09/18 1123: Attending MD Review Statement Attending Statement Attending MD Statement: examined this patient, discuss w/resident/PA/ARMATURE TESTER, agreed w/resident/PA/ARMATURE TESTER, reviewed EMR data (avail) Attending Assessment/Plan: Patient seen and examined at bedside. Agree with resident assessment and plan. Doing well today, pleasantly confused, no complaints. Will continue Cardizem for atrial fibrillation. Agreed to workup of sigmoid mass. Clear liquid diet, flexible sigmoidiscopy today, holding Eliquis for now and to be restarted after her procedure, continue current management.
[2018-06-09 07:52] LABS: ABSOLUTE BASOPHIL COUNT 0 /CUMM (0.0-0.2); ABSOLUTE EOSINOPHIL COUNT 0 /CUMM (0.0-0.7); ABSOLUTE GRANULOCYTE CT 9.8 /CUMM (1.4-6.5); ABSOLUTE LYMPH COUNT 0.8 /CUMM (1.2-3.4); ABSOLUTE MONOCYTE COUNT 1.2 /CUMM (0.10-0.60); BASOPHIL % 0.1 % (0.0-2.0); EOSINOPHIL % 0.2 % (0-5); HEMATOCRIT 31.6 % (37-47); MEAN CORPUSCULAR HGB CONC 34.1 G/DL (33.0-37.0); MEAN CORPUSCULAR VOLUME 90.9 FL (81.0-99.0); MEAN PLATELET VOLUME 7.5 FL (7.4-10.4); PLATELET COUNT 317 /CUMM (130-400); RBC DISTRIBUTION WIDTH 13.3 % (11.5-14.5); RED BLOOD CELL CT 3.48 /CUMM (4.20-5.40)
--- NOTE | 2018-06-09 07:55 | PN- Gastroenterology ---
Assessment/Plan GI Assessment/Recommendations: (*Please refer to Dr. Daphnie Shea's inpt GI consult of 06/04/18. I assumed the weekly inpt GI service on 06/05/2018. The patient was seen and examined. Her extensive records were reviewed). 83 y/o female, fair historian at best, hypertension, hyperlipidemia, COPD not on O2 (ex-smoker), pulmonary hypertension, chronic hyponatremia, atrial fibrillation on Eliquis, GERD, anxiety, CKD, osteoporosis, and EtOH abuse brought in by ambulance after suffering a mechical fall with headstrike & admitted 05/31/18. She had a scalp laceration, treated with max. She also had minimal troponin blips (felt to be demand ischemia rather than ACS), with accompanying EKG- precordial ischemic changes. Eliquis was initially held on admission, post head trauma, but eventually resumed post cardiology approval, after imaging studies were obtained, failing to reveal any ICB, etc. She has remained in afib. She was previously seen by Dr. Daphnie Shea for 09/04/16: flexible sigmoidoscopy, done for change in bowel habits, anemia, and CT scan then suggesting a sigmoid lesion. The rectum was normal. There was extensive sigmoid diverticulosis with tortuosity, angulation, and edema. A stricture was encountered which was not possible to pass. No definite lesion was seen at that time. A barium enema was advised, with consideration for surgery consultation at that time, but the patient refused. She was noncompliant with GI follow-up since. The patient was seen again in inpatient GI consultation 06/04/18, by Dr. Daphnie Shea, for abdominal distention and reported abdominal pain, although the patient currently denied the latter. Exam and x-rays were suggestive of colonic dilatation. Differential diagnosis included neoplasm vs. diverticular stricture. The patient was tolerating a regular solid diet. There was no obstipation or rectal bleeding. She was having bowel movements every other day, mostly loose, which could be secondary to a partial obstruction. *The patient was seen by psychiatry 06/03/18 and felt to have some component of dementia with behavioral disturbance. Dr. Gibson stated that the patient could not make medical decisions or leave the hospital AMA. 06/05/18: *CT AP with rectal contrast was rxd with IV/rectal contrast, with findings suspicious for an obstructing sigmoid neoplasm, with severe distention of the colon proximal to the sigmoid lesion. (*see imaging studies). *As of 06/05/18, the patient was hemodynamically stable & afebrile. She remained in A. fib with stable VR. O2 sat RA 96%. She was not obstipated, and was having loose non-bloody BM Q 1-2 days (probable spurious loose stools around a partial obstruction). She denied any abdominal pain, fevers, or chills. There was no nausea or vomiting. She was back on Eliquis & ASA 81 mg daily. She remained on Diltiazem for rate control, along with Atorvastatin, potassium & magnesium. *She was made aware of the high probability of a sigmoid cancer. She was extremely nebulous as to which course of action she would take. At first she said she would not want anything done, then stated she might "consider doing something" but was not sure as to when. She was mildly anemic with hematocrit in the low 30's, which was stable for her. She had mild chronic CKD & stable hypoNa+. 05/31/18: Peak troponin 0.19-> 0.18-> 0.15. She had nl LFTs on 05/31/18: admission, with normal synthetic function (alb 3.8). The pt was awaiting STR & was tentatively scheduled to be D/C 06/06/[address] [facility]. The patient is single and has no children.I spoke extensively with her POA, Kelly Gary (*H: [phone]/cell: [phone]), on 06/05/18, regarding the probable rectosigmoid neoplasm/Ca, which was discussed with the patient as well. Again, the patient was very nebulous as to what she wanted done. Despite the above, she was tolerating solids & clinically, was not completely obstructed. 06/04/18: *C. diff- neg. 06/06/18: BUN/ Cr 24/1.1, GFR 47, Na 134, K 3.8, HCO3 24, AG 7, Mg 1.6 *As of 06/06/18, the patient remained hemodynamically stable & afebrile, with afib/flutter & stable VR. O2 sat RA- 95%. *The patient was still noncommittal about her wishes for workup of the partially obstructing sigmoid mass, which most likely was malignant. *She was deemed incompetent to make her own medical decisions, as per psychiatry. *I had spoken at length with the patient's POA, Kelly Gary, on 06/05/18, & she was to discuss the above with the patient. The patient was tolerating a regular diet. She did not have any obstipation. She was having bowel movements, albeit loose. There was no rectal bleeding. She denied any abdominal pain, nausea, vomiting, CP, SOB, fevers, or chills. She remained on Eliquis for her chronic A. fib/flutter. She had a 1:1 sitter (fall risk). She was awaiting STR. Hopefully, a decision will be made by the POA prior to D/C. At the conclusion of my 06/06/18 note, the patient's POA, Kelly Gary, call me at the hospital, after she had spoken with the patient. Kelly wanted the patient to undergo a flex sig/colonoscopy, which would be unprepped, aside from enemas. She was aware that the patient could not undergo a formal bowel prep, for risk of perforation, based on the partial sigmoid obstruction. She was aware that the patient was at higher than average risk of perforation, based on her anatomy and probable lesion. She was additionally told that depending on the results of the flex sig, there could be consideration for placement of a colonic stent, to help prep her bowel for potential surgery, if desired. Furthermore, she was told that if a stent could not be placed, there could be consideration for a diverting colostomy. Kelly did not want the patient to undergo a colostomy, but was agreeable to the flex sig. Witnessed telephone informed consent for the flexible sigmoidoscopy was then obtained from the patient's POA, Kelly Gary, after careful explanation of the risks & benefits, on 06/06/18. The patient, who again was deemed to be incompetent to make her own medical decisions by psychiatry, was again made aware of the high probability of eventual perforation, if the sigmoid lesion was left untreated. 06/07/18: BUN/Cr 21/1.1, GFR 47, Na 134, K 3.9, HCO3 25, AG 7, Mg 1.7. *As of 06/07/18, the patient remained in chronic afib on CM vs. occasional bouts of NSR with numerous APCs (P waves occasionally seen). She remained hemodynamically stable & afebrile, with O2 sat RA 96% She remained tangential and a poor historian. It was difficult to get an accurate history from her. She denied any abdominal pain, CP, or SOB. She was passing flatus. She had loose non-bloody BMs today (probably spurious in nature, from a partially obstructing sigmoid lesion). As per my discussion with her RN, she verified that Eliquis was on hold preop, since her last dose the p.m. 06/06/18. Additionally, her RN verified that she was on clears po until 11:59 p.m. on 06/08/18, at which point, she would be made NPO for flexible sigmoidoscopy on , 06/09/18, after tap H2O enemas x 2 at 6 a.m. that day preop. The pt erroneously drank Ensure Plus earlier on 06/07/18, which was taken away from her, as she was supposed to be on clears po. Cardiology notes were appreciated. She remained on Diltiazem 30 mg po TID, ASA 81 mg daily, KCl, & Mg2+. 06/08/18: 0605-WBC 7.0, H/H 9.3/27.2, MCV 91.7, RDW 13.4, PLT 293, BUN/Cr 18/1.1 , GFR 47, Na 134, K 3.7, HCO3 22, AG 9, Mg 1.6, albumin 2.8, globulin 3.0, TBil 0.5, DBil 0.2, alk phos 61, AST 33, ALT 32. *As of 06/08/18, the pt was hemodynamically stable & afebrile, with O2 sat RA 94 %. She was on clears po, awaiting unprepped flex sig (aside from tap H2O enemas) , on 06/09/18, with the pediatric colonoscope. She denied any abdominal pain, fevers, chills, CP, SOB, nausea, or vomiting, and was having liquid, non-bloody stools. Eliquis remained on hold preop (afib), last given the p.m. of 06/06/18. She remained on Diltiazem 30 mg po TID, Atorvastatin 40 mg daily, ASA 81 mg daily, Tylenol prn, Xanax prn, KCl, Ca2+ & Mg2+. Cardiology & medical notes appreciated. 06/09/18: *Labs- pending. *As of 06/09/18, the pt was NPO for unprepped flex sig with pedicolon. Heydi remained on hold for now. She remained a poor historian. She was hemodynamically stable & afebrile, with O2 sat RA 95%. Her RN verified that she received tap H2O enemas x 2 this morning. The patient had no new complaints, other than some mild "congestion". She had no acute obstructive signs or sx, although her persistent loose stools were probably spurious in nature, around a partially obstructing sigmoid lesion. She denied any fevers or chills. There was no rectal bleeding. A/P: 83 y/o female, sigmoid mass-> refused workup post incomplete 09/04/16: flexible sigmoidoscopy (*probably malignant by 06/05/18: CT AP with IV/rectal contrast), diverticulosis coli, abdominal distention, anemia, A. fib (Eliquis on hold preop), COPD, mechanical fall, head trauma, demand ischemia. *Patient incompetent for any medical decision making, per psychiatry. SUGGEST- *Continue to hold Eliquis after the p.m. dose of 06/06/18 (preop),*with plans to resume it as soon as possible postop, although she may later need attempt at stenting of her sigmoid lesion. *Maintain NPO for unprepped flexsig/colonoscopy, later today on 06/09/18, (post tap H2O enemas x 2-> given), with the * pediatric colonoscope, to try to get tissue dx. *Depending on the results of the flex sig, consideration for colonic stent and/or surgical consultation, after further discussions with the POA. The patient and her POA were told that if she left this untreated, she would probably perforate. *They are also both aware of the risk of perforation with the procedure. Clinically, she did not appear to be in eminent danger of perforating within the next few days to weeks, as this has been going on for some time. Witnessed telephone informed consent for the flexible sigmoidoscopy was then obtained from the patient's POA, Kelly Gary (*H : [phone]/cell: [phone]), after careful explanation of the risks & benefits, on 06/06/18. *Patient incompetent for any medical decision making, per psychiatry. *In view of the above, transfer to SNF is on hold, for now. Continue Diltiazem 30 mg po TID, Atorvastatin 40 mg daily, ASA 81 mg daily, Tylenol prn, Xanax prn, & electrolyte repletion (i.e.- K+/Mg2+/Ca2+), as per cardiology. The above was previously communicated with the medical housestaff & with Dr. Vergara. Neither the pt nor her POA, Kelly Gary, were desirous of the option of a diverting colostomy. Further GI suggestions will be based on the above. Problem List: 1. Cancer of sigmoid 2. Diverticulosis of colon 3. Abdominal distention 4. Anemia 5. Atrial fibrillation 6. COPD (chronic obstructive pulmonary disease) 7. Fall 8. Head trauma 9. Demand ischemia Subjective Subjective: 06/09/18: *Labs- pending. *As of 06/09/18, the pt was NPO for unprepped flex sig with pedicolon. Freddyis remained on hold for now. She remained a poor historian. She was hemodynamically stable & afebrile, with O2 sat RA 95%. Her RN verified that she received tap H2O enemas x 2 this morning. The patient had no new complaints, other than some mild "congestion". She had no acute obstructive signs or sx, although her persistent loose stools were probably spurious in nature, around a partially obstructing sigmoid lesion. She denied any fevers or chills. There was no rectal bleeding. Review of Systems: Full 14 point ROS otherwise noncontributory, and as per HPI, although the patient is an unreliable historian & changes her story from time to time, despite being A & O x 3. She was not felt to be competent, per psychiatry Objective Vital Signs and I&Os Vital Signs Date Time Temp Pulse Resp B/P B/P Pulse O2 O2 Flow FiO2 Mean Ox Delivery Rate 06/09 0629 98.3 83 16 118/60 95 Room Air 06/08 2202 98.8 86 28 146/68 92 06/08 2041 92 126/66 06/08 1440 97.3 77 18 123/74 94 Room Air 06/08 1354 98.0 70 18 120/62 06/08 0824 98.0 70 18 120/62 06/08 0800 Room Air Intake & Output 06/09 1600 06/09 0400 06/08 1600 06/08 0400 06/07 1600 06/07 0400 Intake Total 200 800 820 320 740 120 Output Total 200 Balance 0 800 820 320 740 120 Intake, Oral 200 800 820 320 740 120 Number 1 1 1 Bowel Movements Output, Urine 200 Patient 93 lb 3 oz 92 lb 4 oz 98 lb Weight Physical Exam: Well-developed, slightly malnourished elderly female, in no apparent distress. Chronically ill-appearing. Sclera anicteric. Conjunctiva pink. Oropharynx clear. There is no adenopathy, thyromegaly, or JVD. No peripheral stigmata of inflammatory bowel disease or chronic liver disease on exam. No spiders on the anterior chest wall. Breast & pelvic exams: API. No CVA tenderness. Lungs: clear to A&P, except slight decreased BS at the bases B/L, with prolonged expiratory phase. No wheezing, rales, or rhonchi. Heart exam: irregularly irregular rate rhythm, S1 and S2, with I/ systolic murmur. Abdominal exam: normoactive bowel sounds, mildly distended belly, nontender, without guarding or rebound. Slightly tympanitic to percussion. No definite mass. No organomegaly. No fluid shift. No pulsatile mass. Digital rectal exam: deferred by pt. Extremities without cyanosis or clubbing. Trace pedal edema B/L. No palpable cords. DJD. No palmar erythema. No Dupuytren's contractures. Distal pulses 2+ bilaterally. DTRs 2+ bilaterally. Alert and oriented x 3, but tangential. No tremor. No asterixis. Current Medications: Current Medications Sig/Aspen Start time Last Medication Dose Route Stop Time Status Admin Acetaminophen 650 MG Q6P PRN 05/31 1630 AC PO Alprazolam 0.25 MG BID PRN 06/07 1830 AC 06/08 PO 06/14 1829 2041 Aspirin 81 MG DAILY 06/01 09 AC 06/08 PO 0824 Atorvastatin Calcium 40 MG 1700 05/31 1700 AC 06/08 PO 1738 Calcium Carbonate 500 MG DAILY NEEDED PRN 06/05 1200 AC PO Diltiazem HCl 30 MG TID 06/04 2100 AC 06/08 PO 204 Magnesium Chloride 64 MG BID 06/06 2100 AC 06/08 PO 204 Magnesium Oxide 400 MG ONE ONE 06/08 1030 DC 06/08 PO 06/08 1031 1114 Potassium Chloride 40 MEQ ONCE ONE 06/08 900 DC 06/08 PO 06/08 0901 0952 Potassium Chloride 20 MEQ BID 06/01 09 AC 06/08 PO 2039 Results Pertinent Lab Results: Laboratory Tests 06/09 06/08 06/07 0654 0605 0745 Chemistry Sodium (137 - 145 mmol/L) Pending 134 L 134 L Potassium (3.5 - 5.1 mmol/L) Pending 3.7 3.9 Chloride (98 - 107 mmol/L) Pending 103 102 Carbon Dioxide (22 - 30 mmol/L) Pending 22 25 Anion Gap (5 - 16) Pending 9 7 BUN (7 - 17 mg/dL) Pending 18 H 21 H Creatinine (0.5 - 1.0 mg/dL) Pending 1.1 H 1.1 H Estimated GFR (>60 ml/min) 47 L 47 L BUN/Creatinine Ratio (7 - 25 %) Pending 16.4 19.1 Magnesium (1.6 - 2.3 mg/dL) Pending 1.6 1.7 Total Bilirubin (0.2 - 1.3 mg/dL) 0.5 Direct Bilirubin (< 0.4 mg/dL) 0.2 AST (14 - 36 U/L) 33 ALT (9 - 52 U/L) 32 Alkaline Phosphatase (<127 U/L) 61 [id number]-[id number] Pept Pending Total Protein (6.3 - 8.2 g/dL) 5.8 L Albumin (3.5 - 5.0 g/dL) 2.8 L Hematology CBC w Diff Pending NO MAN DIFF REQ WBC (4.8 - 10.8 /CUMM) Pending 7.0 RBC (4.20 - 5.40 /CUMM) Pending 3.02 L Hgb (12.0 - 16.0 G/DL) Pending 9.3 L Hct (37 - 47 %) Pending 27.7 L MCV (81.0 - 99.0 FL) Pending 91.7 MCH (27.0 - 31.0 PG) Pending 30.8 MCHC (33.0 - 37.0 G/DL) Pending 33.6 RDW (11.5 - 14.5 %) Pending 13.4 Plt Count (130 - 400 /CUMM) Pending 293 MPV (7.4 - 10.4 FL) Pending 7.7 Gran % (42.2 - 75.2 %) 70.0 Lymphocytes % (20.5 - 51.1 %) 14.4 L Monocytes % (1.7 - 9.3 %) 12.8 H Eosinophils % (0 - 5 %) 2.4 Basophils % (0.0 - 2.0 %) 0.4 Absolute Granulocytes (1.4 - 6.5 /CUMM) 4.9 Absolute Lymphocytes (1.2 - 3.4 /CUMM) 1.0 L Absolute Monocytes (0.10 - 0.60 /CUMM) 0.9 H Absolute Eosinophils (0.0 - 0.7 /CUMM) 0.2 Absolute Basophils (0.0 - 0.2 /CUMM) 0 Imaging/Other Studies: 05/31/18: EKG- afib @ 118, nl axis, LVH with repolarization abnormalities, ST depression antlat. 05/31/18: CT CERV SPINE WO IV CONTRAST; CT HEAD WO IV CONTRAST- 1. There are no acute bleeds or territorial infarcts. No masses are demonstrated. 2. There is diffuse volume loss and there are chronic microvascular ischemic changes. 3. There are no acute fractures or subluxations in the cervical spine. 4. There are multilevel spondylitic changes which are most severe at C4-C5 & C6- C7. 05/31/18: XRY-PORTABLE CHEST XRAY- Stable mild enlargement of the cardiac silhouette. No acute pulmonary process. Osteopenia. 06/01/18: CT HEAD WO IV CONTRAST (repeat)- There is a laceration of the right frontal scalp. No acute intracranial hemorrhage. There are numerous chronic small vessel ischemic changes primarily involving the periventricular white matter. 06/01/18: US RETROPERITONEAL COMPLETE (RENAL)- 1. Two complex regions of the right kidney as detailed above. These areas are indeterminate and could be on the basis of prominent medullary pyramids, however a solid lesion is not excluded. Follow up with renal protocol CT or MRI is recommended if appropriate based upon clinical assessment (*per medical team). 2. Mild symmetric renal cortical thinning. 06/01/18: ECHOCARDIOGRAM- Normal size left ventricle. Normal left ventricular ejection fraction visually estimated at >60 %. No obvious regional wall motion abnormalities. Mild right atrial dilatation. Mild left atrial dilatation. Moderate tricuspid regurgitation. Right ventricular systolic pressure estimated to be elevated at 60 mmHg. Trace pulmonic regurgitation. Moderate mitral annular calcification. Mild thickening/calcification of the anterior mitral valve leaflet. Hghj-ge-sctoxzbm mitral regurgitation. - Terrence Menchaca M.D. 06/01/18: EKG- afib @ 88, LVH with repolarization abnormalities, PVC. 06/02/18: [id number] VIEWS- Nonspecific, diffuse gaseous distention of the colon. Air-fluid levels of bowel, as well. Findings favor ileus rather than a distal colonic obstruction, and an ileus could be caused by a colitis or gastroenteritis. 06/05/18: CT ABD & PELVIS W IV CONTRAST/RECTAL CONTRAST- Findings suspicious for an obstructing proximal to mid sigmoid neoplasm, as described above. There is severe distention of the colon proximal to the sigmoid lesion. No liver mets. Scattered sigmoid diverticula, without diverticulitis. ASHD. DJD. This Critical Result was discussed with Dr. Quiroz on 06/05/2018 at 1645 hours. DICTATED BY: Veda ZIMMERMAN,Jamey
[2018-06-09 08:23] LABS: WHITE BLOOD CELL COUNT 11.7 /CUMM (4.8-10.8)
[2018-06-09 08:55] LABS: GRANULOCYTE % 83.2 % (42.2-75.2)
[2018-06-09] MEDS ORDERED: ASPIRIN81 M4 PO (11:04)
--- NOTE | 2018-06-09 11:05 | Discharge Summary ---
Visit Information Visit Dates Admission Date: 05/31/18 Discharge Date: 06/10/2018 Hospital Course Course Attending Physician: Meño ZIMMERMAN,Roberto Atkins Primary Care Physician: Nohelia Garcia MD Hospital Course: 83 year old woman with past medical history of hypertension, hyperlipidemia, COPD not on O2, pulmonary hypertension, chronic hyponatremia, Atrial Fibrillation on Eliquis, GERD, anxiety, and EtOH abuse brought in by ambulance after suffering a mechical fall with headstrike.Patient was reportedly in her normal state of health the morning of admission, went to use the restroom and turned around too fast and fell. She struck her head on the side of the tub resulting in a laceration. Patient is admittedly a poor historian and does not believe she lost consciousness but is not sure. She called her daughter around 10 AM for which EMS brought her to the [facility]. Patient underwent an uncomplicated scalp laceration repair in the ED with max and have CT imaging of her head and c-spine that demonstrated no acute findings. She received 5 mg of IV cardizem for an elevated heart rate due to her known atrial fibrillation. Hospital course Mechanical fall versus syncope Patient is a poor historian, unsure whether she lost her conscious. Her orthostatics were negative. Her lacerations were sutured. Patient is to follow -up with her primary care physician for removal of max. Advised to maintain fall precautions all-time. Positive troponin Patient had no EKG changes. Her troponins can be secondary due to type II [place]. Troponins trended down. Patient upon admission was sent atrial fibrillation with heart rate more than 120 and had IV Cardizem for the same. Her rate was controlled with metoprolol and digoxin and was continued on Eliquis. Sigmoid lesion Patient was seen by Dr. Shea in 2016 and had a flexible sigmoidoscopy which showed a sigmoid lesion. During that time the rectum was normal, extensive sigmoid diverticulosis with stricture. Barium enema was advised during that time but patient refused and failed to follow-up with GI. During this admission patient had abdominal distention and there was a question of neoplasm versus diverticular stricture. Patient underwent flexible sigmoidoscopy which showed obstructing lesion, no biopsy could be taken, no stent could be placed. Patient' s Eliquis was held during the procedure and was restarted later that day. Dementia/delirium During the hospital course patient had delirium and was put on post C and needed trazodone. Patient was seen by psychiatry who determined she does not have capacity to make medical decision. Her neighbor Kelly is the POA now. Both agreed for further workup of her sigmoid lesion. Per POA, no invasive intervention is desired. Diverting colostomy was offered but declined. Risk of perforation and obstruction was explained and understood. The plan is for the patient to be discharged to short term rehab to gain her strength. No intervention for sigmoid mass is desired. If the patient deteriorates or has an acute event, the plan is to have a hospice referral. Allergies: Coded Allergies: Penicillins (UNKNOWN 08/19/16) Significant Procedures: Echocardiogram Normal size left ventricle. Normal left ventricular ejection fraction visually estimated at >60 %. No obvious regional wall motion abnormalities. Mild right atrial dilatation. Mild left atrial dilatation. Moderate tricuspid regurgitation. Right ventricular systolic pressure estimated to be elevated at 60 mmHg. Trace pulmonic regurgitation. Moderate mitral annular calcification. Mild thickening/calcification of the anterior mitral valve leaflet. Hryv-rk-imjdxlsc mitral regurgitation. Head CT 1. There are no acute bleeds or territorial infarcts. No masses are demonstrated. 2. There is diffuse volume loss and there are chronic microvascular ischemic changes. 3. There are no acute fractures or subluxations in the cervical spine. 4. There are multilevel spondylitic changes which are most severe at C4-C5 and C6-C7. CT abdomen and pelvis Findings suspicious for an obstructing sigmoid neoplasm as described above. There is severe distention of the colon proximal to the sigmoid lesion. Disposition Summary Disposition Principal Diagnosis: Fall Additional Diagnosis: Atrial fibrillation Sigmoid mass Discharge Disposition: SNF Discharge Instructions General Discharge Information Code Status: Do Not Resucitate/Intubat Patient's Diet: Heart healthy diet Patient's Activity: As tolerated Follow-Up Instructions/Appts: Please follow-up with PCP/cardiology/GI as outpatient Medications at Discharge Discharge Medications: Continue taking these medications: Atorvastatin Calcium (Atorvastatin Calcium) 40 MG TABLET 1 Tablet ORAL 5 PM Qty = 30 Comments: Last Taken:10/29/16 Time:1700 Apixaban (Eliquis) 2.5 MG TABLET 1 Tablet ORAL TWICE DAILY Qty = 30 Comments: Last Taken:10/30/16 Time:0900 Diltiazem HCl (Cardizem) 30 MG TABLET 1 Tablet ORAL TWICE DAILY Qty = 30 Alprazolam (Alprazolam) 0.25 MG TABLET 1 Tablet ORAL 2 x Daily as needed as needed for anxiety Start taking the following new medications: Aspirin (Aspirin*) 81 MG TAB.CHEW 81 Milligram ORAL DAILY Qty = 30 No Refills Copies To: Monse ZIMMERMAN,Buck Siegel; Nohelia Garcia MD; Bernarda ZIMMERMAN,Terrence Soliz MD Review Statement Documenting Attending: Ford ZIMMERMAN,Marlon
--- NOTE | 2018-06-09 14:53 | Proc Note Gastroenterology ---
Gastroenterology Procedure Date of Last Colonoscopy: 09/04/16: Flex sig (pt never had full colnoscopy & refused follow-up BE, post flex sig). Procedure Date: 06/09/18 GI Procedure(s): Flexible sigmoidoscopy to 20 cm Fig Caprifier: AUDREY MADISON MD ASA Classification: IV Indications: INDX: (*Please refer to Dr. Daphnie Shea's inpt GI consult of 06/04/18 & my subsequent inpt GI follow-up notes). 83 y/o female, fair historian at best, hypertension, hyperlipidemia, COPD not on O2 (ex-smoker), pulmonary hypertension, chronic hyponatremia, atrial fibrillation on Eliquis, GERD, anxiety, CKD, osteoporosis, and EtOH abuse, brought in by ambulance after suffering a mechical fall with headstrike & admitted 05/31/18. She had scalp laceration, treated with max. Eliquis was initially held on admission & resumed after imaging studies failed to reveal any ICB. She was previously seen by Dr. Daphnie Shea for 09/04/16: flexible sigmoidoscopy, done for change in bowel habits, anemia, and CT scan then suggesting a sigmoid lesion. The rectum was normal. There was extensive sigmoid diverticulosis with tortuosity, angulation, and edema. A stricture was encountered which was not possible to pass. No definite lesion was seen at that time. A barium enema was advised, with consideration for surgery consultation at that time, but the patient refused. She was noncompliant with GI follow-up since. The patient was seen again in inpt GI consultation 06/04/18, by Dr. Daphnie Shea, for abdominal distention and reported abdominal pain, although the patient currently denied the latter. Exam and x-rays were suggestive of colonic dilatation. Differential diagnosis included neoplasm vs. diverticular stricture. 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 No liver mets. Scattered sigmoid diverticula, without diverticulitis. ASHD. DJD. The patient was deemed to be incompetent by psychiatry, regarding her input about her medical care. I spoke with the patient's POA, Kelly Gary, who gave witnessed telephone informed consent for the flex sig. Ms. Abdirahman refused the option of a diverting colostomy. *The patient's Eliquis was held preoperatively , as per cardiology. Meds Received: MAC, as per Dr. Garnica, of [facility]. Patient's Tolerance: good Complications: None Extent Reached: 20 cm (sigmoid) Procedure: Unprepped flexible sigmoidoscopy (aside from tap H2O enema x 2), was performed to 20cm, after obtaining witnessed telephone informed consent from the pt's POA, Kelly Abdirahman (H: [phone]/cell: [phone]), with the director of cardiac rehabilitation and pulse oximeter, with the assistance of Dr. Garnica, of [facility]. The patient was in the left lateral decubitus position throughout the procedure. Digital rectal exam failed to reveal any external hemorrhoids, fissures, or perianal disease. No masses were appreciated. Sphincter tone was normal. As there was no prep aside from enemas, for fear of blowing out the proximal colon (partially obstructing sigmoid lesion by CT), there was a filmy yellowish brown liquid effluent in the rectosigmoid region. I gently retroflexed in the rectum, which revealed some mild internal hemorrhoids, without any active bleeding. There were no rectal ulcers, rectal lesions, or gross proctitis on retroflexion. The colonoscope was advanced to 20 cm in the sigmoid colon. The lumen was tortuous and redundant, with extensive sigmoid diverticula, tortuosity, and angulation. Upon reaching 20 cm, it was extremely difficult to ascertain where the lumen was. Furthermore, I was concerned that introducing more air into an essentially "one-way valve" would distended her abdomen further, increasing her risk for perforation. The limited views of the mucosa to this point did not show any masses, lesions, colitis, polyps, or angiodysplasias. There was no focal mucosal area suspicious for malignancy to biopsy. A decision was made to terminate the procedure at this point, and to again speak with the POA, to determine what her wishes were. Documenting photographs were obtained and placed inside the patient's chart. The patient tolerated the procedure well. Her abdomen was slightly firmer after air insufflation, but she was nontender, without any peritoneal signs. Impression: 1. Extensive sigmoid diverticuli, with tortuous, redundant lumen. 2. Colonoscope advanced to 20 cm in the sigmoid colon. Unable to advance scope further. Lumen not seen past this point. No lesions seen to biopsy. 3. 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 4. Mild internal hemorrhoids, without any active bleeding. Recommendations: I had a long discussion with the patient, the patient's POA, Kelly Gary, & Kelly's dtr, Selena, in the GI Suite postop. Various alternatives were discussed with them, including option of possible stent placement (for either palliative purposes or to open the bowel for a definitive bowel prep, to be followed by definitive surgery) vs. a diverting colostomy. The risks and benefits of all of these options were discussed with him in great detail. Based on the patient's advanced age, cardiopulmonary status, cognitive issues, quality of life issues, etc., they opted for no more endoscopic intervention or surgical intervention. The patient was DNR/DNI. I spoke with the POA, Kelly, and her daughter, Selena, about potentially downgrading her CODE STATUS to hospice or comfort care. At the moment, they could not decide on this, as they were not sure how this would affect her obtaining a bed at an SNF at discharge. Therefore, I advised them to speak with the Continuing Care department about this. I also discussed the above with Dr. Youngblood & Dr. Vergara, postoperatively, who will speak with the POA, as well. As there is a question of downgrading the patient's CODE STATUS further, Dr. Vergara will hold off on resuming Eliquis for the next couple of days, until the POA makes a decision. As no further GI endoscopic intervention is requested, I will sign off from a GI perspective, for now. Follow-up Colonscopy Screening None CC: Ford ZIMMERMAN,Marlon; Meño ZIMMERMAN,Roberto Atkins; Cherise Vergara MD; Monse ZIMMERMAN, Buck Siegel; Jose ZIMMERMAN,Nohelia; Terrence Menchaca MD
[2018-06-09 14:58] VITALS: BP 124/50
--- NOTE | 2018-06-09 19:09 | PN- Cardiology ---
Subjective Subjective: No chest pain. No shortness of breath. No palpitations. No diaphoresis. No new arrhythmias. The patient underwent colonoscopy. Objective Vital Signs and I&Os Vital Signs Date Time Temp Pulse Resp B/P B/P Pulse O2 O2 Flow FiO2 Mean Ox Delivery Rate 06/09 1458 98.2 88 20 124/50 92 Room Air 06/09 1429 122/60 06/09 1049 Room Air Room Air 06/09 0822 118/62 06/09 0629 98.3 83 16 118/60 95 Room Air 06/08 2202 98.8 86 28 146/68 92 06/08 2041 92 126/66 Intake & Output 06/09 1600 06/09 0806/09 0000 06/08 1600 06/08 0806/08 0000 Intake Total 100 200 800 580 240 320 Output Total 200 Balance 100 0 800 580 240 320 Intake, Oral 100 200 800 580 240 320 Number 2 1 1 Bowel Movements Output, Urine 200 Patient 93 lb 3 oz 92 lb 4 oz Weight Physical Exam: Gen: The patient is in no acute distress HEENT: Normal nose, ears, and oropharynx. Pupils equal bilaterally. Conjunctiva normal. Neck: Supple with no JVD, no masses, and no thyromegaly Lungs: Clear to auscultation with normal respiratory effort Heart: Irregular irregular S1, S2, 1/6 systolic murmur. No peripheral edema, 2 + pulses in the lower extremities bilaterally Abdomen: Soft, nontender, no masses. No hepatomegaly. No splenomegaly Extremities: No clubbing or cyanosis. Normal muscle strength in the upper and lower extremities. Skin: Normal skin turgor with no skin ulcers or lesions noted. Neuro: Cranial nerves intact. Sensation intact Current Medications: Current Medications Sig/Aspen Start time Last Medication Dose Route Stop Time Status Admin Acetaminophen 650 MG Q6P PRN 05/31 1630 AC PO Alprazolam 0.25 MG BID PRN 06/07 1830 AC 06/08 PO 06/14 1829 2041 Apixaban 2.5 MG BID 06/09 2100 CAN PO Aspirin 81 MG DAILY 06/01 0900 AC 06/09 PO 0822 Atorvastatin Calcium 40 MG 1700 05/31 1700 AC 06/09 PO 1622 Calcium Carbonate 500 MG DAILY NEEDED PRN 06/05 1200 AC PO Chlorhexidine 1 GM .STK-MED ONE 06/09 1527 DC Gluconate TOP 06/09 1528 Diltiazem HCl 30 MG TID 06/04 2100 AC 06/09 PO 1429 Magnesium Chloride 64 MG BID 06/06 2100 AC 06/09 PO 0823 Potassium Chloride 20 MEQ BID 06/01 0943 06/09 PO 0822 Results Last 48 Hrs of Labs/Mics: Laboratory Tests 06/09/18 0654: Anion Gap 8, Estimated GFR 60, BUN/Creatinine Ratio 16.7, Magnesium 1.6, Pro-B- Natriuretic Pept 3300 H, CBC w Diff NO MAN DIFF REQ, RBC 3.48 L, MCV 90.9, MCH 31.0, MCHC 34.1, RDW 13.3, MPV 7.5, Gran % 83.2 H, Lymphocytes % 6.6 L, Monocytes % 9.9 H, Eosinophils % 0.2, Basophils % 0.1, Absolute Granulocytes 9.8 H, Absolute Lymphocytes 0.8 L, Absolute Monocytes 1.2 H, Absolute Eosinophils 0, Absolute Basophils 0 06/08/18 0605: Anion Gap 9, Estimated GFR 47 L, BUN/Creatinine Ratio 16.4, Magnesium 1.6, Total Bilirubin 0.5, Direct Bilirubin 0.2, AST 33, ALT 32, Alkaline Phosphatase 61, Total Protein 5.8 L, Albumin 2.8 L, CBC w Diff NO MAN DIFF REQ, RBC 3.02 L, MCV 91.7, MCH 30.8, MCHC 33.6, RDW 13.4, MPV 7.7, Gran % 70.0, Lymphocytes % 14.4 L, Monocytes % 12.8 H, Eosinophils % 2.4, Basophils % 0.4, Absolute Granulocytes 4.9, Absolute Lymphocytes 1.0 L, Absolute Monocytes 0.9 H, Absolute Eosinophils 0.2, Absolute Basophils 0 Assessment/Plan Assessment/Plan Assessment: 1. Chronic atrial fibrillation and atrial flutter 2. Normal left ventricular function with mild to moderate mitral regurgitation, moderate tricuspid regurgitation, and pulmonary hypertension on echocardiogram. 3. Status post mechanical fall with head trauma 4. Mild troponin elevation, likely demand ischemia secondary to fall. Plan: * Continue diltiazem 30 mg p.o. 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 The patient has decided against surgery or further invasive procedures. * Patient and POA are discussing possible hospice or comfort care. Decision will be made regarding whether to restart Eliquis once level of care has been determined. Continue telemetry? Yes
[2018-06-09 22:41] VITALS: BP 102/58
[2018-06-10 06:55] VITALS: BP 111/56
--- NOTE | 2018-06-10 07:46 | PN- Housestaff ---
Subjective Follow-up For: Fall GI discomfort, bloating Mild protein calorie malnutrition Subjective: Afebrile overnight. Patient is seen and examined in bed this morning. Patient states she has feels fine with no noticeable abdominal discomfort. Patient states she has been going to the bathroom regularly and usually produces some sparse stools and has been able to pass gas. Will speak with patient and family about options going forward regarding care of patient and transition to possible STR. Patient otherwise has no new complaints today. Review of Systems Constitutional: Reports: see HPI. Objective Last 24 Hrs of Vital Signs/I&O Vital Signs Date Time Temp Pulse Resp B/P B/P Pulse O2 O2 Flow FiO2 Mean Ox Delivery Rate 06/10 0655 98.5 100 20 111/56 90 Room Air 06/09 2241 98.3 88 16 102/58 91 Room Air 06/09 2145 88 124/50 06/09 1458 98.2 88 20 124/50 92 Room Air 06/09 1429 122/60 06/09 1049 Room Air Room Air Intake & Output 06/10 1600 06/10 0800 06/10 0000 Intake Total 350 Output Total Balance 350 Intake, Oral 350 Number 1 Bowel Movements Patient 91 lb 9 oz Weight Weight Bed scale Measurement Method Physical Exam General Appearance: Alert, Oriented X3, Cooperative, No Acute Distress Skin: No Rashes, No Breakdown HEENT: Atraumatic Neck: Supple, No JVD Cardiovascular: Regular Rate, Normal S1, Normal S2 Lungs: Clear to Auscultation Abdomen: Soft, distended Neurological: Normal Speech Extremities: No Edema Assessment/Plan Assessment: 83-year-old woman with PMH -Coronary artery disease, Hypertension, Hyperlipidemia, Pulmonary hypertension, Chronic hyponatremia, History of atrial fibrillation, on Eliquis, GERD, Anxiety, History of [facility] abuse [facility] Problem list -Mechanical fall, etiology unclear - possible syncope/near-syncope -Near-syncope -Elevated troponin with ischemic EKG changes, unlikely ACS -Acute kidney injury, probable pre-renal azotemia -Hypokalemia -Head laceration to scalp, s/p max #Fall, syncope vs. near-syncope -Continue telemetry monitoring- shows atrial flutter with large QRS complexes -Fall precautions in place -Avoid nephrotoxic agents -Eliquis is held because the patient will be getting sigmoidoscopy Orthostats were negative -Serial troponin: troponin trended down, no EKG changes -Monitor renal function/potassium -Repeat CT Head - negative for any new intracranial bleed -Check magnesium, replete if necessary; recent 1.6-repleted -PT evaluation; STR vs Home PT, depending on meeting goals of therapy -Social work evaluation -Nutritional consult -Psych consultation to assess whether patient is competent with decision making capacity -POA now Kelly Gary, contact with any concerns regarding care #GI discomfort, bloating, 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 has seen Dr. Shea as outpatient basis; patient had seen Dr. Shea in 2016 for a sigmoidoscopy, with findings of diverticulosis and stricture, patient refused barium enema at that time; Dr. Shea rec. barium enema if any recurrent abdominal pain -CT abd/pelvis: Findings suspicious for an obstructing sigmoid neoplasm as described above. There is severe distention of the colon proximal to the sigmoid lesion. - Patient has agreed for flexible sigmoidoscopy/colonoscopy which will be completed on 06/09/18. Patient will continue on clear liquid on friday night, transition to NPO on friday, as patient will have unprepped flexsig/ colonoscopy. patient will require 2 tap water enema's on friday06/09/18 @ 0600. -Performed Flex sigmoid today 06/09; unable to advance the scope to visualize the lesion seen on CT as lumen could not be visualized further beyond 20 cm; various options discussed with family and from there family decided to not proceed with any further endoscopic or surgical intervention; will decide further whether to downgrade patient's code status to hospice or comfort care based on family decision; patient received a bed at [facility] and will be subsequently discharged #Mild protein calorie malnutrition -Nutrition consult and evaluated patient -Poor intake per patient; advise to increase oral intake #Home medications -Continue home medications: Alprazolam, atorvastatin, Cardizem DVT prophylaxis with subcutaneous heparin CODE: DNR/DNI Problem List: 1. Fall Pain Ratin Pain Location: na Pain Goal: Remain pain free Pain Plan: prn meds Tomorrow's Labs & Rationales: routine
[2018-06-10 08:04] LABS: ABSOLUTE BASOPHIL COUNT 0 /CUMM (0.0-0.2); ABSOLUTE EOSINOPHIL COUNT 0 /CUMM (0.0-0.7); ABSOLUTE GRANULOCYTE CT 8.8 /CUMM (1.4-6.5); ABSOLUTE LYMPH COUNT 0.7 /CUMM (1.2-3.4); ABSOLUTE MONOCYTE COUNT 1.2 /CUMM (0.10-0.60); BASOPHIL % 0.2 % (0.0-2.0); EOSINOPHIL % 0.3 % (0-5); GRANULOCYTE % 81.9 % (42.2-75.2); MEAN CORPUSCULAR HGB 31.2 PG (27.0-31.0); MEAN CORPUSCULAR HGB CONC 34.3 G/DL (33.0-37.0); MEAN CORPUSCULAR VOLUME 90.8 FL (81.0-99.0); MEAN PLATELET VOLUME 7.5 FL (7.4-10.4); PLATELET COUNT 344 /CUMM (130-400); RBC DISTRIBUTION WIDTH 13.4 % (11.5-14.5); RED BLOOD CELL CT 3.09 /CUMM (4.20-5.40); WHITE BLOOD CELL COUNT 10.8 /CUMM (4.8-10.8)
--- NOTE | 2018-06-10 10:06 | PN- Cardiology ---
Subjective Subjective: No significant change in clinical status. Objective Vital Signs and I&Os Vital Signs Date Time Temp Pulse Resp B/P B/P Pulse O2 O2 Flow FiO2 Mean Ox Delivery Rate 06/10 0826 114/60 06/10 0655 98.5 100 20 111/56 90 Room Air 06/09 2241 98.3 88 16 102/58 91 Room Air 06/09 2145 88 124/50 06/09 1458 98.2 88 20 124/50 92 Room Air 06/09 1429 122/60 06/09 1049 Room Air Room Air Intake & Output 06/10 1600 06/10 0000 06/09 1600 06/09 0806/09 0000 Intake Total 350 100 200 800 Output Total 200 Balance 350 100 0 800 Intake, Oral 350 100 200 800 Number 1 2 1 Bowel Movements Output, Urine 200 Patient 91 lb 9 oz 93 lb 3 oz Weight Weight Bed scale Measurement Method Physical Exam: Gen: The patient is in no acute distress HEENT: Normal nose, ears, and oropharynx. Pupils equal bilaterally. Conjunctiva normal. Neck: Supple with no JVD, no masses, and no thyromegaly Lungs: Clear to auscultation with normal respiratory effort Heart: Irregular irregular S1, S2, 1/6 systolic murmur. No peripheral edema, 2 + pulses in the lower extremities bilaterally Abdomen: Soft, nontender, no masses. No hepatomegaly. No splenomegaly Extremities: No clubbing or cyanosis. Normal muscle strength in the upper and lower extremities. Skin: Normal skin turgor with no skin ulcers or lesions noted. Neuro: Cranial nerves intact. Sensation intact Psych: Alert and conversant Current Medications: Current Medications Sig/Aspen Start time Last Medication Dose Route Stop Time Status Admin Acetaminophen 650 MG Q6P PRN 05/31 1630 AC PO Alprazolam 0.25 MG BID PRN 06/07 1830 AC 06/09 PO 06/14 1829 2145 Apixaban 2.5 MG BID 06/09 2100 CAN PO Aspirin 81 MG DAILY 06/01 09 AC 06/10 PO 08 Atorvastatin Calcium 40 MG 1700 05/31 1700 AC 06/09 PO 1622 Calcium Carbonate 500 MG DAILY NEEDED PRN 06/05 1200 AC PO Chlorhexidine 1 GM .STK-MED ONE 06/09 1527 DC Gluconate TOP 06/09 1528 Diltiazem HCl 30 MG TID 06/04 2100 AC 06/10 PO 08 Magnesium Chloride 64 MG BID 06/06 2100 AC 06/10 PO 0951 Potassium Chloride 20 MEQ BID 06/01 943 AC 06/10 PO 825 Results Last 48 Hrs of Labs/Mics: Laboratory Tests 06/10/18 0617: Anion Gap 8, Estimated GFR 53 L, BUN/Creatinine Ratio 17.0, Magnesium 1.6, CBC w Diff NO MAN DIFF REQ, RBC 3.09 L, MCV 90.8, MCH 31.2 H, MCHC 34.3, RDW 13.4, MPV 7.5, Gran % 81.9 H, Lymphocytes % 6.4 L, Monocytes % 11.2 H, Eosinophils % 0.3, Basophils % 0.2, Absolute Granulocytes 8.8 H, Absolute Lymphocytes 0.7 L, Absolute Monocytes 1.2 H, Absolute Eosinophils 0, Absolute Basophils 0 06/09/18 0654: Anion Gap 8, Estimated GFR 60, BUN/Creatinine Ratio 16.7, Magnesium 1.6, Pro-B- Natriuretic Pept 3300 H, CBC w Diff NO MAN DIFF REQ, RBC 3.48 L, MCV 90.9, MCH 31.0, MCHC 34.1, RDW 13.3, MPV 7.5, Gran % 83.2 H, Lymphocytes % 6.6 L, Monocytes % 9.9 H, Eosinophils % 0.2, Basophils % 0.1, Absolute Granulocytes 9.8 H, Absolute Lymphocytes 0.8 L, Absolute Monocytes 1.2 H, Absolute Eosinophils 0, Absolute Basophils 0 Assessment/Plan Assessment/Plan Assessment: 1. Chronic atrial fibrillation and atrial flutter 2. Normal left ventricular function with mild to moderate mitral regurgitation, moderate tricuspid regurgitation, and pulmonary hypertension on echocardiogram. 3. Status post mechanical fall with head trauma 4. Mild troponin elevation, likely demand ischemia secondary to fall. Plan: * Would continue diltiazem 30 milligrams p.o. 3 times per day; continue other medications * Currently off Eliquis pending GI procedure tomorrow; plan to restart anticoagulation as soon as possible post procedure * Plans for short-term rehab pending. Plans for readdressing long-term goals of care also pending Continue telemetry? No
[2018-06-10] MEDS ORDERED: CARDIZEM30 M1 PO (11:30)
[2018-06-10 11:31] VITALS: BP 114/60
== END 2018-06-10 13:05 | DRG 375 ==
LOC: ERH 10:33 → ERHI 14:53 → 1NO 14:53 → ENRESERV 16:59 → ENTRNSPT 17:39 → EDTRNSPTSTS 17:53 → EDTRNSPT 17:53 → 1NO 17:59 → CMPTRNSPT 18:12 → 1NO 06-04 11:15 → ENPENDDIS 06-10 13:30
PROVIDERS: Emergency Medicine; Internal Medicine Interventional Cardiology; Student in an Organized Health Care Education/Training Program
PROC: 0DJD8ZZ Inspection of Lower Intestinal Tract, Via Natural or Artificial Opening Endoscopic (ICD-10-PCS; principal; 2018-06-09)
DX: D49.0 Neoplasm of unspecified behavior of digestive system (principal); N17.9 Acute kidney failure, unspecified; I69.354 Hemiplegia and hemiparesis following cerebral infarction affecting left non-dominant side; E87.1 Hypo-osmolality and hyponatremia; K56.7 Ileus, unspecified; F03.91 Unspecified dementia, unspecified severity, with behavioral disturbance; F05 Delirium due to known physiological condition; I48.92 Unspecified atrial flutter; E46 Unspecified protein-calorie malnutrition; I48.0 Paroxysmal atrial fibrillation; Z79.01 Long term (current) use of anticoagulants; S01.01XA Laceration without foreign body of scalp, initial encounter; E87.6 Hypokalemia; J44.9 Chronic obstructive pulmonary disease, unspecified; R19.09 Other intra-abdominal and pelvic swelling, mass and lump; W18.30XA Fall on same level, unspecified, initial encounter; Y92.002 Bathroom of unspecified non-institutional (private) residence as the place of occurrence of the external cause; Z51.5 Encounter for palliative care; K21.9 Gastro-esophageal reflux disease without esophagitis; F41.9 Anxiety disorder, unspecified; I25.10 Atherosclerotic heart disease of native coronary artery without angina pectoris; Z66 Do not resuscitate; Z88.0 Allergy status to penicillin; R79.89 Other specified abnormal findings of blood chemistry; R91.1 Solitary pulmonary nodule; F10.10 Alcohol abuse, uncomplicated; M81.0 Age-related osteoporosis without current pathological fracture; K57.30 Diverticulosis of large intestine without perforation or abscess without bleeding; D64.9 Anemia, unspecified; E83.42 Hypomagnesemia; Z91.81 History of falling
CPT/HCPCS: 1NSP; 36415; 36592; 71045; 74021; 74177; 76775; 81001; 82436; 87015; 87045; 87899; 87899-59; 90471; 90714; 93005; 93010; 93306; 96374; 97110-GO; 97116-GO; 97161-GP; 97530-GO; 99291; J1644; J2001; J3490

== ENCOUNTER 2018-06-23 13:02 | Observation (INO) | payer OTHER, MEDICARE ==
[~2018-06-23] VITALS: Ht 152.4 cm; Wt 45.4 kg
[~2018-06-23 13:02] MED LIST changes: +ALPRAZOLAM0.25 M1 PO; +ASPIRIN81 M4 PO
[2018-06-23] MEDS ORDERED: ACIDOPHILUS1 EACH PO (13:15)
[2018-06-23] MEDS ORDERED: FLUCONAZOLE100 M1 PO (13:16)
[2018-06-23] MEDS ORDERED: DILTIAZEM HCL30 M1 PO (13:16)
--- NOTE | 2018-06-23 13:29 | ED GENERAL ADULT ---
History of Present Illness General Chief Complaint: Abdominal Pain/Flank Pain Stated Complaint: BIBA, ABD PAIN Source: patient Exam Limitations: no limitations Allergies Coded Allergies: Penicillins (UNKNOWN 08/19/16) Reconcile Medications Alprazolam 0.25 MG TABLET 1 TAB PO BIDP PRN anxiety (Reported) Apixaban (Eliquis) 2.5 MG TABLET 1 TAB PO BID anticoagulant Aspirin (Aspirin*) 81 MG TAB.CHEW 81 MG PO DAILY heart Atorvastatin Calcium 40 MG TABLET 1 TAB PO 1700 High cholestrol Diltiazem HCl 30 MG TABLET 1 TAB PO BID HEART (Reported) Fluconazole 100 MG TABLET 1 TAB PO DAILY ANTIBIOTIC, INFECTION (Reported) Lactobacillus Acidophilus (Acidophilus) 1 EACH CAPSULE 1 CAP PO BID GI ( Reported) Triage Note: PT BIBA FROM [facility] FOR SBO, ABD DISTENSION AND COFFEE GROUND EMESIS EPISODE OF VOMIT X 1 LAST NIGHT. PT HAD ABD X-RAY TODAY SHOWING SBO. ARRIVES TO ED A/O X3. DENIES PAIN. AWAITING PROVIDER EVAL. Triage Nurses Notes Reviewed? yes HPI: 83-year-old female presents from nursing facility for small bowel obstruction evaluation. According to records patient had an episode of coffee-ground emesis last night and an x-ray this morning showed possible small bowel obstruction. Abdomen is distended, however patient states that it is usually protruding like that. Denies abdominal pain. Denies constipation diarrhea. Denies obstipation. Denies nausea vomiting. (Bubba ZIMMERMAN,Tre) Vital Signs & Intake/Output Vital Signs & Intake/Output Vital Signs Date Time Temp Pulse Resp B/P B/P Pulse O2 O2 Flow FiO2 Mean Ox Delivery Rate 06/24 0632 97.7 80 20 90/44 92 Room Air 06/23 2140 98.2 115 18 98/60 94 Room Air 06/230 97.4 123 20 110/56 ED Intake and Output 06/24 0000 06/23 1200 Intake Total Output Total 2200 Balance -2200 Number 1 Bowel Movements Output, 2200 Gastric Drainage Patient 100 lb Weight Weight Estimated Measurement Method (Ema ZIMMERMAN,Ranjit Skelton) Past History Travel History Traveled to [place] past 21 day No Medical History Any Pertinent Medical History? 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 No (Tre Mac MD) Review of Systems Review of Systems Constitutional: Reports: no symptoms, see HPI. EENTM: Reports: no symptoms. Respiratory: Reports: no symptoms. Cardiovascular: Reports: no symptoms. GI: Reports: no symptoms. Genitourinary: Reports: no symptoms. Musculoskeletal: Reports: no symptoms. Skin: Reports: no symptoms. Neurological/Psychological: Reports: no symptoms. Hematologic/Endocrine: Reports: no symptoms. Immunologic/Allergic: Reports: no symptoms. All Other Systems: Reviewed and Negative (Tre Mac MD) Physical Exam Physical Exam General Appearance: well developed/nourished, no apparent distress, comfortable Comments: Gen.: Well-nourished, well-developed, no acute respiratory distress. Head: Normocephalic, atraumatic. Eyes: Normal inspection bilaterally Ears: Normal inspection bilaterally Nose: Normal inspection Throat/mouth : Moist mucosa Neck: Supple, full range of motion, no goiter Heart: Regular rate and rhythm, no murmurs rubs or gallops Lungs: Clear to auscultation bilaterally with normal air entry Chest: Nontender Back: Normal range of motion Abdomen: nontender, positive for distention and tympany, negative for guarding. Extremities: Normal range of motion grossly, equal radial pulses, no cyanosis clubbing or edema Neurologic: Cranial nerves grossly intact, speech is clear Skin: warm and dry Psychiatric: Calm, cooperative, no apparent delusions or hallucinations Core Measures ACS in differential dx? No CVA/TIA Diagnosis: No Sepsis Present: No Sepsis Focused Exam Completed? No (Tre Mac MD) Progress Differential Diagnoses I considered the following diagnoses in my evaluation of the patient: Appendicitis-the patient did not have migration of the pain to the right lower quadrant, tenderness over McBurney's point, Rovsing sign, white cell blood count was not elevated, and the diagnostic imaging studies did not confirm this Peritonitis-the patient had no rebound or guarding, did not have a rigid abdomen , the white blood cell count was not elevated and There was no inflammatory process on diagnostic imaging studies. Cholecystitis-the patient had no Brandt's sign on exam, white blood cell count was normal, and diagnostic imaging studies showed no inflammatory changes in the region of the gallbladder Pancreatitis-the lipase was normal, patient had no history of alcohol abuse or hypertriglyceridemia, but the diagnostic imaging studies did not show inflammation or edema in the area of the pancreas GI bleed-patient had no history of prior GI bleed, patient denied consistent use of NSAIDs, the patient is not taking anticoagulants such as Coumadin, the patient denied melena. AAA-the patient has a paucity of significant risk factors for vascular disease, there is no pulsatile abdominal mass, lower extremity pulses were equal Hernia-there were no apparent hernias on physical examination, the patient denied any unusual bulges or masses Ischemic bowel-the patient has a paucity of risk factors for vascular disease or thrombosis, physical examination did not reveal pain out of proportion to physical exam findings, diagnostic imaging studies were inconsistent with bowel ischemia Bowel obstruction-patient's abdomen was not significantly distended or hypertympanitic, patient had good bowel sounds, patient was having bowel movements and passing flatus. Initial ED EKG: none Comments: Multiple witnessed episodes of coffee-ground emesis. NG tube placed and 600cc suctioned. (Bubba ZIMMERMAN,Tre) Plan of Care: Orders Procedure Date/time Status Change service to 06/24 0732 Active Turn and Reposition 06/23 2135 Active Skin Integrity Protocol 06/23 2135 Active Vital Signs 06/23 2112 Active Teach/Educate 06/23 2112 Active Pain Treatment and Response 06/23 2112 Active Nutritional Intake, Monitor 06/23 2112 Active Isolation 06/23 2112 Active Intake & Output 06/23 2112 Active Patient Care Conference 06/23 2112 Active Activity/Ambulation 06/23 2112 Active PASTORAL CARE CONSULT 06/23 UNK Active Comments: 06/23/2018 6:07:36 PM and just been advised that this patient has been changed to an observation stay for hospice/comfort care. (Ema ZIMMERMAN,Ranjit Skelton) Departure Departure Disposition: STILL A PATIENT Condition: Guarded Clinical Impression Primary Impression: Coffee ground emesis Secondary Impressions: Elevated WBC count Qualifiers: Leukocytosis type: unspecified Qualified Code: D72.829 - Elevated white blood cell count, unspecified Hypokalemia Referrals: Nohelia Garcia MD (PCP/Family) Departure Forms: Customer Survey General Discharge Information PA/CLINICAL ENGINEER Co-Sign Statement Statement: ED Attending supervision documentation- x I saw and evaluated the patient. I have also reviewed all the pertinent lab results and diagnostic results. I agree with the findings and the plan of care as documented in the PA's/CLINICAL ENGINEER's documentation. [] I have reviewed the ED Record and agree with the PA's/CLINICAL ENGINEER's documentation. [] Additions or exceptions (if any) to the PAs/CLINICAL ENGINEER's note and plan are summarized below: [] (Bubba ZIMMERMAN,Tre) Critical Care Note Critical Care Note Critical Care Time: 30-74 min (Tre Mac MD)
[2018-06-23 13:47] LABS: ABSOLUTE BASOPHIL COUNT 0 /CUMM (0.0-0.2); ABSOLUTE EOSINOPHIL COUNT 0 /CUMM (0.0-0.7); ABSOLUTE LYMPH COUNT 0.7 /CUMM (1.2-3.4); BASOPHIL % 0 % (0.0-2.0); EOSINOPHIL % 0 % (0-5); GRANULOCYTE % 89.7 % (42.2-75.2); HEMATOCRIT 31.2 % (37-47); MEAN CORPUSCULAR HGB 30.4 PG (27.0-31.0); MEAN CORPUSCULAR HGB CONC 34.5 G/DL (33.0-37.0); MEAN CORPUSCULAR VOLUME 88.2 FL (81.0-99.0); MEAN PLATELET VOLUME 7.3 FL (7.4-10.4); PLATELET COUNT 341 /CUMM (130-400); RBC DISTRIBUTION WIDTH 14.6 % (11.5-14.5); RED BLOOD CELL CT 3.54 /CUMM (4.20-5.40); WHITE BLOOD CELL COUNT 16.7 /CUMM (4.8-10.8)
--- NOTE | 2018-06-23 15:26 | RADIOLOGY REPORT ---
EXAMINATION: XR PORTABLE CHEST CLINICAL INFORMATION: NG tube placement. COMPARISON: None TECHNIQUE: Portable frontal view of the lower chest and upper abdomen was obtained. 2:54 PM. FINDINGS: The nasogastric tube tip remains in the distal thoracic esophagus. The catheter tip is approximately 5 cm above the level the diaphragm. There is marked gaseous distention of bowel loops consistent with bowel obstruction. IMPRESSION: Nasogastric tube tip is in distal thoracic esophagus, approximate 5 cm above the level the diaphragm. This critical result was discussed with Tre Merchant on 06/23/2018, 3:15 PM and it was ascertained that the content and urgency of the report was understood at the time of direct communication.
--- NOTE | 2018-06-23 16:24 | CT SCAN REPORT ---
EXAMINATION: CT ABDOMEN AND PELVIS WITHOUT CONTRAST CLINICAL INFORMATION: Abdominal pain. COMPARISON: CT scan of the abdomen and pelvis dated 06/05/2018, 08/19/2016. TECHNIQUE: Multidetector volumetric imaging was performed from the superior aspect of the liver through the pubic symphysis. Sagittal and coronal reformatted images were obtained on the technologist workstation. DLP: 244.12 mGy-cm. FINDINGS: LUNG BASES: There are small bilateral posteriorly layering pleural effusions seen with associated mild volume loss and atelectasis in the lower lobes bilaterally. Minimal dependent atelectasis is also noted in the right middle lobe and lingula. The cardiomediastinal silhouette is enlarged with prominent mitral annular calcifications and coronary artery calcifications seen. LIVER, GALLBLADDER, AND BILIARY TREE: The liver is normal in size, shape, and attenuation. No focal hepatic lesion on noncontrast imaging. No biliary ductal dilatation is present. The gallbladder is unremarkable with no evidence of radiopaque gallstones, gallbladder wall thickening, or obvious pericholecystic inflammatory changes. PANCREAS: Pancreas is markedly atrophic. SPLEEN, ADRENAL GLANDS: Unremarkable on noncontrast imaging. KIDNEYS AND URETERS: The kidneys are normal in size, shape, and attenuation. There is a nonobstructing 0.2 cm calcification in the upper pole of the right kidney, unchanged from prior exam. No hydronephrosis or hydroureter seen. No perinephric stranding. BLADDER: Significantly distended (7.4 x 10.6 x 11.7 cm, 480 mL volume) and otherwise unremarkable. PELVIC VISCERA: Unremarkable. GASTROINTESTINAL TRACT: There is evidence of high-grade partial or early complete small bowel obstruction with marked abnormal gaseous distention of multiple small bowel loops in the abdomen with scattered air-fluid levels seen, new when compared to the prior exam and highly suspicious for a small bowel obstruction. Small bowel loops measure up to 4 cm in short axis. There is also marked fluid and gaseous distention of the stomach. The transition point appears to be located in the right lower quadrant (around image 51 of series 2) with decompression of the distal ileal bowel loops. No mass is seen at this location and findings may be related to adhesion or less likely a subtle internal hernia. The terminal ileum appears decompressed and unremarkable. No free fluid or free air is seen. No pneumatosis is seen. The appendix is completely filled with dense material, possibly inspissated barium versus dense calcification cast. Appendix is otherwise unremarkable. There is gas seen throughout the rectosigmoid colon. Extensive distal descending and rectosigmoid colon diverticulosis is seen with bowel wall thickening and innumerable small diverticula are seen. No evidence of superimposed acute diverticulitis is seen. ABDOMINAL WALL: No significant abdominal wall hernia is appreciated. LYMPH NODES, VASCULAR: Dense atherosclerotic calcifications of the abdominal aorta and branch vessels is seen. No significant abdominal or pelvic adenopathy is noted. OSSEOUS STRUCTURES: There is a mild convex right thoracolumbar curvature, possibly positional. Severe degenerative disc disease is seen at the lumbosacral junction and moderate degenerative disc disease is noted at L4-5 with disc space narrowing, vacuum disc phenomenon and mild vertebral spurring. There is posterior extrusion of some of the gas at the L4-5 level. Advanced facet arthropathy is seen throughout the mid and lower lumbar spine. Osteopenia is suspected. IMPRESSION: 1. Findings are consistent with a high-grade partial or early complete small bowel obstruction with marked luminal distention of small bowel loops and multiple air-fluid levels. At the transition point in the right lower quadrant, no definite mass is seen and findings may be related to adhesion or other etiology, such as a subtle internal hernia. Distal and terminal ileum are decompressed. Surgical consult is recommended. 2. No evidence of pneumatosis intestinalis or bowel perforation, though the patient is at risk for perforation. 3. Prominent distal descending and sigmoid colonic diverticulosis with no evidence of acute diverticulitis. 4. Extensive atherosclerotic vascular disease. 5. Small bilateral pleural effusions with associated mild atelectatic changes in the lung bases bilaterally. 6. Markedly atrophic pancreas. 7. Nonobstructing 0.2 cm calcification in upper pole of right kidney, unchanged from 06/05/2018. 8. Prominent urine distention of the bladder. Please correlate clinically. Findings may be related to neurogenic bladder/functional outlet obstruction and patient may benefit from straight catheter decompression. 9. Moderate to severe degenerative changes in the lower lumbar spine. This critical result was discussed with Dr. Mac 06/23/2018, 4:15 PM and it was ascertained that the content and urgency of this report was understood at the time of direct communication.
--- NOTE | 2018-06-23 19:46 | History & Physical ---
See Addendum Papito ZIMMERMAN,[facility] 06/23/181945: General Information and HPI MD Statement: I have seen and personally examined NATHALIE ROMERO and documented this H&P. The patient is a 83 year old F who presented with a patient stated chief complaint of [vomiting black fluid]. Source of Information: patient, family, W10 Exam Limitations: clinical condition History of Present Illness: Ms. Romero is 83-year-old female with past medical history significant for atrial fibrillation on Eliquis, moderate mitral regurgitation, moderate tricuspid regurgitation, pulmonary hypertension, hypertension, hyperlipidemia, COPD not on home oxygen, chronic hyponatremia, GERD, anxiety, ethanol abuse who transferred from short-term rehab for evaluation of vomiting with x-ray findings of possible bowel obstruction. 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 According to the patient was alert oriented [address] reported diarrhea for couple of days, stool is mostly "blackish fluid", yesterday for the first time she had vomit of blackish fluid as well. Abdominal x-ray in the facility revealed evidence of small bowel obstruction. Patient denied any abdominal pain , nausea or vomiting at this time. Allergies/Medications Allergies: Coded Allergies: Penicillins (UNKNOWN 08/19/16) Home Med list Alprazolam 0.25 MG TABLET 1 TAB PO BIDP PRN anxiety (Reported) Apixaban (Eliquis) 2.5 MG TABLET 1 TAB PO BID anticoagulant Aspirin (Aspirin*) 81 MG TAB.CHEW 81 MG PO DAILY heart Atorvastatin Calcium 40 MG TABLET 1 TAB PO 1700 High cholestrol Diltiazem HCl 30 MG TABLET 1 TAB PO BID HEART (Reported) Fluconazole 100 MG TABLET 1 TAB PO DAILY ANTIBIOTIC, INFECTION (Reported) Lactobacillus Acidophilus (Acidophilus) 1 EACH CAPSULE 1 CAP PO BID GI ( Reported) Past History Travel History Traveled to [place] past 21 day No Medical History Neurological: CVA EENT: NONE Cardiovascular: AFIB, CAD, hypertension, hyperlipidemia, pulmonary HTN Respiratory: COPD, lung nodule Gastrointestinal: GERD Hepatic: NONE Renal: ALBERT HYPONATREMIA Musculoskeletal: NONE Psychiatric: anxiety, alcohol abuse Endocrine: osteoporosis, hyponatremia Blood Disorders: NONE Cancer(s): NONE 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 self Services at Home: None Primary Language: Macedonian ETOH Use: denies use Illicit Drug Use: denies illicit drug use Functional Ability ADLs Independent: dressing, eating, toileting, bathing. IADLs Independent: shopping, housework, finances, food prep, telephone, transportation , medication admin. Review of Systems Review of Systems Constitutional: Reports: see HPI. Denies: fever. EENTM: Denies: blurred vision. Cardiovascular: Denies: chest pain, edema, palpitations. Respiratory: Denies: cough, short of breath. GI: Reports: diarrhea, vomiting. Denies: abdominal pain. Genitourinary: Denies: dysuria, frequency. Musculoskeletal: Denies: back pain. Exam & Diagnostic Data Last 24 Hrs of Vital Signs/I&O Vital Signs Date Time Temp Pulse Resp B/P B/P Pulse O2 O2 Flow FiO2 Mean Ox Delivery Rate 06/23 1826 99.0 123 20 111/63 06/23 1555 138 20 111/55 06/23 1452 96 Room Air 06/23 1411 97.6 118 18 95/57 98 Room Air 06/23 1313 97.5 91 18 99/51 98 Room Air Intake & Output 06/23 1600 06/23 0800 06/23 0000 Intake Total Output Total 600 Balance -600 Output, 600 Gastric Drainage Patient 45.359 kg Weight Weight Estimated Measurement Method Physical Exam General Appearance Alert, Cooperative, No Acute Distress Skin No Rashes Skin Temp/Moisture Exam: Warm/Dry HEENT Atraumatic, PERRLA, EOMI, Mucous Membr. moist/pink Neck Supple, No JVD Cardiovascular Regular Rate, Normal S1, Normal S2, No Murmurs Lungs Clear to Auscultation, Normal Air Movement Abdomen Soft, No Tenderness Neurological Normal Speech, Strength at 5/5 X4 Ext Extremities No Clubbing, No Cyanosis, No Edema, Normal Pulses Assessment/Plan Assessment: Ms. Romero is 83-year-old female with past medical history significant for atrial fibrillation on Eliquis, moderate mitral regurgitation, moderate tricuspid regurgitation, pulmonary hypertension, hypertension, hyperlipidemia, COPD not on home oxygen, chronic hyponatremia, GERD, anxiety, ethanol abuse who transferred from short-term rehab for evaluation of vomiting with x-ray findings of possible bowel obstruction. NG tube was placed in the ED and 1300 cc of brownish guaiac positive fluid was suctioned. I had a conversation with the power of workers compensation defense attorney (Kelly Gary) who expressed the patient wishes to pursue hospice evaluation. They are not willing to investigate or treat her current symptoms. Based on that I spoke to the ED doctor and pillowcase cleaner and patient will be evaluated by hospice as soon as possible. Plan -Observe in general medical floor -Comfort care measures -Morphine 2 mg every 1 as needed -Ativan 1 mg every 2 as needed -Acetaminophen 650 every 4 hours as needed -Scopolamine patch -Hospice evaluation in a.m. -Regular diet As Ranked By This Provider Problem List: 1. Coffee ground emesis Observation Initial Note - I have personally examined NATHALIE ROMERO on 06/23/18 at 2112. The disposition of NATHALIE ROMERO is uncertain at this time and before a determination can be made, she requires a period of observation for the following reasons [for hospice evaluation in a.m. comfort care] Core Measures/Misc (06/22) Acute Coronary Syndrome ACS Diagnosis: No Congestive Heart Failure Congestive Heart Failure Diagnosis No Cerebrovascular Accident CVA/TIA Diagnosis: No VTE (View Protocol) VTE Risk Factors Age>40 No Mechanical VTE Prophylaxis d/t Other No VTE Pharm Prophylaxis d/t Other Comment: comfort care Sepsis (View protocol) Sepsis Present: No If YES complete Sepsis Event Note If YES complete Sepsis Event Note Yoni Neff 06/23/18 3710: Core Measures/Misc (06/22) Sepsis (View protocol) If YES complete Sepsis Event Note If YES complete Sepsis Event Note Attending MD Review Statement Attending Statement Attending MD Statement: examined this patient, discuss w/resident/PA/INSPECTION MANAGER, agreed w/resident/PA/INSPECTION MANAGER Attending Assessment/Plan: Addendum by . Patient was seen and examined at bedside today (9/18/18 ) at 8:30Pm. Reviewed the history physical done by the resident. Reviewed the past medical family, family, social history. ROS: 10 point system reviewed and negative except as described above. See physical examination per resident note. Labs reviewed. CT abs; Findings are consistent with a high-grade partial or early complete small bowel obstruction with marked luminal distention of small bowel loops and multiple air-fluid levels. At the transition point in the right lower. Assessment: #vomiting due to small bowel obstruction. #admitted to hospice care #Sepsis #Metabolic acidosis #Severe hypokalemia #ckd-3 #sigmoid colon mass, with recent bowel obstruction, likely colon cancer. #Atrial fibrillation was on Eliquis, moderate mitral regurgitation, moderate tricuspid regurgitation, pulmonary hypertension, hypertension, hyperlipidemia, COPD not on home oxygen, chronic hyponatremia, GERD, anxiety, Plan: Inpatient admission for hospice care. Stop all her home medications. Started her on as needed Lorazepam, morphine, as needed Dulcolax and Tylenol. Also use a transdermal scopolamine patch. Hospice evaluation in the morning. Abdulaziz spoke to the power of workers compensation defense attorney who is in patient's neighbor. Goal is to keep her comfortable. Currently has NG tube. Which can be taken out tomorrow. Reviewed with the resident. Agree with the rest of the plan as per resident's note. Dr.Ravinder Sonido MD. Hospitalist. Pager: [phone], cell: [phone].
[2018-06-23 21:40] VITALS: BP 98/60
[2018-06-24 06:32] VITALS: BP 90/44
--- NOTE | 2018-06-24 07:41 | PN- Housestaff ---
Brennon Victoria 06/24/18 0741: Subjective Follow-up For: HOSPICE evaluation Subjective: Patient seen and examined at bedside. She is complaining of dry mouth and mild abdominal pain. She is a poor historian. When I was talking with her she said you can talk with Kelly she is my power of environmental attorney. She seem in mild distress. Review of Systems Constitutional: Reports: see HPI. Objective Last 24 Hrs of Vital Signs/I&O . Physical Exam General Appearance: Alert, Oriented X3, Cooperative, No Acute Distress Cardiovascular: Normal S1, Normal S2 Lungs: Clear to Auscultation, Normal Air Movement Abdomen: No Hepatospenomegaly, Tender to palpation Assessment/Plan Assessment: 83-year-old female with past medical history of arterial fibrillation on Eliquis , hypertension, COPD, GERD, anxiety, sigmoid mass on colonoscopy presented to emergency department with a chief complaint of small bowel and stomach obstruction nausea vomiting. At the time of presentation emergency department patient vitals and labs are given below Vitals: Temperature 98.9, respiratory 20, blood patient 98/5 0 Labs: WBC 16.7, RBC 3.5, hemoglobin, hematocrit 10.8/31.2, MCV 88.2, platelet 341, Sodium 140, potassium 3.9, chloride 94, creatinine 1.3, estimated GFR 39, glucose 125, serum osmolarity 245 X-ray abdomen: Findings: IMPRESSION: Nonspecific, diffuse gaseous distention of the colon. Air-fluid levels of bowel, as well. Findings favor ileus rather than a distal colonic obstruction, and an ileus could be caused by a colitis or gastroenteritis. CT pelvis abdomen: Findings are consistent with a high-grade partial or early complete small bowel obstruction with marked luminal distention of small bowel loops and multiple air-fluid levels. At the transition point in the right lower quadrant, Extensive atherosclerotic vascular disease. Markedly atrophic pancreas Prominent urine distention of the bladder. P Problems list: * Sigmoid mass * small bowel obstruction status post decline intervention/hospice care * Past medical history atrial fibrillation, mitral regurg, pulmonary hypertension, hypertension, hyperlipidemia, COPD, GERD, anxiety, hyponatremia, hypokalemia, Plan: * We discussed with the patient power of environmental attorney Kelly * According to her the patient do not want any intervention * She knows that she having same mild mass and the consequences fatal * But in spite of that she do not want any further intervention * We will give symptomatic treatment for the patient * Morphine 1 mg IV every hour as needed for pain * Ativan 1mg IV every 6 hour as needed * Continue NG tube to help with nausea and vomiting * IV Protonix * Glycine spray for dry mouth * Patient will be sent to hospice for further management Problem List: 1. Hypokalemia 2. Atrial fibrillation 3. GERD 4. COPD 5. HTN (hypertension) 6. Fall 7. Cancer of sigmoid 8. Anemia 9. Coffee ground emesis Pain Ratin Pain Location: abdomin Pain Goal: Remain pain free Pain Plan: pain mange Tomorrow's Labs & Rationales: no labs Jorge Solomon 06/24/18 1157: Attending MD Review Statement Attending Statement Attending MD Statement: examined this patient, discuss w/resident/PA/DUST MOP MAKER, agreed w/resident/PA/DUST MOP MAKER, discussed with family, reviewed EMR data (avail), discussed with nursing, discussed with case mgmt, reviewed images, amended to note Attending Assessment/Plan: Patient placed on observation status [facility] comfort [facility] on hosp[facility] evaluation. Consult hospice service and follow recs. Spoke to CLINT who is bedside and awaitng hospice evaluation.
--- NOTE | 2018-06-25 11:22 | Discharge Summary ---
See Addendum Visit Information Visit Dates Admission Date: 06/23/18 Discharge Date: 06/24/18 Hospital Course Course Attending Physician: Jorge Solomon MD Primary Care Physician: Jose ZIMMERMAN,[facility] Course: Hospital Course: 83-year-old female with past medical history of arterial fibrillation on Eliquis , hypertension, COPD, GERD, anxiety, sigmoid mass on colonoscopy presented to emergency department with a chief complaint of small bowel and stomach obstruction nausea vomiting. At the time of presentation emergency department patient vitals and labs are given below Hospital course: Vitals: Temperature 98.9, respiratory 20, blood patient 98/5 0 Labs: WBC 16.7, RBC 3.5, hemoglobin, hematocrit 10.8/31.2, MCV 88.2, platelet 341, Sodium 140, potassium 3.9, chloride 94, creatinine 1.3, estimated GFR 39, glucose 125, serum osmolarity 245 X-ray abdomen: Findings: IMPRESSION: Nonspecific, diffuse gaseous distention of the colon. Air-fluid levels of bowel, as well. Findings favor ileus rather than a distal colonic obstruction, and an ileus could be caused by a colitis or gastroenteritis. CT pelvis abdomen: Findings are consistent with a high-grade partial or early complete small bowel obstruction with marked luminal distention of small bowel loops and multiple air-fluid levels. At the transition point in the right lower quadrant, Extensive atherosclerotic vascular disease. Markedly atrophic pancreas Prominent urine distention of the bladder. P She came to the hospital at this time for the following problems * Sigmoid mass * small bowel obstruction status post decline intervention/hospice care Plan: The patient having small bowel obstruction and having nausea and vomiting. I detailed discussion done with the patient power of energy attorney Kelly. According to her the patient do not want any intervention. Symptomatic treatment at hospital done. She was given pantoprazole, glycine spray for dry mouth, acetaminophen as needed for fever, lorazepam injection for anxiety, morphine injection as needed for pain. Patient discharged from inpatient to [facility] care. Allergies: Coded Allergies: Penicillins (UNKNOWN 08/19/16) Disposition Summary Disposition Principal Diagnosis: intestinal obstruction Additional Diagnosis: Colon mass Afib Discharge Disposition: hospice - medical facilit Discharge Instructions General Discharge Information Code Status: Comfort Care Only Patient's Diet: soft as tolereted, for now she is NPO because of intestinal obsruction and vomitting Patient's Activity: self limitid Follow-Up Instructions/Appts: please follow up with attendent taking care at hospice fascility Copies To: Jose ZIMMERMAN,Nohelia
== END 2018-06-24 12:47 | disposition hospice, home (50) ==
LOC: DELPENDDIS → ERH 13:02 → ERHI 14:41 → CANRESERV 15:07 → ENRESERV 15:07 → EDBEDREQ 18:59 → CANRESERV 19:02 → ENRESERV 19:02 → ERHI 19:53 → ENTRNSPT 21:02 → EDTRNSPT 21:05 → EDTRNSPTSTS 21:05 → EDTRNSPT 21:06 → 2NA 21:20 → CMPTRNSPT 21:39 → 2NA 06-24 07:43 → ENPENDDIS 06-24 09:12 → 2NA 06-24 09:52
PROVIDERS: Emergency Medicine
DX: K56.609 Unspecified intestinal obstruction, unspecified as to partial versus complete obstruction (principal); Z51.5 Encounter for palliative care; K63.89 Other specified diseases of intestine; I48.91 Unspecified atrial fibrillation; Z79.01 Long term (current) use of anticoagulants; I10 Essential (primary) hypertension; J44.9 Chronic obstructive pulmonary disease, unspecified; K21.9 Gastro-esophageal reflux disease without esophagitis; F41.9 Anxiety disorder, unspecified; R33.9 Retention of urine, unspecified; E87.6 Hypokalemia; I34.0 Nonrheumatic mitral (valve) insufficiency; I27.20 Pulmonary hypertension, unspecified; F10.10 Alcohol abuse, uncomplicated; M81.0 Age-related osteoporosis without current pathological fracture; E78.5 Hyperlipidemia, unspecified; I25.10 Atherosclerotic heart disease of native coronary artery without angina pectoris; D64.9 Anemia, unspecified; Z86.73 Personal history of transient ischemic attack (TIA), and cerebral infarction without residual deficits; Z87.440 Personal history of urinary (tract) infections
CPT/HCPCS: 6030; 71045; 74176; 93005; 93010; 96365; 96366; 96375; 96376; 99291; G0378; J2354; J2405

== ENCOUNTER 2018-06-24 12:48 | Inpatient (IN) | payer OTHER ==
[~2018-06-24 12:48] MED LIST changes: +ACIDOPHILUS1 EACH PO; +DILTIAZEM HCL30 M1 PO; +FLUCONAZOLE100 M1 PO
--- NOTE | 2018-06-24 14:12 | History & Physical ---
General Information and HPI Chief Complaint: Admit to hospice Source of Information: patient, old records, friend Exam Limitations: poor historian Associated Symptoms: nausea, vomiting, urinary retention History of Present Illness: Pt. is an 83 y.o. Female with PMHx of atrial fibrillation on Eliquis, HTN, COPD, GERD, anxiety, recent finding of sigmoid mass now with small bowel obstruction. Nasogastric tube placed in ER yesterday due to copious brown emesis and this has helped with the nausea and vomiting. Pt. denies any abdominal pain, nausea, vomiting, bloating at this time. She has some discomfort when swallowing (due to ngt) and her mouth is dry. Bladder scanned for 490cc during exam. Allergies/Medications Allergies: Coded Allergies: Penicillins (UNKNOWN 08/19/16) Past History Medical History Neurological: CVA EENT: NONE Cardiovascular: AFIB, CAD, hypertension, hyperlipidemia, pulmonary HTN Respiratory: COPD, lung nodule Gastrointestinal: GERD Hepatic: NONE Renal: ALBERT HYPONATREMIA Musculoskeletal: NONE Psychiatric: anxiety, alcohol abuse Endocrine: osteoporosis, hyponatremia Blood Disorders: NONE Cancer(s): NONE SCRUB WOMAN/Reproductive: NONE History of MRSA: No History of VRE: No History of CDIFF: No Tetanus Vaccine: 05/31/18 Surgical History Surgical History: non-contributory Past Family/Social History Family History: unobtainable Psychosocial History: Single, no children. Has Kelly JARAMILLO. Past history of alcohol abuse, tobacco unknown. 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 Prior to that was independent at home but function had been failing. Review of Systems Review of Systems Constitutional: Reports: see HPI. Exam & Diagnostic Data Last 24 Hrs of Vital Signs/I&O Vital Signs Date Time Temp Pulse Resp B/P B/P Pulse O2 O2 Flow FiO2 Mean Ox Delivery Rate 06/24 1559 98.9 20 98/50 Physical Exam General Appearance Alert, No Acute Distress Skin No Significant Lesion HEENT Atraumatic, nasogastric tube left nare; dry mucus membranes (significant brown drainage) Cardiovascular Regular Rate, No Murmurs Lungs Clear to Auscultation Abdomen Soft, No Tenderness, hypoactive bowel sounds Neurological alert and able to follow simple commands. At times conversation not relevant to question Extremities bipedal edema Last 24 Hrs of Labs/John: 06/23/18: CBC with hgb 10.8/Hct 31.2 Chem with K 2.9, Bun 46, Cr 1.3, alb 3.0 Assessment/Plan Assessment: 83 y.o. female with known sigmoid mass, now with small bowel obstruction and who declines intervention and is placed on hospice care. Plan: Start octreotide 100 mcg SC bid for antisecretory Morphine 1 mg IV every hour as needed for pain/dyspnea Ativan 0.5mg IV every 6 hours as needed for anxiety Continue ngt as it is helping with n/v Continue scopolamine for secretions Place marie catheter for urinary retention due to obstruction Continue protonix IV Glycerin spray for dry mouth Discussed with nursing, mission commander, CLINT
--- NOTE | 2018-06-24 14:28 | PN- Housestaff ---
See Addendum Subjective Follow-up For: Hospice evaluation Suspected mass and sigmoid colon Small intestinal obstruction Vomiting, nausea Urine retention Hypokalemia Subjective: Patient seen and examined at bedside. She is complaining of dry mouth and mild abdominal pain. She is a poor historian. When I was talking with her she said you can talk with Kelly she is my power of clinical immunologist. She seem in mild distress. Review of Systems Constitutional: Reports: see HPI. Objective Last 24 Hrs of Vital Signs/I&O Vital Signs Date Time Temp Pulse Resp B/P B/P Pulse O2 O2 Flow FiO2 Mean Ox Delivery Rate 06/24 1559 98.9 20 98/50 Intake & Output 06/24 1600 06/24 0800 06/24 0000 Intake Total 20 Output Total 500 Balance -480 Intake, IV 20 Intake, Oral 0 Output, Urine 500 Physical Exam General Appearance: Alert, Oriented X3, Mild Distress Cardiovascular: Normal S1, Normal S2 Lungs: Clear to Auscultation, Normal Air Movement Abdomen: No Hepatospenomegaly, Tender to palpation Extremities: No Clubbing, No Cyanosis, No Edema Assessment/Plan Assessment: 83-year-old female with past medical history of arterial fibrillation on Eliquis , hypertension, COPD, GERD, anxiety, sigmoid mass on colonoscopy presented to emergency department with a chief complaint of small bowel and stomach obstruction nausea vomiting. At the time of presentation emergency department patient vitals and labs are given below Vitals: Temperature 98.9, respiratory 20, blood patient 98/5 0 Labs: WBC 16.7, RBC 3.5, hemoglobin, hematocrit 10.8/31.2, MCV 88.2, platelet 341, Sodium 140, potassium 3.9, chloride 94, creatinine 1.3, estimated GFR 39, glucose 125, serum osmolarity 245 X-ray abdomen: Findings: IMPRESSION: Nonspecific, diffuse gaseous distention of the colon. Air-fluid levels of bowel, as well. Findings favor ileus rather than a distal colonic obstruction, and an ileus could be caused by a colitis or gastroenteritis. CT pelvis abdomen: Findings are consistent with a high-grade partial or early complete small bowel obstruction with marked luminal distention of small bowel loops and multiple air-fluid levels. At the transition point in the right lower quadrant, Extensive atherosclerotic vascular disease. Markedly atrophic pancreas Prominent urine distention of the bladder. P Problems list: * Sigmoid mass * small bowel obstruction status post decline intervention/hospice care * Past medical history atrial fibrillation, mitral regurg, pulmonary hypertension, hypertension, hyperlipidemia, COPD, GERD, anxiety, hyponatremia, hypokalemia, Plan: * We discussed with the patient power of clinical immunologist Kelly * According to her the patient do not want any intervention * She knows that she having same mild mass and the consequences fatal * But in spite of that she do not want any further intervention * We will give symptomatic treatment for the patient * Morphine 1 mg IV every hour as needed for pain * Ativan 1mg IV every 6 hour as needed * Continue NG tube to help with nausea and vomiting * IV Protonix * Glycine spray for dry mouth * Patient will be sent to hospice for further management Problem List: 1. Elevated WBC count 2. Hypokalemia 3. Coffee ground emesis 4. Anemia 5. Fall 6. Head trauma 7. Hyperlipidemia 8. COPD Pain Ratin Pain Location: Abdominal pain Pain Goal: Remain pain free Pain Plan: Plan management. Tomorrow's Labs & Rationales: No labs
--- NOTE | 2018-06-24 15:15 | Discharge Summary ---
Visit Information Visit Dates Admission Date: 06/24/18 Discharge Date: 06/24/2018 Hospital Course Course Attending Physician: Jorge Solomon MD Primary Care Physician: Jose ZIMMERMAN,[facility] Hospital Course: 83-year-old female with past medical history of arterial fibrillation on Eliquis , hypertension, COPD, GERD, anxiety, sigmoid mass on colonoscopy presented to emergency department with a chief complaint of small bowel and stomach obstruction nausea vomiting. At the time of presentation emergency department patient vitals and labs are given below Hospital course: Vitals: Temperature 98.9, respiratory 20, blood patient 98/5 0 Labs: WBC 16.7, RBC 3.5, hemoglobin, hematocrit 10.8/31.2, MCV 88.2, platelet 341, Sodium 140, potassium 3.9, chloride 94, creatinine 1.3, estimated GFR 39, glucose 125, serum osmolarity 245 X-ray abdomen: Findings: IMPRESSION: Nonspecific, diffuse gaseous distention of the colon. Air-fluid levels of bowel, as well. Findings favor ileus rather than a distal colonic obstruction, and an ileus could be caused by a colitis or gastroenteritis. CT pelvis abdomen: Findings are consistent with a high-grade partial or early complete small bowel obstruction with marked luminal distention of small bowel loops and multiple air-fluid levels. At the transition point in the right lower quadrant, Extensive atherosclerotic vascular disease. Markedly atrophic pancreas Prominent urine distention of the bladder. P She came to the hospital at this time for the following problems * Sigmoid mass * small bowel obstruction status post decline intervention/hospice care Plan: The patient having small bowel obstruction and having nausea and vomiting. I detailed discussion done with the patient power of assistant prosecuting attorney Kelly. According to her the patient do not want any intervention. Symptomatic treatment at hospital done. She was given pantoprazole, glycine spray for dry mouth, acetaminophen as needed for fever, lorazepam injection for anxiety, morphine injection as needed for pain. Patient discharged from inpatient to [facility] care today. Allergies: Coded Allergies: Penicillins (UNKNOWN 08/19/16) Disposition Summary Disposition Principal Diagnosis: Small bowel obstruction Additional Diagnosis: A. fib Colon mass Discharge Disposition: hospice - medical facilit Discharge Instructions General Discharge Information Code Status: Hospice Patient's Diet: Semisolid if tolerated after subsiding nausea and vomiting Patient's Activity: Self-limited Follow-Up Instructions/Appts: Please follow-up with hospice care attending recommendation Copies To: Jose ZIMMERMAN,Nohelia Attending MD Review Statement Documenting Attending: Jorge Solomon MD Other Findings: Patient transitioned to hospice care. Dianna from hospice will continue care
[2018-06-24 15:59] VITALS: BP 98/50
[2018-06-25 05:43] VITALS: BP 90/50
--- NOTE | 2018-06-25 14:40 | PN- Hospice ---
See Addendum Subjective Subjective: Pt. is seen with CLINT Kelly at bedside. She is comfortable. Denies n/v. She is sleepy and confused at times, thinks she ate mashed potatoes earlier today. She has received no as needed medications today. She remains on IV protonix and SC octreotide. Her ngt drained 75cc brown drainage. Review of Systems Constitutional: Reports: see HPI. Objective Last 24 Hrs of Vital Signs/I&O Vital Signs Date Time Temp Pulse Resp B/P B/P Pulse O2 O2 Flow FiO2 Mean Ox Delivery Rate 06/25 0543 98.3 123 20 90/50 80 Room Air 06/24 1559 98.9 20 98/50 Intake & Output 06/25 1600 06/25 0800 06/25 0000 Intake Total 280 0 Output Total Balance 280 0 Intake, IV 160 Intake, Oral 120 0 Number 1 Bowel Movements Physical Exam General Appearance: no apparent distress, comfortable Head: atraumatic Ears, Nose, Throat: ngt R nare; dry mucus membranes Respiratory: no respiratory distress, lungs clear Cardiovascular: tachycardia Abdomen: soft, non-tender, minimal bowel sounds Extremities: bipedal edema Current Medications: Current Medications Sig/Aspen Start time Last Medication Dose Route Stop Time Status Admin Acetaminophen 0 .STK-MED ONE 06/25 0635 DC PO Acetaminophen 650 MG Q4P PRN 06/24 1415 AC MS Glycerin 2 SPRAY Q4P PRN 06/24 1415 AC PO Glycerin/Mineral Oil 1 GORDO Q8P PRN 06/24 1415 AC TOP Lorazepam 0.5 MG Q6P PRN 06/24 1415 AC IV Morphine Sulfate 1 MG Q1P PRN 06/24 1415 AC IV Octreotide Acetate 100 MCG BID 06/24 2100 AC 06/25 SC 0946 Pantoprazole Sodium 40 MG Q5H 06/25 0000 AC 06/25 Sodium Chloride 100 ML IV 0946 Pantoprazole Sodium 40 MG Q5H 06/24 1700 DC 06/24 Sodium Chloride 100 ML IV 1817 Scopolamine HBr 1 PAT Q72 06/27 0900 AC TOP Assessment/Plan Hospice Assessment/Recommendations: 83 y.o. female with known sigmoid mass, now with small bowel obstruction and who declines intervention and is placed on hospice care. Pt. is comfortable. Continue with current medications. Continue with ngt as there is drainage still and pt is not having nausea/vomiting. Problem List: 1. Small bowel obstruction 2. Hospice care 3. Colonic mass
[2018-06-26 06:52] VITALS: BP 86/42
--- NOTE | 2018-06-26 14:40 | PN- Hospice ---
Subjective Subjective: Pt. is somewhat restless in bed, RR 25. Overnight she has received ativan x 2 and morphine x 1. Her ngt has minimal drainage. She was more alert this am but less than yesterday. Incontinent of urine. Review of Systems Constitutional: Reports: see HPI. Objective Last 24 Hrs of Vital Signs/I&O Vital Signs Date Time Temp Pulse Resp B/P B/P Pulse O2 O2 Flow FiO2 Mean Ox Delivery Rate 06/26 0652 97.1 74 18 86/42 86 Room Air Intake & Output 06/26 1600 06/26 0800 06/26 0000 Intake Total 160 0 Output Total Balance 160 0 Intake, IV 160 Intake, Oral 0 Physical Exam General Appearance: mild distress Head: atraumatic Ears, Nose, Throat: ngt right nare with brownish drainage., oral mucosa dry Respiratory: RR 25, breath sounds diminished Cardiovascular: regular rate/rhythm Extremities: no edema Neurologic/Psychiatric: eyes closed, unable to follow commands or respond to questions Current Medications: Current Medications Sig/Aspen Start time Last Medication Dose Route Stop Time Status Admin Acetaminophen 650 MG Q4P PRN 06/24 1415 AC NM Glycerin 2 SPRAY Q4P PRN 06/24 1415 AC PO Glycerin/Mineral Oil 1 GORDO Q8P PRN 06/24 1415 AC TOP Haloperidol 0.5 MG Q3P PRN 06/26 1430 CAN SC Lorazepam 0.5 MG Q6 06/26 1800 AC IV Lorazepam 0.5 MG Q3P PRN 06/26 1445 AC 06/26 IV 1447 Lorazepam 0.5 MG Q6P PRN 06/24 1415 DC 06/26 IV 1139 Morphine Sulfate 1 MG Q1P PRN 06/24 1415 AC 06/26 IV 1428 Octreotide Acetate 100 MCG BID 06/24 2100 AC 06/26 SC 0821 Pantoprazole Sodium 40 MG Q5H 06/25 0000 DC 06/26 Sodium Chloride 100 ML IV 1132 Scopolamine HBr 1 PAT Q72 06/27 0900 [facility] Assessment/Plan Hospice Assessment/Recommendations: 83 y.o. female with known sigmoid mass, now with small bowel obstruction and who declines intervention and is placed on hospice care. Anxiety/restlessness--schedule ativan 0.5mg IV every 6 hours. As needed dosing every 3 hours Continue with morphine as needed for dyspnea Stop IV protonix Problem List: 1. Small bowel obstruction 2. Hospice care 3. Colonic mass
[2018-06-27 06:20] VITALS: BP 80/48
--- NOTE | 2018-06-27 12:15 | PN- Gen Med ---
Assessment/Plan Medical Assessment: Patient is an 83-year-old female with a significant past medical history of COPD, atrial fibrillation, GERD, hyperlipidemia, hypertension, a CVA, and urinary tract infections who was admitted to inpatient hospice care on June 24, 2018 for initiation of comfort care secondary to development of a small bowel obstruction R/T existing colonic mass for which the patient refuses to pursue treatment. Problem List: 1. Small bowel obstruction 2. Colonic mass 3. COPD Plan: 1. Small bowel obstruction R/T existing colonic mass for which the patient declines treatment: - Continue comfort care. - Continue IV Morphine PRN pain/dyspnea. - Continue IV Ativan prn agitation. - Continue application of Scopolamine Q72 hours for management of secretions. 2. DVT prophylaxis: - Not indicated. Patient is comfort measures only. 3. CODE Status: - Comfort measures only. Subjective Subjective: Patient is resting comfortably in bed on exam and appears in no acute distress. Patient remains minimally responsive per nursing staff report. Review of Systems Constitutional: Denies: see HPI. Comments: Patient is resting comfortably in bed on exam and is minimally responsive to tactile stimuli. Objective Last 24 Hrs of Vital Signs/I&O Vital Signs Date Time Temp Pulse Resp B/P B/P Pulse O2 O2 Flow FiO2 Mean Ox Delivery Rate 06/27 0620 98.3 67 18 80/48 84 Room Air Intake & Output 06/27 1600 06/27 0800 06/27 0000 Intake Total 0 0 Output Total 50 0 Balance -50 0 Intake, IV 0 Intake, Oral 0 0 Number 0 Bowel Movements Output, 50 0 Gastric Drainage Physical Exam General Appearance: Patient appears to be resting comfortably in bed on exam and appears in no acute distress. HEENT: NGT to right nare remains intact and draining small amounts of brown output on exam. Mucous membranes remain dry. Neck: Supple Cardiovascular: Regular Rate, Normal S1, Normal S2 Lungs: Decreased BS throughout bilateral bases. Respirations are shallow and unlabored on exam. on exam. , Respirations are shallow and unlabored on exam. Abdomen: Soft, No Tenderness, Hypoactive BS * 4 quadrants noted on exam. Neurological: Patient is minimally responsive to tactile stimuli on exam. Extremities: No Edema Current Medications: Current Medications Sig/Aspen Start time Last Medication Dose Route Stop Time Status Admin Acetaminophen 650 MG Q4P PRN 06/24 1415 AC MI Glycerin 2 SPRAY Q4P PRN 06/24 1415 AC PO Glycerin/Mineral Oil 1 GORDO Q8P PRN 06/24 1415 AC TOP Haloperidol 0.5 MG Q3P PRN 06/26 1430 CAN SC Lorazepam 0.5 MG Q6 06/26 1800 AC 06/27 IV 1208 Lorazepam 0.5 MG Q3P PRN 06/26 1445 AC 06/26 IV 1447 Lorazepam 0.5 MG Q6P PRN 06/24 1415 DC 06/26 IV 1139 Morphine Sulfate 1 MG Q1P PRN 06/24 1415 AC 06/26 IV 1428 Octreotide Acetate 100 MCG BID 06/24 2100 AC 06/27 SC 0918 Pantoprazole Sodium 40 MG Q5H 06/25 0000 DC 06/26 Sodium Chloride 100 ML IV 1132 Scopolamine HBr 1 PAT Q72 06/27 0900 AC 06/27 TOP 0918
[2018-06-27 14:49] VITALS: BP 90/50
[2018-06-28 06:20] VITALS: BP 82/44
--- NOTE | 2018-06-28 10:03 | PN- Gen Med ---
Assessment/Plan Medical Assessment: This is an [age] year old female with a PMH of COPD, AF, HTN, CVA, HL, GERD and UTIs who was admitted with a SBO d/t a sigmoid mass found on colonoscopy. The patient refused treatment for the SBO and was subsequently transitioned to inpatient hospice on 06/24 per her request. Problem List: 1. Colonic mass 2. Small bowel obstruction 3. Hospice care Plan: SBO d/t colonic mass - Hospice/comfort care - NGT to continuous MWS Fever -Tylenol suppository PRN Restlessness/Agitation/Dyspnea - Continue IV Lorazepam scheduled and PRN for restlessness and agitation - Continue IV Morphine PRN for pain and dyspnea Secretions - Continue Scopolamine Patch Code Status - DNR/DNI DVT/Prophylaxis: Not indicated, comfort care Subjective Follow-up For: Hospice Care Complaints: pt unable to provide hx Subjective: Patient was seen and examined this morning. She was unresponsive to both voice and tactile stimulation. ROS unobtainable d/t her clinical condition. She appeared comfortable, NAD, no restlessness during my visit. Review of Systems Constitutional: Reports: see HPI. Comments: ROS as noted in the Subjective Interval History Objective Last 24 Hrs of Vital Signs/I&O Vital Signs Date Time Temp Pulse Resp B/P B/P Pulse O2 O2 Flow FiO2 Mean Ox Delivery Rate 06/28 0851 102.1 06/28 0620 100.2 40 16 82/44 80 Room Air 06/27 1449 96.0 38 16 90/50 89 Room Air Intake & Output 06/28 1600 06/28 0800 06/28 0000 Intake Total 0 600 Output Total 125 Balance -125 600 Intake, Oral 0 Intake, Other 600 Number 0 Bowel Movements Output, 125 Gastric Drainage Physical Exam General Appearance: No Acute Distress Skin: No Breakdown, mild mottling BL feet Skin Temp/Moisture Exam: Warm/Dry HEENT: Atraumatic Cardiovascular: bradycardic HR 30-40 Lungs: BL coarse vesicular BS, RR 16, O2 sat 80% RA Abdomen: Soft, hypoactive BS all quadrants Neurological: unresponsive Extremities: BL pedal mottling
--- NOTE | 2018-06-29 10:40 | Discharge Summary ---
Visit Information Visit Dates Admission Date: 06/24/18 Discharge Date: 06/28/18 Hospital Course Course Attending Physician: Jorge Solomon MD Primary Care Physician: Nohelia Garcia MD [facility] Course: 83 y.o. female with known sigmoid mass, presented to ER with small bowel obstruction, she declined intervention and was placed on hospice care. She was kept comfortable with morphine, ativan, octreotide, scopolamine and tylenol until she peacefully. Allergies: Coded Allergies: Penicillins (UNKNOWN 08/19/16) Disposition Summary Disposition Principal Diagnosis: Small Bowel Obstruction Additional Diagnosis: Colonic mass Atrial Fibrillation Discharge Disposition: Discharge Instructions General Discharge Information Code Status: Hospice Patient's Diet: N/A Patient's Activity: N/A Follow-Up Instructions/Appts: N/A Copies To: Nohelia Garcia MD Attending Review Statement Documenting Attending: Jorge Solomon MD
== END 2018-06-28 18:20 | disposition expired | DRG 389 ==
LOC: 2NA 12:48 → ENTRNSPT 06-28 20:12 → EDTRNSPTSTS 06-28 20:40 → CMPTRNSPT 06-28 20:53
DX: K56.609 Unspecified intestinal obstruction, unspecified as to partial versus complete obstruction (principal); N17.9 Acute kidney failure, unspecified; E87.1 Hypo-osmolality and hyponatremia; I48.91 Unspecified atrial fibrillation; I10 Essential (primary) hypertension; Z51.5 Encounter for palliative care; K21.9 Gastro-esophageal reflux disease without esophagitis; F41.9 Anxiety disorder, unspecified; Z88.0 Allergy status to penicillin; E78.5 Hyperlipidemia, unspecified; R91.1 Solitary pulmonary nodule; I27.20 Pulmonary hypertension, unspecified; I25.10 Atherosclerotic heart disease of native coronary artery without angina pectoris; Z66 Do not resuscitate; D64.9 Anemia, unspecified; J44.9 Chronic obstructive pulmonary disease, unspecified; D49.0 Neoplasm of unspecified behavior of digestive system
CPT/HCPCS: J2354